=== PATIENT | female | born 1985 | race Caucasian/White ===

== ENCOUNTER → 2018-05-09 09:48 | Outpatient (CLI) | payer OTHER, SELFPAY ==
[2018-05-09 11:18] LABS: Anion Gap 7 (5-15); BUN 11 mg/dL (7-18); Calcium,Total 8.6 mg/dL (8.5-10.1); Chloride 106 mmol/L (98-107); Cholesterol 157 mg/dL (200); Creatinine, Serum 0.85 mg/dL (0.55-1.02); EST Glomerular Filtration Rate 81 mL/min (>60); Est Glom Filt Rate - Afr Amer 98 mL/min (>60); Glucose 78 mg/dL (74-106); High Density Lipoprotein 66 mg/dL; Sodium Level 142 mmol/L (136-145); Thyroid Stim Hormone (TSH) 1.41 uIU/mL (0.358-3.74); Triglycerides 34 mg/dL; Very Low Density Lipoprotein 7 mg/dL (5-40)
== END ==
PROVIDERS: Family Provider Family Medicine; PCP Family Medicine; Visit Provider Family Medicine
DX: Z00.00 Encounter for general adult medical examination without abnormal findings (principal)
CPT/HCPCS: 36415; 80048; 80061; 84443

== ENCOUNTER 2019-03-09 00:25 | Inpatient (IN) | payer OTHER, SELFPAY ==
[2019-03-09] MEDS: Lactated Ringers 1,000 ML 50 ML IV (00:50)
[2019-03-09 01:07] VITALS: BMI 27.8
[2019-03-09 01:13] LABS: Absolute Lymphocyte Count 1.95 X10^3/uL (0.83-4.51); Absolute Neutrophil Count 6.3 X10^3/uL (2.0-7.7); Basophil# 0.04 X10^3/uL; Basophil% 0.4 % (0-1); Eosinophil# 0.04 X10^3/uL; Eosinophils% 0.4 % (0-5); Hematocrit 39.3 % (37-47); Hemoglobin 13.8 g/dL (12.0-15.0); Lymphocyte # 1.95 X10^3/ul (4.0); Lymphocyte % 21.6 % (19-41); Mean Corp Hgb Conc 35.1 g/dL (32-36); Mean Corpuscular Hgb 30.9 pg (27.0-32.0); Mean Corpuscular Volume 88.1 fL (81-99); Monocyte# 0.59 X10^3/uL; Monocyte% 6.5 % (0-10); NRBC Flagged by Analyzer 0 % (0-5); Neutrophil # 6.34 X10^3/uL (2.7-7.7); Neutrophil % 70.4 % (47-70); Platelet Count 143 K/mm3 (150-450); RBC Distribution Width CV 13.5 % (11.6-14.6); RBC Distribution Width SD 43.4 fl (35.1-43.9); Red Blood Count 4.46 M/mm3 (4.2-5.4)
[2019-03-09] MEDS: Oxytocin 30 units/NS 500 ml 30 UNITS/500 ML IV.SOLN 334 UNITS IV (01:33)
--- NOTE | 2019-03-09 01:47 | HP.PCM_ITS ---
History Date of Admission: 03/09/19 Final GAURAV: 03/08/19 Final GAURAV Source: US <20 weeks Gestational age: 40 Weeks and 1 Days History of this : This is a 33 year-old, 2 para 1-0-0-1 at 40-1/7 weeks gestation with EDC of 03/08/2019 by last menstrual period confirmed by first trimester ultrasound presents complaining of spontaneous rupture membranes and contractions. She was found to be in spontaneous labor and was admitted. Her was complicated to date by advanced maternal age and history of anxiety. She has a history of one previous full-term spontaneous vaginal delivery without complication Allergies No Known Allergies Allergy (Verified 09/23/14 17:33) Home Medications: Home Medications Vits [Prenatabs FA ] 1 tablet PO DAILY 09/23/14 Smoking Status: Never smoker Alcohol: None History Past Pregnancies: Past Pregnancies Delivery Date Name GA/Weeks Outcome Route Weight Gender Labor Length Anesthesia Delivery Location Provider FOB Expected Delivery Method: Spontaneous Vaginal Review of Systems Constitutional: Denies: Anorexia, Chills, Fever Cardiovascular: Denies: Chest Pain Respiratory: Denies: Cough Skin: Denies: Rash Neurological: Denies: Change in Speech Hematologic/ Lymphatic: Denies: Hx of blood clot Physical Exam General: Alert, Cooperative, - - very uncomfortable w/ contractions Cardiovascular: Regular rate Lungs: Normal air movement Abdomen: Soft, Gravid, Appropriate for Gestational Age ENGINEERING GROUP LEADER: Normal external genitalia Estimated gestational size: Appropriate for gestational size Presentation: Cephalic Assessment/Plan This is a 33 year-old, high risk multigravida, he is maternal age with active labor G2, P1 at 40-1/7 weeks gestation. Estimated weight is less than 4500 g clinically and pelvis clinically adequate to expect vaginal delivery. Patient had precipitous labor and delivery did not have time for epidural when she arrived to the unit..
--- NOTE | 2019-03-09 01:53 | PCM.OPRPT ---
Vaginal Delivery Maternal Presentation: Active Labor Amniotic Membrane Rupture Type: Spontaneous at home Amniotic Fluid Description: Clear Final GAURAV: 03/08/19 Final GAURAV Source: US <20 weeks Gestational age: 40 Weeks and 1 Days Date of Procedure: 03/09/19 Pre-Operative Diagnosis: labor Post-Operative Diagnosis: same Surgery/ Procedure Performed: Spontaneous Vaginal Delivery Type of Anesthesia: Local with 1% lidocaine - 15 cc Description of Procedure: A vigorous male infant was delivered LUCINA over a second-degree perineal laceration. There was a loose nuchal cord and she delivered easily through it. The remainder the infant was delivered with maternal pushing and gentle traction only in less than 15 seconds. The Pitocin infusion was initiated for active management of the third stage. The cord was clamped and cut after 1 minute. The was attended to by the waiting nursing staff. The placenta was delivered spontaneously and intact. The cervix and vagina were intact. The second-degree perineal laceration was repaired with 3-0 Vicryl suture in a running standard fashion. Sponge and needle counts were correct. A vaginal sweep was completed by me. Presentation: LUCINA Placental Delivery Description: Spontaneous Placenta Disposition: [facility] Cord Vessel Description: 3 Vessels Nuchal Cord Compression: Without compression Cord Entanglement: Around neck x 1, loose Drain: - - none Estimated Blood Loss: 200 Infant A gender: Male (1 minute): 8 (5 minute): 9 Episiotomy Description: None Laceration: 2nd degree Medications given after delivery: IV Pitocin Complications: None
[2019-03-09] MEDS: Oxytocin 30 units/NS 500 ml 30 UNITS/500 ML IV.SOLN 167 UNITS IV (02:03)
[2019-03-09] MEDS: 0.9% Saline Lock 10 ML Syringe IV (03:08)
[2019-03-09 04:03] VITALS: BP 116/68; PULSE 75; RESP 18; TEMP 37
[2019-03-09 09:10] VITALS: BP 130/75; PULSE 69; RESP 18; TEMP 36.8
[2019-03-09 12:05] VITALS: BP 119/79; PULSE 76; RESP 16; TEMP 36.8
[2019-03-09 15:00] VITALS: BP 138/64; PULSE 81; RESP 20; TEMP 37.8
--- NOTE | 2019-03-09 15:12 | CASEMGMT ---
Social Work Referral Date: 03/09/19 Date of Assessment:03/09/19 Reason for Consult: Mother of baby (MOB) reporting to be undiagnosed with anxiety/OCD. Informant: Nursing, Chart Personal Status Mentation: MOB A&Ox3 Present during assessment: MOB and infant. Hx : 2 Hx Para: 1 Infant Gender: Male Name: Clementina Cadena (1min): 8 (5min): 9 Care: Adequate Alleged father: Corey Cadena Alleged father involved: Yes Length of Relationship with alleged father of baby: for 9 years Number of Children in the home: This will be second child for both MOB and FOB. This infant will be younger brother to Hayden Cadena. Hayden is 4 years old. 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 MOB plans to be on maternity leave until August 2019. Family Dynamics/Relationships: MOB reporting to feel safe at home and denies any history of abuse/neglect. Supports: MOB identifying FOB and family as supportive. Transportation: MOB denies any transportation issues. Substance Abuse Hx and Current Pattern of Use MOB denies any substance abuse current or history. Mental Health Hx and Current Status MOB reporting to believe that MOB has both anxiety and OCD. MOB stating that both are undiagnosed at this time. MOB stating to have spoken to PCP about both prior and to have started the process of getting set up with help but then deciding that MOB is doing well. MOB denies any history of suicidal thoughts/attempts. MOB denies any anti-anxiety medications. Items/Skills List for Infants Care Supplies: MOB reporting to have all needed supplies (crib, car seat, clothing etc.). Bonding With : MOB reporting to be bonding with and that was planned. Observed Maternal/Paternal Child interaction: Infant sleeping in bassinet during assessment. MOB did gaze at infant often during assessment. Emotional Assessment: MOB presenting with a pleasant affect during assessment. MOB responding appropriately to questions. Control: MOB stating to plan to use condoms, which is what we did in the past. Resources MOB denies any current community resources. MOB reporting no prior children services involvement. Intervention Social Work assessment. Resources on depression, safe sleeping, Help Me Grow, and [facility] resource list provided to MOB. Assessment Met with MOB and in room. MOB stating that OSMAN, other son, Hayden and family are getting lunch at [employer]. MOB resting in bed and open to this social welfare clerk meeting with MOB. MOB stating that main concern on returning to home with being sleep deprived. MOB stating that with first child, Hayden it was a long time until he slept through the night. MOB hoping that this will be able to be sleep trained sooner. MOB reporting positive support and that FOB will be able to be home with MOB until the beginning on the school year in mid-late Mar. MOB reporting to have support from family if MOB needs to take a nap. This social welfare clerk able to engage in a conversation about the importance of rest and maintaining own mental health in order to care for family an self with MOB. MOB open to discussion about mental health. MOB educated on depression signs and symptoms. MOB not interested in pursuing counseling services at this time. This social welfare clerk encouraging MOB to discuss anxiety/OCD concerns with MOB's PCP. MOB reporting to maybe bring up mental health with PCP. MOB stating to understand the importance of maintaining a healthy mental health status and to have family for support. MOB stating that family has always helped me work through things. MOB educated that counseling could also be an option for MOB to be able to work through things. MOB open to this social welfare clerk having a discussion about the benefits of counseling. MOB provided with counseling options if MOB would decided to pursue this option. Nursing staff updated on social work assessment. Plan: MOB and to discharge to home with OSMAN and Hayden. Jt MCCABE, KRIS
[2019-03-09 20:26] VITALS: BP 125/72; PULSE 86; RESP 16; TEMP 37.2; O2SAT 98
[2019-03-10 00:06] VITALS: BP 110/67; PULSE 67; RESP 16; TEMP 36.7; O2SAT 97
[2019-03-10 03:49] VITALS: BP 95/62; PULSE 62; RESP 16; TEMP 36.6
--- NOTE | 2019-03-10 06:32 | PCM.PN.OB ---
Subjective: Pain well controlled. Average lochia. Working on breast-feeding. - Physical Exam General: Alert, Cooperative, No apparent distress Vital Signs Temp Pulse Resp BP Pulse Ox 98 F 62 16 95/62 97 03/10/19 03:49 03/10/19 03:49 03/10/19 03:49 03/10/19 03:49 03/10/19 00:06 Oxygen Delivery Method Room Air Weight: 80.5 kg Body Mass Index (BMI) 27.8 Medical Necessity - Tobacco Use Smoking Status: Never smoker Assessment/Plan PPD#1 s/p doing well routine care infant and doing well
--- NOTE | 2019-03-10 06:39 | DCINST_ITS ---
Discharge Diet: No Restrictions Discharge Activity: Return to Normal Activity, May not drive while taking narcotic pain medications., May Shower May resume sexual activity in: 4-6 weeks Additional Activity Instructions:: Nothing in the vagina for 4-6 weeks. You may return to work/school in 6 weeks. Call your doctor if your incision/area has: Continuous Slow Oozing, Sudden Increased Bleeding, Increased Pain/ Swelling, Increased Redness, Foul Smelling Discharge Additional Instructions: If you experience any of the following, contact your healthcare provider. * Bleeding that soaks a pad every hour for 2 hours * Fever 100.4 or higher * Unrelieved incision or abdominal pain * Swelling, redness, discharge or bleeding from your incision or episiotomy site * Your incision begins to separate * Problems urinating (including inability to urinate or burning while urinating). * Visual changes * Severe headache * Flu-like symptoms * Pain or redness in one of both of your breasts * Pain, warmth, tenderness or swelling in your legs, especially the calf area * Frequent nausea and vomiting * Symptoms of depression or anxiety If you experience any of the following, call 911 or go to the nearest Emergency Room. * Chest pain * Problems breathing * Seizure activity * Partial or complete paralysis of a body part, slurred speech, weakness or drooping of the face, or a sudden inability to walk or hold your balance Allergies/Adverse Reactions: Allergies No Known Allergies Allergy (Verified 09/23/14 17:33) Medications to take at Discharge Vits [Prenatabs FA ] 1 tablet PO DAILY 09/23/14 Ibuprofen [Motrin] 600 mg PO Q6H PRN #60 tab 03/10/19 The following prescriptions were given: Ibuprofen [Motrin] 600 mg PO Q6H PRN #60 tab PRN Reason: Pain Transmission Status: Received by [facility] Please Follow Up With: Lety Coates MD - [phone] When: Call to make an appointment with your doctor in 1-2 and 6 weeks Primary Care Physician: Armani Heart MD [Primary Care Provider] - Test Results: Test results from this visit will be discussed in further detail at your follow- up appointment, if applicable.
--- NOTE | 2019-03-10 06:39 | PCM.DCVAG ---
Discharge Diet: No Restrictions Discharge Activity: Return to Normal Activity, May not drive while taking narcotic pain medications., May Shower May resume sexual activity in: 4-6 weeks Additional Activity Instructions:: Nothing in the vagina for 4-6 weeks. You may return to work/school in 6 weeks. Call your doctor if your incision/area has: Continuous Slow Oozing, Sudden Increased Bleeding, Increased Pain/ Swelling, Increased Redness, Foul Smelling Discharge Additional Instructions: If you experience any of the following, contact your healthcare provider. Bleeding that soaks a pad every hour for 2 hours Fever 100.4 or higher Unrelieved incision or abdominal pain Swelling, redness, discharge or bleeding from your incision or episiotomy site Your incision begins to separate Problems urinating (including inability to urinate or burning while urinating). Visual changes Severe headache Flu-like symptoms Pain or redness in one of both of your breasts Pain, warmth, tenderness or swelling in your legs, especially the calf area Frequent nausea and vomiting Symptoms of depression or anxiety If you experience any of the following, call 911 or go to the nearest Emergency Room. Chest pain Problems breathing Seizure activity Partial or complete paralysis of a body part, slurred speech, weakness or drooping of the face, or a sudden inability to walk or hold your balance Allergies/Adverse Reactions: Allergies No Known Allergies Allergy (Verified 09/23/14 17:33) Medications to take at Discharge Vits [Prenatabs FA ] 1 tablet PO DAILY 09/23/14 Ibuprofen [Motrin] 600 mg PO Q6H PRN #60 tab 03/10/19 The following prescriptions were given: Ibuprofen [Motrin] 600 mg PO Q6H PRN #60 tab PRN Reason: Pain Transmission Status: Received by [facility] Please Follow Up With: Lety Coates MD - [phone] When: Call to make an appointment with your doctor in 1-2 and 6 weeks Primary Care Physician: Armani Heart MD [Primary Care Provider] - Test Results: Test results from this visit will be discussed in further detail at your follow-up appointment, if applicable.
[2019-03-10 08:15] VITALS: BP 102/63; PULSE 71; RESP 16; TEMP 36.8
[2019-03-10] MEDS: Senna/Docusate Sodium 1 Tablet PO (13:55)
[2019-03-10 13:58] VITALS: BP 107/68; PULSE 85; RESP 16; TEMP 36.4
[2019-03-10 20:48] VITALS: BP 113/63; PULSE 80; RESP 18; TEMP 36.7
[2019-03-11 04:00] VITALS: BP 118/67; PULSE 86; RESP 16; TEMP 36.8
--- NOTE | 2019-03-11 07:15 | PCM.PN.OB ---
Subjective: Seen at bedside doing well. Breast-feeding well. good Pain control. Lochia mild. - Physical Exam General: Alert, Oriented x3 Abdomen: Soft, Non-Distended, - - fundus firm Extremities: No Calf Tenderness Vital Signs Temp Pulse Resp BP Pulse Ox 98.2 F 86 16 118/67 97 03/11/19 04:00 03/11/19 04:00 03/11/19 04:00 03/11/19 04:00 03/10/19 00:06 Oxygen Delivery Method Room Air Weight: 80.5 kg Body Mass Index (BMI) 27.8 Medical Necessity - Tobacco Use Smoking Status: Never smoker Assessment/Plan Pertinent day #2, doing well Routine care DC home
[2019-03-11 09:15] VITALS: BP 117/67; PULSE 75; RESP 16; TEMP 36.7
== END 2019-03-11 09:50 | disposition home or self-care (01) | DRG 807 ==
PROVIDERS: Admitting Provider Obstetrics & Gynecology; Family Provider Family Medicine; PCP Family Medicine; Visit Provider Obstetrics & Gynecology
DX: O62.3 Precipitate labor (principal); O69.81X0 Labor and delivery complicated by cord around neck, without compression, not applicable or unspecified; O70.1 Second degree perineal laceration during delivery; Z3A.40 40 weeks gestation of pregnancy; Z37.0 Single live birth
CPT/HCPCS: 59025; 59050; 85025; 86850; 86900; 99218; J7120; A4216; G0378

== ENCOUNTER → 2020-05-23 15:25 | Outpatient (CLI) | payer OTHER, SELFPAY ==
--- NOTE | 2020-05-23 15:34 | RAD_ITS ---
STUDY: X-RAY - SACRUM/COCCYX REASON FOR EXAM: Female, 34 years old. Fall x2 years ago, pain since then TECHNIQUE: 4 view(s) of the sacrum and coccyx were obtained. COMPARISON: None. FINDINGS: Normal bilateral sacroiliac joints. Normal visualized sacral ala and fused sacral bodies. Normal sacrococcygeal junction with a normal angulation. Normal coccygeal segments. The presacral soft tissue structures are unremarkable. RAD/Sacrum-Coccyx min 2 Views IMPRESSION: Normal x-rays of the sacrum and coccyx. Electronically Signed: Lexa Talley MD at 23:41 EDT , Service support ,
[2020-05-23 17:48] LABS: Absolute Lymphocyte Count 1.04 X10^3/uL (0.83-4.51); Absolute Neutrophil Count 3.7 X10^3/uL (2.0-7.7); Basophil# 0.02 X10^3/uL; Basophil% 0.4 % (0-1); Eosinophil# 0.06 X10^3/uL; Eosinophils% 1.2 % (0-5); Hematocrit 41.8 % (37-47); Hemoglobin 13.6 g/dL (12.0-15.0); Lymphocyte # 1.04 X10^3/ul (4.0); Lymphocyte % 20.1 % (19-41); Mean Corp Hgb Conc 32.5 g/dL (32-36); Mean Corpuscular Hgb 28.6 pg (27.0-32.0); Mean Corpuscular Volume 87.8 fL (81-99); Mean Platelet Vol. 12.7 fl (6.2-12.0); Monocyte# 0.38 X10^3/uL; Monocyte% 7.3 % (0-10); NRBC Flagged by Analyzer 0 % (0-5); Neutrophil # 3.67 X10^3/uL (2.7-7.7); Neutrophil % 70.8 % (47-70); Platelet Count 220 K/mm3 (150-450); RBC Distribution Width CV 12.9 % (11.6-14.6); RBC Distribution Width SD 41.8 fl (35.1-43.9); Red Blood Count 4.76 M/mm3 (4.2-5.4); White Blood Count 5.2 K/mm3 (4.4-11.0)
[2020-05-23 17:56] LABS: ALB/GLOB Ratio 1.1 RATIO (0.9-2.4); AST(SGOT) 12 U/L (15-37); Alanine Aminotransfer ALT/SGPT 16 U/L (13-56); Alkaline Phosphatase 72 U/L (45-117); Anion Gap 8 (5-15); BUN 13 mg/dL (7-18); BUN/Creat Ratio 17.3 RATIO (10-20); Calcium,Total 8.9 mg/dL (8.5-10.1); Chloride 106 mmol/L (98-107); Cholesterol 143 mg/dL (200); Creatinine, Serum 0.75 mg/dL (0.55-1.02); EST Glomerular Filtration Rate 92 mL/min (>60); Est Glom Filt Rate - Afr Amer 111 mL/min (>60); Globulin 3.5 g/dL (2.2-4.2); Glucose 72 mg/dL (74-106); High Density Lipoprotein 72 mg/dL; Potassium 3.7 mmol/L (3.5-5.1); Protein, Total 7.5 g/dL (6.4-8.2); Sodium Level 139 mmol/L (136-145); Triglycerides 42 mg/dL; Very Low Density Lipoprotein 8 mg/dL (5-40)
== END ==
PROVIDERS: PCP Family Medicine; Referring Provider Family Medicine; Visit Provider Family Medicine
DX: M53.3 Sacrococcygeal disorders, not elsewhere classified (principal); R10.9 Unspecified abdominal pain; Z13.220 Encounter for screening for lipoid disorders
CPT/HCPCS: 36415; 72220; 80053; 80061; 85025

== ENCOUNTER → 2021-01-18 15:46 | Outpatient (CLI) | payer OTHER, SELFPAY ==
[2021-01-18 18:20] LABS: Vitamin B12 533 pg/mL (211-911)
== END ==
PROVIDERS: PCP Family Medicine; Referring Provider Family Medicine; Visit Provider Family Medicine
DX: R20.2 Paresthesia of skin (principal)
CPT/HCPCS: 36415; 82607

== ENCOUNTER → 2021-02-01 09:35 | Outpatient (CLI) | payer OTHER, SELFPAY ==
--- NOTE | 2021-02-01 09:40 | US_ITS ---
STUDY: ABDOMINAL ULTRASOUND - RIGHT UPPER QUADRANT REASON FOR VISIT: Female, 35 years old right upper quadrant pain. TECHNIQUE: Ultrasound evaluation of the right upper quadrant was performed with real-time and static zarate-scale imaging. TECHNICAL QUALITY: Adequate. COMPARISON: None. FINDINGS: Liver: The liver measures 13.6 cm. There is normal echogenicity of the liver. The bile ducts are within normal limits. There is hepatic color flow. The direction of portal flow is hepatopetal. There is no demonstrated mass lesion. Gallbladder: Normal distended gallbladder. The gallbladder wall measures 1.6 mm. There is a negative sonographic Khan''s sign. There is no pericholecystic fluid. There are no gallstones. Common Bile Duct (C.B.D.): The common bile duct measures 1.9 mm. Pancreas: Normal size of the head, body and tail of the pancreas. There is normal echogenicity of the pancreas. There is no demonstrated pancreatic mass or cyst. Right Kidney: Normal size of the right kidney. The right kidney measures 11.3 cm x 6.1 cm x 3.0 cm. Normal renal cortex. The right cortex measures 1.0 cm. There is no demonstrated renal mass or cyst. There is no right hydronephrosis. US/Abdomen Limited IMPRESSION: Normal right upper quadrant ultrasound examination. Electronically Signed: Kenney Zimmer MD at 10:52 EDT , Service support ,
== END ==
PROVIDERS: PCP Family Medicine; Referring Provider Family Medicine; Visit Provider Family Medicine
DX: R10.11 Right upper quadrant pain (principal)
CPT/HCPCS: 76705

== ENCOUNTER → 2022-04-01 | Outpatient (CLI) | payer OTHER, SELFPAY ==
--- NOTE | 2022-04-01 09:00 | RAD_ITS ---
INDICATION: GERD EXAMINATION/TECHNIQUE: Esophagram and upper GI study with double contrast. Thick and thin oral contrast, and gas bubbles were administered orally via mouth to the patient. Total Fluoroscopic Time: 11 seconds AND number of Fluoroscopic Images: 14 COMPARISON: None. FINDINGS: Esophagram: No masses or strictures identified. Normal motility. Mucosal pattern is unremarkable. No reflux or hiatal hernia. Upper GI study: No masses or strictures identified. Normal motility. Unremarkable visualized small bowel. Mucosal pattern is unremarkable. RAD/Upper GI Dual Contrast IMPRESSION: Negative. Electronically Signed: Kaiser Newton, at 13:10 EDT ,
== END | disposition home or self-care (01) ==
PROVIDERS: PCP Family Medicine; Visit Provider Family Medicine
DX: K21.9 Gastro-esophageal reflux disease without esophagitis (principal); R20.8 Other disturbances of skin sensation
CPT/HCPCS: 74246

== ENCOUNTER → 2022-07-24 | Outpatient (CLI) | payer OTHER, SELFPAY ==
[2022-07-24 16:17] LABS: Absolute Lymphocyte Count 0.94 X10^3/uL (0.83-4.51); Absolute Neutrophil Count 3.8 X10^3/uL (2.0-7.7); Basophil# 0.02 X10^3/uL; Basophil% 0.4 % (0-1); Eosinophils% 1.9 % (0-5); Hematocrit 41.7 % (37-47); Hemoglobin 13.7 g/dL (12.0-15.0); Lymphocyte # 0.94 X10^3/ul (0.83-4.51); Lymphocyte % 17.9 % (19-41); Mean Corp Hgb Conc 32.9 g/dL (32-36); Mean Corpuscular Hgb 28.9 pg (27.0-32.0); Mean Platelet Vol. 12.4 fl (6.2-12.0); Monocyte# 0.38 X10^3/uL; Monocyte% 7.2 % (0-10); NRBC Flagged by Analyzer 0 % (0-5); Neutrophil % 72.2 % (47-70); Platelet Count 198 K/mm3 (150-450); RBC Distribution Width CV 13.2 % (11.6-14.6); RBC Distribution Width SD 42.3 fl (35.1-43.9); Red Blood Count 4.74 M/mm3 (4.2-5.4); White Blood Count 5.3 K/mm3 (4.4-11.0)
[2022-07-24 16:24] LABS: Erythrocyte Sedimentation Rate 11 mm/hr (0-30)
[2022-07-24 17:18] LABS: Vitamin B12 790 pg/mL (211-911)
[2022-07-24 17:53] LABS: ALB/GLOB Ratio 1.1 RATIO (0.9-2.4); AST(SGOT) 10 U/L (15-37); Alanine Aminotransfer ALT/SGPT 17 U/L (13-56); Albumin, Serum 3.8 g/dL (3.2-5.0); Alkaline Phosphatase 66 U/L (45-117); Anion Gap 7 (5-15); BUN 12 mg/dL (7-18); BUN/Creat Ratio 14.8 RATIO (10-20); CRP 3.52 mg/L (0.0-3.0); Calcium,Total 8.7 mg/dL (8.5-10.1); Chloride 106 mmol/L (98-107); Creatinine, Serum 0.81 mg/dL (0.55-1.02); EST Glomerular Filtration Rate 83 mL/min (>60); Est Glom Filt Rate - Afr Amer 101 mL/min (>60); Ferritin 22 ng/mL (8-252); Globulin 3.4 g/dL (2.2-4.2); Glucose 82 mg/dL (74-106); Iron 31 ug/dL (50-170); Iron Binding Capacity,Total 339 ug/dL (250-450); PERCENT IRON SATURATION 9.1 % (15.0-55.0); Potassium 3.5 mmol/L (3.5-5.1); Protein, Total 7.2 g/dL (6.4-8.2); Sodium Level 139 mmol/L (136-145); Thyroid Stim Hormone (TSH) 1.39 uIU/mL (0.358-3.74)
[2022-07-26 13:07] LABS: Anti-Centromere B Ab <0.2 AI (0.0-0.9); Anti-Chromatin <0.2 AI (0.0-0.9); Anti-Jo <0.2 AI (0.0-0.9); Anti-Scleroderma-70 AB <0.2 AI (0.0-0.9); RNP Ab <0.2 AI (0.0-0.9); SJOGREN'S Anti-SS-A test < 0.2 AI (0.0-0.9); SJOGREN'S Anti-SS-B test < 0.2 AI (0.0-0.9); Smith Ab <0.2 AI (0.0-0.9)
[2022-07-26 15:08] LABS: Cytoplasmic Ab (C-ANCA) <1:20 titer (Neg:<1:20)
[2022-07-26 16:38] LABS: Perinuclear Ab (P-ANCA) <1:20 titer (Neg:<1:20)
[2022-07-26 16:45] LABS: Anti-dsDNA Ab 1 IU/mL (0-9)
== END | disposition home or self-care (01) ==
LOC: LAB 15:07
PROVIDERS: PCP Family Medicine; Visit Provider Nurse Practitioner Adult Health
DX: K14.6 Glossodynia (principal); D50.9 Iron deficiency anemia, unspecified
CPT/HCPCS: 36415; 80053; 82607; 82728; 82746; 83540; 83550; 84443; 85025; 85652; 86140; 86225; 86235; 86256

== ENCOUNTER 2023-06-13 11:05 | Day surgery (SDC) | payer OTHER, SELFPAY ==
--- NOTE | 2023-05-28 16:04 | PCM.HP.BLA ---
History and Physical Date of Admission: 06/13/23 HPI: The patient is a 37 year old female presenting for pre-operative visit. She is scheduled for Hysteroscopy D&C and polyp resection, for endometrial polyp. Procedure discussed along with risks, benefits and complications. Other alternatives discussed for management. Consent form signed? No. ? ? PAST MEDICAL HISTORY PAST MEDICAL HISTORY Diagnosis Date ? acne ? ? ANALILIA (generalized anxiety disorder) 05/08/2021 ? GERD without esophagitis 05/08/2021 ? Iron deficiency 01/03/2022 ? Iron deficiency anemia 09/12/2022 ? Mastitis 10/26/2014 ? Obsessive-compulsive disorder 05/08/2021 ? Pilar cyst ? ? right side of head ? Sebaceous cyst 02/23/2022 ? Posterior neck and several on scalp. ? Well adult exam 06/12/2021 ? ? PAST SURGICAL HISTORY PAST SURGICAL HISTORY Procedure Laterality Date ? EGD ? 12/2020 ? PAST SURGICAL HISTORY OF ? ? ? WISDOM TEETH ? ? ? CURRENT MEDICATIONS Current Outpatient Medications Medication Sig Dispense Refill ? ferrous sulfate 325 mg (65 mg iron) tablet Take 1 tablet by mouth once daily. 90 tablet 1 ? No current facility-administered medications for this visit. ? ? ALLERGIES: Patient has no known allergies. ? PERSONAL HISTORY: SOCIAL HISTORY Social History ? Tobacco Use ? Smoking status: Never ? Smokeless tobacco: Never Vaping Use ? Vaping Use: Never used Substance Use Topics ? Alcohol use: No ? ? Comment: none ? Drug use: No ? FAMILY HISTORY: FAMILY HISTORY FAMILY HISTORY Problem Relation Age of Onset ? None Mother ? ? None Father ? ? No Known Problems Brother ? ? Breast Cancer Maternal Grandmother ? ? Diabetes Maternal Grandfather ? ? Heart Paternal Grandfather ? ? Breast Cancer Paternal Aunt ? ? None Sister ? ? other (anencephaly) Brother ? ? other (spina bifida) Other ? ? Allergies Son ? ? Eczema Son ? ? ? REVIEW OF SYMPTOMS: GENERAL: denies fevers or chills ENDOCRINOLOGY: has not been on steroids Cardiology : denies palpitations or chest pain Respiratory: denies SOB or cough Hematology: denies history of prolonged bleeding or easy bruising or VTE Allergy: Denies history of personal or family history of allergy to anesthesia ? PHYSICAL EXAMINATION: ? VITALS: Last menstrual period 05/02/2023. ? GENERAL: The patient is well nourished, well hydrated in no acute distress. , The patient is oriented to time, place, and person. Pelvic USv 05/20/23 DATE OF EXAM: May 10:36AM ? [facility] ? 1060 ?- ?US FEMALE PELVIS TRANSVAG ?/ PROCEDURE REASON: multiple diagnoses ?? ? * * * * Physician Interpretation * * * * ?EXAMINATION: ? TRANSVAGINAL AND LIMITED TRANSABDOMINAL FEMALE PELVIC ULTRASOUND CLINICAL HISTORY: ?Irregular bleeding TECHNIQUE: Sonography of the pelvis was performed by transvaginal and transabdominal (limited) techniques. ?Images were obtained and stored in a permanent archive. MQ: ?[id number] COMPARISON: None RESULT: LMP 05/02/2023 Uterus: -Size: 7.6 x 5.2 x 5.6 cm -Orientation: Retroverted -Endometrial echo complex: Evaluation of the endometrium was adequate. Echogenic solid focus within the endometrium of 1.3 x 0.6 x 1.3 cm. ? Blood flow within it. ?Likely a polyp. The endometrial echo complex measured 1.4 cm. -Cervix: Unremarkable. -Adenomyosis assessment: There are no sonographic findings of adenomyosis. -Fibroids: There are no fibroids. Right Ovary: 3.5 x 2.1 x 2.7 cm. Normal in appearance Left Ovary: 3.2 x 2.1 x 1.8 cm Normal appearance IMPRESSION: endometrial polyp ? PLAN: The risks/benefits/alternatives and personal involved for the planned hysteroscopy D&C with polyp resection were reviewed with the patient. Her questions were answered to her satisfaction and she desires to proceed. Consent was signed. I reviewed with her postop instructions and expectations. ? ? I have reviewed and updated past medical and surgical history, medications and allergies Assessment & Plan Assessment/Plan (1) Endometrial polyp:
--- NOTE | 2023-06-13 | EMB_PTH ---
PATIENT: MAUREEN DAVIS LOC: [facility] [place][id number] AGE/SX: 37/F ROOM: RE06/13/[address]: Dr. Lety Coates MD : [id number] BED: DIS: 06/13/2023 SPEC #: [id number] RECD: 06/13/23 14:09 STATUS: CHASIDY ROB #: [id number] YEYO: 06/13/23 00:[address]: Lety Coates DEPT: SURGICAL PATHOLOGY RECD BY: Keyur Quintanilla ENTERED: 06/13/23 14:09 SP TYPE: ENDOM BX/C MARY DR: Dr. Jorge Milligan MD Tissues: Endometrium, NOS Procedures: Surgery Specimen Level IV HEADER OPERATION: Hysteroscopy, D & C Symphion PRE-OP DIAGNOSIS: Endometrial polyp TISSUE SUBMITTED: Endometrial curettings and polyp MICROSCOPIC DIAGNOSIS Endometrial curettings and polyp: Secretory endometrium. SJ:mg 06/16/2023 MICROSCOPIC DESCRIPTION Slides are reviewed. GROSS DESCRIPTION Received in fixative is one container labeled with the patient's name and designated endometrial curettings and polyp. The specimen consists of multiple irregular fragments of pink soft tissue that in aggregate measure 5.0 x 3.0 x 0.2 cm. The entire specimen is submitted in two cassettes. / SJ:rg 06/13/2023 TC:4 CPT: 17575
[2023-06-13 11:34] LABS: Internal QC Validated? YES +Cl - CLEAR BKGD; Pregnancy, Urine Negative Negative
[2023-06-13 11:37] LABS: Hematocrit 41.2 % (37-47); Hemoglobin 13.4 g/dL (12.0-15.0); Mean Corp Hgb Conc 32.5 g/dL (32-36); Mean Corpuscular Hgb 28.8 pg (27.0-32.0); Mean Corpuscular Volume 88.4 fL (81-99); Mean Platelet Vol. 11.8 fl (6.2-12.0); Platelet Count 200 K/mm3 (150-450); RBC Distribution Width CV 13.5 % (11.6-14.6); RBC Distribution Width SD 43.2 fl (35.1-43.9); Red Blood Count 4.66 M/mm3 (4.2-5.4); White Blood Count 5.3 K/mm3 (4.4-11.0)
[2023-06-13 11:39] VITALS: BP 114/63; PULSE 73; RESP 18; TEMP 36.9; O2SAT 100; BMI 28.4
[2023-06-13] MEDS: Acetaminophen 500 MG Tablet 1000 MG PO (11:44)
[2023-06-13] MEDS: Lactated Ringers 1,000 ML 15 ML IV (11:44)
[2023-06-13] MEDS: Ketorolac 30 MG/ML Syringe IV (11:44)
[2023-06-13] MEDS: Lidocaine 1%/Epi 1:200 (30ml) 30 ML AMPUL (12:27)
--- NOTE | 2023-06-13 12:38 | PCM.DC ---
Discharge Instructions Diet Discharge Diet: No restrictions Activity May resume sexual activity in: 1 week Lifting Restrictions: none Dressing / Incision Call your doctor if your incision/area has: Sudden Increased Bleeding and Foul Smelling Discharge Call your doctor if you observe: Fever of 101 or Higher and Using more than 1 pad per hour (for 2 hrs in a row) Follow Up Care Please Follow Up With: Lety Coates MD When: As needed. We will call you with your pathology results next week. Call [phone] or send a [employer] message with nonurgent questions. Test Results: Test results from this visit will be discussed in further detail at your follow-up appointment, if applicable. Discharge Plan Admission Primary Reason for Your Visit: D&C Attending Provider: Lety Coates Primary Care Provider: Jorge Milligan Discharge Orders/Prescriptions Prescriptions: No Action ferrous sulfate 325 mg (65 mg iron) tablet 325 mg PO DAILY Referrals / Follow Up: Jorge Milligan MD [Primary Care Provider] - Disposition Disposition (needs filled in before D/C Order can be placed): Home, Self Care
--- NOTE | 2023-06-13 12:39 | OP.PCM_ITS ---
Problems Associated Problem List Diagnoses (1) Endometrial polyp: Report of Operation Date of Procedure: 06/13/23 Pre-Operative Diagnosis: Endometrial polyp Post-Operative Diagnosis: same Surgery/Procedure Performed:: Hysteroscopy D&C with polyp resection Surgeon: Lety Coates front end assistant: None Type of Anesthesia: MAC/Supplemental/Local Anesthesiologist: Eliane Becker Special Medications: none Specimen's removed: endometrial curettings and polyp Drains: none Estimated Blood Loss (mL): 10 Fluids Replaced: 600 Description of Procedure: The patient was taken to the OR where she was prepped and draped in dorsal lithotomy position. The weighted speculum was placed in the vagina and the anterior lip of the cervix was grasped with a single-tooth tenaculum. A parace rvical block was administered with 1% lidocaine with 1-100,000 epinephrine solution. The cervix was dilated serially with Hegar dilators. The Symphion hysteroscope was placed into the uterine cavity and the above findings were noted. Bilateral tubal ostia were identified. The hysteroscope was removed. The Symphion device was readied and inserted. A visual D&C was done of the endometrial cavity after the polyp from the posterior wall was removed in its entirety. The instruments were removed from the vagina. The specimen was handed off and sent to pathology. All sponge and needle counts were correct. Vaginal sweep was performed by me. The patient was awakened and taken to the recovery room in stable condition. Calculated hysteroscopic fluid deficit was 550 cc of normal saline Grafts/Implants Used: none Procedure Start Time: 12:42 Procedure Stop Time: 12:51 Complications none Admit VTE Documentation VTE Present on Admission: No VTE Mechan Device Pro[place]: [facility] [place] Prophylaxis ordered?: No Reason prophylaxis not ordered:: Procedure Not Indicated
[2023-06-13 12:59] VITALS: BP 106/83; BP 114/63; PULSE 83; RESP 18; TEMP 36.9; O2SAT 98
[2023-06-13 13:05] VITALS: BP 103/70; BP 114/63; PULSE 76; RESP 16; O2SAT 99
[2023-06-13 13:10] VITALS: BP 114/63; BP 117/71; PULSE 72; RESP 16; O2SAT 97
[2023-06-13 13:16] VITALS: BP 107/72; BP 114/63; PULSE 70; RESP 16; TEMP 36.6; O2SAT 97
[2023-06-13 13:40] VITALS: BP 114/63
== END 2023-06-13 13:46 | disposition home or self-care (01) ==
LOC: SDC 11:07 → AC 11:08
PROVIDERS: PCP Family Medicine; Referring Provider Obstetrics & Gynecology; Visit Provider Obstetrics & Gynecology
PROC: 0UB98ZZ Excision of Uterus, Via Natural or Artificial Opening Endoscopic (ICD-10-PCS; CPT 58558; principal; 2023-06-13 12:10)
DX: N84.0 Polyp of corpus uteri (principal); D50.9 Iron deficiency anemia, unspecified; K21.9 Gastro-esophageal reflux disease without esophagitis; Z79.899 Other long term (current) drug therapy
CPT/HCPCS: 58558; 00952; 81025; 85027; 88305; J7120; J2405

== ENCOUNTER → 2024-05-24 | Outpatient (CLI) | payer OTHER, SELFPAY ==
[2024-05-24 15:58] LABS: Absolute Lymphocyte Count 0.99 X10^3/uL (0.83-4.51); Absolute Neutrophil Count 5.6 X10^3/uL (2.0-7.7); Basophil# 0.03 X10^3/uL; Basophil% 0.4 % (0-1); Eosinophils% 1.4 % (0-5); Hematocrit 42.5 % (37-47); Hemoglobin 13.7 g/dL (12.0-15.0); Lymphocyte # 0.99 X10^3/ul (0.83-4.51); Lymphocyte % 13.8 % (19-41); Mean Corp Hgb Conc 32.2 g/dL (32-36); Mean Corpuscular Hgb 27.7 pg (27.0-32.0); Mean Corpuscular Volume 85.9 fL (81-99); Mean Platelet Vol. 12.5 fl (6.2-12.0); Monocyte# 0.49 X10^3/uL; Monocyte% 6.8 % (0-10); NRBC Flagged by Analyzer 0 % (0-5); Neutrophil # 5.55 X10^3/uL (2.7-7.7); Neutrophil % 77.3 % (47-70); Platelet Count 111 K/mm3 (150-450); RBC Distribution Width CV 13.6 % (11.6-14.6); RBC Distribution Width SD 42.2 fl (35.1-43.9); Red Blood Count 4.95 M/mm3 (4.2-5.4); White Blood Count 7.2 K/mm3 (4.4-11.0)
[2024-05-24 16:10] LABS: Erythrocyte Sedimentation Rate 8 mm/hr (0-30)
[2024-05-24 16:37] LABS: ALB/GLOB Ratio 1.1 RATIO (0.9-2.4); AST(SGOT) 13 U/L (15-37); Alanine Aminotransfer ALT/SGPT 13 U/L (13-56); Albumin, Serum 3.9 g/dL (3.2-5.0); Alkaline Phosphatase 77 U/L (45-117); Anion Gap 3 (5-15); BUN 10 mg/dL (7-18); BUN/Creat Ratio 12.1 RATIO (10-20); CRP 4.85 mg/L (0.0-3.0); Calcium,Total 9.4 mg/dL (8.5-10.1); Chloride 108 mmol/L (98-107); Creatinine, Serum 0.83 mg/dL (0.55-1.02); EST Glomerular Filtration Rate 81 mL/min (>60); Est Glom Filt Rate - Afr Amer 98 mL/min (>60); Globulin 3.7 g/dL (2.2-4.2); Glucose 94 mg/dL (74-106); Potassium 3.7 mmol/L (3.5-5.1); Protein, Total 7.6 g/dL (6.4-8.2); Sodium Level 139 mmol/L (136-145)
[2024-05-28 13:08] LABS: ACCA 30 units (0-90); ALCA 24 units (0-60); AMCA 168 units (0-100); Albumin 3.9 g/dL (2.9-4.4); Alpha-1-Globulins 0.2 g/dL (0.0-0.4); Alpha-2-Globulins 0.7 g/dL (0.4-1.0); Cytoplasmic Ab (C-ANCA) <1:20 titer (Neg:<1:20); Endomysial Antibody IgA Negative (Negative); Gamma Globulin 1.1 g/dL (0.4-1.8); Immunoglobulin A 203 mg/dL (87-352); Immunoglobulin E 51 IU/mL (6-495); Immunoglobulin G 1007 mg/dL (586-1602); Immunoglobulin M 230 mg/dL (26-217); PROEL- TOTAL PROTEIN 6.8 g/dL (6.0-8.5); Perinuclear Ab (P-ANCA) <1:20 titer (Neg:<1:20); gASCA 57 units (0-50); t-Transglutaminase IgA <2 U/mL (0-3)
[2024-05-29 01:08] LABS: Anti-Centromere B Ab <0.2 AI (0.0-0.9); Anti-Chromatin <0.2 AI (0.0-0.9); Anti-Jo <0.2 AI (0.0-0.9); Anti-Scleroderma-70 AB <0.2 AI (0.0-0.9); Anti-dsDNA Ab 1 IU/mL (0-9); Beef <0.10 kU/L (Class 0); Chocolate <0.10 kU/L (Class 0); Codfish <0.10 kU/L (Class 0); Corn <0.10 kU/L (Class 0); Egg, Whole <0.10 kU/L (Class 0); Milk (Cow) <0.10 kU/L (Class 0); Mussels <0.10 kU/L (Class 0); Peanut <0.10 kU/L (Class 0); Pork <0.10 kU/L (Class 0); RNP Ab <0.2 AI (0.0-0.9); SJOGREN'S Anti-SS-A test < 0.2 AI (0.0-0.9); SJOGREN'S Anti-SS-B test < 0.2 AI (0.0-0.9); Salmon <0.10 kU/L (Class 0); Shrimp <0.10 kU/L (Class 0); Smith Ab 0.2 AI (0.0-0.9); Soybean <0.10 kU/L (Class 0); Tuna <0.10 kU/L (Class 0); Wheat <0.10 kU/L (Class 0)
== END | disposition home or self-care (01) ==
LOC: LAB 14:52
PROVIDERS: PCP Family Medicine; Referring Provider Student in an Organized Health Care Education/Training Program; Visit Provider Student in an Organized Health Care Education/Training Program
DX: R19.4 Change in bowel habit (principal); Z83.79 Family history of other diseases of the digestive system
CPT/HCPCS: 36415; 80053; 82784; 82785; 83516; 84165; 85025; 85652; 86003; 86005; 86036; 86037; 86140; 86225; 86235; 86255; 86334; 86671

== ENCOUNTER → 2024-06-04 | Outpatient (CLI) | payer OTHER, SELFPAY ==
--- OUTSIDE RECORDS SUMMARY | 2024-06-04 10:32 | XMS RPT_ITS | CCD ---
Author Organization [facility] Care Team Providers Care Drop Board Worker Name Role Phone Jorge Perez MD Primary Care Provider JORGE PEREZ Primary Care Unavailable JORGE PEREZ Referring Unavailable JORGE PEREZ Primary Care Unavailable YARI ELKINS Attending Unavail able YARI ELKINS Referring Unavail able JORGE PEREZ Primary Care Unavailable JORGE PEREZ Attending Unavailable JORGE PEREZ Primary Care Unavailable JORGE PEREZ Primary Care Unavailable MARY HAIRSTON Attending Unavailable JORGE PEREZ Referring Unavailable ILA PEREZREY Sreedhar Primary Care Unavailable MARY HAIRSTON Referring Unavailable MARY HAIRSTON Referring Unavailable ANA, JORGE Sreedhar Primary Care Unavailable SUSANA BENÍTEZ Referring Unavailable ILA PEREZREY Sreedhar Primary Care Unavailable ILA PEREZREY A Primary Care Unavailable ANA, JORGE A Primary Care Unavailable JORGE PEREZ Referring Unavailable MARY HAIRSTON Referring Unavailable ANA, JORGE A Primary Care Unavailable ILA PEREZREY A Primary Care Unavailable MARY HAIRSTON Attending Unavailable ANA, JORGE A Primary Care Unavailable YARI ELKINS Referring Unavail able ILA PEREZREY A Primary Care Unavailable JORGE PEREZ Referring Unavailable SUSANA BENÍTEZ Attending Unavailable ILA PEREZREY A Primary Care Unavailable ILA PEREZREY A Primary Care Unavailable SUSANA BENÍTEZ Referring Unavailable Jorge Peerz MD Primary Care Provider Medications Current Medications Medication Drug Class(es) Dates Sig (Normalized) Sig (Original) amoxicillin 500 mg oral capsule (2 sources) Penicillin-class Antibacterial Start: 10-12-2023 End: 10-22-2023 take 1 capsule by mouth twice daily amoxicillin (AMOXIL) 500 mg capsule Take 1 capsule by mouth two times a day for 10 days. 20 capsule 0 10/12/2023 10/22/2023 Active Start: 04-12-2023 End: 04-22-2023 take 1 capsule by mouth twice daily amoxicillin (AMOXIL) 500 mg capsule Take 1 capsule by mouth twice daily for 10 days. 20 capsule 0 04/12/2023 04/22/2023 Active Comment on above: Take 1 capsule by mo ut twice daily for 10 days. Take 1 capsule by mo ut two times a day for 10 days. nystatin [id number] unt/ml oral suspension (2 sources) Polyene Antifungal Start: 12-28-2021 End: 01-11-2022 nystatin (MYCOSTATIN) 100,000 unit/mL suspension Take 5 mL by mouth four times daily for 14 days. 1tsp swish in mouth for several minutes, then swallow (or expectorate) 4 times daily until gone. 473 mL 0 12/28/2021 01/11/2022 Active Comment on above: Take 5 mL by mouth f our times daily for 14 days. 1tsp swish in mouth for several minutes, then swallow (or expectorate) 4 times daily until gone. Completed/Discontinued Medications Medication Drug Class(es) Dates Sig (Normalized) Sig (Original) DOCOSAHEXANOIC ACID (DHA ORAL) (4 sources) End: 02-25-2022 DOCOSAHEXANOIC ACID (DHA ORAL) Take by mouth. 0 02/25/2022 Discontinued (Course of therapy completed) DOCOSAHEXANOIC A BRANDON (DHA ORAL) Take by mouth. 0 Active Comment on above: Take by mouth. enteric contrast (will be provided with radiology test) (1 source) Start: 3 End: 3 enteric contrast (will be provided with radiology test) Indications: Periumbilical pain , Periumbilical abdominal pain , Prominent abdominal aortic pulse For CT ABD/PEL W IVCON Routine order Administer, As Directed One Time Only, via Oral, Rectal, both Oral and Rectal, Enteric Tube, Stoma or Indwelling Catheter, Enteric Contrast as designated per enteric contrast guidelines 1 Each 0 08/06/2023 08/07/2023 Comment on above: For CT ABD/PEL W IVC ON Routine order Administer, As Directed One Time Only, via Oral, Rectal, both Oral and Rectal, Enteric Tube, Stoma or Indwelling Catheter, Enteric Contrast as designated per enteric contrast guidelines famotidine 40 mg oral tablet (5 sources) Histamine-2 Receptor Antagonist Start: 1 End: 2 take 1 tablet by mouth once daily famotidine (PEPCID) 40 mg tablet Take 1 tablet by mouth once daily. 30 tablet 11 06/12/2021 02/26/2022 Discontinued (Clinical Decision) Comment on above: Take 1 tablet by new th once daily. ferrous sulfate 325 mg oral tablet (20 sources) Start: 2 End: 4 take 1 tablet by mouth once daily ferrous sulfate 325 mg (65 mg iron) tablet Take 1 tablet by mouth once daily. 90 tablet 1 08/06/2022 04/26/2024 Discontinued Start: 01-03-2022 End: 04-03-2022 take 1 tablet by mouth once daily at breakfast ferrous sulfate 325 mg (65 mg iron) tablet Take 1 tablet by mouth daily with breakfast. 90 tablet 0 01/03/2022 04/03/2022 Active Comment on above: Take 1 tablet by new th daily with breakfast. Take by mouth. Take 1 tablet by new th once daily. fluticasone propionate 0.05 mg/actuat metered dose nasal spray (14 sources) Corticosteroid Start: 2 End: 3 take 2 spray(s) by mouth twice daily fluticasone (FLONASE) 50 mcg/actuation nasal spray Use 2 Sprays in each nostril twice daily. Rinse mouth after use. 0 02/25/2022 09/12/2022 Discontinued Start: 02-23-2022 End: 02-25-2022 take 2 spray(s) by mouth once daily fluticasone (FLONASE) 50 mcg/actuation nasal spray Use 2 Sprays in each nostril once daily. Rinse mouth after use. 1 Each 1 02/23/2022 02/25/2022 Discontinued (Adjust Sig - Block E-Cancel) Comment on above: Use 2 Sprays in each nostril once daily. Rinse mouth after use. Use 2 Sprays in each nostril twice daily. Rinse mouth after use. iv contrast (will be provided with radiology test) (1 source) Start: 08-06-20 End: 08-07-20 iv contrast (will be provided with radiology test) Indications: Periumbilical pain , Periumbilical abdominal pain , Prominent abdominal aortic pulse CT ABD/PEL -Inject, intravenously, once for 1 dose.No IV access, insert saline lock prior to the beginning of sedation, infusion, injection of imaging exam. Discontinue saline lock post exam. If Pt. has a central line or IVAD, may access for administration according to line specific nursing protocol. Once exam is complete flush line and de-access according to line specific nursing protocol in the CT contrast administration guidelines link. 1 Each 0 08/06/2023 08/07/2023 Comment on above: CT ABD/PEL -Inject, intravenously, once for 1 dose.No IV access, insert saline lock prior to the beginning of sedation, infusion, injection of imaging exam. Discontinue saline lock post exam. If Pt. has a central line or IVAD, may access for administration according to line specific nursing protocol. Once exam is complete flush line and de-access according to line specific nursing protocol in the CT contrast administration guidelines link. omeprazole 40 mg delayed release oral capsule (20 sources) Proton Pump Inhibitor Start: 02-27-20 End: 05-27-20 take 1 capsule by mouth twice daily before mealtime omeprazole (PRILOSEC) 40 mg capsule Take 1 capsule by mouth twice daily. 1/2 hr before meal. 60 capsule 5 02/26/2022 05/27/2023 Discontinued Start: 06-12-2021 End: 02-26-2022 take 1 capsule by mouth once daily before breakfast omeprazole (PRILOSEC) 20 mg capsule Take 1 capsule by mouth daily before breakfast. 1/2 hr before meal. 30 capsule 11 06/12/2021 02/26/2022 Discontinued Comment on above: Take 1 capsule by mo uth daily before breakfast. 1/2 hr before meal. Take 1 capsule by mo uth twice daily. 1/2 hr before meal. Qezjkiwo-Ww-Fyo-Fe -FA ( VITAMIN) tab (4 sources) End: 02-25-2022 take 1 tablet by mouth once Kkmrxhll-Cc-Oiz-Fe-FA ( VITAMIN) tab Take 1 tablet by mouth. 0 02/25/2022 Discontinued (Discontinued by Patient) take 1 tablet by mouth once Pren atal Tffnuare-Fl-Avh-Fe-FA ( VITAMIN) tab Take 1 tablet by mouth. 0 Active Comment on above: Take 1 tablet by new th. Problems Active Problems Problem Classification Problem Date Documented Da te Episodic/Chronic Anxiety disorders (20 sources) Generalized anxiety disorder; Translations: [Generalized anxiety disorder] Onset: 1 05-08-2021 Chronic Coagulation and hemorrhagic disorders (2 sources) Thrombocytopenic disorder; Translations: [Thrombocytopenia, unspecified] Onset: 4 04-29-2024 Chronic Conditions associated with dizziness or vertigo (1 source) Postural dizziness; Translations: [Dizziness and giddiness] 05-31-2024 Episodic Diseases of mouth; excluding dental (1 source) Burning mouth syndrome ; Translations: [Glossodynia] Episodic Esophageal disorders (20 sources) Gastroesophageal reflux disease without esophagitis; Translations: [Gastro-esophageal reflux disease without esophagitis] Onset: 1 05-08-2021 Chronic Immunizations and screening for infectious disease (9 sources) Patient encounter status; Translations: [Encounter for screening for human papillomavirus (HPV)] Onset: Episodic Menstrual disorders (2 sources) Irregular periods; Translations: [Irregular menstruation, unspecified] 05-13-2023 Chronic Nonmalignant breast conditions (3 sources) Discharge from the breast; Translations: [Nipple discharge] Onset: 4 04-23-2024 Episodic Other circulatory disease (1 source) Aortic pulsation in abdomen; Translations: [Other specified symptoms and signs involving the circulatory and respiratory systems] 08-06-2023 Episodic Other female genital disorders (2 sources) Polyp of corpus uteri; Translations: [Polyp of corpus uteri] 05-27-2023 Episodic Other gastrointestinal disorders (1 source) Abdominal bloating; Translations: [Abdominal distension (gaseous)] Episodic Other gastrointestinal disorders (2 sources) Abdominal pulsatile mass; Translations: [Intra-abdominal and pelvic swelling, mass and lump, unspecified site] Episodic Other gastrointestinal disorders (1 source) Altered bowel function; Translations: [Change in bowel habit] 04-26-2024 Episodic Other lower respiratory disease (1 source) Dyspnea on exertion; Translations: [Other forms of dyspnea] 05-31-2024 Episodic Other nutritional; endocrine; and metabolic disorders (1 source) Unintentional weight gain; Translations: [Abnormal weight gain] 05-13-2023 Episodic Other screening for suspected conditions (not mental disorders or infectious disease) (5 sources) Cancer cervix screening status; Translations: [Encounter for screening for malignant neoplasm of cervix] Onset: Episodic Otitis media and related conditions (1 source) Dysfunction of left eustachian tube; Translations: [Other specified disorders of Eustachian tube, left ear] Episodic Residual codes; unclassified (1 source) FH: Crohn's disease; Translations: [Family history of other diseases of the digestive system] 04-26-2024 Episodic Spondylosis; intervertebral disc disorders; other back problems (3 sources) Pain in the coccyx; Translations: [Sacrococcygeal disorders, not elsewhere classified] Episodic Past or Other Problems Problem Classification Problem Date Documented Da te Episodic/Chronic Abdominal pain (6 sources) Right lower quadrant pain; Translations: [Right lower quadrant pain] Onset: 08-27-2023 05-13-2023 Episodic Deficiency and other anemia (20 sources) Iron deficiency anemia; Translations: [Iron deficiency anemia, unspecified] Onset: 09-12-2022 Episodic Deficiency and other anemia (1 source) Iron deficiency anemia, unspecified; Translations: [Iron deficiency anemia, unspecified iron deficiency anemia type] Onset: 09-12-2022 Episodic Other circulatory disease (1 source) Other specified symptoms and signs involving the circulatory and respiratory systems; Translations: [Prominent abdominal aortic pulse] Onset: 08-27-2023 Episodic Other complications of ; puerperium affecting management of mother (11 sources) heart echogenicity on obstetric ultrasound scan; Translations: [Echogenic focus of heart, , affecting care of mother, antepartum] Onset: 05-20-2014 Resolved: 10-26-2014 08-13-2021 Episodic Other complications of (11 sources) Multigravida of advanced maternal age; Translations: [Supervision of elderly multigravida, unspecified trimester] Onset: 07-06-2018 Resolved: 04-21-2019 04-21-2019 Episodic Other gastrointestinal disorders (20 sources) Amount of mucus in stool abnormal; Translations: [Other fecal abnormalities] Onset: 02-23-2022 Episodic Other nervous system disorders (12 sources) Sore mouth; Translations: [Other disturbances of skin sensation] Onset: 02-23-2022 Episodic Other nervous system disorders (20 sources) Other disturbances of skin sensation; Translations: [Other and unspecified diseases of the oral soft tissues] Onset: 02-23-2022 02-23-2022 Episodic Other and delivery including normal (11 sources) Normal in primigravida; Translations: [Encounter for supervision of normal first , unspecified trimester] Onset: 07-05-2014 Resolved: 10-26-2014 10-26-2014 Episodic Other skin disorders (20 sources) Sebaceous cyst of skin; Translations: [Sebaceous cyst] Onset: 02-23-2022 Episodic Other upper respiratory infections (20 sources) Nasal discharge; Translations: [Postnasal drip] Onset: 02-23-2022 Episodic Residual codes; unclassified (11 sources) Family history of neurological disorder; Translations: [Family history of other congenital malformations, deformations and chromosomal abnormalities] Onset: 02-01-2014 Resolved: 10-26-2014 07-06-2018 Episodic Residual codes; unclassified (11 sources) Family history of diabetes mellitus; Translations: [Family history of diabetes mellitus] Onset: 07-27-2018 Resolved: 04-21-2019 04-21-2019 Episodic Residual codes; unclassified (11 sources) History of gestational hypertension; Translations: [Personal history of other complications of , childbirth and the puerperium] Onset: 07-27-2018 Resolved: 04-21-2019 04-21-2019 Episodic Screening and history of mental health and substance abuse codes (11 sources) H/O: anxiety state; Translations: [Personal history of other mental and behavioral disorders] Onset: 07-06-2018 Resolved: 04-21-2019 04-21-2019 Episodic Results Test Name Value Interpretation Reference Range Facility [facility] 05-31-2024 CNOV Office Visit (FAMPWS ) TAMMI,NOHELIA M ([id number]) 1985 F Date Time Provider Department 05/31/24 11:40 AM MARY HAIRSTON During your visit today, we recorded the following information about you: Temperature Pulse Respiration Blood pressure 97.8 degrees 85/minute 16/minute 100/70 Weight Last Period 85.7 kg 05/25/24 Mary Hairston PA-C 05/31/2024 12:38 PM Signed Chief Complaint Patient presents with: Recheck: Vertigo symptoms HPI Nohelia Cadena is a 38 year old female who presents here today for vertigo. Patient reports infrequent episodes of episodes of lightheadedness. Reports lightheadedness with sitting to standing position. Not all the time. Patient states her mom has similar spells. Reports that this may have been going on for years but never sustained or consistent enough to give specific time frames. Paternal grandfather had heart surgery in his 40s. But not sure what. Has shortness of breath at times with exercise but also feels like she has decreased conditioning. No chest pain. No palpitations. Does have episodes of spasms of pain that comes and goes within seconds. Past medical history, appointments, medications, allergies reviewed. Previous Medical History PAST MEDICAL HISTORY Diagnosis Date acne ANALILIA (generalized anxiety disorder) 05/08/2021 GERD without esophagitis 05/08/2021 Iron deficiency 01/03/2022 Iron deficiency anemia 09/12/2022 Mastitis 10/26/2014 Obsessive-compulsive disorder 05/08/2021 Pilar cyst right side of head Sebaceous cyst 02/23/2022 Posterior neck and several on scalp. Well adult exam 06/12/2021 Previous Surgical History PAST SURGICAL HISTORY Procedure Laterality Date EGD 12/2020 HYSTEROSCOPY BX ENDOMETRIUMAND/POLYPC W/WO DANDC 06/13/2023 hysteroscopy DANDC w/ polyp resection PAST SURGICAL HISTORY OF WISDOM TEETH Family History FAMILY HISTORY Problem Relation Age of Onset None Mother None Father None Sister No Known Problems Brother other (anencephaly) Brother Breast Cancer Maternal Grandmother Diabetes Maternal Grandfather Heart Paternal Grandfather Allergies Son Eczema Son Crohn's Disease Son Breast Cancer Paternal Aunt other (spina bifida) Other Patient Allergies ALLERGIES No Known Allergies Current Medications No current outpatient medications on file prior to visit. No current facility-administered medications on file prior to visit. Social History Social History Tobacco Use Smoking status: Never Smokeless tobacco: Never Vaping Use Vaping status: Never Used Substance Use Topics Alcohol use: No Comment: none Drug use: No Review of Symptoms REVIEW OF SYSTEMS See hpi EXAM: BP 100/70 (BP Site: Left Arm, BP Position: Sitting, BP Cuff Size: Large Adult) Pulse 85 Temp 36.6 ?C (97.8 ?F) Resp 16 Wt 85.7 kg (189 lb) LMP 05/25/2024 (Exact Date) SpO2 99% BMI 29.60 kg/m? General Appearance: Well appearing, alert, in no acute distress, well-hydrated, well nourished.. Neck: Supple, no adenopathy; thyroid symmetric, normal size, no bruits. Lungs: Lungs clear to auscultation. No wheezing, rhonchi, rales.. Heart: RRR without murmur, gallop, or rubs. No ectopy. Health Maintenance List Depression Screening Never done Influenza Vaccine(1) due on 04/18/2024 Mammogram Screening due on 05/20/2025 Cervical Cancer Screening due on 07/30/2027 DTaP,Tdap,Td Vaccine(9 - Td or Tdap) due on 01/25/2029 Hepatitis C Screening Completed HIV Screening Completed Covid-19 Vaccine Completed HPV Vaccine Aged Out Data reviewed Latest Ref Rng 04/28/2024 04/29/2024 WBC 3.70 - 11.00 k/uL 4.91 5.77 RBC 3.90 - 5.20 m/uL 4.94 5.03 Hemoglobin 11.5 - 15.5 g/dL 13.7 13.9 Hematocrit 36.0 - 46.0 % 42.5 42.4 MCV 80.0 - 100.0 fL 86.0 84.3 MCH 26.0 - 34.0 pg 27.7 27.6 MCHC 30.5 - 36.0 g/dL 32.2 32.8 RDW-CV 11.5 - 15.0 % 13.5 13.5 Platelet Count 150 - 400 k/uL 46 (L) 213 MPV 9.0 - 12.7 fL 12.6 11.2 Neut% % 63.0 64.0 Abs Neut (ANC) 1.45 - 7.50 k/uL 3.09 3.69 Lymph% % 24.4 23.7 Abs Lymph 1.00 - 4.00 k/uL 1.20 1.37 Eagle% % 9.0 8.5 Abs Eagle <0.87 k/uL 0.44 0.49 Eosin% % 2.6 3.1 Abs Eosin <0.46 k/uL 0.13 0.18 Baso% % 0.8 0.5 Abs Baso <0.11 k/uL 0.04 0.03 Immature Gran % % 0.2 0.2 IMMATURE GRANS (ABS) <0.10 k/uL <0.03 <0.03 NRBC /100 WBC 0.0 0.0 Absolute nRBC <0.01 k/uL <0.01 <0.01 DTYPE Auto Auto Glucose 74 - 99 mg/dL 90 BUN 7 - 21 mg/dL 11 Creatinine 0.58 - 0.96 mg/dL 0.82 Sodium 136 - 144 mmol/L 140 Potassium 3.7 - 5.1 mmol/L 4.1 Chloride 98 - 107 mmol/L 105 CO2 22 - 30 mmol/L 25 Anion Gap 8 - 15 mmol/L 10 Calcium 8.5 - 10.2 mg/dL 9.1 eGFR >=60 mL/min/1.73m? 93 Total Cholesterol, Nonfasting <200 mg/dL 152 Triglycerides, Nonfasting <150 mg/dL 56 HDL Cholesterol, Nonfasting >39 mg/dL 46 LDL Cholesterol, Nonfasting <100 mg/dL 95 (more content not included)... Normal [facility] CNOVon 05-28-2024 CNOV Office Visit (PEDSWS ) NOHELIA CADENA ([id number]) 1985 F Date Time Provider Department 05/28/24 3:00 PM NURSE ARUN MICHAELS PEDSWS During your visit today, we recorded the following information about you: Allergies As of Date: 05/28/2024 (No Known Allergies) Date Reviewed: 04/26/2024 Reviewed by: Tomer Hernandez LPN - Fully Assessed Reason for Visit: Imm/Inj [58] Visit Diagnosis:Encounter for immunization [Z23] Order(s):Talk Local COVID-19 VACCINE AGE 12+ YR (COMIRNATY) [[id number]] Order #: [id number] Problem List As Of Date 05/28/2024 Noted Resolved Family history of open neural tube defect [Z82.*02/01/2014 10/26/2014 Echogenic focus of heart, , affecting care*05/20/2014 10/26/2014 Supervision of normal first [Z34.00] 07/05/2014 10/26/2014 Antepartum multigravida of advanced maternal ag*07/06/2018 04/21/2019 History of anxiety [Z86.59] 07/06/2018 04/21/2019 Family history of diabetes mellitus [Z83.3] 07/27/2018 04/21/2019 History of gestational hypertension [Z87.59] 07/27/2018 04/21/2019 GERD without esophagitis [K21.9] 05/08/2021 ANALILIA (generalized anxiety disorder) [F41.1] 05/08/2021 Obsessive-compulsive disorder [F42.9] 05/08/2021 Well adult exam [Z00.00] 06/12/2021 Burning sensation of mouth [R20.8] 02/23/2022 Sebaceous cyst [L72.3] 02/23/2022 Increased mucus in stool [R19.5] 02/23/2022 Post-nasal drainage [R09.82] 02/23/2022 Iron deficiency anemia [D50.9] 09/12/2022 Encounter Status:Closed by KEHINDE TELLEZ on 05/28/24 Normal [facility] DBT Breast - bilateral diagn ostic for implanton 05-20-2024 IMPRESSION: Finding 1: There is no mammographic or sonographic correlate for the non-bloody nipple discharge. Clinical follow-up is recommended for patient's green nipple discharge bilaterally. Finding 2: Cluster of cysts in the right breast is benign. No mammographic evidence of malignancy. There is no imaging correlate to the area of clinical concern. Clinical follow-up is recommended. Return to screening mammogram in 1 year is recommended. BI-RADS Category 2: Benign RISK: Based on the Tyrer-Cuzick (TC) risk assessment model, this patient has a 22.6% lifetime risk of developing breast cancer, meaning they are at high risk for developing breast cancer. However, this is only an estimate based on available history provided on the patient's questionnaire. Because patients with a lifetime risk of 20% or greater may benefit from additional supplemental screening, we encourage a full breast clinical evaluation and comprehensive breast cancer risk assessment to guide further decision making. For more information regarding the management of high-risk patients, the following is a link to the [facility] care path [email or web address] [email or web address]. Additionally, a referral to the [facility] is also appropriate. Interpreting Radiologist: Ramila Trivedi M.D. Learning Support Services Director: KISHORE Transcribe Date/Time: May 20 2024 9:51A Dictated by: RAMILA TRIVEDI MD This examination was interpreted and the report reviewed and electronically signed by: RAMILA TRIVEDI MD on May 20 2024 11:18AM [facility] DIVISION OF RADIOLOGY * * *Final Report* * * DATE OF EXAM: May 20 2024 10:18AM [facility] 0627 - ALEK ELGIN MCKEON / PROCEDURE REASON: Discharge from breast * * * * Physician Interpretation * * * * RESULT: [facility] [address] [place] [address] HISTORY: Patient is 38 years old and is seen for diagnostic evaluation of non-bloody discharge in both breasts. Patient states she had one episode of spontaneous bilateral green nipple discharge. The second episode was provoked. No bloody or serous nipple discharge. The patient has no personal history of cancer. COMPARISON STUDIES: The present examination has been compared to prior imaging studies dated 07/10/2021 (mammogram) and 08/13/2023 (mammogram). MAMMOGRAM TECHNIQUE: The study was acquired using full field digital technology and interpreted from soft copy. Digital Breast Tomosynthesis (DBT) images were obtained and used to assist in the interpretation of this examination. Computer-aided detection was utilized by the radiologist in the interpretation of this examination. MAMMOGRAM FINDINGS: The breasts are heterogeneously dense, which may obscure small masses. Finding 1: There is no mammographic abnormality in the region of the non-bloody nipple discharge in both breasts. Finding 2: There is a low density, oval mass with circumscribed margins in the anterior depth upper outer quadrant of the right breast. ULTRASOUND TECHNIQUE: Targeted ultrasound of the indicated area was performed. Avina scale images were saved. ULTRASOUND FINDINGS: Finding 1: There is no sonographic correlate in the area of the non-bloody nipple discharge in both breasts. Targeted ultrasound was performed of the subareolar region of both breasts. There is no focal or suspicious sonographic finding. Finding 2: Ultrasound demonstrates an oval cluster of cysts with circumscribed margins measuring 1 centimeter in the right breast at 11 o'clock located 5 cm from the nipple. Internal echotexture is Anechoic with internal septations. There is posterior acoustic enhancement. Color flow imaging demonstrates vascularity is not present. DIVISION OF RADIOLOGY Provider, [facility] - 05/20/2024 * * *Final Report* * * DATE OF EXAM: May 20 2024 10:18AM [facility] 0627 - ALEK ELGIN MCKEON / PROCEDURE REASON: Discharge from breast * * * * Physician Interpretation * * * * RESULT: [facility] [id number] [place] [id number] HISTORY: Patient is 38 years old and is seen for diagnostic evaluation of non-bloody discharge in both breasts. Patient states she had one episode of spontaneous bilateral green nipple discharge. The second episode was provoked. No bloody or serous nipple discharge. The patient has no personal history of cancer. COMPARISON STUDIES: The present examination has been compared to prior imaging studies dated 07/10/2021 (mammogram) and 08/13/2023 (mammogram). MAMMOGRAM TECHNIQUE: The study was acquired using full field digital technology and interpreted from soft copy. Digital Breast Tomosynthesis (DBT) images were obtained and used to assist in the interpretation of this examination. Computer-aided detection was utilized by the radiologist in the interpretation of this examination. MAMMOGRAM FINDINGS: The breasts are heterogeneously dense, which may obscure small masses. Finding 1: There is no mammographic abnormality in the region of the non-bloody nipple discharge in both breasts. Finding 2: There is a low density, oval mass with circumscribed margins in the anterior depth upper outer quadrant of the right breast. ULTRASOUND TECHNIQUE: Targeted ultrasound of the indicated area was performed. Avina scale images were saved. ULTRASOUND FINDINGS: Finding 1: There is no sonographic correlate in the area of the non-bloody nipple discharge in both breasts. Targeted ultrasound was performed of the subareolar region of both breasts. There is no focal or suspicious sonographic finding. Finding 2: Ultrasound demonstrates an oval cluster of cysts with circumscribed margins measuring 1 centimeter in the right breast at 11 o'clock located 5 cm from the nipple. Internal echotexture is Anechoic with internal septations. There is posterior acoustic enhancement. Color flow imaging demonstrates vascularity is not present. IMPRESSION IMPRESSION: Finding 1: There is no mammographic or sonographic correlate for the non-bloody nipple discharge. Clinical follow-up is recommended for patient's green nipple discharge bilaterally. Finding 2: Cluster of cysts in the right breast is benign. No mammographic evidence of malignancy. There is no imaging correlate to the area of clinical concern. Clinical follow-up is recommended. Return to screening mammogram in 1 year is recommended. BI-RADS Category 2: Benign RISK: Based on the Tyrer-Cuzick (TC) risk assessment model, this patient has a 22.6% lifetime risk of developing breast cancer, meaning they are at high risk for developing breast cancer. However, this is only an estimate based on available history provided on the patient's questionnaire. Because patients with a lifetime risk of 20% or greater may benefit from additional supplemental screening, we encourage a full breast clinical evaluation and comprehensive breast cancer risk assessment to guide further decision making. For more information regarding the management of high-risk patients, the following is a link to the [facility] care path [email or web address]. Additionally, a referral to the [facility] is also appropriate. Interpreting Radiologist: Ramila Trivedi M.D. Learning Support Services Director: KISHORE Transcribe Date/Time: May 20 2024 9:51A Dictated by: RAMILA TRIVEDI MD This examination was interpreted and the report reviewed and electronically signed by: RAMILA TRIVEDI MD on May 20 2024 11:18AM EST [facility] ALEK Guzman [address] ALE[address] LINDA * * *Final Report* * * DATE OF EXAM: May 20 2024 10:18AM SSW 0627 - ALEK HENDRICKS LINDA / PROCEDURE REASON: Discharge from breast * * * * Physician Interpretation * * * * RESULT: [facility] [id number] [address] [id number] HISTORY: Patient is 38 years old and is seen for diagnostic evaluation of non-bloody discharge in both breasts. Patient states she had one episode of spontaneous bilateral green nipple discharge. The second episode was provoked. No bloody or serous nipple discharge. The patient has no personal history of cancer. COMPARISON STUDIES: The present examination has been compared to prior imaging studies dated 07/10/2021 (mammogram) and 08/13/2023 (mammogram). MAMMOGRAM TECHNIQUE: The study was acquired using full field digital technology and interpreted from soft copy. Digital Breast Tomosynthesis (DBT) images were obtained and used to assist in the interpretation of this examination. Computer-aided detection was utilized by the radiologist in the interpretation of this examination. MAMMOGRAM FINDINGS: The breasts are heterogeneously dense, which may obscure small masses. Finding 1: There is no mammographic abnormality in the region of the non-bloody nipple discharge in both breasts. Finding 2: There is a low density, oval mass with circumscribed margins in the anterior depth upper outer quadrant of the right breast. ULTRASOUND TECHNIQUE: Targeted ultrasound of the indicated area was performed. Avina scale images were saved. ULTRASOUND FINDINGS: Finding 1: There is no sonographic correlate in the area of the non-bloody nipple discharge in both breasts. Targeted ultrasound was performed of the subareolar region of both breasts. There is no focal or suspicious sonographic finding. Finding 2: Ultrasound demonstrates an oval cluster of cysts with circumscribed margins measuring 1 centimeter in the right breast at 11 o'clock located 5 cm from the nipple. Internal echotexture is Anechoic with internal septations. There is posterior acoustic enhancement. Color flow imaging demonstrates vascularity is not present. IMPRESSION: Finding 1: There is no mammographic or sonographic correlate for the non-bloody nipple discharge. Clinical follow-up is recommended for patient's green nipple discharge bilaterally. Finding 2: Cluster of cysts in the right breast is benign. No mammographic evidence of malignancy. There is no imaging correlate to the area of clinical concern. Clinical follow-up is recommended. Return to screening mammogram in 1 year is recommended. BI-RADS Category 2: Benign RISK: Based on the Tyrer-Cuzick (TC) risk assessment model, this patient has a 22.6% lifetime risk of developing breast cancer, meaning they are at high risk for developing breast cancer. However, this is only an estimate based on available history provided on the patient's questionnaire. Because patients with a lifetime risk of 20% or greater may benefit from additional supplemental screening, we encourage a full breast clinical evaluation and comprehensive breast cancer risk assessment to guide further decision making. For more information regarding the management of high-risk patients, the following is a link to the [facility] care path [email or web address]. Additionally, a referral to the [facility] is also appropriate. Interpreting Radiologist: Ramila Trivedi M.D. Learning Support Services Director: KISHORE Transcrimary beth Date/Time: May 20 2024 9:51A Dictated by: RAMILA TRIVEDI MD This examination was interpreted and the report reviewed and electronically signed by: RAMILA TRIVEDI MD on May 20 2024 11:18AM EST [id number] [facility] US BREAST LTD LTon 05-20 [facility] US BREAST LTD LT * * *Final Report* * * DATE OF EXAM: May 20 2024 10:47AM W 0593 - [facility] US BREAST LTD LT / PROCEDURE REASON: Discharge from breast * * * * Physician Interpretation * * * * RESULT: [facility] [address] [id number] HISTORY: Patient is 38 years old and is seen for diagnostic evaluation of non-bloody discharge in both breasts. Patient states she had one episode of spontaneous bilateral green nipple discharge. The second episode was provoked. No bloody or serous nipple discharge. The patient has no personal history of cancer. COMPARISON STUDIES: The present examination has been compared to prior imaging studies dated 07/10/2021 (mammogram) and 08/13/2023 (mammogram). MAMMOGRAM TECHNIQUE: The study was acquired using full field digital technology and interpreted from soft copy. Digital Breast Tomosynthesis (DBT) images were obtained and used to assist in the interpretation of this examination. Computer-aided detection was utilized by the radiologist in the interpretation of this examination. MAMMOGRAM FINDINGS: The breasts are heterogeneously dense, which may obscure small masses. Finding 1: There is no mammographic abnormality in the region of the non-bloody nipple discharge in both breasts. Finding 2: There is a low density, oval mass with circumscribed margins in the anterior depth upper outer quadrant of the right breast. ULTRASOUND TECHNIQUE: Targeted ultrasound of the indicated area was performed. Avina scale images were saved. ULTRASOUND FINDINGS: Finding 1: There is no sonographic correlate in the area of the non-bloody nipple discharge in both breasts. Targeted ultrasound was performed of the subareolar region of both breasts. There is no focal or suspicious sonographic finding. Finding 2: Ultrasound demonstrates an oval cluster of cysts with circumscribed margins measuring 1 centimeter in the right breast at 11 o'clock located 5 cm from the nipple. Internal echotexture is Anechoic with internal septations. There is posterior acoustic enhancement. Color flow imaging demonstrates vascularity is not present. IMPRESSION: Finding 1: There is no mammographic or sonographic correlate for the non-bloody nipple discharge. Clinical follow-up is recommended for patient's green nipple discharge bilaterally. Finding 2: Cluster of cysts in the right breast is benign. No mammographic evidence of malignancy. There is no imaging correlate to the area of clinical concern. Clinical follow-up is recommended. Return to screening mammogram in 1 year is recommended. BI-RADS Category 2: Benign RISK: Based on the Tyrer-Cuzick (TC) risk assessment model, this patient has a 22.6% lifetime risk of developing breast cancer, meaning they are at high risk for developing breast cancer. However, this is only an estimate based on available history provided on the patient's questionnaire. Because patients with a lifetime risk of 20% or greater may benefit from additional supplemental screening, we encourage a full breast clinical evaluation and comprehensive breast cancer risk assessment to guide further decision making. For more information regarding the management of high-risk patients, the following is a link to the [facility] care path [email or web address] [email or web address]/documents/?[email or web address]. Additionally, a referral to the [facility] is also appropriate. Interpreting Radiologist: Ramila Trivedi M.D. Learning Support Services Director: KISHORE Transcribe Date/Time: May 20 2024 10:37A Dictated by: RAMILA TRIVEDI MD This examination was interpreted and the report reviewed and electronically signed by: RAMILA TRIVEDI MD on May 20 2024 11:18AM EST [id number] [facility] US BREAST LTD RTon 05-20 [facility] US BREAST LTD RT * * *Final Report* * * DATE OF EXAM: May 20 2024 10:49AM SSW 0594 - [facility] US BREAST LTD RT / PROCEDURE REASON: Discharge from breast * * * * Physician Interpretation * * * * RESULT: [place] [address] HISTORY: Patient is 38 years old and is seen for diagnostic evaluation of non-bloody discharge in both breasts. Patient states she had one episode of spontaneous bilateral green nipple discharge. The second episode was provoked. No bloody or serous nipple discharge. The patient has no personal history of cancer. COMPARISON STUDIES: The present examination has been compared to prior imaging studies dated 07/10/2021 (mammogram) and 08/13/2023 (mammogram). MAMMOGRAM TECHNIQUE: The study was acquired using full field digital technology and interpreted from soft copy. Digital Breast Tomosynthesis (DBT) images were obtained and used to assist in the interpretation of this examination. Computer-aided detection was utilized by the radiologist in the interpretation of this examination. MAMMOGRAM FINDINGS: The breasts are heterogeneously dense, which may obscure small masses. Finding 1: There is no mammographic abnormality in the region of the non-bloody nipple discharge in both breasts. Finding 2: There is a low density, oval mass with circumscribed margins in the anterior depth upper outer quadrant of the right breast. ULTRASOUND TECHNIQUE: Targeted ultrasound of the indicated area was performed. Avina scale images were saved. ULTRASOUND FINDINGS: Finding 1: There is no sonographic correlate in the area of the non-bloody nipple discharge in both breasts. Targeted ultrasound was performed of the subareolar region of both breasts. There is no focal or suspicious sonographic finding. Finding 2: Ultrasound demonstrates an oval cluster of cysts with circumscribed margins measuring 1 centimeter in the right breast at 11 o'clock located 5 cm from the nipple. Internal echotexture is Anechoic with internal septations. There is posterior acoustic enhancement. Color flow imaging demonstrates vascularity is not present. IMPRESSION: Finding 1: There is no mammographic or sonographic correlate for the non-bloody nipple discharge. Clinical follow-up is recommended for patient's green nipple discharge bilaterally. Finding 2: Cluster of cysts in the right breast is benign. No mammographic evidence of malignancy. There is no imaging correlate to the area of clinical concern. Clinical follow-up is recommended. Return to screening mammogram in 1 year is recommended. BI-RADS Category 2: Benign RISK: Based on the Tyrer-Cuzick (TC) risk assessment model, this patient has a 22.6% lifetime risk of developing breast cancer, meaning they are at high risk for developing breast cancer. However, this is only an estimate based on available history provided on the patient's questionnaire. Because patients with a lifetime risk of 20% or greater may benefit from additional supplemental screening, we encourage a full breast clinical evaluation and comprehensive breast cancer risk assessment to guide further decision making. For more information regarding the management of high-risk patients, the following is a link to the [facility] care path [email or web address]. Additionally, a referral to the [facility] is also appropriate. Interpreting Radiologist: Ramila Trivedi M.D. Learning Support Services Director: KISHORE Transcribe Date/Time: May 20 2024 10:49A Dictated by: RAMILA TRIVEDI MD This examination was interpreted and the report reviewed and electronically signed by: RAMILA TRIVEDI MD on May 20 2024 11:18AM EST [id number] Normal [facility] No Panel InformationOrdered By: [facility] Provider on 05-20-2024 [facility] No Panel Informationon 05-20 Radiology Study observation (narrative) [facility] US Breast - left limitedon 1 IMPRESSION: Finding 1: There is no mammographic or sonographic correlate for the non-bloody nipple discharge. Clinical follow-up is recommended for patient's green nipple discharge bilaterally. Finding 2: Cluster of cysts in the right breast is benign. No mammographic evidence of malignancy. There is no imaging correlate to the area of clinical concern. Clinical follow-up is recommended. Return to screening mammogram in 1 year is recommended. BI-RADS Category 2: Benign RISK: Based on the Tyrer-Cuzick (TC) risk assessment model, this patient has a 22.6% lifetime risk of developing breast cancer, meaning they are at high risk for developing breast cancer. However, this is only an estimate based on available history provided on the patient's questionnaire. Because patients with a lifetime risk of 20% or greater may benefit from additional supplemental screening, we encourage a full breast clinical evaluation and comprehensive breast cancer risk assessment to guide further decision making. For more information regarding the management of high-risk patients, the following is a link to the [facility] care path [email or web address]. Additionally, a referral to the [facility] is also appropriate. Interpreting Radiologist: Ramila Trivedi M.D. Learning Support Services Director: KISHORE Transcribe Date/Time: May 20 2024 10:37A Dictated by: RAMILA TRIVEDI MD This examination was interpreted and the report reviewed and electronically signed by: RAMILA TRIVEDI MD on May 20 2024 11:18AM EST DIVISION OF RADIOLOGY * * *Final Report* * * DATE OF EXAM: May 20 2024 10:47AM [facility] 0593 - ALEK US BREAST LTD LT / PROCEDURE REASON: Discharge from breast * * * * Physician Interpretation * * * * RESULT: [facility] [address] [place] [address] HISTORY: Patient is 38 years old and is seen for diagnostic evaluation of non-bloody discharge in both breasts. Patient states she had one episode of spontaneous bilateral green nipple discharge. The second episode was provoked. No bloody or serous nipple discharge. The patient has no personal history of cancer. COMPARISON STUDIES: The present examination has been compared to prior imaging studies dated 07/10/2021 (mammogram) and 08/13/2023 (mammogram). MAMMOGRAM TECHNIQUE: The study was acquired using full field digital technology and interpreted from soft copy. Digital Breast Tomosynthesis (DBT) images were obtained and used to assist in the interpretation of this examination. Computer-aided detection was utilized by the radiologist in the interpretation of this examination. MAMMOGRAM FINDINGS: The breasts are heterogeneously dense, which may obscure small masses. Finding 1: There is no mammographic abnormality in the region of the non-bloody nipple discharge in both breasts. Finding 2: There is a low density, oval mass with circumscribed margins in the anterior depth upper outer quadrant of the right breast. ULTRASOUND TECHNIQUE: Targeted ultrasound of the indicated area was performed. Avina scale images were saved. ULTRASOUND FINDINGS: Finding 1: There is no sonographic correlate in the area of the non-bloody nipple discharge in both breasts. Targeted ultrasound was performed of the subareolar region of both breasts. There is no focal or suspicious sonographic finding. Finding 2: Ultrasound demonstrates an oval cluster of cysts with circumscribed margins measuring 1 centimeter in the right breast at 11 o'clock located 5 cm from the nipple. Internal echotexture is Anechoic with internal septations. There is posterior acoustic enhancement. Color flow imaging demonstrates vascularity is not present. DIVISION OF RADIOLOGY Provider, [facility] - 05/20/2024 * * *Final Report* * * DATE OF EXAM: May 20 2024 10:47AM SSW 0593 - ALEK BREAST LTD LT / PROCEDURE REASON: Discharge from breast * * * * Physician Interpretation * * * * RESULT: [facility] [address] [place] [address] HISTORY: Patient is 38 years old and is seen for diagnostic evaluation of non-bloody discharge in both breasts. Patient states she had one episode of spontaneous bilateral green nipple discharge. The second episode was provoked. No bloody or serous nipple discharge. The patient has no personal history of cancer. COMPARISON STUDIES: The present examination has been compared to prior imaging studies dated 07/10/2021 (mammogram) and 08/13/2023 (mammogram). MAMMOGRAM TECHNIQUE: The study was acquired using full field digital technology and interpreted from soft copy. Digital Breast Tomosynthesis (DBT) images were obtained and used to assist in the interpretation of this examination. Computer-aided detection was utilized by the radiologist in the interpretation of this examination. MAMMOGRAM FINDINGS: The breasts are heterogeneously dense, which may obscure small masses. Finding 1: There is no mammographic abnormality in the region of the non-bloody nipple discharge in both breasts. Finding 2: There is a low density, oval mass with circumscribed margins in the anterior depth upper outer quadrant of the right breast. ULTRASOUND TECHNIQUE: Targeted ultrasound of the indicated area was performed. Avina scale images were saved. ULTRASOUND FINDINGS: Finding 1: There is no sonographic correlate in the area of the non-bloody nipple discharge in both breasts. Targeted ultrasound was performed of the subareolar region of both breasts. There is no focal or suspicious sonographic finding. Finding 2: Ultrasound demonstrates an oval cluster of cysts with circumscribed margins measuring 1 centimeter in the right breast at 11 o'clock located 5 cm from the nipple. Internal echotexture is Anechoic with internal septations. There is posterior acoustic enhancement. Color flow imaging demonstrates vascularity is not present. IMPRESSION IMPRESSION: Finding 1: There is no mammographic or sonographic correlate for the non-bloody nipple discharge. Clinical follow-up is recommended for patient's green nipple discharge bilaterally. Finding 2: Cluster of cysts in the right breast is benign. No mammographic evidence of malignancy. There is no imaging correlate to the area of clinical concern. Clinical follow-up is recommended. Return to screening mammogram in 1 year is recommended. BI-RADS Category 2: Benign RISK: Based on the Tyrer-Cuzick (TC) risk assessment model, this patient has a 22.6% lifetime risk of developing breast cancer, meaning they are at high risk for developing breast cancer. However, this is only an estimate based on available history provided on the patient's questionnaire. Because patients with a lifetime risk of 20% or greater may benefit from additional supplemental screening, we encourage a full breast clinical evaluation and comprehensive breast cancer risk assessment to guide further decision making. For more information regarding the management of high-risk patients, the following is a link to the [facility] care path [email or web address]. Additionally, a referral to the [facility] is also appropriate. Interpreting Radiologist: Ramila Trivedi M.D. Learning Support Services Director: KISHORE Transcribe Date/Time: May 20 2024 10:37A Dictated by: RAMILA TRIVEDI MD This examination was interpreted and the report reviewed and electronically signed by: RAMILA TRIVEDI MD on May 20 2024 11:18AM EST [facility] US Breast - right limitedon 05-20-2024 IMPRESSION: Finding 1: There is no mammographic or sonographic correlate for the non-bloody nipple discharge. Clinical follow-up is recommended for patient's green nipple discharge bilaterally. Finding 2: Cluster of cysts in the right breast is benign. No mammographic evidence of malignancy. There is no imaging correlate to the area of clinical concern. Clinical follow-up is recommended. Return to screening mammogram in 1 year is recommended. BI-RADS Category 2: Benign RISK: Based on the Tyrer-Cuzick (TC) risk assessment model, this patient has a 22.6% lifetime risk of developing breast cancer, meaning they are at high risk for developing breast cancer. However, this is only an estimate based on available history provided on the patient's questionnaire. Because patients with a lifetime risk of 20% or greater may benefit from additional supplemental screening, we encourage a full breast clinical evaluation and comprehensive breast cancer risk assessment to guide further decision making. For more information regarding the management of high-risk patients, the following is a link to the [facility] care path [email or web address]. Additionally, a referral to the [facility] [facility] is also appropriate. Interpreting Radiologist: Ramila Trivedi M.D. Learning Support Services Director: KISHORE Transcribe Date/Time: May 20 2024 10:49A Dictated by: RAMILA TRIVEDI MD This examination was interpreted and the report reviewed and electronically signed by: RAMILA TRIVEDI MD on May 20 2024 11:18AM [facility] DIVISION OF RADIOLOGY * * *Final Report* * * DATE OF EXAM: May 20 2024 10:49AM W 0594 - ALEK US BREAST LTD RT / PROCEDURE REASON: Discharge from breast * * * * Physician Interpretation * * * * RESULT: [facility] [id number] [id number] HISTORY: Patient is 38 years old and is seen for diagnostic evaluation of non-bloody discharge in both breasts. Patient states she had one episode of spontaneous bilateral green nipple discharge. The second episode was provoked. No bloody or serous nipple discharge. The patient has no personal history of cancer. COMPARISON STUDIES: The present examination has been compared to prior imaging studies dated 07/10/2021 (mammogram) and 08/13/2023 (mammogram). MAMMOGRAM TECHNIQUE: The study was acquired using full field digital technology and interpreted from soft copy. Digital Breast Tomosynthesis (DBT) images were obtained and used to assist in the interpretation of this examination. Computer-aided detection was utilized by the radiologist in the interpretation of this examination. MAMMOGRAM FINDINGS: The breasts are heterogeneously dense, which may obscure small masses. Finding 1: There is no mammographic abnormality in the region of the non-bloody nipple discharge in both breasts. Finding 2: There is a low density, oval mass with circumscribed margins in the anterior depth upper outer quadrant of the right breast. ULTRASOUND TECHNIQUE: Targeted ultrasound of the indicated area was performed. Avina scale images were saved. ULTRASOUND FINDINGS: Finding 1: There is no sonographic correlate in the area of the non-bloody nipple discharge in both breasts. Targeted ultrasound was performed of the subareolar region of both breasts. There is no focal or suspicious sonographic finding. Finding 2: Ultrasound demonstrates an oval cluster of cysts with circumscribed margins measuring 1 centimeter in the right breast at 11 o'clock located 5 cm from the nipple. Internal echotexture is Anechoic with internal septations. There is posterior acoustic enhancement. Color flow imaging demonstrates vascularity is not present. DIVISION OF RADIOLOGY Provider, [facility] Ion gomez [place] - 05/20/2024 * * *Final Report* * * DATE OF EXAM: May 20 2024 10:49AM SSW 0594 - ALEK US BREAST LTD RT / PROCEDURE REASON: Discharge from breast * * * * Physician Interpretation * * * * RESULT: [facility] [address] [id number] HISTORY: Patient is 38 years old and is seen for diagnostic evaluation of non-bloody discharge in both breasts. Patient states she had one episode of spontaneous bilateral green nipple discharge. The second episode was provoked. No bloody or serous nipple discharge. The patient has no personal history of cancer. COMPARISON STUDIES: The present examination has been compared to prior imaging studies dated 07/10/2021 (mammogram) and 08/13/2023 (mammogram). MAMMOGRAM TECHNIQUE: The study was acquired using full field digital technology and interpreted from soft copy. Digital Breast Tomosynthesis (DBT) images were obtained and used to assist in the interpretation of this examination. Computer-aided detection was utilized by the radiologist in the interpretation of this examination. MAMMOGRAM FINDINGS: The breasts are heterogeneously dense, which may obscure small masses. Finding 1: There is no mammographic abnormality in the region of the non-bloody nipple discharge in both breasts. Finding 2: There is a low density, oval mass with circumscribed margins in the anterior depth upper outer quadrant of the right breast. ULTRASOUND TECHNIQUE: Targeted ultrasound of the indicated area was performed. Avina scale images were saved. ULTRASOUND FINDINGS: Finding 1: There is no sonographic correlate in the area of the non-bloody nipple discharge in both breasts. Targeted ultrasound was performed of the subareolar region of both breasts. There is no focal or suspicious sonographic finding. Finding 2: Ultrasound demonstrates an oval cluster of cysts with circumscribed margins measuring 1 centimeter in the right breast at 11 o'clock located 5 cm from the nipple. Internal echotexture is Anechoic with internal septations. There is posterior acoustic enhancement. Color flow imaging demonstrates vascularity is not present. IMPRESSION IMPRESSION: Finding 1: There is no mammographic or sonographic correlate for the non-bloody nipple discharge. Clinical follow-up is recommended for patient's green nipple discharge bilaterally. Finding 2: Cluster of cysts in the right breast is benign. No mammographic evidence of malignancy. There is no imaging correlate to the area of clinical concern. Clinical follow-up is recommended. Return to screening mammogram in 1 year is recommended. BI-RADS Category 2: Benign RISK: Based on the Tyrer-Cuzick (TC) risk assessment model, this patient has a 22.6% lifetime risk of developing breast cancer, meaning they are at high risk for developing breast cancer. However, this is only an estimate based on available history provided on the patient's questionnaire. Because patients with a lifetime risk of 20% or greater may benefit from additional supplemental screening, we encourage a full breast clinical evaluation and comprehensive breast cancer risk assessment to guide further decision making. For more information regarding the management of high-risk patients, the following is a link to the [facility] care path [email or web address]. Additionally, a referral to the [facility] is also appropriate. Interpreting Radiologist: Ramila Trivedi M.D. Learning Support Services Director: KISHORE Transcribe Date/Time: May 20 2024 10:49A Dictated by: RAMILA TRIVEDI MD This examination was interpreted and the report reviewed and electronically signed by: RAMILA TRIVEDI MD on May 20 2024 11:18AM EST [facility] CBC W Auto Differential pane l (Bld)on 04-29-2024 Basophils (Bld) [#/Vol] 0.03 10*3/uL [facility] Basophils/100 WBC (Bld) 0.5 % [facility] Differential cell count method Nom (Bld) Auto [facility] Eosinophils (Bld) [#/Vol] 0.18 10*3/uL [facility] Eosinophils/100 WBC (Bld) 3.1 % [facility] Erythrocyte distribution width (RBC) [Ratio] 13.5 % 11.5 - 15.0 % [facility] Hematocrit (Bld) [Volume fraction] 42.4 % 36.0 - 46.0 % [facility] Hemoglobin (Bld) [Mass/Vol] 13.9 g/dL 11.5 - 15.5 g/dL [facility] Immature granulocytes (Bld) [#/Vol] [facility] Immature granulocytes/100 WBC (Bld) 0.2 % [facility] Lymphocytes (Bld) [#/Vol] 1.37 10*3/uL [facility] Lymphocytes/100 WBC (Bld) 23.7 % [facility] MCH (RBC) [Entitic mass] 27.6 pg 26.0 - 34.0 pg [facility] MCHC (RBC) [Mass/Vol] 32.8 g/dL 30.5 - 36.0 g/dL [facility] MCV (RBC) [Entitic vol] 84.3 fL 80.0 - 100.0 fL [facility] Monocytes (Bld) [#/Vol] 0.49 10*3/uL [facility] Monocytes/100 WBC (Bld) 8.5 % [facility] Neutrophils (Bld) [#/Vol] 3.69 10*3/uL [facility] Neutrophils/100 WBC (Bld) 64.0 % [facility] Nucleated RBC (Bld) [#/Vol] [facility] Nucleated RBC/100 WBC (Bld) [Ratio] 0.0 % /100 WBC [facility] Platelet mean volume (Bld) [Entitic vol] 11.2 fL 9.0 - 12.7 fL [facility] Platelets (Bld) [#/Vol] 213 10*3/uL [facility] RBC (Bld) [#/Vol] 5.03 10*6/uL 3.90 - 5.2 0 m/uL [facility] WBC (Bld) [#/Vol] 5.77 10*3/uL [facility] Basophils (Bld) [#/Vol] 0.03 10*3/uL Normal <0.11 [facility] Comment on above: Order Comment: Speci men Type: BLOOD SPECIMEN Ordering Facility: [facility] Address: [address] [place] [address] Performed By: #### 5 5454-3 #### [facility] CLIA [id number] [address] [place], [place] [address] [place] [address] [place] Basophils/100 WBC (Bld) 0.5 % Normal [facility] Comment on above: Order Comment: Speci men Type: BLOOD SPECIMEN Ordering Facility: [facility] Address: [address] [place] [address] Performed By: #### 5 5454-3 #### [facility] CLIA [id number] [address] [place] [address] [place] Differential cell count method Nom (Bld) Auto Normal [facility] Comment on above: Order Comment: Speci men Type: BLOOD SPECIMEN Ordering Facility: [facility] Address: [address] [place] [address] Performed By: #### 5 5454-3 #### [facility] CLIA [id number] [address] [place] [address] [place] Eosinophils (Bld) [#/Vol] 0.18 10*3/uL Normal <0.46 [facility] Comment on above: Order Comment: Speci men Type: BLOOD SPECIMEN Ordering Facility: [facility] Address: [address] [place] [address] Performed By: #### 5 5454-3 #### [facility] CLIA [id number] [address] [place] [address] [place] Eosinophils/100 WBC (Bld) 3.1 % Normal [facility] Comment on above: Order Comment: Speci men Type: BLOOD SPECIMEN Ordering Facility: [facility] Address: [address] [place] [address] Performed By: #### 5 5454-3 #### [facility] CLIA [id number] [address] [place] [address] [place] Erythrocyte distribution width (RBC) [Ratio] 13.5 % Normal 11.5-15.0 [facility] Comment on above: Order Comment: Speci men Type: BLOOD SPECIMEN Ordering Facility: [facility] Address: [address] [place] [address] Performed By: #### 5 5454-3 #### [facility] CLIA [id number] [address] [place] [address] [place] Hematocrit (Bld) [Volume fraction] 42.4 % Normal 36.0-46.0 [facility] Comment on above: Order Comment: Speci men Type: BLOOD SPECIMEN Ordering Facility: [facility] Address: [address] [place] [address] Performed By: #### 5 5454-3 #### [facility] CLIA [id number] [address] [place] [address] [place] Hemoglobin (Bld) [Mass/Vol] 13.9 g/dL Normal 11.5-15.5 [facility] Comment on above: Order Comment: Speci men Type: BLOOD SPECIMEN Ordering Facility: [facility] Address: [address] [place] [address] Performed By: #### 5 5454-3 #### [facility] CLIA [id number] [address] [place] [address] [place] Immature granulocytes (Bld) [#/Vol] 10*3/uL Normal <0.10 [facility] Comment on above: Order Comment: Speci men Type: BLOOD SPECIMEN Ordering Facility: [facility] Address: [address] [place] [address] Performed By: #### 5 5454-3 #### [facility] CLIA [id number] [address] [place] [address] [place] Immature granulocytes/100 WBC (Bld) 0.2 % Normal [facility] Comment on above: Order Comment: Speci men Type: BLOOD SPECIMEN Ordering Facility: [facility] Address: [address] [place] [address] Performed By: #### 5 5454-3 #### [facility] CLIA [id number] [address] [place] [address] [place] Lymphocytes (Bld) [#/Vol] 1.37 10*3/uL Normal 1.00-4.00 [facility] Comment on above: Order Comment: Speci men Type: BLOOD SPECIMEN Ordering Facility: [facility] Address: [address] [place] [address] Performed By: #### 5 5454-3 #### [facility] CLIA [id number] [address] [place] [address] [place] Lymphocytes/100 WBC (Bld) 23.7 % Normal [facility] Comment on above: Order Comment: Speci men Type: BLOOD SPECIMEN Ordering Facility: [facility] Address: [address] [place] [address] Performed By: #### 5 5454-3 #### [facility] CLIA [id number] [address] [place] [address] [place] MCH (RBC) [Entitic mass] 27.6 pg Normal 26.0-34.0 [facility] Comment on above: Order Comment: Speci men Type: BLOOD SPECIMEN Ordering Facility: [facility] Address: [address] [place] [address] Performed By: #### 5 5454-3 #### [facility] CLIA [id number] [address] [place] [address] [place] MCHC (RBC) [Mass/Vol] 32.8 g/dL Normal 30.5-36.0 [facility] Comment on above: Order Comment: Speci men Type: BLOOD SPECIMEN Ordering Facility: [facility] Address: [address] [place] [address] Performed By: #### 5 5454-3 #### [facility] CLIA [id number] [address] [place] [address] [place] MCV (RBC) [Entitic vol] 84.3 fL Normal 80.0-100.0 [facility] Comment on above: Order Comment: Speci men Type: BLOOD SPECIMEN Ordering Facility: [facility] Address: [address] [place] [address] Performed By: #### 5 5454-3 #### [facility] CLIA [id number] [address] [place] [address] [place] Monocytes (Bld) [#/Vol] 0.49 10*3/uL Normal <0.87 [facility] Comment on above: Order Comment: Speci men Type: BLOOD SPECIMEN Ordering Facility: [facility] Address: [address] [place] [address] Performed By: #### 5 5454-3 #### [facility] CLIA [id number] [address] [place] [address] [place] Monocytes/100 WBC (Bld) 8.5 % Normal [facility] Comment on above: Order Comment: Speci men Type: BLOOD SPECIMEN Ordering Facility: [facility] Address: [address] [place] [address] Performed By: #### 5 5454-3 #### [facility] CLIA [id number] [address] [place] [address] [place] Neutrophils (Bld) [#/Vol] 3.69 10*3/uL Normal 1.45-7.50 [facility] Comment on above: Order Comment: Speci men Type: BLOOD SPECIMEN Ordering Facility: [facility] Address: [address] [place] [address] Performed By: #### 5 5454-3 #### [facility] CLIA [id number] [address] [place] [address] [place] Neutrophils/100 WBC (Bld) 64.0 % Normal [facility] Comment on above: Order Comment: Speci men Type: BLOOD SPECIMEN Ordering Facility: [facility] Address: [address] [place] [address] Performed By: #### 5 5454-3 #### [facility] CLIA [id number] [address] [place] [address] [place] Nucleated RBC (Bld) [#/Vol] 10*3/uL Normal <0.01 [facility] Comment on above: Order Comment: Speci men Type: BLOOD SPECIMEN Ordering Facility: [facility] Address: [address] [place] [address] Performed By: #### 5 5454-3 #### [facility] CLIA [id number] [address] [place] [address] [place] Nucleated RBC/100 WBC (Bld) [Ratio] 0.0 /100 WBC Normal [facility] Comment on above: Order Comment: Speci men Type: BLOOD SPECIMEN Ordering Facility: [facility] Address: [address] [place] [address] Performed By: #### 5 5454-3 #### [facility] CLIA [id number] [address] [place] [address] [place] Platelet mean volume (Bld) [Entitic vol] 11.2 fL Normal 9.0-12.7 [facility] Comment on above: Order Comment: Speci men Type: BLOOD SPECIMEN Ordering Facility: [facility] Address: [address] [place] [address] Performed By: #### 5 5454-3 #### [facility] CLIA [id number] [address] [place] [address] [place] Platelets (Bld) [#/Vol] 213 10*3/uL Normal 150-400 [facility] Comment on above: Order Comment: Speci men Type: BLOOD SPECIMEN Ordering Facility: [facility] Address: [address] [place] [address] Performed By: #### 5 5454-3 #### [facility] CLIA [id number] [address] [place] [address] [place] RBC (Bld) [#/Vol] 5.03 10*6/uL Normal 3.90-5.20 [facility] Comment on above: Order Comment: Speci men Type: BLOOD SPECIMEN Ordering Facility: [facility] Address: [address] [place] [address] Performed By: #### 5 5454-3 #### [facility] CLIA [id number] [address] [place] [address] [place] WBC (Bld) [#/Vol] 5.77 10*3/uL Normal 3.70-11.00 [facility] Comment on above: Order Comment: Speci men Type: BLOOD SPECIMEN Ordering Facility: [facility] Address: [address] [place] [address] Performed By: #### 5 5454-3 #### [facility] CLIA [id number] [address] [place] [address] OF [place]RISTEN CNPNon 04-29-2024 CNPN Telephone (FAMWS) NOHELIA CADENA ([id number]) 1985 F Date Time Provider Department 04/29/24 [facility] During your visit today, we recorded the following information about you: Mary Hairston PA-C 04/29/2024 9:31 AM Signed Repeat platelet count is normal. This is very reassuring. Yesterday lab was likely a result from the collection process causing a pseudo low platelet count. Thanks. ALEXY Tidwell Rilee, MA 04/29/2024 9:50 AM Signed Call to pt and notified her of results below from Provider. Verbalized understanding. Deandra Antony MA Allergies As of Date: 04/29/2024 (No Known Allergies) Date Reviewed: 04/26/2024 Reviewed by: Tomer Hernandez LPN - Fully Assessed Reason for Visit: Results [95] Problem List As Of Date 04/29/2024 Noted Resolved Family history of open neural tube defect [Z82.*02/01/2014 10/26/2014 Echogenic focus of heart, , affecting care*05/20/2014 10/26/2014 Supervision of normal first [Z34.00] 07/05/2014 10/26/2014 Antepartum multigravida of advanced maternal ag*07/06/2018 04/21/2019 History of anxiety [Z86.59] 07/06/2018 04/21/2019 Family history of diabetes mellitus [Z83.3] 07/27/2018 04/21/2019 History of gestational hypertension [Z87.59] 07/27/2018 04/21/2019 GERD without esophagitis [K21.9] 05/08/2021 ANALILIA (generalized anxiety disorder) [F41.1] 05/08/2021 Obsessive-compulsive disorder [F42.9] 05/08/2021 Well adult exam [Z00.00] 06/12/2021 Burning sensation of mouth [R20.8] 02/23/2022 Sebaceous cyst [L72.3] 02/23/2022 Increased mucus in stool [R19.5] 02/23/2022 Post-nasal drainage [R09.82] 02/23/2022 Iron deficiency anemia [D50.9] 09/12/2022 Encounter Status:Closed by DEANDRA ANTONY on 04/29/24 [facility] NOHELIA CADENA ([id number]) 1985 F Date Time Provider Department 04/29/24 [facility] During your visit today, we recorded the following information about you: Mary Hairston PA-C 04/29/2024 8:25 AM Signed Let patient know her Platelet count is very low. I need a repeat blood count today for a stat read. Go to [place] [facility]. If it is lower, I will have to send her to hospital for workup. If it is better, then we will reach out to hematology for further evaluation. Has she noted any abnormal bruising or bleeding? I know during our visit she did not have that concern. Otherwise her labs were all normal. ALEXY Tidwell Sherill A, LPN 04/29/2024 8:37 AM Signed Spoke with pt and reviewed Mary's message and instructions. Pt verbalizes understanding. Pt will come to [facility] lab. Pt denies any abnormal brusing or bleeding. States she does have a good bruise from lab draw. EBNITO Alvarenga Rayanne, PA-C 04/29/2024 8:39 AM Signed Noted. Allergies As of Date: 04/29/2024 (No Known Allergies) Date Reviewed: 04/26/2024 Reviewed by: Tomer Hernandez LPN - Fully Assessed Reason for Visit: Results [95] Primary Visit Diagnosis:Thrombocytopenia (HCC) [D69.6] Order(s):COMPLETE BLOOD COUNT AND DIFFERENTIAL [SQCBCDIF] Order #: [id number] FUTURE Problem List As Of Date 04/29/2024 Noted Resolved Family history of open neural tube defect [Z82.*02/01/2014 10/26/2014 Echogenic focus of heart, , affecting care*05/20/2014 10/26/2014 Supervision of normal first [Z34.00] 07/05/2014 10/26/2014 Antepartum multigravida of advanced maternal ag*07/06/2018 04/21/2019 History of anxiety [Z86.59] 07/06/2018 04/21/2019 Family history of diabetes mellitus [Z83.3] 07/27/2018 04/21/2019 History of gestational hypertension [Z87.59] 07/27/2018 04/21/2019 GERD without esophagitis [K21.9] 05/08/2021 ANALILIA (generalized anxiety disorder) [F41.1] 05/08/2021 Obsessive-compulsive disorder [F42.9] 05/08/2021 Well adult exam [Z00.00] 06/12/2021 Burning sensation of mouth [R20.8] 02/23/2022 Sebaceous cyst [L72.3] 02/23/2022 Increased mucus in stool [R19.5] 02/23/2022 Post-nasal drainage [R09.82] 02/23/2022 Iron deficiency anemia [D50.9] 09/12/2022 Encounter Status:Closed by MARY MELGAR on 04/29/24 Normal [facility] Basic metabolic 2000 panelon 04-28-2024 Anion gap [Moles/Vol] 10 mmol/L Normal 8-15 [facility] Comment on above: Order Comment: Speci men Type: BLOOD SPECIMEN Ordering Facility: [facility] Address: [address] [place] [address] Performed By: #### 5 5454-3 #### [facility] CLIA [id number] [address] [place] [address] [place] Calcium [Mass/Vol] 9.1 mg/dL Normal 8.5-10.2 [facility] Comment on above: Order Comment: Speci men Type: BLOOD SPECIMEN Ordering Facility: [facility] Address: [address] [place] [address] Performed By: #### 5 5454-3 #### [facility] CLIA [id number] [address] [place] [address] [place] Chloride [Moles/Vol] 105 mmol/L Normal 98-107 [facility] Comment on above: Order Comment: Speci men Type: BLOOD SPECIMEN Ordering Facility: [facility] Address: [address] [place] [address] Performed By: #### 5 5454-3 #### [facility] CLIA [id number] [address] [place] [address] [place] CO2 [Moles/Vol] 25 mmol/L Normal 22-30 [facility] Comment on above: Order Comment: Speci men Type: BLOOD SPECIMEN Ordering Facility: [facility] Address: [address] [place] [address] Performed By: #### 5 5454-3 #### [facility] CLIA [id number] [address] [place] [address] [place] Creatinine [Mass/Vol] 0.82 mg/dL Normal 0.58-0.96 [facility] Comment on above: Order Comment: Berta hodges Type: BLOOD SPECIMEN Ordering Facility: [facility] Address: [address] [place] [address] Performed By: #### 5 5454-3 #### [facility] CLIA [id number] [address] [place] [address] [place] Creatinine and Glomerular filtration rate.predicted panel (S/P/Bld) 93 mL/min/1.73m??? Normal >=60 [facility] Comment on above: Order Comment: Berta hodges Type: BLOOD SPECIMEN Ordering Facility: [facility] Address: [address] [place] [address] Result Comment: Theerse mated Glomerular Filtration Rate (eGFR) is calculated using the 2020 CKD-EPI creatinine equation. This equation utilizes serum creatinine, sex, and age as parameters. The creatinine assay has traceable calibration to isotope dilution-mass spectrometry. Refer to KDIGO guidelines for clinical interpretation. In patients with unstable renal function, e.g. those with acute kidney injury, the eGFR may not accurately reflect actual GFR. Performed By: #### 5 5454-3 #### [facility] CLIA [id number] [address] [place] [address] [place] Glucose [Mass/Vol] 90 mg/dL Normal 74-99 [facility] Comment on above: Order Comment: Berta hodges Type: BLOOD SPECIMEN Ordering Facility: [facility] Address: [address] [place] [address] Result Comment: The [place] Diabetes Association (ADA) provides guidance for cutoff values for fasting glucose and random glucose. The ADA defines fasting as no caloric intake for at least 8 hours. Fasting plasma glucose results between 100 to 125 mg/dL indicate increased risk for diabetes (prediabetes). Fasting plasma glucose results greater than or equal to 126 mg/dL meet the criteria for diagnosis of diabetes. In the absence of unequivocal hyperglycemia, results should be confirmed by repeat testing. In a patient with classic symptoms of hyperglycemia or hyperglycemic crisis, random plasma glucose results greater than or equal to 200 mg/dL meet the criteria for diagnosis of diabetes. Reference: Standards of Medical Care in Diabetes 2016, [place] Diabetes Association. Diabetes Care. 2016.39(Suppl 1). Performed By: #### 5 5454-3 #### [facility] CLIA [id number] [address] [place] [address] [place] Potassium [Moles/Vol] 4.1 mmol/L Normal 3.7-5.1 [facility] Comment on above: Order Comment: Speci men Type: BLOOD SPECIMEN Ordering Facility: [facility] Address: [address] [place] [address] Performed By: #### 5 5454-3 #### [facility] CLIA [id number] [address] [place] [address] [place] Sodium [Moles/Vol] 140 mmol/L Normal 136-144 [facility] Comment on above: Order Comment: Speci men Type: BLOOD SPECIMEN Ordering Facility: [facility] Address: [address] [place] [address] Performed By: #### 5 5454-3 #### [facility] CLIA [id number] [address] [place] [address] [place] Urea nitrogen [Mass/Vol] 11 mg/dL Normal 7-21 [facility] Comment on above: Order Comment: Speci men Type: BLOOD SPECIMEN Ordering Facility: [facility] Address: [address] [place] [address] Performed By: #### 5 5454-3 #### [facility] CLIA [id number] [address] [place] [address] [place] CBC W Auto Differential pane l (Bld)on 04-28-2024 Basophils (Bld) [#/Vol] 0.04 10*3/uL Normal <0.11 [facility] Comment on above: Order Comment: Speci men Type: BLOOD SPECIMEN Ordering Facility: [facility] Address: [address] [place] [address] Performed By: #### 5 5454-3 #### [facility] CLIA [id number] [address] [place] [address] [place] Basophils/100 WBC (Bld) 0.8 % Normal [facility] Comment on above: Order Comment: Speci men Type: BLOOD SPECIMEN Ordering Facility: [facility] Address: [address] [place] [address] Performed By: #### 5 5454-3 #### [facility] CLIA [id number] [address] [place] [address] [place] Differential cell count method Nom (Bld) Auto Normal [facility] Comment on above: Order Comment: Speci men Type: BLOOD SPECIMEN Ordering Facility: [facility] Address: [address] [place] [address] Performed By: #### 5 5454-3 #### [facility] CLIA [id number] [address] [place] [address] [place] Eosinophils (Bld) [#/Vol] 0.13 10*3/uL Normal <0.46 [facility] Comment on above: Order Comment: Speci men Type: BLOOD SPECIMEN Ordering Facility: [facility] Address: [address] [place] [address] Performed By: #### 5 5454-3 #### [facility] CLIA [id number] [address] [place] [address] [place] Eosinophils/100 WBC (Bld) 2.6 % Normal [facility] Comment on above: Order Comment: Speci men Type: BLOOD SPECIMEN Ordering Facility: [facility] Address: [address] [place] [address] Performed By: #### 5 5454-3 #### [facility] CLIA [id number] [address] [place] [address] [place] Erythrocyte distribution width (RBC) [Ratio] 13.5 % Normal 11.5-15.0 [facility] Comment on above: Order Comment: Speci men Type: BLOOD SPECIMEN Ordering Facility: [facility] Address: [address] [place] [address] Performed By: #### 5 5454-3 #### [facility] CLIA [id number] [address] [place] [address] [place] Hematocrit (Bld) [Volume fraction] 42.5 % Normal 36.0-46.0 [facility] Comment on above: Order Comment: Speci men Type: BLOOD SPECIMEN Ordering Facility: [facility] Address: [address] [place] [address] Performed By: #### 5 5454-3 #### [facility] CLIA [id number] [address] [place] [address] [place] Hemoglobin (Bld) [Mass/Vol] 13.7 g/dL Normal 11.5-15.5 [facility] Comment on above: Order Comment: Speci men Type: BLOOD SPECIMEN Ordering Facility: [facility] Address: [address] [place] [address] Performed By: #### 5 5454-3 #### [facility] CLIA [id number] [address] [place] [address] [place] Immature granulocytes (Bld) [#/Vol] 10*3/uL Normal <0.10 [facility] Comment on above: Order Comment: Speci men Type: BLOOD SPECIMEN Ordering Facility: [facility] Address: [address] [place] [address] Performed By: #### 5 5454-3 #### [facility] CLIA [id number] [address] [place] [address] [place] Immature granulocytes/100 WBC (Bld) 0.2 % Normal [facility] Comment on above: Order Comment: Speci men Type: BLOOD SPECIMEN Ordering Facility: [facility] Address: [address] [place] [address] Performed By: #### 5 5454-3 #### [facility] CLIA [id number] [address] [place] [address] [place] Lymphocytes (Bld) [#/Vol] 1.20 10*3/uL Normal 1.00-4.00 [facility] Comment on above: Order Comment: Speci men Type: BLOOD SPECIMEN Ordering Facility: [facility] Address: [address] [place] [address] Performed By: #### 5 5454-3 #### [facility] CLIA [id number] [address] [place] [address] [place] Lymphocytes/100 WBC (Bld) 24.4 % Normal [facility] Comment on above: Order Comment: Speci men Type: BLOOD SPECIMEN Ordering Facility: [facility] Address: [address] [place] [address] Performed By: #### 5 5454-3 #### [facility] CLIA [id number] [address] [place] [address] [place] MCH (RBC) [Entitic mass] 27.7 pg Normal 26.0-34.0 [facility] Comment on above: Order Comment: Speci men Type: BLOOD SPECIMEN Ordering Facility: [facility] Address: [address] [place] [address] Performed By: #### 5 5454-3 #### [facility] CLIA [id number] [address] [place] [address] [place] MCHC (RBC) [Mass/Vol] 32.2 g/dL Normal 30.5-36.0 [facility] Comment on above: Order Comment: Speci men Type: BLOOD SPECIMEN Ordering Facility: [facility] Address: [address] [place] [address] Performed By: #### 5 5454-3 #### [facility] CLIA [id number] [address] [id number] [address] [place] MCV (RBC) [Entitic vol] 86.0 fL Normal 80.0-100.0 [facility] Comment on above: Order Comment: Speci men Type: BLOOD SPECIMEN Ordering Facility: [facility] Address: [address] [place] [address] Performed By: #### 5 5454-3 #### [facility] CLIA [id number] [address] [place] [address] [place] Monocytes (Bld) [#/Vol] 0.44 10*3/uL Normal <0.87 [facility] Comment on above: Order Comment: Speci men Type: BLOOD SPECIMEN Ordering Facility: [facility] Address: [address] [place] [address] Performed By: #### 5 5454-3 #### [facility] CLIA [id number] [address] [place] [address] [place] Monocytes/100 WBC (Bld) 9.0 % Normal [facility] Comment on above: Order Comment: Speci men Type: BLOOD SPECIMEN Ordering Facility: [facility] Address: [address] [place] [address] Performed By: #### 5 5454-3 #### [facility] CLIA [id number] [address] [place] [address] [place] Neutrophils (Bld) [#/Vol] 3.09 10*3/uL Normal 1.45-7.50 [facility] Comment on above: Order Comment: Speci men Type: BLOOD SPECIMEN Ordering Facility: [facility] Address: [address] [place] [address] Performed By: #### 5 5454-3 #### [facility] CLIA [id number] [address] [place] [address] [place] Neutrophils/100 WBC (Bld) 63.0 % Normal [facility] Comment on above: Order Comment: Speci men Type: BLOOD SPECIMEN Ordering Facility: [facility] Address: [address] [place] [address] Performed By: #### 5 5454-3 #### [facility] CLIA [id number] [address] [place] [address] [place] Nucleated RBC (Bld) [#/Vol] 10*3/uL Normal <0.01 [facility] Comment on above: Order Comment: Speci men Type: BLOOD SPECIMEN Ordering Facility: [facility] Address: [address] [place] [address] Performed By: #### 5 5454-3 #### [facility] CLIA [id number] [address] [place] [address] [place] Nucleated RBC/100 WBC (Bld) [Ratio] 0.0 /100 WBC Normal [facility] Comment on above: Order Comment: Speci men Type: BLOOD SPECIMEN Ordering Facility: [facility] Address: [address] [place] [address] Performed By: #### 5 5454-3 #### [facility] CLIA [id number] [address] [place] [address] [place] Platelet mean volume (Bld) [Entitic vol] 12.6 fL Normal 9.0-12.7 [facility] Comment on above: Order Comment: Speci men Type: BLOOD SPECIMEN Ordering Facility: [facility] Address: [address] [place] [address] Performed By: #### 5 5454-3 #### [facility] CLIA [id number] [address] [place] [address] [place] Platelets (Bld) [#/Vol] 46 10*3/uL Low 150-400 [facility] Comment on above: Order Comment: Speci men Type: BLOOD SPECIMEN Ordering Facility: [facility] Address: [address] [place] [address] Result Comment: No c lot detected. Performed By: #### 5 5454-3 #### [facility] CLIA [id number] [address] [place] [address] [place] RBC (Bld) [#/Vol] 4.94 10*6/uL Normal 3.90-5.20 [facility] Comment on above: Order Comment: Speci men Type: BLOOD SPECIMEN Ordering Facility: [facility] Address: [address] [place] [address] Performed By: #### 5 5454-3 #### [facility] CLIA [id number] [address] [place] [address] [place] WBC (Bld) [#/Vol] 4.91 10*3/uL Normal 3.70-11.00 [facility] Comment on above: Order Comment: Speci men Type: BLOOD SPECIMEN Ordering Facility: [facility] Address: [address] [place] [address] Performed By: #### 5 5454-3 #### [facility] CLIA [id number] [address] [place] [address] [place] HBV surface Ab Ql (S)on 04-18 HBV surface Ab Qn (S) 62.00 mIU/mL Normal [facility] Comment on above: Order Comment: Speci men Type: BLOOD SPECIMENOrdering Facility: [facility] Address: [address] [place] [address] Result Comment: <8 m IU/mL: No serological evidence of immunity to Hepatitis B Virus. >/= 8 to <12 mIU/mL: No serological evidence of immunity to Hepatitis B Virus. >/= 12 mIU/mL: Consistent with serological evidence of immunity to Hepatitis B Virus. Performed By: #### 2 2322-2 ####[facility] [id number] [place] [address] [place] HBV surface Ab Ser Qlon 04-18 HBV surface Ab Ql (S) Positive Normal [facility] Comment on above: Order Comment: Speci men Type: BLOOD SPECIMENOrdering Facility: [facility] Address: [address] [place] [address] Result Comment: Cons istent with serological evidence of immunity to Hepatitis B Virus. Performed By: #### 2 2322-2 ####[facility] [id number] [place] [address] [place] HbA1c (Bld)on 04-28-2024 Average glucose Estimated from glycated hemoglobin (Bld) [Mass/Vol] 103 mg/dL Normal [facility] Comment on above: Order Comment: Speci men Type: BLOOD SPECIMEN Ordering Facility: [facility] Address: [address] [place] [address] Result Comment: eAG: (Estimated average glucose) is a calculated value from HgbA1c and is field support representative of the average blood glucose level in the last 2-3 month period. Performed By: #### 5 5454-3 #### [facility] CLIA [id number] [address] [place] [address] [place] HbA1c (Bld) [Mass fraction] 5.2 % Normal 4.3-5.6 [facility] Comment on above: Order Comment: Ectori men Type: BLOOD SPECIMEN Ordering Facility: [facility] Address: [address] [place] [address] Result Comment: [place] Diabetes Association guidelines indicate that patients with HgbA1c in the range 5.7-6.4% are at increased risk for development of diabetes, and intervention by lifestyle modification may be beneficial. HgbA1c greater or equal to 6.5% is considered diagnostic of diabetes. Performed By: #### 5 5454-3 #### [facility] CLIA [id number] [address] [place] [address] [place] Iron and Iron binding capaci ty panelon 04-28-2024 Iron [Mass/Vol] 73 ug/dL Normal 41-186 [facility] Comment on above: Order Comment: Ectori men Type: BLOOD SPECIMEN Ordering Facility: [facility] Address: [address] [place] [address] Performed By: #### 5 5454-3 #### [facility] CLIA [id number] [address] [place] [address] [place] Iron binding capacity [Mass/Vol] 280 ug/dL Normal 232-386 [facility] Comment on above: Order Comment: Speci men Type: BLOOD SPECIMEN Ordering Facility: [facility] Address: [address] [place] [address] Performed By: #### 5 5454-3 #### [facility] CLIA [id number] [address] [place] [address] [place] Iron/TIBC [Molar ratio] 26.1 % Normal 15.0-57.0 [facility] Comment on above: Order Comment: Speci men Type: BLOOD SPECIMEN Ordering Facility: [facility] Address: [address] [place] [address] Performed By: #### 5 5454-3 #### [facility] CLIA [id number] [address] [place] [address] [place] LIPID PANEL, NONFASTINGon Cholesterol [Mass/Vol] 152 mg/dL Normal <200 [facility] Comment on above: Order Comment: Speci men Type: BLOOD SPECIMEN Ordering Facility: [facility] Address: [address] [place] [address] Result Comment: <200 mg/dL, Desirable 200-239 mg/dL, Borderline high >239 mg/dL, High Performed By: #### 5 5454-3 #### [facility] CLIA [id number] [address] [place] [address] [place] HDL CHOLESTEROL, NF 46 mg/dL Normal >39 [facility] Comment on above: Order Comment: Speci men Type: BLOOD SPECIMEN Ordering Facility: [facility] Address: [address] [place] [address] Result Comment: 40-5 9 mg/dL, Acceptable >59 mg/dL, High: Negative risk factor for coronary heart disease <40 mg/dL, Low: Positive risk factor for coronary heart disease Performed By: #### 5 5454-3 #### [facility] CLIA [id number] [address] STATES OF [facility] LDL CHOLESTEROL, NF 95 mg/dL Normal <100 [facility] Comment on above: Order Comment: Berta hodges Type: BLOOD SPECIMEN Ordering Facility: [facility] Address: [address] [place] [address] Result Comment: <100 mg/dL, Optimal 100-129 mg/dL, Near optimal/above optimal 130-159 mg/dL, Borderline high 160-189 mg/dL, High >189 mg/dL, Very high Secondary prevention optimal LDL Cholesterol levels are recommended to be < 70 mg/dL Performed By: #### 5 5454-3 #### [facility] CLIA [id number] [address] [place] [address] [place] LDL/HDL RATIO, NF 2.07 mg/dL Normal <2.54 [facility] Comment on above: Order Comment: Berta hodges Type: BLOOD SPECIMEN Ordering Facility: [facility] Address: [address] [place] [address] Result Comment: Hima sosa: 1. National Cholesterol Education Program ATP III Guideline At-A-Glance Quick Desk Reference: National Heart, Lung, and Blood [place]. National Institutes of Health. 2001: NIH Publication No. 01-3305. 2. An International Atherosclerosis Society position paper: global recommendations for the management of dyslipidemia: executive summary, Atherosclerosis. 2014: 232(2):410-413. Performed By: #### 5 5454-3 #### [facility] CLIA [id number] [address] [place] [address] [place] NON HDL CHOL, NF 106 mg/dL Normal <130 [facility] Comment on above: Order Comment: Berta hodges Type: BLOOD SPECIMEN Ordering Facility: [facility] Address: [address] [place] [address] Result Comment: <130 mg/dL, Optimal 130-159 mg/dL, Near optimal/above optimal 160-189 mg/dL, Borderline high 190-219 mg/dL, High >219 mg/dL, Very high Secondary prevention optimal non HDL Cholesterol levels are recommended to be <100 mg/dL Performed By: #### 5 5454-3 #### [facility] CLIA [id number] [address] [place] [address] [place] T CHOL/HDL RATIO NF 3.30 mg/dL Normal <5.10 [facility] Comment on above: Order Comment: Ectori men Type: BLOOD SPECIMEN Ordering Facility: [facility] Address: [address] [place] [address] Performed By: #### 5 5454-3 #### [facility] CLIA [id number] [address] [place] [address] [place] TRIGLYCERIDES, NF 56 mg/dL Normal <150 [facility] Comment on above: Order Comment: Berta hodges Type: BLOOD SPECIMEN Ordering Facility: [facility] Address: [address] [place] [address] Result Comment: <150 mg/dL, Normal 150-199 mg/dL, Borderline high 200-499 mg/dL, High >499 mg/dL, Very high Performed By: #### 5 5454-3 #### [facility] CLIA [id number] [address] [place] [address] [place] VLDL CHOLESTEROL, NF 11 mg/dL Normal <30 [facility] Comment on above: Order Comment: Berta men Type: BLOOD SPECIMEN Ordering Facility: [facility] Address: [address] [place] [address] Performed By: #### 5 5454-3 #### [facility] CLIA [id number] [address] [place] [address] [place] CNOVon 04-26-2024 CNOV Office Visit (FAMPWS ) NOHELIA CADENA ([id number]) 1985 F Date Time Provider Department 04/26/24 12:40 PM MARY HAIRSTON During your visit today, we recorded the following information about you: Temperature Pulse Respiration Blood pressure 98.6 degrees 82/minute 18/minute 102/70 Weight 85.3 kg Mary Hairston PA-C 04/26/2024 1:15 PM Signed Chief Complaint Patient presents with: Physical HPI Nohelia Cadena is a 38 year old female who presents here today for physical. Patient with hx of GERD, anemia, OCD, anxiety, and those as below. Patient has had some nipple discharge recently. 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 Has also had some episodes of vertigo/lightheadedness at times. Not consistent. Past medical history, appointments, medications, allergies reviewed. Previous Medical History PAST MEDICAL HISTORY No date: acne 05/08/2021: ANALILIA (generalized anxiety disorder) 05/08/2021: GERD without esophagitis 01/03/2022: Iron deficiency 09/12/2022: Iron deficiency anemia 10/26/2014: Mastitis 05/08/2021: Obsessive-compulsive disorder No date: Pilar cyst Comment: right side of head 02/23/2022: Sebaceous cyst Comment: Posterior neck and several on scalp. 06/12/2021: Well adult exam Previous Surgical History PAST SURGICAL HISTORY 12/2020: EGD 06/13/2023: HYSTEROSCOPY BX ENDOMETRIUMAND/POLYPC W/WO DANDC Comment: hysteroscopy DANDC w/ polyp resection No date: PAST SURGICAL HISTORY OF Comment: WISDOM TEETH Family History FAMILY HISTORY Problem Relation Age of Onset None Mother None Father No Known Problems Brother Breast Cancer Maternal Grandmother Diabetes Maternal Grandfather Heart Paternal Grandfather Breast Cancer Paternal Aunt None Sister other (anencephaly) Brother other (spina bifida) Other Allergies Son Eczema Son Patient Allergies ALLERGIES No Known Allergies Current Medications Current Outpatient Medications on File Prior to Visit Medication Sig ferrous sulfate 325 mg (65 mg iron) tablet Take 1 tablet by mouth once daily. (Patient not taking: Reported on 04/26/2024) No current facility-administered medications on file prior to visit. Social History Social History Tobacco Use Smoking status: Never Smokeless tobacco: Never Vaping Use Vaping status: Never Used Substance Use Topics Alcohol use: No Comment: none Drug use: No Review of Symptoms REVIEW OF SYSTEMS GENERAL: No weight loss, malaise or fevers HEENT: No changes in hearing or vision, no nose bleeds or other nasal problems NECK: Negative for lumps, goiter, pain and significant neck swelling RESPIRATORY: Negative for cough, hemoptysis, wheezing, COPD, dyspnea or shortness of breath CARDIOVASCULAR: Negative for chest pain, leg swelling, hypertension, CHF or palpitations GI: recurring GERD at times. Has had frequent BM which has changed over the past year. : No history of dysuria, frequency or incontinence MUSCULOSKELETAL: Negative for joint pain or swelling, back pain or muscle pain SKIN: Negative for lesions, rash, and itching PSYCH: Negative for sleep disturbance, mood disorder and recent psychosocial stressors HEMATOLOGY/LYMPHOLOGY: Negative for prolonged bleeding, bruising easily or swollen nodes ENDOCRINE: Negative for cold or heat intolerance, polyuria, polydipsia and goiter NEURO: No history of headaches, syncope, paralysis, seizures or tremors EXAM: BP 102/70 (BP Site: Left Arm, BP Position: Sitting, BP Cuff Size: Large Adult) Pulse 82 Temp 37 ?C (98.6 ?F) Resp 18 Wt 85.3 kg (188 lb) LMP 04/02/2024 (Exact Date) SpO2 98% BMI 29.44 kg/m? General Appearance: Well appearing, alert, in no acute distress, well-hydrated, well nourished. Skin: Skin color, texture, turgor normal, no suspicious rashes or lesions. Head: Normocephalic, no masses, lesions, tenderness or abnormalities. Eyes: Anicteric sclera. Pupils are equally round and reactive to light. Extraocular movements are intact. . Ears: External ears normal, canals clear, TMs pearly lopez . Nose/Sinuses: Nares normal, septum midline, mucosa normal, no drainage or sinus tenderness. Oropharynx: Lips, mucosa, and tongue normal, teeth and gums normal, oropharynx normal. Neck: Supple, no adenopathy; thyroid symmetric, normal size, no bruits. Lungs: Lungs clear to auscultation. No wheezing, rhonchi, rales.. Heart: RRR without murmur, gallop, or rubs. No ectopy. Abdomen: normal BS. Mild tenderness to palp Extremities: No deformities, edema, skin discoloration, clubbing or cyanosis. Good capillary refill. . Peripheral Pulses: Normal. Neurologic: Gait normal. Reflexes normal and symmetric. Sensation grossly intact.. Health Maintenance List Depression Screening Never done Hepatitis B Vaccine(2 of 3 - 19+ 3-dose series) due on 03/23/2003 Covid-19 Vaccine( season) due on (more content not included)... Normal [facility] Prolactin SerPl-mCncon 04-26 Prolactin [Mass/Vol] 8.2 ng/mL Normal 4.5-26.8 [facility] Comment on above: Order Comment: Berta hodges Type: BLOOD SPECIMEN Ordering Facility: [facility] Address: [address] [place] [address] Result Comment: Prol actin test is performed using the [employer] Electrochemiluminescence Immunoassay method. Results obtained with different methods or kits cannot be used interchangeably. Performed By: #### 5 5454-3 #### [facility] CLIA [id number] [address] [place], [place] [address] [place] [address] [place] TSH SerPl-aCncon 04-26-2024 TSH Qn 1.650 m[IU]/L Normal 0.270-4.200 [facility] Comment on above: Order Comment: Berta hodges Type: BLOOD SPECIMEN Ordering Facility: [facility] Address: [address] [place] [address] Result Comment: If t he patient is , TSH reference range varies by gestational period: First Trimester (weeks 9-12): 0.180-2.990 mIU/L Second Trimester: 0.110-3.980 mIU/L Third Trimester: 0.480-4.710 mIU/L Waylon Bill et al. A Practical Approach for the Verifications and Determination of Site- and Trimester-Specific Reference Intervals for Thyroid Function tests in . Thyroid, 2019:29:3:412-420. Romel Garrett, et al. 2017 Guidelines of the [place] [employer] for the Diagnosis and Management of Thyroid Disease during and the . Thyroid, 2017:27:3:315-389. Performed By: #### 5 5454-3 #### [facility] CLIA [id number] [address] [place] [address] [place] CNOVon 04-23-2024 CNOV Office Visit (OBGYWM ) TAMMIJEREMIAS THOMASGISELA Larsen ([id number]) 1985 F Date Time Provider Department 04/23/24 3:20 PM SUSANA BENÍTEZ OBGYWM During your visit today, we recorded the following information about you: Blood pressure Weight Last Period 120/72 85.7 kg 04/02/24 Susana Benítez MD 04/23/2024 4:56 PM Signed [employer] Lead Man offered: Patient declines. Nohelia Cadena is a 38 year old female who presents for problem visit breast discharge for 1 day. HPI: Noticed dark nipple discharge from both breasts. Maybe dark green but not really blood colored. No pain. Was able squeeze more out. Mammogram last year was normal. Breast fed up to 4 years ago. Did have mastitis but doesn't remember what breast. Has also had random head pressure and low grade fevers for days at a time. Had at least one episode of vision disturbances. OB History T2 L2 SAB0 IAB0 Ectopic0 Multiple0 Live Births2 Low Pressure Firer History LMP: 04/02/2024 (Exact Date), Having periods Age at Menarche: Age at First : Age at Menopause: Low Pressure Firer History Comments: Sexual Activity: Yes; Male Contraception: Condom PAST MEDICAL HISTORY No date: acne 05/08/2021: ANALILIA (generalized anxiety disorder) 05/08/2021: GERD without esophagitis 01/03/2022: Iron deficiency 09/12/2022: Iron deficiency anemia 10/26/2014: Mastitis 05/08/2021: Obsessive-compulsive disorder No date: Pilar cyst Comment: right side of head 02/23/2022: Sebaceous cyst Comment: Posterior neck and several on scalp. 06/12/2021: Well adult exam PAST SURGICAL HISTORY 12/2020: EGD 06/13/2023: HYSTEROSCOPY BX ENDOMETRIUMAND/POLYPC W/WO DANDC Comment: hysteroscopy DANDC w/ polyp resection No date: PAST SURGICAL HISTORY OF Comment: WISDOM TEETH FAMILY HISTORY Problem Relation Age of Onset None Mother None Father No Known Problems Brother Breast Cancer Maternal Grandmother Diabetes Maternal Grandfather Heart Paternal Grandfather Breast Cancer Paternal Aunt None Sister other (anencephaly) Brother other (spina bifida) Other Allergies Son Eczema Son Social History Tobacco Use Smoking status: Never Smokeless tobacco: Never Vaping Use Vaping status: Never Used Substance Use Topics Alcohol use: No Comment: none Drug use: No Current Outpatient Medications Medication Sig ferrous sulfate 325 mg (65 mg iron) tablet Take 1 tablet by mouth once daily. (Patient not taking: Reported on 08/06/2023) No current facility-administered medications for this visit. Allergies As of Date: 04/23/2024 (No Known Allergies) Fully Assessed 04/23/2024 REVIEW OF SYSTEMS Abdomen: No bloating, early satiety, indigestion, or increased flatulence. No abdominal pain, nausea, vomiting, diarrhea, or constipation. Bladder: No dysuria, gross hematuria, urinary frequency, urinary urgency, or incontinence. Breast: Nipple discharge. Expanded ROS: N/A Allergies and current medication updated:Yes EXAM: BP 120/72 Wt 189 lb (85.7kg) LMP 04/02/2024 GENERAL: pleasant, female in no apparent distress HEENT: Normocephalic, atraumatic, mucus membranes moist, and no lesions NECK: Supple, full range of motion, and thyroid normal DERMATOLOGY: Normal, without lesions, non-icteric, and non-hirsute BREAST: soft, non-tender, symmetric, no dominant mass, normal nipple-areolar complex, no lymphadenopathy, and I could not express any discharge CHEST: Normal inspiratory effort ABDOMEN: Deferred PELVIC: deferred BIMANUAL: deferred NEURO: alert and oriented x3,exam grossly non-focal EXTREMITIES: normal ASSESSMENT AND PLAN: Encounter Diagnosis ICD-10-CM 1. Discharge from breast N64.52 THYROID STIMULATING HORMONE PROLACTIN ALEK DIAGNOSTIC BILATERAL US BREAST LTD RIGHT US BREAST LTD LEFT Susana Benítez MD Allergies As of Date: 04/23/2024 (No Known Allergies) Date Reviewed: 04/23/2024 Reviewed by: Susana Benítez MD - Fully Assessed Reason for Visit: Breast Problem [16] Primary Visit Diagnosis:Discharge from breast [N64.52] Order(s):THYROID STIMULATING HORMONE [SQTSH] Order #: [id number] FUTURE PROLACTIN [SQPROL] Order #: [id number] FUTURE ALEK DIAGNOSTIC BILATERAL [[id number]] Order #: [id number] FUTURE US BREAST LTD RIGHT [[id number]] Order #: [id number] FUTURE US BREAST LTD LEFT [[id number]] Order #: [id number] FUTURE Prescriptions as of 04/23/2024 - ferrous sulfate 325 mg (65 mg iron) tablet Take 1 tablet by mouth once daily. Problem List As Of Date 04/23/2024 Noted Resolved Family history of open neural tube defect [Z82.*02/01/2014 10/26/2014 Echogenic focus of heart, , affecting care*05/20/2014 10/26/2014 Supervision of normal first [Z34.00] 07/05/2014 10/26/2014 Antepartum multigravida of advanced maternal ag*07/06/2018 04/21/2019 History of anxiety [Z86.59] 07/06/2018 04/21/2019 Family history of diabetes melli (more content not included)... Normal [facility] CNOVon 10-12-2023 CNOV Office Visit (UCWSTR ) NOHELIA CADENA ([id number]) 1985 F Date Time Provider Department 10/12/23 9:30 AM MELIDA MATIHS UCWSTR During your visit today, we recorded the following information about you: Temperature Pulse Respiration Blood pressure 98.2 degrees 75/minute 18/minute 118/78 Weight 83.3 kg Melida Mathis APRN.CNP 10/12/2023 9:42 AM Signed Make sure to finish all of the antibiotic as prescribed. Do not stop early even if you are feeling better as the infection may not fully resolve and bacteria may start to grow again. Rest as much as possible, eat nutritiously and drink plenty of non caffeinated fluids. Change your toothbrush in 3 days after beginning the antibiotic. Tylenol or Motrin as needed for pain. Salt water gargles, Cepacol lozenges or Chloraseptic spray may also be helpful for pain. * Seek medical care immediately, call 911, go to ER if you have chest pain, difficulty breathing, shortness of breath, inability to swallow. Melida Mathis APRN.CNP 10/12/2023 9:45 AM Signed Subjective The history is provided by the patient. No senior architect was used. Sore Throat Associated symptoms include headaches. Pertinent negatives include no abdominal pain, congestion, coughing, diarrhea, ear pain, shortness of breath or vomiting. HPI Nohelia Cadena is a 38 year old female who presents today for CC of sore throat for 2 days and worsening. She is also having a headache. She denies any cough congestion or runny nose. No vomiting, nausea, or diarrhea. She has used tylenol, with short term relief. BP 118/78 Pulse 75 Temp 36.8 ?C (98.2 ?F) (Tympanic) Resp 18 Wt 83.3 kg (183 lb 9.6 oz) LMP 07/17/2023 (Exact Date) SpO2 100% BMI 28.76 kg/m? Social History Tobacco Use Smoking status: Never Smokeless tobacco: Never Vaping Use Vaping Use: Never used Substance Use Topics Alcohol use: No Comment: none Drug use: No PAST MEDICAL HISTORY Diagnosis Date acne ANALILIA (generalized anxiety disorder) 05/08/2021 GERD without esophagitis 05/08/2021 Iron deficiency 01/03/2022 Iron deficiency anemia 09/12/2022 Mastitis 10/26/2014 Obsessive-compulsive disorder 05/08/2021 Pilar cyst right side of head Sebaceous cyst 02/23/2022 Posterior neck and several on scalp. Well adult exam 06/12/2021 I have confirmed and edited as necessary, the [facility] Review of Systems Constitutional: Negative for chills, fever and malaise/fatigue. HENT: Positive for sore throat. Negative for congestion, ear pain and sinus pain. Respiratory: Negative for cough, sputum production, shortness of breath and wheezing. Cardiovascular: Negative for chest pain. Gastrointestinal: Negative for abdominal pain, diarrhea, nausea and vomiting. Musculoskeletal: Negative for myalgias. Neurological: Positive for headaches. Objective Physical Exam Vitals and nursing note reviewed. HENT: Head: Normocephalic and atraumatic. Right Ear: Tympanic membrane, ear canal and external ear normal. Left Ear: Tympanic membrane, ear canal and external ear normal. Nose: No mucosal edema, congestion or rhinorrhea. Right Sinus: No maxillary sinus tenderness or frontal sinus tenderness. Left Sinus: No maxillary sinus tenderness or frontal sinus tenderness. Mouth/Throat: Pharynx: Uvula midline. Posterior oropharyngeal erythema present. No oropharyngeal exudate. Cardiovascular: Rate and Rhythm: Normal rate and regular rhythm. Heart sounds: Normal heart sounds. Pulmonary: Effort: Pulmonary effort is normal. Breath sounds: Normal breath sounds. Lymphadenopathy: Head: Right side of head: No submental, submandibular or tonsillar adenopathy. Left side of head: No submental, submandibular or tonsillar adenopathy. Cervical: No cervical adenopathy. Skin: General: Skin is warm and dry. Neurological: Mental Status: She is alert. Psychiatric: Mood and Affect: Affect normal. ASSESSMENT/PLAN: 1. Strep throat - ICD9: 034.0, ICD10: J02.0 (primary diagnosis) - suspect strep - Ppsitive PCR - Amoxicillin for 10 days. - Discussed supportive care treatment with fluids, rest and analgesia. - The patient may also use warm salt water gargles, throat lozenges and/or OTC throat spray as needed. - Contagious dz precautions discussed- including considered contagious until on antibiotics for 24 hours - The patient should follow up in one week if symptoms persist or worsen - Call back if drooling, increased temperature, symptoms of dehydration and/or still sick in one week 2. Sore throat - ICD9: 462, ICD10: J02.9 - Group A strep molecular testing positive Diagnosis and treatment plan were discussed and questions were answered to the patient's satisfaction. Pt acknowledged understanding of concepts and follow up plan. Specific signs and symptoms that would indicate the need for higher level of (more content not included)... Normal [facility] STREP A MOLECULAR (POC)on Procedural Control Valid [facility] Strep A (POCT) Positive Abnormal Negative [facility] CNPNon 08-28-2023 CNPN Telephone (FAMPWS) NOHELIA CADENA ([id number]) 1985 F Date Time Provider Department 08/28/23 [facility] During your visit today, we recorded the following information about you: Jorge Perez MD 08/28/2023 10:13 PM Signed Let patient know the CT of her abdomen was normal. Monica Higgins RN 08/29/2023 8:58 AM Signed Pt called and is notified of providers results. Pt voices understanding. Monica Higgins RN Allergies As of Date: 08/28/2023 (No Known Allergies) Date Reviewed: 08/25/2023 Reviewed by: Madelin Pulliam, RT(R) - Fully Assessed Reason for Visit: Results [95] Prescriptions as of 08/29/2023 - ferrous sulfate 325 mg (65 mg iron) tablet Take 1 tablet by mouth once daily. Problem List As Of Date 08/28/2023 Noted Resolved Family history of open neural tube defect [Z82.*02/01/2014 10/26/2014 Echogenic focus of heart, , affecting care*05/20/2014 10/26/2014 Supervision of normal first [Z34.00] 07/05/2014 10/26/2014 Antepartum multigravida of advanced maternal ag*07/06/2018 04/21/2019 History of anxiety [Z86.59] 07/06/2018 04/21/2019 Family history of diabetes mellitus [Z83.3] 07/27/2018 04/21/2019 History of gestational hypertension [Z87.59] 07/27/2018 04/21/2019 GERD without esophagitis [K21.9] 05/08/2021 ANALILIA (generalized anxiety disorder) [F41.1] 05/08/2021 Obsessive-compulsive disorder [F42.9] 05/08/2021 Well adult exam [Z00.00] 06/12/2021 Burning sensation of mouth [R20.8] 02/23/2022 Sebaceous cyst [L72.3] 02/23/2022 Increased mucus in stool [R19.5] 02/23/2022 Post-nasal drainage [R09.82] 02/23/2022 Iron deficiency anemia [D50.9] 09/12/2022 Encounter Status:Closed by MONICA HIGGINS on 08/29/23 Normal [facility] CT ABD/PEL W IVCONon 024 CT ABD/PEL W IVCON * * *Final Report* * * DATE OF EXAM: Aug 27 2023 11:15AM [facility] 0530 - CT ABD/PEL W IVCON / PROCEDURE REASON: multiple diagnoses * * * * Physician Interpretation * * * * EXAMINATION: CT ABD/PEL W IVCON Exam Date/Time: 08/27/2023 11:15 AM CLINICAL HISTORY: Periumbilical pain Periumbilical abdominal pain Prominent abdominal aortic pulse Had US done 05/2023 that was none diagnostic fore her pain. Also has a pulsatil e Abdominal Aorta and US 04/2022 was read as normal. TECHNIQUE: CT of the abdomen and pelvis was performed using standard technique, scanning from just above the dome of the diaphragm to the symphysis pubis. Contrast: IV: 100 ml of Omnipaque 300 Oral: 12 ml of Omni 240 10-25ml diluted with water Dose-Length Product (DLP): 492 mGy*cm CT Dose Reduction Employed: Automated exposure control(AEC) and iterative recon COMPARISON: No available prior. RESULT: Lower thorax: Unremarkable. Liver: Unremarkable and without evidence for focal mass. Biliary: Gallbladder is nondistended. No biliary duct dilatation. Spleen: Unremarkable. Pancreas: Unremarkable. Adrenal glands: Unremarkable. Kidneys: No solid, enhancing mass or hydronephrosis in either kidney. Vascular: Normal caliber abdominal aorta . GI tract: No dilation or wall thickening. Normal appendix. No pericolonic inflammatory changes. Pelvis: Trace free fluid, likely physiologic. No collection or mass. Unremarkable urinary bladder and retroflexed uterus. Lymph nodes: No abdominal or pelvic lymphadenopathy, by size criteria. Mesentery/Peritoneum/Retrop eritoneum: No ascites, pneumoperitoneum or suspicious mass. Soft Tissues/Bones: No destructive osseous lesion. No suspicious body wall findings.. IMPRESSION: No acute findings or significant pathology. No aortic aneurysm. Learning Support Services Director: LAURA Transcribe Date/Time: Aug 27 2023 2:05P Dictated by : HILLARY GUZMAN MD This examination was interpreted and the report reviewed and electronically signed by: HILLARY GUZMAN MD on Aug 27 2023 2:08PM EST [id number] Normal [facility] CNCOon 08-14-2023 CNCO HNO ID: [id number] Author: Coordinator, Mammography Service: ? Author Type: Physician Type: Letter Filed: 08/18/2023 11:32 PM Note Text: August 14, 2023 PID: [id number] Nohelia Cadena [address] [facility] [address] [place] [address] Dear Ms. Cadena, We are pleased to inform you that the results of your recent breast imaging exam on 08/13/2023 are normal. Your mammogram demonstrates that you have dense breast tissue, which could hide abnormalities. Dense breast tissue, in and of itself, is a relatively common condition. Therefore, this information is not provided to cause undue concern; rather, it is to raise your awareness and promote discussion with your health care provider regarding the presence of dense breast tissue in addition to other risk factors. Early detection of cancer is very important. We also understand recommendations regarding breast cancer screening are controversial. Please discuss with your primary care provider which strategy is best for you and whether a mammogram is right for you. Your imaging studies and report will be kept on file at [facility] as part of your permanent medical record and are available for your continuing care. Thank you for allowing us to help in meeting your health care needs. Sincerely, Dr. Castaneda Interpreting Radiologist [facility] (Normal over 40) Normal [facility] ALEK SCREENING W TOMOon 08-13 ALEK SCREENING W RUTHIE * * *Final Report* * * DATE OF EXAM: Aug 13 2023 1:12PM [facility] [id number] - [facility] SCREENING W RUTHIE / PROCEDURE REASON: Encounter for screening mammogram for breast cancer * * * * Physician Interpretation * * * * RESULT: #[id number] - ALEK SCREENING W RUTHIE BILATERAL DIGITAL SCREENING MAMMOGRAM TOMOSYNTHESIS WITH CAD: 08/13/2023 HISTORY: /Screening Mammogram with RUTHIE - patient reports NO breast symptoms /priors available for comparison Encounter For Screening Mammogram For Breast Cancer. RESULT: TECHNIQUE: The study was acquired using full field digital technology and interpreted from soft copy. Digital Breast Tomosynthesis (DBT) images were obtained and used to assist in the interpretation of this examination. Current study was also evaluated with a Computer Aided Detection (CAD). Comparison is made to exam dated: 07/10/2021 mammogram - [facility]. The breasts are heterogeneously dense, which may obscure small masses. No significant masses, calcifications, or other findings are seen in either breast. There has been no significant interval change. IMPRESSION: NEGATIVE There is no mammographic evidence of malignancy. A 1 year screening mammogram is recommended. Katerina horn/crystal:08/14/2023 08:46:29 Diesel Inspector(s): RT Jolly(Coretta)(M), [facility] letter sent: Normal over 40 Mammogram BI-RADS: 1 Negative Multiple national specialty organizations have released breast cancer screening guidelines for women at average risk for developing breast cancer - guidelines that are based on both evidence and opinion, yet differ on when to start and how often to screen for breast cancer. With representation from Breast Imaging, Internal Medicine, Women's Health, Family Medicine, and Medical/Surgical Oncology, the [facility] has carefully reviewed the data and reached the following consensus: 1) All women should engage in shared decision-making with their providers to decide when to start and how often to screen; 2) All women should have the opportunity to start screening mammography at age 40; 3) For women ages 45-55, we recommend annual screening mammograms; 4) For women ages 55 and over, we support both the transition from an annual to a biennial interval if this aligns more with patient's values and preferences, or continuation with annual screening; 5) All women should discuss with their providers when to stop screening mammograms. Learning Support Services Director: Crystal Transcribe Date/Time: Aug 13 2023 12:55P Dictated by: KATERINA CASTANEDA MD This examination was interpreted and the report reviewed and electronically signed by: KATERINA CASTANEDA MD on Aug 14 2023 8:46AM EST [id number] Normal [facility] CNOVon 08-06-2023 CNOV Office Visit (FAMPWS ) NOHELIA CADENA ([id number]) 1985 F Date Time Provider Department 08/06/23 6:40 PM [facility] During your visit today, we recorded the following information about you: Pulse Respiration Blood pressure Weight 76/minute 16/minute 118/86 82.6 kg Jorge Perez MD 08/07/2023 8:57 AM Signed Chief Complaint Patient presents with: Pain HPI Nohelia Cadena is a 37 year old female who presents here today for intermittent stomach pain. Patient indicated that she saw OB last week and during the exam when they pushed on her belly above navel she experienced pain/tenderness. She was told to follow up with her PCP. No N/V. Some issues with constipation. Rarely hurts unless pushed on. Sometimes if constipated may have a mild discomfort in this area. Usually has a BM daily and typically soft and easy to pass. No hematochezia, melena or mucus in her stools. Feels bloated at times with recent weight gain. Past medical history, appointments, medications, allergies reviewed. Previous Medical History PAST MEDICAL HISTORY Diagnosis Date acne ANALILIA (generalized anxiety disorder) 05/08/2021 GERD without esophagitis 05/08/2021 Iron deficiency 01/03/2022 Iron deficiency anemia 09/12/2022 Mastitis 10/26/2014 Obsessive-compulsive disorder 05/08/2021 Pilar cyst right side of head Sebaceous cyst 02/23/2022 Posterior neck and several on scalp. Well adult exam 06/12/2021 Previous Surgical History PAST SURGICAL HISTORY Procedure Laterality Date EGD 12/2020 HYSTEROSCOPY BX ENDOMETRIUMAND/POLYPC W/WO DANDC 06/13/2023 hysteroscopy DANDC w/ polyp resection PAST SURGICAL HISTORY OF WISDOM TEETH Family History FAMILY HISTORY Problem Relation Age of Onset None Mother None Father No Known Problems Brother Breast Cancer Maternal Grandmother Diabetes Maternal Grandfather Heart Paternal Grandfather Breast Cancer Paternal Aunt None Sister other (anencephaly) Brother other (spina bifida) Other Allergies Son Eczema Son Patient Allergies ALLERGIES No Known Allergies Current Medications Current Outpatient Medications on File Prior to Visit Medication Sig ferrous sulfate 325 mg (65 mg iron) tablet Take 1 tablet by mouth once daily. (Patient not taking: Reported on 08/06/2023) No current facility-administered medications on file prior to visit. Social History Social History Tobacco Use Smoking status: Never Smokeless tobacco: Never Vaping Use Vaping Use: Never used Substance Use Topics Alcohol use: No Comment: none Drug use: No Review of Symptoms REVIEW OF SYSTEMS Se HPI EXAM: BP 118/86 (BP Site: Left Arm, BP Position: Sitting, BP Cuff Size: Regular Adult) Pulse 76 Resp 16 Wt 82.6 kg (182 lb) LMP 07/17/2023 (Exact Date) BMI 28.51 kg/m? General Appearance: Well appearing, alert, in no acute distress, well-hydrated, well nourished.. Abdomen: Abdomen soft, non-distended. Bowel sounds normal. No masses, organomegaly. There is mild per-umbilical tenderness. Aortic pulse is palpable. Health Maintenance List Hepatitis B Vaccine(2 of 3 - 19+ 3-dose series) due on 03/23/2003 Covid-19 Vaccine(2022- season) due on 04/18/2023 Pap Testing due on 07/30/2027 HPV Testing due on 07/30/2027 DTaP,Tdap,Td Vaccine(9 - Td or Tdap) due on 01/25/2029 Influenza Vaccine Completed Depression Assessment Completed Hepatitis C Screening Completed HIV Screening Completed HPV Vaccine Aged Out Data reviewed Component Results Component Performing Lab Radiology Result (Actionable) (Final) [facility] ACTIONABLE Comment: This report contains an incidental or actionable finding. This finding may be a new finding separate from the reason your provider ordered the imaging test or it may be an already known finding that needs additional or continued follow-up. Because of this incidental or actionable finding, you may need another test (imaging or a different type of test). Please contact your provider for the next steps. Impression IMPRESSION: Echogenic solid vascular focus within the endometrium is likely a polyp. Further evaluation recommended. Small amount of free pelvic fluid. Otherwise normal pelvic ultrasound ACTIONABLE RESULT: FOLLOW-UP Acuity: Actionable Findings: Female reproductive tract (pelvis, adnexa) Routing code: [email or web address] Recommendation: Unlisted Recommendation (see report) Time Frame: At the discretion of the clinical team. COMMUNICATION: Results will be communicated with the ordering provider via [facility] staff message or phone message by [facility] within 2 business days of report finalization. --END OF FINDING-- ========= Algorithms for management of incidental imaging findings can be found on the [facility] Intranet Sharepoint site at: http (more content not included)... Normal [facility] CNOVon 07-31-2023 CNOV Office Visit (OBGYWM ) NOHELIA CADENA ([id number]) 1985 F Date Time Provider Department 07/31/23 1:40 PM YARI ELKINS OBGYWM During your visit today, we recorded the following information about you: Blood pressure Weight Height Last Period 118/70 82.1 kg 1.702 m 07/17/23 Yari Elkins MD 07/31/2023 2:05 PM Signed [employer] Lead Man offered: Patient declines. Nohelia is a 37 year old who presents for an annual gynecologic exam with complaints, right breast pain for a few months . Menses: cycles every 25 days and 4-5 days of flow. Contraception: condoms HPV vaccine: No Last Pap: 08/02/2022 normal HPV: 08/01/2022 negative History of abnormal pap: No Last mammogram: never Sexually active: Yes Pain with intercourse: No Postcoital bleeding: No Hot flashes: Yes Night sweats: No Exercise: active Diet: balanced OB History T2 L2 SAB0 IAB0 Ectopic0 Multiple0 Live Births2 Low Pressure Firer History LMP: 07/17/2023 (Exact Date), Having periods Age at Menarche: Age at First : Age at Menopause: Low Pressure Firer History Comments: Sexual Activity: Yes; Male Contraception: Condom PAST MEDICAL HISTORY Diagnosis Date acne ANALILIA (generalized anxiety disorder) 05/08/2021 GERD without esophagitis 05/08/2021 Iron deficiency 01/03/2022 Iron deficiency anemia 09/12/2022 Mastitis 10/26/2014 Obsessive-compulsive disorder 05/08/2021 Pilar cyst right side of head Sebaceous cyst 02/23/2022 Posterior neck and several on scalp. Well adult exam 06/12/2021 PAST SURGICAL HISTORY Procedure Laterality Date EGD 12/2020 HYSTEROSCOPY BX ENDOMETRIUMAND/POLYPC W/WO DANDC 06/13/2023 hysteroscopy DANDC w/ polyp resection PAST SURGICAL HISTORY OF WISDOM TEETH FAMILY HISTORY Problem Relation Age of Onset None Mother None Father No Known Problems Brother Breast Cancer Maternal Grandmother Diabetes Maternal Grandfather Heart Paternal Grandfather Breast Cancer Paternal Aunt None Sister other (anencephaly) Brother other (spina bifida) Other Allergies Son Eczema Son SOCIAL HISTORY Social History Tobacco Use Smoking status: Never Smokeless tobacco: Never Vaping Use Vaping Use: Never used Substance Use Topics Alcohol use: No Comment: none Drug use: No REVIEW OF SYSTEMS Abdomen: No abdominal pain, nausea, vomiting, diarrhea, or constipation. No bloating, early satiety, indigestion, or increased flatulence. Bladder: No dysuria, gross hematuria, urinary frequency, urinary urgency, or incontinence. Breast: No breast lumps, nipple d/c, overlying skin changes, redness or skin retraction. Breast pain on right. Allergies and current medication updated:Yes EXAM: BP 118/70 Ht 5' 7 (1.70m) Wt 181 lb (82.1kg) LMP 07/17/2023 BMI 28.34 kg/(m2). GENERAL: pleasant, female in no apparent distress HEENT: Normocephalic, atraumatic, mucus membranes moist, and no lesions NECK: Supple, full range of motion, no adenopathy, and thyroid normal DERMATOLOGY: Normal, without lesions, non-icteric, and non-hirsute BREAST: soft, non-tender, symmetric, no dominant mass, normal nipple-areolar complex, no lymphadenopathy, and no nipple discharge ABDOMEN: soft, and no masses- mild tender PELVIC: external genitalia normal, normal Bartholin's glands, urethra, Vieques's glands, no vulvar lesions, no cervical lesions, good vaginal support, physiologic discharge present, normal appearing perineal body and perianal region BIMANUAL: uterus normal size, shape and consistency, no adnexal masses, and non-tender RECTOVAGINAL: deferred. NEURO: alert and oriented x3,exam grossly non-focal EXTREMITIES: normal ASSESSMENT/PLAN: 1) Health maintenance: Pap/HPV up to date. Mammogram ordered. Nutrition, exercise and routine health maintenance exams reviewed. 2) Contraception: condoms. Contraceptive options reviewed and information provided. 3) STD screening: Declined STD check. 4) Follow up one year or sooner as needed Yari Lundy MD Referring Provider: YARI ELKINS [[id number]] Allergies As of Date: 07/31/2023 (No Known Allergies) Date Reviewed: 07/31/2023 Reviewed by: Piper Patel Ma - Fully Assessed Reason for Visit: Yearly Exam [187] Primary Visit Diagnosis:Encounter for gynecological examination (general) (routine) without abnormal findings [Z01.419] Other Visit Diagnosis:Encounter for screening mammogram for breast cancer [Z12.31] Order(s):ALEK SCREENING W RUTHIE [[id number]] Order #: [id number] FUTURE Prescriptions as of 07/31/2023 - ferrous sulfate 325 mg (65 mg iron) tablet Take 1 tablet by mouth once daily. Problem List As Of Date 07/31/2023 Noted Resolved Family history of open neural tube defect [Z82.*02/01/2014 10/26/2014 Echogenic focus of heart, , affecting care*05/20/2014 10/26/2014 Del Angel (more content not included)... Normal [facility] CNOVon 07-21-2023 CNOV Office Visit (PEDSWS ) NOHELIA CADENA ([id number]) 1985 F Date Time Provider Department 07/21/23 4:15 PM NURSE ARUN MICHAELS PEDSWS During your visit today, we recorded the following information about you: Referring Provider: MARY HAIRSTON [[id number]] Allergies As of Date: 07/21/2023 (No Known Allergies) Date Reviewed: 05/13/2023 Reviewed by: Pedro Luis Donato MD - Fully Assessed Primary Visit Diagnosis:Encounter for immunization [Z23] Order(s):INFLUENZA VACCINE, AGE 6 MO - 64 YR, QUADRIVALENT (AFLURIA, FLULAVAL, FLUZONE) [[id number]] Order #: [id number] Prescriptions as of 07/21/2023 - ferrous sulfate 325 mg (65 mg iron) tablet Take 1 tablet by mouth once daily. Problem List As Of Date 07/21/2023 Noted Resolved Family history of open neural tube defect [Z82.*02/01/2014 10/26/2014 Echogenic focus of heart, , affecting care*05/20/2014 10/26/2014 Supervision of normal first [Z34.00] 07/05/2014 10/26/2014 Antepartum multigravida of advanced maternal ag*07/06/2018 04/21/2019 History of anxiety [Z86.59] 07/06/2018 04/21/2019 Family history of diabetes mellitus [Z83.3] 07/27/2018 04/21/2019 History of gestational hypertension [Z87.59] 07/27/2018 04/21/2019 GERD without esophagitis [K21.9] 05/08/2021 ANALILIA (generalized anxiety disorder) [F41.1] 05/08/2021 Obsessive-compulsive disorder [F42.9] 05/08/2021 Well adult exam [Z00.00] 06/12/2021 Burning sensation of mouth [R20.8] 02/23/2022 Sebaceous cyst [L72.3] 02/23/2022 Increased mucus in stool [R19.5] 02/23/2022 Post-nasal drainage [R09.82] 02/23/2022 Iron deficiency anemia [D50.9] 09/12/2022 Encounter Status:Closed by MONICA WANG on 07/21/23 Normal [facility] CNPNon 06-16-2023 CNPN Telephone (OBGYWM) NOHELIA CADENA ([id number]) 1985 F Date Time Provider Department 06/16/23 PEDRO LUIS DONATO OBGYWM During your visit today, we recorded the following information about you: Pedro Luis Donato MD 06/16/2023 2:34 PM Signed Please let her know that her pathology is benign. I hope she is doing well postop and let us know if she has any other problems. MD Kofi Mann Trisha RN 06/16/2023 3:11 PM Signed Patient notified. Doing well with no concerns. Chiquita Hinson RN Allergies As of Date: 06/16/2023 (No Known Allergies) Date Reviewed: 05/13/2023 Reviewed by: Pedro Luis Dnoato MD - Fully Assessed Reason for Visit: Results [95] Prescriptions as of 06/16/2023 - ferrous sulfate 325 mg (65 mg iron) tablet Take 1 tablet by mouth once daily. Problem List As Of Date 06/16/2023 Noted Resolved Family history of open neural tube defect [Z82.*02/01/2014 10/26/2014 Echogenic focus of heart, , affecting care*05/20/2014 10/26/2014 Supervision of normal first [Z34.00] 07/05/2014 10/26/2014 Antepartum multigravida of advanced maternal ag*07/06/2018 04/21/2019 History of anxiety [Z86.59] 07/06/2018 04/21/2019 Family history of diabetes mellitus [Z83.3] 07/27/2018 04/21/2019 History of gestational hypertension [Z87.59] 07/27/2018 04/21/2019 GERD without esophagitis [K21.9] 05/08/2021 ANALILIA (generalized anxiety disorder) [F41.1] 05/08/2021 Obsessive-compulsive disorder [F42.9] 05/08/2021 Well adult exam [Z00.00] 06/12/2021 Burning sensation of mouth [R20.8] 02/23/2022 Sebaceous cyst [L72.3] 02/23/2022 Increased mucus in stool [R19.5] 02/23/2022 Post-nasal drainage [R09.82] 02/23/2022 Iron deficiency anemia [D50.9] 09/12/2022 Encounter Status:Closed by CHIQUITA HINSON RN on 06/16/23 Normal [facility] CNOPon 06-13-2023 CNOP Operative Note (Enc) (OBGYWM) Encounter Status:Closed by PEDRO LUIS DONATO on 06/16/23 Normal [facility] CBC W Auto Differential pane l (Bld)on 06-03-2023 Basophils (Bld) [#/Vol] 0.03 10*3/uL Normal <0.11 [facility] Comment on above: Order Comment: Speci men Type: BLOOD SPECIMEN Ordering Facility: [facility] Address: [address] [place] [address] Performed By: #### 5 7021-8 #### [facility] CLIA [id number] [address] [place] [address] [place] Basophils/100 WBC (Bld) 0.5 % Normal [facility] Comment on above: Order Comment: Speci men Type: BLOOD SPECIMEN Ordering Facility: [facility] Address: [address] [place] [address] Performed By: #### 5 7021-8 #### [facility] CLIA [id number] [address] [place] [address] [place] Differential cell count method Nom (Bld) Auto Normal [facility] Comment on above: Order Comment: Speci men Type: BLOOD SPECIMEN Ordering Facility: [facility] Address: [address] [place] [address] Performed By: #### 5 7021-8 #### [facility] CLIA [id number] [address] [place] [address] [place] Eosinophils (Bld) [#/Vol] 0.12 10*3/uL Normal <0.46 [facility] Comment on above: Order Comment: Speci men Type: BLOOD SPECIMEN Ordering Facility: [facility] Address: [address] [place] [address] Performed By: #### 5 7021-8 #### [facility] CLIA [id number] [address] [place] [address] [place] Eosinophils/100 WBC (Bld) 2.0 % Normal [facility] Comment on above: Order Comment: Speci men Type: BLOOD SPECIMEN Ordering Facility: [facility] Address: [address] [place] [address] Performed By: #### 5 7021-8 #### [facility] CLIA [id number] [address] [place] [address] [place] Erythrocyte distribution width (RBC) [Ratio] 13.2 % Normal 11.5-15.0 [facility] Comment on above: Order Comment: Speci men Type: BLOOD SPECIMEN Ordering Facility: [facility] Address: [address] [place] [address] Performed By: #### 5 7021-8 #### [facility] CLIA [id number] [address] [place] [address] [place] Hematocrit (Bld) [Volume fraction] 42.2 % Normal 36.0-46.0 [facility] Comment on above: Order Comment: Speci men Type: BLOOD SPECIMEN Ordering Facility: [facility] Address: [address] [place] [address] Performed By: #### 5 7021-8 #### [facility] CLIA [id number] [address] [place] [address] [place] Hemoglobin (Bld) [Mass/Vol] 13.7 g/dL Normal 11.5-15.5 [facility] Comment on above: Order Comment: Speci men Type: BLOOD SPECIMEN Ordering Facility: [facility] Address: [address] [place] [address] Performed By: #### 5 7021-8 #### [facility] CLIA [id number] [address] [place] [address] [place] Immature granulocytes (Bld) [#/Vol] 10*3/uL Normal <0.10 [facility] Comment on above: Order Comment: Speci men Type: BLOOD SPECIMEN Ordering Facility: [facility] Address: [address] [place] [address] Performed By: #### 5 7021-8 #### [facility] CLIA [id number] [address] [place] [address] [place] Immature granulocytes/100 WBC (Bld) 0.3 % Normal [facility] Comment on above: Order Comment: Speci men Type: BLOOD SPECIMEN Ordering Facility: [facility] Address: [address] [place] [address] Performed By: #### 5 7021-8 #### [facility] CLIA [id number] [address] [place] [address] [place] Lymphocytes (Bld) [#/Vol] 1.08 10*3/uL Normal 1.00-4.00 [facility] Comment on above: Order Comment: Speci men Type: BLOOD SPECIMEN Ordering Facility: [facility] Address: [address] [place] [address] Performed By: #### 5 7021-8 #### [facility] CLIA [id number] [address] [place] [address] [place] Lymphocytes/100 WBC (Bld) 18.1 % Normal [facility] Comment on above: Order Comment: Speci men Type: BLOOD SPECIMEN Ordering Facility: [facility] Address: [address] [place] [address] Performed By: #### 5 7021-8 #### [facility] CLIA [id number] [address] [place] [address] [place] MCH (RBC) [Entitic mass] 28.8 pg Normal 26.0-34.0 [facility] Comment on above: Order Comment: Speci men Type: BLOOD SPECIMEN Ordering Facility: [facility] Address: [address] [place] [address] Performed By: #### 5 7021-8 #### [facility] CLIA [id number] [address] [place] [address] [place] MCHC (RBC) [Mass/Vol] 32.5 g/dL Normal 30.5-36.0 [facility] Comment on above: Order Comment: Speci men Type: BLOOD SPECIMEN Ordering Facility: [facility] Address: [address] [place] [address] Performed By: #### 5 7021-8 #### [facility] CLIA [id number] [address] [place] [address] [place] MCV (RBC) [Entitic vol] 88.8 fL Normal 80.0-100.0 [facility] Comment on above: Order Comment: Speci men Type: BLOOD SPECIMEN Ordering Facility: [facility] Address: [address] [place] [address] Performed By: #### 5 7021-8 #### [facility] CLIA [id number] [address] [place] [address] [place] Monocytes (Bld) [#/Vol] 0.38 10*3/uL Normal <0.87 [facility] Comment on above: Order Comment: Speci men Type: BLOOD SPECIMEN Ordering Facility: [facility] Address: [address] [place] [address] Performed By: #### 5 7021-8 #### [facility] CLIA [id number] [address] [place] [address] [place] Monocytes/100 WBC (Bld) 6.4 % Normal [facility] Comment on above: Order Comment: Speci men Type: BLOOD SPECIMEN Ordering Facility: [facility] Address: [address] [place] [address] Performed By: #### 5 7021-8 #### [facility] CLIA [id number] [address] [place] [address] [place] Neutrophils (Bld) [#/Vol] 4.35 10*3/uL Normal 1.45-7.50 [facility] Comment on above: Order Comment: Speci men Type: BLOOD SPECIMEN Ordering Facility: [facility] Address: [address] [place] [address] Performed By: #### 5 7021-8 #### [facility] CLIA [id number] [address] [place] [address] [place] Neutrophils/100 WBC (Bld) 72.7 % Normal [facility] Comment on above: Order Comment: Speci men Type: BLOOD SPECIMEN Ordering Facility: [facility] Address: [address] [place] [address] Performed By: #### 5 7021-8 #### [facility] CLIA [id number] [address] [place] [address] [place] Nucleated RBC (Bld) [#/Vol] 10*3/uL Normal <0.01 [facility] Comment on above: Order Comment: Speci men Type: BLOOD SPECIMEN Ordering Facility: [facility] Address: [address] [place] [address] Performed By: #### 5 7021-8 #### [facility] CLIA [id number] [address] [place] [address] [place] Nucleated RBC/100 WBC (Bld) [Ratio] 0.0 /100 WBC Normal [facility] Comment on above: Order Comment: Speci men Type: BLOOD SPECIMEN Ordering Facility: [facility] Address: [address] [place] [address] Performed By: #### 5 7021-8 #### [facility] CLIA [id number] [address] [place] [address] [place] Platelet mean volume (Bld) [Entitic vol] 12.9 fL High 9.0-12.7 [facility] Comment on above: Order Comment: Speci men Type: BLOOD SPECIMEN Ordering Facility: [facility] Address: [address] [place] [address] Performed By: #### 5 7021-8 #### [facility] CLIA [id number] [address] [place] [address] [place] Platelets (Bld) [#/Vol] 222 10*3/uL Normal 150-400 [facility] Comment on above: Order Comment: Speci men Type: BLOOD SPECIMEN Ordering Facility: [facility] Address: [address] [place] [address] Performed By: #### 5 7021-8 #### [facility] CLIA [id number] [address] [place] [address] [place] RBC (Bld) [#/Vol] 4.75 10*6/uL Normal 3.90-5.20 [facility] Comment on above: Order Comment: Speci men Type: BLOOD SPECIMEN Ordering Facility: [facility] Address: [address] [place] [address] Performed By: #### 5 7021-8 #### [facility] CLIA [id number] [address] [place] [id number] [place] WBC (Bld) [#/Vol] 5.98 10*3/uL Normal 3.70-11.00 [facility] Comment on above: Order Comment: Speci men Type: BLOOD SPECIMEN Ordering Facility: [facility] Address: [address] [place] [id number] Performed By: #### 5 7021-8 #### [facility] CLIA [id number] [address] [place] [id number] [facility] NOHEL[facility] CADENA ([id number]) 1985 F Date Time Provider Department 06/03/23 [facility] During your visit today, we recorded the following information about you: Jorge Perez MD 06/03/2023 10:40 PM Signed Let patient know her CBC is ok and though her iron is normal it is at the lower end of normal. It may not be a bad idea to get back on the iron once a day and continue it for about a month after your procedure. Monica Higgins RN 06/04/2023 10:38 AM Signed Pt called and is notified of providers results and instructions. Pt voices understanding. Monica Higgins RN Allergies As of Date: 06/03/2023 (No Known Allergies) Date Reviewed: 05/13/2023 Reviewed by: Pedro Luis Donato MD - Fully Assessed Reason for Visit: Results [95] Prescriptions as of 06/04/2023 - ferrous sulfate 325 mg (65 mg iron) tablet Take 1 tablet by mouth once daily. Problem List As Of Date 06/03/2023 Noted Resolved Family history of open neural tube defect [Z82.*02/01/2014 10/26/2014 Echogenic focus of heart, , affecting care*05/20/2014 10/26/2014 Supervision of normal first [Z34.00] 07/05/2014 10/26/2014 Antepartum multigravida of advanced maternal ag*07/06/2018 04/21/2019 History of anxiety [Z86.59] 07/06/2018 04/21/2019 Family history of diabetes mellitus [Z83.3] 07/27/2018 04/21/2019 History of gestational hypertension [Z87.59] 07/27/2018 04/21/2019 GERD without esophagitis [K21.9] 05/08/2021 ANALILIA (generalized anxiety disorder) [F41.1] 05/08/2021 Obsessive-compulsive disorder [F42.9] 05/08/2021 Well adult exam [Z00.00] 06/12/2021 Burning sensation of mouth [R20.8] 02/23/2022 Sebaceous cyst [L72.3] 02/23/2022 Increased mucus in stool [R19.5] 02/23/2022 Post-nasal drainage [R09.82] 02/23/2022 Iron deficiency anemia [D50.9] 09/12/2022 Encounter Status:Closed by MONICA HIGGINS on 06/04/23 Normal [facility] Iron and Iron binding capaci ty panelon 06-03-2023 Iron [Mass/Vol] 57 ug/dL Normal 41-186 [facility] Comment on above: Order Comment: Speci tracie Type: BLOOD SPECIMEN Ordering Facility: [facility] Address: [address] [place] [address] Performed By: #### 5 5454-3 #### [facility] CLIA [id number] [address] [place] [address] [place] Iron binding capacity [Mass/Vol] 298 ug/dL Normal 232-386 [facility] Comment on above: Order Comment: Berta hodges Type: BLOOD SPECIMEN Ordering Facility: [facility] Address: [address] [place], [place] [id number] Performed By: #### 5 5454-3 #### [facility] CLIA [id number] [address] [place] [address] [place] Iron/TIBC [Molar ratio] 19.1 % Normal 15.0-57.0 [facility] Comment on above: Order Comment: Speci men Type: BLOOD SPECIMEN Ordering Facility: [facility] Address: [address] [place] [address] Performed By: #### 5 5454-3 #### [facility] CLIA [id number] [address] [place] [address] [place] COVID NAAT, ROUTINEon 2022 SARS-CoV-2 (COVID-19) RNA SILVERIO+probe Ql (Resp) Not detected See comment [facility] ROUTINE FLU A/B + RSVon 03-19 FLUAV RNA SILVERIO+probe Ql (Unsp spec) Not detected Not Detected [facility] FLUBV RNA SILVERIO+probe Ql (Unsp spec) Not detected Not Detected [facility] RSV A RNA SILVERIO+probe Ql (Unsp spec) Not detected Not Detected [facility] STREP A MOLECULAR (POC)on Procedural Control Valid [facility] Strep A (POCT) Positive Abnormal Negative [facility] XR Sacrum and Coccyx 3 Views on 09-17-2022 IMPRESSION: Question able subluxation of the coccyx. Please correlate with digital rectal exam. Learning Support Services Director: [facility] Transcribe Date/Time: Sep 17 2022 1:42P Dictated by : LAWRENCE JESUS MD This examination was interpreted and the report reviewed and electronically signed by: LAWRENCE JESUS MD on Sep 17 2022 1:44PM [facility] DIVISION OF RADIOLOGY * * *Final Report* * * DATE OF EXAM: Sep 16 2022 1:21PM WOX [id number] - XR SACRUM/COCCYX 3V AP/LAT / PROCEDURE REASON: Coccydynia * * * * Physician Interpretation * * * * EXAM TITLE: XR SACRUM/COCCYX 3V AP/LAT EXAM DATE/TIME: 09/16/2022 1:21 PM COMPARISON: None. CLINICAL INDICATION/HISTORY: Coccydynia. TECHNIQUE: AP and lateral views of the sacrum/coccyx are presented. FINDINGS: No acute fractures demonstrated in the sacrum. Questionable posterior subluxation of the coccyx, seen on lateral view. The visualized other pelvic bones are intact. There is no significant soft tissue swelling. DIVISION OF RADIOLOGY Provider, [facility] - 09/17/2022 * * *Final Report* * * DATE OF EXAM: Sep 16 2022 1:21PM WOX [id number] - XR SACRUM/COCCYX 3V AP/LAT / PROCEDURE REASON: Coccydynia * * * * Physician Interpretation * * * * EXAM TITLE: XR SACRUM/COCCYX 3V AP/LAT EXAM DATE/TIME: 09/16/2022 1:21 PM COMPARISON: None. CLINICAL INDICATION/HISTORY: Coccydynia. TECHNIQUE: AP and lateral views of the sacrum/coccyx are presented. FINDINGS: No acute fractures demonstrated in the sacrum. Questionable posterior subluxation of the coccyx, seen on lateral view. The visualized other pelvic bones are intact. There is no significant soft tissue swelling. IMPRESSION IMPRESSION: Questionable subluxation of the coccyx. Please correlate with digital rectal exam. Learning Support Services Director: [facility] Transcribe Date/Time: Sep 17 2022 1:42P Dictated by : LAWRENCE JESUS MD This examination was interpreted and the report reviewed and electronically signed by: LAWRENCE JESUS MD on Sep 17 2022 1:44PM [facility] XR Sacrum and Coccyx 3 Views Ordered By: [facility] Provider on 09-17-2022 [facility] XR Sacrum and Coccyx 3 Views on 09-16-2022 Radiology Study observation (narrative) [facility] No Panel Informationon 05-17 [facility] DIAG W RUTHIE BILon 2020 [facility] DIAG W RUTHIE LINDA * * *Final Report* * * DATE OF EXAM: Jul 10 2021 11:09AM ALINA [id number] - [facility] DIAG W RUTHIE LINDA / PROCEDURE REASON: multiple diagnoses * * * * Physician Interpretation * * * * #[id number] - [facility] DIAG W RUTHIE LINDA BILATERAL DIGITAL DIAGNOSTIC MAMMOGRAM TOMOSYNTHESIS WITH CAD: 07/10/2021 HISTORY: Multiple Diagnoses / episodic right breast pain; no symptoms today. RESULT: TECHNIQUE: The study was acquired using full field digital technology and interpreted from soft copy. Digital Breast Tomosynthesis (DBT) images were obtained and used to assist in the interpretation of this examination. Current study was also evaluated with a Computer Aided Detection (CAD). No prior exams were available for comparison. The tissue of both breasts is heterogeneously dense. This may lower the sensitivity of mammography. No significant masses, calcifications, or other findings are seen in either breast. IMPRESSION: NEGATIVE There is no mammographic evidence of malignancy. A 3 year screening mammogram is recommended. Gem diamond/crystal:07/10/2021 11:23:18 Diesel Inspector(s): RT Lux(Coretta)(M), [facility] letter sent: Normal over 40 Mammogram BI-RADS: 1 Negative Multiple national specialty organizations have released breast cancer screening guidelines for women at average risk for developing breast cancer - guidelines that are based on both evidence and opinion, yet differ on when to start and how often to screen for breast cancer. With representation from Breast Imaging, Internal Medicine, Women's Health, Family Medicine, and Medical/Surgical Oncology, the [facility] has carefully reviewed the data and reached the following consensus: 1) All women should engage in shared decision-making with their providers to decide when to start and how often to screen; 2) All women should have the opportunity to start screening mammography at age 40; 3) For women ages 45-55, we recommend annual screening mammograms; 4) For women ages 55 and over, we support both the transition from an annual to a biennial interval if this aligns more with patient's values and preferences, or continuation with annual screening; 5) All women should discuss with their providers when to stop screening mammograms. Learning Support Services Director: Crystal Transcribe Date/Time: Jul 10 2021 10:53A Dictated by : GEM VAZQUEZ MD This examination was interpreted and the report reviewed and electronically signed by: GEM VAZQUEZ MD on Jul 10 2021 11:23AM EST [id number] Normal [facility] Vital Signs Date Time Vital Sign Value Performing Clinician Faci lity 05-31-2024 11:42-0400 Body mass index (BMI) [Ratio] 29.6 kg/m2 Mary Hairston PA-C Work Phone: [facility] 05-31-2024 11:42-0400 Body temperature 97.81 [degF] Mary Hairston PA-C Work Phone: [facility] 05-31-2024 11:42-0400 Body weight 85.73 kg Mary Hairston PA-C Work Phone: [facility] 05-31-2024 11:42-0400 Diastolic blood pressure 70 mm[Hg] Mary Hairston PA-C Work Phone: [facility] 05-31-2024 11:42-0400 Heart rate 85 /min Mary Hairston PA-C Work Phone: [facility] 05-31-2024 11:42-0400 Respiratory rate 16 /min Mary Hairston PA-C Work Phone: [facility] 05-31-2024 11:42-0400 SaO2% (BldA) [Mass fraction] 99 % Mary Hairston PA-C Work Phone: [facility] 05-31-2024 11:42-0400 Systolic blood pressure 100 mm[Hg] Mary Hairston PA-C Work Phone: [facility] 04-26-2024 12:19-0400 Body mass index (BMI) [Ratio] 29.44 kg/m2 Mary Hairston PA-C Work Phone: [facility] 04-26-2024 12:19-0400 Body temperature 98.6 [degF] Mary Hairston PA-C Work Phone: [facility] 04-26-2024 12:19-0400 Body weight 85.28 kg Mary Hairston PA-C Work Phone: [facility] 04-26-2024 12:19-0400 Diastolic blood pressure 70 mm[Hg] Mary Hairston PA-C Work Phone: [facility] 04-26-2024 12:19-0400 Heart rate 82 /min Mary Hairston PA-C Work Phone: [facility] 04-26-2024 12:19-0400 Respiratory rate 18 /min Mary Hairston PA-C Work Phone: [facility] 04-26-2024 12:19-0400 SaO2% (BldA) [Mass fraction] 98 % Mary Hairston PA-C Work Phone: [facility] 04-26-2024 12:19-0400 Systolic blood pressure 102 mm[Hg] Mary Hairston PA-C Work Phone: [facility] 04-23-2024 15:24-0400 Body mass index (BMI) [Ratio] 29.6 kg/m2 Susana Benítez MD Work Phone: [facility] 04-23-2024 15:24-0400 Body weight 85.73 kg Susana Benítez MD Work Phone: [facility] 04-23-2024 15:24-0400 Diastolic blood pressure 72 mm[Hg] Susana Benítez MD Work Phone: [facility] 04-23-2024 15:24-0400 Systolic blood pressure 120 mm[Hg] Susana Benítez MD Work Phone: [facility] 10-12-2023 09:27-0500 Body temperature 98.2 [degF] Melida Del HIDE SPREADER.DRIVER MATERIAL HANDLER Work Phone: [facility] 10-12-2023 09:27-0500 Body weight 83.28 kg Melida Del HIDE SPREADER.DRIVER MATERIAL HANDLER Work Phone: [facility] 10-12-2023 09:27-0500 Diastolic blood pressure 78 mm[Hg] Melida Del HIDE SPREADER.DRIVER MATERIAL HANDLER Work Phone: [facility] 10-12-2023 09:27-0500 Heart rate 75 /min Melida Del HIDE SPREADER.DRIVER MATERIAL HANDLER Work Phone: [facility] 10-12-2023 09:27-0500 Respiratory rate 18 /min Melida Carbajalk HIDE SPREADER.DRIVER MATERIAL HANDLER Work Phone: [facility] 10-12-2023 09:27-0500 SaO2% (BldA) [Mass fraction] 100 % Melida Carbajalk HIDE SPREADER.DRIVER MATERIAL HANDLER Work Phone: [facility] 10-12-2023 09:27-0500 Systolic blood pressure 118 mm[Hg] Melida Mathis HIDE SPREADER.DRIVER MATERIAL HANDLER Work Phone: [facility] 08-06-2023 19:00-0500 Body weight 82.56 kg Jorge Perez MD Work Phone: [facility] 08-06-2023 19:00-0500 Diastolic blood pressure 86 mm[Hg] Jorge Perez MD Work Phone: [facility] 08-06-2023 19:00-0500 Heart rate 76 /min Jorge Perez MD Work Phone: [facility] 08-06-2023 19:00-0500 Respiratory rate 16 /min Jorge Perez MD Work Phone: [facility] 08-06-2023 19:00-0500 Systolic blood pressure 118 mm[Hg] Jorge Perez MD Work Phone: [facility] 05-13-2023 09:03-0400 Body weight 82.1 kg Pedro Luis Donato MD Work Phone: [facility] 05-13-2023 09:03-0400 Diastolic blood pressure 70 mm[Hg] Pedro Luis Donato MD Work Phone: [facility] 05-13-2023 09:03-0400 Systolic blood pressure 118 mm[Hg] Pedro Luis Donato MD Work Phone: [facility] 04-12-2023 11:28-0400 Body temperature 98.8 [degF] Brennen Griffin MD Work Phone: [facility] 04-12-2023 11:28-0400 Body weight 83.1 kg Brennen Griffin MD Work Phone: [facility] 04-12-2023 11:28-0400 Diastolic blood pressure 76 mm[Hg] Brennen Griffin MD Work Phone: [facility] 04-12-2023 11:28-0400 Heart rate 90 /min Brennen Griffin MD Work Phone: [facility] 04-12-2023 11:28-0400 Respiratory rate 18 /min Brennen Griffin MD Work Phone: [facility] 04-12-2023 11:28-0400 SaO2% (BldA) [Mass fraction] 98 % Brennen Griffin MD Work Phone: [facility] 04-12-2023 11:28-0400 Systolic blood pressure 102 mm[Hg] Brennen Griffin MD Work Phone: [facility] 09-12-2022 11:38-0500 Body height 173 cm Mary Hairston PA-C Work Phone: [facility] 09-12-2022 11:38-0500 Body weight 77.75 kg Mary Hairston PA-C Work Phone: [facility] 09-12-2022 11:38-0500 Diastolic blood pressure 82 mm[Hg] Mary Hairston PA-C Work Phone: [facility] 09-12-2022 11:38-0500 Heart rate 86 /min Mary Hairston PA-C Work Phone: [facility] 09-12-2022 11:38-0500 Respiratory rate 18 /min Mary Hairston PA-C Work Phone: [facility] 09-12-2022 11:38-0500 SaO2% (BldA) [Mass fraction] 99 % Mary Hairston PA-C Work Phone: [facility] 09-12-2022 11:38-0500 Systolic blood pressure 108 mm[Hg] Mary Hairston PA-C Work Phone: [facility] 07-30-2022 11:11-0500 Body height 170.2 cm Yari Magdaleno MD Work Phone: [facility] 07-30-2022 11:11-0500 Body weight 76.2 kg Yari Magdaleno MD Work Phone: [facility] 07-30-2022 11:11-0500 Diastolic blood pressure 64 mm[Hg] Yari Magdaleno MD Work Phone: [facility] 07-30-2022 11:11-0500 Systolic blood pressure 106 mm[Hg] Yari Magdaleno MD Work Phone: [facility] 05-13-2022 13:23-0400 Body weight 72.58 kg Jorge Perez MD Work Phone: [facility] 05-13-2022 13:23-0400 Diastolic blood pressure 74 mm[Hg] Jorge Perez MD Work Phone: [facility] 05-13-2022 13:23-0400 Heart rate 76 /min Jorge Perez MD Work Phone: [facility] 05-13-2022 13:23-0400 Respiratory rate 16 /min Jorge Perez MD Work Phone: [facility] 05-13-2022 13:23-0400 Systolic blood pressure 120 mm[Hg] Jorge Perez MD Work Phone: [facility] 02-23-2022 10:58-0400 Body weight 67.13 kg Jorge Perez MD Work Phone: [facility] 02-23-2022 10:58-0400 Diastolic blood pressure 74 mm[Hg] Jorge Perez MD Work Phone: [facility] 02-23-2022 10:58-0400 Heart rate 76 /min Jorge Perez MD Work Phone: [facility] 02-23-2022 10:58-0400 Respiratory rate 14 /min Jorge Perez MD Work Phone: [facility] 02-23-2022 10:58-0400 Systolic blood pressure 118 mm[Hg] Jorge Perez MD Work Phone: [facility] 01-04-2022 10:45-0400 Body weight 68.77 kg Brennen Griffin MD Work Phone: [facility] 01-04-2022 10:45-0400 Diastolic blood pressure 64 mm[Hg] Brennen Griffin MD Work Phone: [facility] 01-04-2022 10:45-0400 Heart rate 86 /min Brennen Griffin MD Work Phone: [facility] 01-04-2022 10:45-0400 Respiratory rate 16 /min Brennen Griffin MD Work Phone: [facility] 01-04-2022 10:45-0400 SaO2% (BldA) [Mass fraction] 99 % Brennen Griffin MD Work Phone: [facility] 01-04-2022 10:45-0400 Systolic blood pressure 104 mm[Hg] Brennen Griffin MD Work Phone: [facility] 12-28-2021 14:31-0400 Body weight 70.85 kg Brennen Griffin MD Work Phone: [facility] 12-28-2021 14:31-0400 Diastolic blood pressure 60 mm[Hg] Brennen Griffin MD Work Phone: [facility] 12-28-2021 14:31-0400 Heart rate 85 /min Brennen Griffin MD Work Phone: [facility] 12-28-2021 14:31-0400 Respiratory rate 16 /min Brennen Griffin MD Work Phone: [facility] 12-28-2021 14:31-0400 SaO2% (BldA) [Mass fraction] 97 % Brennen Griffin MD Work Phone: [facility] 12-28-2021 14:31-0400 Systolic blood pressure 104 mm[Hg] Brennen Griffin MD Work Phone: [facility] Encounters Encounter Date Encounter Type Care Provider Facility Start: 06-02-2024 End: 06-02-2024 ambulatory Immunization [facility] Nurse [place] Work Phone: [facility] [place] Start: 06-02-2024 End: 06-02-2024 Patient encounter procedure Immunization Clinic Nurse [place] Work Phone: [facility] [place] Start: 05-31-2024 End: 05-31-2024 ambulatory JORGE PEREZ Facility:[facility] Start: 05-31-2024 End: 05-31-2024 Office outpatient visit 25 minutes Mary Hairston PA-C Work Phone: [facility] [place] Comment on above: Orthostatic dizzines s (Primary Dx); HERNANDEZ (dyspnea on exertion) Start: 05-28-2024 End: 05-28-2024 ambulatory JORGE PEREZ Facility:[facility] Start: 05-28-2024 End: 05-28-2024 Patient encounter procedure [facility] [place] Comment on above: Encounter for immuni zation Start: 05-28-2024 End: 05-28-2024 Chart abstracting Jorge Perez MD Work Phone: [facility] [place] Comment on above: Outside Mdlx-Ern-HVI Ordered Start: 05-26-2024 End: 05-26-2024 Chart abstracting Evie Taylor MA [facility] [place] Comment on above: Results (Outside lab s /) Start: 05-20-2024 End: 05-20-2024 ambulatory SUSANA BENÍTEZ Facility:[facility] Start: 05-20-2024 End: 05-20-2024 Subsequent hospital visit by physician Diagnostic Mammo [facility] Comment on above: Discharge from clare t [N64.52] Start: 04-29-2024 End: 04-29-2024 Telephone encounter Mary Hairston PA-C Work Phone: [facility] [place] Comment on above: Results Start: 04-29-2024 End: 04-29-2024 ambulatory MARY HAIRSTON Facility:[facility] Start: 04-28-2024 End: 04-28-2024 ambulatory JORGE PEREZ Facility:[facility] Start: 04-28-2024 Encounter for antibo dy response examination JORGE PEREZ [facility] Start: 04-26-2024 Encounter for genera l adult medical examination without abnormal findings JORGE PEREZ [facility] Start: 04-26-2024 End: 04-26-2024 Patient encounter procedure Mary Hairston PA-C Work Phone: [facility] [place] Comment on above: Well adult exam (Marry vidhya Dx); Encounter for lipid screening for cardiovascular disease; Screening for diabetes mellitus; Iron deficiency anemia, unspecified iron deficiency anemia type; GERD without esophagitis; ANALILIA (generalized anxiety disorder); Obsessive-compulsive disorder, unspecified type; Bowel habit changes; Family history of Crohn's disease; Immunity status testing Start: 04-26-2024 End: 04-26-2024 Patient encounter status Mary Hairston PA-C Work Phone: [facility] Work Phone: Start: 04-26-2024 End: 04-26-2024 ambulatory JORGE PEREZ Facility:[facility] Start: 04-23-2024 End: 04-23-2024 ambulatory SUSANA BENÍTEZ Facility:[facility] Start: 04-23-2024 End: 04-23-2024 Office outpatient visit 15 minutes Susana Benítez MD Work Phone: OB/Gynecology Comment on above: Discharge from breas t (Primary Dx) Start: 10-12-2023 End: 10-12-2023 ambulatory JORGE PEREZ Facility:[facility] Start: 10-12-2023 End: 10-12-2023 Patient encounter procedure Melida Mathis APRN.DRIVER MATERIAL HANDLER Work Phone: [facility] Comment on above: Strep throat (Primar y Dx); Sore throat Start: 08-27-2023 End: 08-27-2023 ambulatory JORGE PEREZ Facility:[facility] Start: 08-13-2023 End: 08-13-2023 ambulatory JORGE PEREZ Facility:[facility] Start: 08-06-2023 End: 08-06-2023 Patient encounter procedure Jorge Perez MD Work Phone: [facility] [place] Comment on above: Periumbilical pain ( Primary Dx); Periumbilical abdominal pain; Prominent abdominal aortic pulse Start: 08-06-2023 End: 08-06-2023 ambulatory JORGE PEREZ Facility:[facility] Start: 07-31-2023 End: 07-31-2023 ambulatory JORGE PEREZ Facility:[facility] Start: 07-21-2023 End: 07-21-2023 ambulatory MARY HAIRSTON Facility:[facility] Start: 07-21-2023 End: 07-21-2023 Patient encounter procedure [facility] Comment on above: Encounter for immuni zation (Primary Dx) Start: 06-16-2023 Telephone encounter Pedro Luis Donato MD Work Phone: OB/Gynecology Comment on above: Results Start: 06-13-2023 ambulatory Pedro Luis stover MD Work Phone: OB/Gynecology Comment on above: Endometrial polyp (P rimary Dx); Irregular menstrual cycle Start: 06-13-2023 Patient encounter procedure Pedro Luis Donato MD Work Phone: [facility] Start: 06-03-[address] [facility] Mary Hairston PA-C Work Phone: [facility] [place] Comment on above: Question - upcoming outpatient surgery Start: 06-03-2023 End: 06-03-2023 ambulatory Mary Hairston PA-C Work Phone: [facility] Start: 06-03-2023 Telephone encounter Jorge Perez MD Work Phone: [facility] [place] Comment on above: Results Start: 05-29-2023 Chart abstracting Jorge lewis MD Work Phone: [facility] [place] Comment on above: outside H&P Start: 05-27-2023 End: 05-27-2023 ambulatory Pedro Luis Donato MD Work Phone: OB/Gynecology Comment on above: Endometrial polyp (P rimary Dx); RLQ abdominal pain Start: 05-27-2023 End: 05-27-2023 Telemedicine consultation with patient Pedro Luis Donato MD Work Phone: [facility] Start: 05-21-2023 ambulatory [facility] Comment on above: Actionable Imaging R esult Notification Patient Outreach Start: 05-21-2023 E-mail encounter fro m caregiver [facility] Start: 05-20-2023 Telephone encounter Pedro Luis Donato MD Work Phone: OB/Gynecology Comment on above: Results Start: 05-13-2023 End: 05-13-2023 Patient encounter procedure Pedro Luis Donato MD Work Phone: OB/Gynecology Comment on above: Irregular menstrual cycle (Primary Dx); Unintended weight gain; RLQ abdominal pain Start: 04-12-2023 End: 04-12-2023 Patient encounter procedure Brennen Griffin MD Work Phone: [facility] Comment on above: Suspected COVID-19 v irus infection (Primary Dx); Pharyngitis, unspecified etiology Start: 09-17-2022 ambulatory Mary Thakkar on PA-C Work Phone: [facility] [place] Comment on above: X-ray result Start: 09-16-2022 Telephone encounter Mary vallecillo PA-C Work Phone: [facility] [place] Comment on above: Results Start: 09-16-2022 End: 09-16-2022 Subsequent hospital visit by physician Kita [facility] [place] Work Phone: Radiology Comment on above: Coccydynia [M53.3] Start: 09-13-2022 ambulatory Mary Thakkar on PA-C Work Phone: [facility] [place] Comment on above: WBC result Start: 09-12-2022 End: 09-12-2022 Patient encounter procedure Mary Hairston PA-C Work Phone: [facility] Comment on above: Well adult exam (Marry vidhya Dx); GERD without esophagitis; ANALILIA (generalized anxiety disorder); Obsessive-compulsive disorder, unspecified type; Encounter for lipid screening for cardiovascular disease; Iron deficiency anemia, unspecified iron deficiency anemia type; Screening for diabetes mellitus; Coccydynia Start: 09-12-2022 End: 09-12-2022 Patient encounter status Mary Hairston PA-C Work Phone: [facility] Start: 08-06-2022 Refill Jorge garnett MD Work Phone: [facility] Comment on above: Refill Request Start: 07-30-2022 End: 07-30-2022 Patient encounter procedure Yari Magdaleno MD Work Phone: OB/Gynecology Comment on above: Encounter for gyneco logical examination (general) (routine) without abnormal findings (Primary Dx); Screening for cervical cancer; Special screening examination for human papillomavirus (HPV) Start: 07-30-2022 End: 07-30-2022 Patient encounter status Yari Magdaleno MD Work Phone: OB/Gynecology Start: 06-12-2022 End: 06-12-2022 ambulatory Mi Nurse Work Phone: [facility] Start: 05-17-2022 Telephone encounter Jorge Perez MD Work Phone: [facility] Comment on above: Results Start: 05-17-2022 End: 05-17-2022 Subsequent hospital visit by physician [facility] Work Phone: Radiology Comment on above: Pulsatile abdominal mass [R19.00] Start: 05-14-2022 Patient encounter status Nataliia Perez MD Work Phone: [facility] Work Phone: Start: 05-13-2022 End: 05-13-2022 Patient encounter procedure Jorge Perez MD Work Phone: [facility] Comment on above: GERD without esophag itis (Primary Dx); Dysfunction of left eustachian tube; Pulsatile abdominal mass Start: 04-04-2022 Telephone encounter Mary vallecillo PA-C Work Phone: [facility] Comment on above: Results Start: 04-01-2022 Chart abstracting Jorge lewis MD Work Phone: [facility] [place] Comment on above: Results Start: 02-28-2022 Telephone encounter Jorge Perez MD Work Phone: [facility] Comment on above: Results Start: 02-26-2022 Telephone encounter Jorge Perez MD Work Phone: [facility] Comment on above: Patient Question Start: 02-25-2022 Telephone encounter Evie Tae ALVAREZ [facility] Comment on above: Orders Start: 02-23-2022 End: 02-23-2022 Patient encounter procedure Jorge Perez MD Work Phone: [facility] Comment on above: GERD without esophag itis (Primary Dx); Burning sensation of mouth; Sebaceous cyst; Post-nasal drainage; Increased mucus in stool; ANALILIA (generalized anxiety disorder); Obsessive-compulsive disorder, unspecified type; Bloating Start: 01-04-2022 End: 01-04-2022 Patient encounter procedure Brennen Griffin MD Work Phone: [facility] Comment on above: Sebaceous cyst (Prim rolf Dx) Start: 12-28-2021 End: 12-28-2021 Patient encounter procedure Brennen Griffin MD Work Phone: [facility] Comment on above: Burning mouth syndro me (Primary Dx) Start: 06-12-2021 Patient encounter status Juan Griffin MD Work Phone: [facility] Work Phone: Procedures Date Procedure Procedure Detail Performing Clinician Start: 05-28-2024 PFIZER-BIONTECH COVI D-19 VACCINE AGE 12+ YR (COMIRNATY) Celsa Rubio MD Work Phone: Start: 05-20-2024 End: 05-20-2024 breast uni real time with image limited Susana Benítez MD Work Phone: Start: 05-20-2024 Digital breast tomos ynthesis bilateral Susana Benítez MD Work Phone: Start: 10-12-2023 STREP A MOLECULAR (POC) [facility] Provider Start: 07-21-2023 INFLUENZA VACCINE, A GE 6 MO - 64 YR, QUADRIVALENT (AFLURIA, FLULAVAL, FLUZONE) Blane Belle MD Work Phone: Start: 04-12-2023 STREP A MOLECULAR (POC) Brennen Griffin MD Work Phone: Start: 04-12-2023 COVID & INFLUENZA A/ B & RSV NAAT, ROUTINE Brennen Griffin MD Work Phone: Start: 04-12-2023 Iadna respiratry pro be & rev trnscr 3-5 targets Brennen Griffin MD Work Phone: Start: 04-12-2023 Sars-cov-2 detection by dna/rna Brennen Griffin MD Work Phone: Start: 09-16-2022 Radex sacrum & coccy x minimum 2 views Mary Hairston PA-C Work Phone: Start: 06-12-2022 INFLUENZA VACCINE QUADRIVALENT 6 MO - 64 YRS IM Brennen Griffin MD Work Phone: Start: 05-17-2022 Us retroperitoneal r eal time w/image limited Jorge Perez MD Work Phone: Start: 05-08-2021 Adult depression scr eening assessment Brennen Griffin MD Work Phone: Plan of Treatment Date Care Activity Detail Author Start: 01-25-2029 Urine microalbumin profile [facility] Start: 07-30-2027 HPV TESTING HPV TESTING [facility] Start: 07-30-2027 PAP TESTING PAP TESTING [facility] Start: 07-30-2027 Screening for malign ant neoplasm of cervix [facility] Start: 05-20-2025 Screening for malign ant neoplasm of breast Mammogram Screening [facility] Start: 08-13-2024 Screening for malign ant neoplasm of breast Mammogram Screening [facility] Start: 08-04-2024 End: 08-04-2024 Patient encounter procedure 08/04/2024 1:20 PM EST Office Visit OB/Gynecology [address] [place] [address] Yari Elkins MD [address] [place] [address] ANNUAL EXAM OB/Gynecology Comment on above: ANNUAL EXAM Start: 06-08-2024 End: 06-08-2024 Patient encounter procedure 06/08/2024 9:00 AM EDT Appointment Cardiology Lab [address] [place] [address] tilt table Cardiology Lab Comment on above: tilt table Start: 06-08-2024 Subsequent hospital visit by physician 06/08/2024 9:00 AM EDT Hospital Encounter Cardiology Lab [address] [place] [address] Cardiology Lab Start: 06-04-2024 End: 06-04-2024 Patient encounter procedure 06/04/2024 10:30 AM EDT Office Visit Cardiology [address] [place] [address] Orthostatic dizziness [R42]; HERNANDEZ (dyspnea on exertion) [R06.09] Cardiology Comment on above: Orthostatic dizzines s [R42]; HERNANDEZ (dyspnea on exertion) [R06.09] Start: 06-02-2024 End: 06-02-2024 Patient encounter procedure 06/02/2024 1:40 PM EDT Immunization [facility] [place] [address] [place] [address] [place], Immunization Clinic Nurse [address] [place] [address] Flu shot [facility] Comment on above: Flu shot Start: 05-31-2024 End: 05-31-2024 Patient encounter procedure 05/31/2024 11:40 AM EDT Office Visit [facility] [place] [address] [place] [address] Mary Hairston PA-C [address] [place], [place] [id number] 4 week recheck vertigo symptoms [facility] [place] Comment on above: 4 week recheck verti go symptoms Start: 05-27-2024 End: 05-27-2024 Patient encounter procedure 05/27/2024 11:00 AM EDT Office Visit [facility] [place] [address] [place] [address] covid vaccine [facility] [place] Comment on above: covid vaccine Start: 05-20-2024 End: 05-20-2024 Patient encounter procedure 05/20/2024 10:00 AM EDT Appointment Mammography [address] [place] [address] Comp-Bilat Discharge from breast Mammography Comment on above: Comp-Bilat Discharge from breast Start: 05-18-2024 End: 05-18-2024 Patient encounter procedure Mammogram Comment on above: Discharge from breas t [N64.52] Comp-Bilat Discharge from breast Start: 04-30-2024 End: 07-30-2024 Prolactin [Mass/volume] in Serum or Plasma PROLACTIN Lab Routine Discharge from breast Expected: 04/30/2024, Expires: 07/30/2024 [facility] Comment on above: Expected: 04/30/2024 , Expires: 07/30/2024 Start: 04-30-2024 End: 07-30-2024 Thyrotropin [Units/volume] in Serum or Plasma THYROID STIMULATING HORMONE Lab Routine Discharge from breast Expected: 04/30/2024, Expires: 07/30/2024 [facility] Work Phone: Comment on above: Expected: 04/30/2024 , Expires: 07/30/2024 Start: 04-26-2024 End: 07-26-2024 Basic metabolic 2000 panel - Serum or Plasma BASIC METABOLIC PANEL Lab Routine Well adult exam Encounter for lipid screening for cardiovascular disease Screening for diabetes mellitus Expected: 04/26/2024, Expires: 07/26/2024 [facility] Comment on above: Expected: 04/26/2024 , Expires: 07/26/2024 Start: 04-26-2024 End: 07-26-2024 CBC W Auto Differential panel - Blood COMPLETE BLOOD COUNT AND DIFFERENTIAL Lab Routine Iron deficiency anemia, unspecified iron deficiency anemia type Expected: 04/26/2024, Expires: 07/26/2024 [facility] Comment on above: Expected: 04/26/2024 , Expires: 07/26/2024 Start: 04-26-2024 End: 07-26-2024 Hemoglobin A1c in Blood HEMOGLOBIN A1C Lab Routine Screening for diabetes mellitus Expected: 04/26/2024, Expires: 07/26/2024 [facility] Work Phone: Comment on above: Expected: 04/26/2024 , Expires: 07/26/2024 Start: 04-26-2024 End: 07-26-2024 Hepatitis B virus surface Ab [Presence] in Serum HEPATITIS B SURFACE ANTIBODY Lab Routine Immunity status testing Expected: 04/26/2024, Expires: 07/26/2024 [facility] Comment on above: Expected: 04/26/2024 , Expires: 07/26/2024 Start: 04-26-2024 End: 07-26-2024 Iron and Iron binding capacity panel - Serum or Plasma IRON AND TIBC Lab Routine Iron deficiency anemia, unspecified iron deficiency anemia type Expected: 04/26/2024, Expires: 07/26/2024 [facility] Comment on above: Expected: 04/26/2024 , Expires: 07/26/2024 Start: 04-26-2024 End: 07-26-2024 LIPID PANEL, NONFASTING LIPID PANEL, NONFASTING Lab Routine Encounter for lipid screening for cardiovascular disease Expected: 04/26/2024, Expires: 07/26/2024 [facility] Comment on above: Expected: 04/26/2024 , Expires: 07/26/2024 Start: 04-26-2024 End: 04-26-2024 Patient encounter procedure 04/26/2024 12:40 PM EDT Office Visit [facility] [place] [address] [place] [id number] Mary Hairston PA-C [address] [place] [id number] Physical [facility] [place] Comment on above: Physical Start: 04-18-2024 Covid-19 Vaccine () Covid-19 Vaccine () [facility] Start: 04-18-2024 Covid-19 Vaccine () Covid-19 Vaccine () [facility] Start: 04-18-2024 Influenza vaccination Influenza Vacc ine (#1) [facility] Start: 08-18-2023 Depression Assessment Depression Ass essment [facility] Start: 06-03-2023 End: 09-02-2023 CBC W Auto Differential panel - Blood [facility] Work Phone: Comment on above: Expected: 06/03/2023 , Expires: 09/02/2023 Start: 06-03-2023 End: 09-02-2023 Iron and Iron binding capacity panel - Serum or Plasma [facility] Work Phone: Comment on above: Expected: 06/03/2023 , Expires: 09/02/2023 Start: 04-18-2023 Covid-19 Vaccine () Covid-19 Vaccine () [facility] Start: 04-18-2023 Influenza vaccination [facility] Start: 02-03-2023 HPV TESTING HPV TESTING [facility] Start: 02-03-2023 PAP TESTING PAP TESTING [facility] Start: 09-12-2022 End: 11-12-2022 CBC W Auto Differential panel - Blood [facility] Work Phone: Comment on above: Expected: 09/12/2022 , Expires: 11/12/2022 Start: 09-12-2022 End: 11-12-2022 Comprehensive metabolic 2000 panel - Serum or Plasma [facility] Work Phone: Comment on above: Expected: 09/12/2022 , Expires: 11/12/2022 Start: 09-12-2022 End: 11-12-2022 Helicobacter pylori [Quantitative] in Stomach by urea breath test BREATH TEST H PYLORI Lab Routine GERD without esophagitis Expected: 09/12/2022, Expires: 11/12/2022 [facility] Work Phone: Comment on above: Expected: 09/12/2022 , Expires: 11/12/2022 Start: 09-12-2022 End: 11-12-2022 Hemoglobin A1c in Blood [facility] Work Phone: Comment on above: Expected: 09/12/2022 , Expires: 11/12/2022 Start: 09-12-2022 End: 11-12-2022 Iron and Iron binding capacity panel - Serum or Plasma [facility] Work Phone: Comment on above: Expected: 09/12/2022 , Expires: 11/12/2022 Start: 09-12-2022 End: 11-12-2022 LIPID PANEL, NONFASTING [facility] Work Phone: Comment on above: Expected: 09/12/2022 , Expires: 11/12/2022 Start: 05-08-2022 Adult depression screening assessment DEPRESSION SCREENING [facility] Start: 04-18-2022 Influenza vaccination [facility] Start: 02-23-2022 End: 04-25-2022 Helicobacter pylori [Quantitative] in Stomach by urea breath test BREATH TEST H PYLORI Lab Routine GERD without esophagitis Expected: 02/23/2022, Expires: 04/25/2022 [facility] Work Phone: Comment on above: Expected: 02/23/2022 , Expires: 04/25/2022 Start: 02-23-2022 End: 04-25-2022 LACTOSE TOLERANCE LACTOSE TOLERANCE Lab Routine Bloating Expected: 02/23/2022, Expires: 04/25/2022 [facility] Work Phone: Comment on above: Expected: 02/23/2022 , Expires: 04/25/2022 Start: 12-28-2021 End: 02-27-2022 FERRITIN BLD [facility] Work Phone: Comment on above: Expected: 12/28/2021 , Expires: 02/27/2022 Start: 12-28-2021 End: 02-27-2022 Folate [Mass/volume] in Serum or Plasma [facility] Work Phone: Comment on above: Expected: 12/28/2021 , Expires: 02/27/2022 Start: 12-28-2021 End: 02-27-2022 IRON + TIBC [facility] Work Phone: Comment on above: Expected: 12/28/2021 , Expires: 02/27/2022 Start: 12-28-2021 End: 02-27-2022 Pyridoxine [Mass/volume] in Serum or Plasma [facility] Work Phone: Comment on above: Expected: 12/28/2021 , Expires: 02/27/2022 Start: 12-28-2021 End: 02-27-2022 VITAMIN B12 BLOOD [facility] Work Phone: Comment on above: Expected: 12/28/2021 , Expires: 02/27/2022 Start: 12-28-2021 End: 02-27-2022 ZINC BLD [facility] Work Phone: Comment on above: Expected: 12/28/2021 , Expires: 02/27/2022 Start: 10-15-2021 COVID-19 VACCINE (4 - Booster for Moderna series) COVID-19 VACCINE (4 - Booster for Moderna series) [facility] Start: 08-18-2021 DEPRESSION ASSESSMENT DEPRESSION ASS ESSMENT [facility] Start: 03-23-2003 HEPATITIS B (2 of 3 - 3-dose series) [facility] Start: 03-23-2003 Hepatitis B Vaccine (2 of 3 - 19+ 3-dose series) Hepatitis B Vaccine (2 of 3 - 19+ 3-dose series) [facility] Start: 2001 Depression Screening Depression Scre ening [facility] Cardiovascular funct ion eval w/tilt table w/mntr TILT TABLE EVALUATION Cardiology Routine Orthostatic dizziness Ordered: 05/31/2024 [facility] Comment on above: Ordered: 05/31/2024 End: 09-04-2024 Ct abdomen & pelvis w/contrast material CT ABD/PEL W IVCON Radiology Routine Periumbilical pain Periumbilical abdominal pain Prominent abdominal aortic pulse 1 Occurrences starting 08/06/2023 until 09/04/2024 [facility] Work Phone: Comment on above: 1 Occurrences starti ng 08/06/2023 until 09/04/2024 End: 06-12-2023 Dup-scan artl aye abdl/pel/scrot&/rpr orgn lmt US DOPPLER AORTA Radiology Routine Pulsatile abdominal mass 1 Occurrences starting 05/13/2022 until 06/12/2023 [facility] Work Phone: Comment on above: 1 Occurrences starti ng 05/13/2022 until 06/12/2023 End: 05-31-2025 Echocardiography ECHO Cardiology Routine Orthostatic dizziness HERNANDEZ (dyspnea on exertion) 1 Occurrences starting 05/31/2024 until 05/31/2025 [facility] Work Phone: Comment on above: 1 Occurrences starti ng 05/31/2024 until 05/31/2025 FAT, FECAL QUAL FAT, FECAL QUAL Lab Routine Increased mucus in stool 02/25/2022 7:10 AM EDT [facility] Work Phone: FECAL LACTOFERRIN/LEUKOCYTES FECAL LACTOFERRIN/LEUKOCYTES Lab Routine Increased mucus in stool 02/25/2022 7:10 AM EDT [facility] Work Phone: End: 05-23-2025 MG Breast - bilateral Diagnostic ALEK DIAGNOSTIC BILATERAL Radiology Routine Discharge from breast 1 Occurrences starting 04/23/2024 until 05/23/2025 [facility] Comment on above: 1 Occurrences starti ng 04/23/2024 until 05/23/2025 PAP FLUID CERVICAL SCREENING PAP FLUID CERVICAL SCREENING Lab Routine Screening for cervical cancer Special screening examination for human papillomavirus (HPV) 07/30/2022 11:39 AM EST [facility] Work Phone: End: 10-16-2023 Radex sacrum & coccyx minimum 2 views XR SACRUM/COCCYX 3V AP/LAT Radiology Routine Coccydynia 1 Occurrences starting 09/16/2022 until 10/16/2023 [facility] Work Phone: Comment on above: 1 Occurrences starti ng 09/16/2022 until 10/16/2023 Urine test visual color cmprsn meths HCG QUAL UR B/O Lab Routine Irregular menstrual cycle Unintended weight gain Ordered: 05/13/2023 [facility] Work Phone: Comment on above: Ordered: 05/13/2023 End: 05-23-2025 US Breast - left limited US BREAST LTD LEFT Radiology Routine Discharge from breast 1 Occurrences starting 04/23/2024 until 05/23/2025 [facility] Comment on above: 1 Occurrences starti ng 04/23/2024 until 05/23/2025 End: 05-23-2025 US Breast - right limited US BREAST LTD RIGHT Radiology Routine Discharge from breast 1 Occurrences starting 04/23/2024 until 05/23/2025 [facility] Comment on above: 1 Occurrences starti ng 04/23/2024 until 05/23/2025 End: 06-12-2023 Us retroperitoneal real time w/image limited US ABD AORTA Radiology Routine Pulsatile abdominal mass 1 Occurrences starting 05/13/2022 until 06/12/2023 [facility] Work Phone: Comment on above: 1 Occurrences starti ng 05/13/2022 until 06/12/2023 End: 06-11-2024 Us transvaginal US FEMALE PELVIS TRANSVAG Radiology Routine Irregular menstrual cycle Unintended weight gain RLQ abdominal pain 1 Occurrences starting 05/13/2023 until 06/11/2024 [facility] Work Phone: Comment on above: 1 Occurrences starti ng 05/13/2023 until 06/11/2024 [facility] Immunizations Immunization Date Immunization Notes Care Provider [facility] 06-02-2024 influenza, seasonal, injectable Immunization [place] Work Phone: [facility] 05-28-2024 COVID-19 vaccine, ag e 12+ yr (Talk [facility]) Jorge Perez MD Work Phone: [facility] 07-21-2023 influenza, injectabl e, quadrivalent, contains preservative Nurse [facility] 07-21-2023 influenza virus vaccine, unspecified formulation Susana Benítez MD Work Phone: [facility] 06-12-2022 influenza, injectabl e, quadrivalent, contains preservative Mi Nurse Work Phone: [facility] Work Phone: 06-12-2022 influenza virus vaccine, unspecified formulation Pedro Luis Donato MD Work Phone: [facility] 06-12-2020 influenza, injectabl e, quadrivalent, contains preservative Brennen Griffin MD Work Phone: [facility] 06-10-2019 influenza, injectabl e, quadrivalent, preservative free Brennen Griffin MD Work Phone: [facility] 01-25-2019 tetanus toxoid, reduced diphtheria toxoid, and acellular pertussis vaccine, adsorbed Brennen Griffin MD Work Phone: [facility] 07-27-2018 influenza, injectabl e, quadrivalent, contains preservative Brennen Griffin MD Work Phone: [facility] 07-01-2014 tetanus toxoid, reduced diphtheria toxoid, and acellular pertussis vaccine, adsorbed Brennen Griffin MD Work Phone: [facility] 05-20-2014 influenza, seasonal, injectable Brennen Griffin MD Work Phone: [facility] Work Phone: 08-18-2013 tetanus toxoid, reduced diphtheria toxoid, and acellular pertussis vaccine, adsorbed Brennen Griffin MD Work Phone: [facility] 02-23-2003 hepatitis B vaccine, pediatric or pediatric/adolescent dosage Brennen Griffin MD Work Phone: [facility] 02-23-2003 tetanus and diphther ia toxoids, adsorbed, preservative free, for adult use (5 Lf of tetanus toxoid and 2 Lf of diphtheria toxoid) Brennen Griffin MD Work Phone: [facility] 02-23-2003 hepatitis B vaccine, unspecified formulation Jorge Perez MD Work Phone: [facility] 02-01-1989 diphtheria, tetanus toxoids and acellular pertussis vaccine Brennen Griffin MD Work Phone: [facility] 04-13-1985 diphtheria, tetanus toxoids and acellular pertussis vaccine Brennen Griffin MD Work Phone: [facility] 04-13-1985 poliovirus vaccine, inactivated Brennen Griffin MD Work Phone: [facility] 11-24-1984 measles, mumps and rubella virus vaccine Brennen Griffin MD Work Phone: [facility] 09-03-1984 haemophilus influenz ae type b vaccine, HbOC conjugate Brennen Griffin MD Work Phone: [facility] 02-03-1984 diphtheria, tetanus toxoids and acellular pertussis vaccine Brennen Griffin MD Work Phone: [facility] 02-03-1984 poliovirus vaccine, inactivated Brennen Griffin MD Work Phone: [facility] 1983 diphtheria, tetanus toxoids and acellular pertussis vaccine Brennen Griffin MD Work Phone: [facility] 1985 poliovirus vaccine, inactivated Brennen Griffin MD Work Phone: [facility] 1985 diphtheria, tetanus toxoids and acellular pertussis vaccine Brennen Griffin MD Work Phone: [facility] 1985 poliovirus vaccine, inactivated Brennen Griffin MD Work Phone: [facility] Payers Date Payer Category Payer Unknown MMO MMO [employer] [id number] 2019-Present [phone] [address] [place] [address] O [id number] 2019 Unknown [id number] 2019 Unknown [id number] Social History Date Type Detail Facility Start: 04-18-2011 End: 05-13-2022 Tobacco smoking status NHIS Never smoked tobacco [facility] Start: 12-28-2021 End: 05-31-2024 Alcohol intake Current non-drinker of alcohol (finding) [facility] Start: 12-28-2021 History SDOH Alcohol Frequency 1 [facility] Start: 02-03-2018 History SDOH Alcohol Comment none [facility] Start: 12-28-2021 History SDOH Social Connections Phone 5 [facility] Start: 12-28-2021 History SDOH Social Connections Membership 2 [facility] Start: 12-28-2021 History SDOH Social Connections Living 3 [facility] Start: 12-28-2021 History SDOH Stress 4 [facility] Start: 1985 Sex Assigned At Not on file C [facility] Start: 12-18-2021 End: 02-23-2022 Exposure to SARS-CoV-2 (event) Not sure [facility] Start: 04-18-2011 End: 05-13-2022 Tobacco use and exposure Smokeless tobacco non-user [facility] Start: 01-09-2023 End: 05-27-2024 History of Social function [place] Start: 01-09-2023 End: 05-27-2024 Social connection and isolation panel [facility] Do you belong to any clubs or organizations such as restorationism groups, unions, fraternal or athletic groups, or school groups? No [facility] Are you now , , , , never or living with a partner? [facility] How often to you hav e a drink containing alcohol? Never [facility] How many standard dr inks containing alcohol do you have on a typical day? Patient does not drink [facility] Do you feel stress - tense, restless, nervous, or anxious, or unable to sleep at night because your mind is troubled all the time - these days [OSQ] To some extent [facility] (I/We) worried whenirmal er (my/our) food would run out before (I/we) got money to buy more. Never true [facility] Do you feel stress - tense, restless, nervous, or anxious, or unable to sleep at night because your mind is troubled all the time - these days [OSQ] Rather much [facility] Clinical Notes 07-27-2018 to 05-31-2024 Mary Hairston PA-C - 05/31/2024 11:47 AM Tomer Yen LPN - 05/28/2024 1:52 PM Evie Alejandro MA - 05/26/2024 6:56 PM Monica [employer] - 05/20/2024 10:00 AM EDT Note Date & Type Note Facility 05-31-2024 Note HNO ID: [id number] Author: MARY HAIRSTON PA-C Service: ? Author Type: Physician Wireless Communications Engineer Type: Progress Notes Filed: 05/31/2024 12:38 Note Text: Chief Complaint Patient presents with: Recheck: Vertigo symptoms HPI Nohelia Cadena is a 38 year old female who presents here today for vertigo. Patient reports infrequent episodes of episodes of lightheadedness. Reports lightheadedness with sitting to standing position. Not all the time. Patient states her mom has similar spells. Reports that this may have been going on for years but never sustained or consistent enough to give specific time frames. Paternal grandfather had heart surgery in his 40s. But not sure what. Has shortness of breath at times with exercise but also feels like she has decreased conditioning. No chest pain. No palpitations. Does have episodes of spasms of pain that comes and goes within seconds. Past medical history, appointments, medications, allergies reviewed. Previous Medical History PAST MEDICAL HISTORY Diagnosis Date acne ANALILIA (generalized anxiety disorder) 05/08/2021 GERD without esophagitis 05/08/2021 Iron deficiency 01/03/2022 Iron deficiency anemia 09/12/2022 Mastitis 10/26/2014 Obsessive-compulsive disorder 05/08/2021 Pilar cyst right side of head Sebaceous cyst 02/23/2022 Posterior neck and several on scalp. Well adult exam 06/12/2021 Previous Surgical History PAST SURGICAL HISTORY Procedure Laterality Date EGD 12/2020 HYSTEROSCOPY BX ENDOMETRIUMAND/POLYPC W/WO DANDC 06/13/2023 hysteroscopy DANDC w/ polyp resection PAST SURGICAL HISTORY OF WISDOM TEETH Family History FAMILY HISTORY Problem Relation Age of Onset None Mother None Father None Sister No Known Problems Brother other (anencephaly) Brother Breast Cancer Maternal Grandmother Diabetes Maternal Grandfather Heart Paternal Grandfather Allergies Son Eczema Son Crohn's Disease Son Breast Cancer Paternal Aunt other (spina bifida) Other Patient Allergies ALLERGIES No Known Allergies Current Medications No current outpatient medications on file prior to visit. No current facility-administered medications on file prior to visit. Social History Social History Tobacco Use Smoking status: Never Smokeless tobacco: Never Vaping Use Vaping status: Never Used Substance Use Topics Alcohol use: No Comment: none Drug use: No Review of Symptoms REVIEW OF SYSTEMS See hpi EXAM: BP 100/70 (BP Site: Left Arm, BP Position: Sitting, BP Cuff Size: Large Adult) Pulse 85 Temp 36.6 ?C (97.8 ?F) Resp 16 Wt 85.7 kg (189 lb) LMP 05/25/2024 (Exact Date) SpO2 99% BMI 29.60 kg/m? General Appearance: Well appearing, alert, in no acute distress, well-hydrated, well nourished.. Neck: Supple, no adenopathy; thyroid symmetric, normal size, no bruits. Lungs: Lungs clear to auscultation. No wheezing, rhonchi, rales.. Heart: RRR without murmur, gallop, or rubs. No ectopy. Health Maintenance List Depression Screening Never done Influenza Vaccine(1) due on 04/18/2024 Mammogram Screening due on 05/20/2025 Cervical Cancer Screening due on 07/30/2027 DTaP,Tdap,Td Vaccine(9 - Td or Tdap) due on 01/25/2029 Hepatitis C Screening Completed HIV Screening Completed Covid-19 Vaccine Completed HPV Vaccine Aged Out Data reviewed Latest Ref Rng 04/28/2024 04/29/2024 WBC 3.70 - 11.00 k/uL 4.91 5.77 RBC 3.90 - 5.20 m/uL 4.94 5.03 Hemoglobin 11.5 - 15.5 g/dL 13.7 13.9 Hematocrit 36.0 - 46.0 % 42.5 42.4 MCV 80.0 - 100.0 fL 86.0 84.3 MCH 26.0 - 34.0 pg 27.7 27.6 MCHC 30.5 - 36.0 g/dL 32.2 32.8 RDW-CV 11.5 - 15.0 % 13.5 13.5 Platelet Count 150 - 400 k/uL 46 (L) 213 MPV 9.0 - 12.7 fL 12.6 11.2 Neut% % 63.0 64.0 Abs Neut (ANC) 1.45 - 7.50 k/uL 3.09 3.69 Lymph% % 24.4 23.7 Abs Lymph 1.00 - 4.00 k/uL 1.20 1.37 Eagle% % 9.0 8.5 Abs Eagle <0.87 k/uL 0.44 0.49 Eosin% % 2.6 3.1 Abs Eosin <0.46 k/uL 0.13 0.18 Baso% % 0.8 0.5 Abs Baso <0.11 k/uL 0.04 0.03 Immature Gran % % 0.2 0.2 IMMATURE GRANS (ABS) <0.10 k/uL <0.03 <0.03 NRBC /100 WBC 0.0 0.0 Absolute nRBC <0.01 k/uL <0.01 <0.01 DTYPE Auto Auto Glucose 74 - 99 mg/dL 90 BUN 7 - 21 mg/dL 11 Creatinine 0.58 - 0.96 mg/dL 0.82 Sodium 136 - 144 mmol/L 140 Potassium 3.7 - 5.1 mmol/L 4.1 Chloride 98 - 107 mmol/L 105 CO2 22 - 30 mmol/L 25 Anion Gap 8 - 15 mmol/L 10 Calcium 8.5 - 10.2 mg/dL 9.1 eGFR >=60 mL/min/1.73m? 93 Total Cholesterol, Nonfasting <200 mg/dL 152 Triglycerides, Nonfasting <150 mg/dL 56 HDL Cholesterol, Nonfasting >39 mg/dL 46 LDL Cholesterol, Nonfasting <100 mg/dL 95 Non HDL Cholesterol, Nonfasting <130 mg/dL 106 VLDL Cholesterol, Nonfasting <30 mg/dL 11 Total Chol/HDL Ratio, Nonfasting <5.10 mg/dL 3.30 LDL/HDL Ratio, Nonfasting <2.54 mg/dL 2.07 Iron 41 - 186 ug/dL 73 TIBC 232 - 386 ug/dL 280 Transferrin Saturation 15.0 - 57.0 % 26.1 Hemoglobin A1C 4.3 - 5.6 % 5.2 Est (more content not included)... [facility] 05-31-2024 History of Present illness Narrative Chief Complaint Patient presents with: Recheck: Vertigo symptoms HPI Nohelia Cadena is a 38 year old female who presents here today for vertigo. Patient reports infrequent episodes of episodes of lightheadedness. Reports lightheadedness with sitting to standing position. Not all the time. Patient states her mom has similar spells. Reports that this may have been going on for years but never sustained or consistent enough to give specific time frames. Paternal grandfather had heart surgery in his 40s. But not sure what. Has shortness of breath at times with exercise but also feels like she has decreased conditioning. No chest pain. No palpitations. Does have episodes of spasms of pain that comes and goes within seconds. Past medical history, appointments, medications, allergies reviewed. Previous Medical History PAST MEDICAL HISTORY Diagnosis Date acne ANALILIA (generalized anxiety disorder) 05/08/2021 GERD without esophagitis 05/08/2021 Iron deficiency 01/03/2022 Iron deficiency anemia 09/12/2022 Mastitis 10/26/2014 Obsessive-compulsive disorder 05/08/2021 Pilar cyst right side of head Sebaceous cyst 02/23/2022 Posterior neck and several on scalp. Well adult exam 06/12/2021 Previous Surgical History PAST SURGICAL HISTORY Procedure Laterality Date EGD 12/2020 HYSTEROSCOPY BX ENDOMETRIUM&/POLYPC W/WO D&C 06/13/2023 hysteroscopy D&C w/ polyp resection PAST SURGICAL HISTORY OF WISDOM TEETH Family History FAMILY HISTORY Problem Relation Age of Onset None Mother None Father None Sister No Known Problems Brother other (anencephaly) Brother Breast Cancer Maternal Grandmother Diabetes Maternal Grandfather Heart Paternal Grandfather Allergies Son Eczema Son Crohn's Disease Son Breast Cancer Paternal Aunt other (spina bifida) Other Patient Allergies ALLERGIES No Known Allergies Current Medications No current outpatient medications on file prior to visit. No current facility-administered medications on file prior to visit. Social History Social History Tobacco Use Smoking status: Never Smokeless tobacco: Never Vaping Use Vaping status: Never Used Substance Use Topics Alcohol use: No Comment: none Drug use: No Review of Symptoms REVIEW OF SYSTEMS See hpi EXAM: BP 100/70 (BP Site: Left Arm, BP Position: Sitting, BP Cuff Size: Large Adult) Pulse 85 Temp 36.6 C (97.8 F) Resp 16 Wt 85.7 kg (189 lb) LMP 05/25/2024 (Exact Date) SpO2 99% BMI 29.60 kg/m General Appearance: Well appearing, alert, in no acute distress, well-hydrated, well nourished.. Neck: Supple, no adenopathy; thyroid symmetric, normal size, no bruits. Lungs: Lungs clear to auscultation. No wheezing, rhonchi, rales.. Heart: RRR without murmur, gallop, or rubs. No ectopy. Health Maintenance List Depression Screening Never done Influenza Vaccine(1) due on 04/18/2024 Mammogram Screening due on 05/20/2025 Cervical Cancer Screening due on 07/30/2027 DTaP,Tdap,Td Vaccine(9 - Td or Tdap) due on 01/25/2029 Hepatitis C Screening Completed HIV Screening Completed Covid-19 Vaccine Completed HPV Vaccine Aged Out Data reviewed Latest Ref Rng 04/28/2024 04/29/2024 WBC 3.70 - 11.00 k/uL 4.91 5.77 RBC 3.90 - 5.20 m/uL 4.94 5.03 Hemoglobin 11.5 - 15.5 g/dL 13.7 13.9 Hematocrit 36.0 - 46.0 % 42.5 42.4 MCV 80.0 - 100.0 fL 86.0 84.3 MCH 26.0 - 34.0 pg 27.7 27.6 MCHC 30.5 - 36.0 g/dL 32.2 32.8 RDW-CV 11.5 - 15.0 % 13.5 13.5 Platelet Count 150 - 400 k/uL 46 (L) 213 MPV 9.0 - 12.7 fL 12.6 11.2 Neut% % 63.0 64.0 Abs Neut (ANC) 1.45 - 7.50 k/uL 3.09 3.69 Lymph% % 24.4 23.7 Abs Lymph 1.00 - 4.00 k/uL 1.20 1.37 Eagle% % 9.0 8.5 Abs Eagle <0.87 k/uL 0.44 0.49 Eosin% % 2.6 3.1 Abs Eosin <0.46 k/uL 0.13 0.18 Baso% % 0.8 0.5 Abs Baso <0.11 k/uL 0.04 0.03 Immature Gran % % 0.2 0.2 IMMATURE GRANS (ABS) <0.10 k/uL <0.03 <0.03 NRBC /100 WBC 0.0 0.0 Absolute nRBC <0.01 k/uL <0.01 <0.01 DTYPE Auto Auto Glucose 74 - 99 mg/dL 90 BUN 7 - 21 mg/dL 11 Creatinine 0.58 - 0.96 mg/dL 0.82 Sodium 136 - 144 mmol/L 140 Potassium 3.7 - 5.1 mmol/L 4.1 Chloride 98 - 107 mmol/L 105 CO2 22 - 30 mmol/L 25 Anion Gap 8 - 15 mmol/L 10 Calcium 8.5 - 10.2 mg/dL 9.1 eGFR >=60 mL/min/1.73m 93 Total Cholesterol, Nonfasting <200 mg/dL 152 Triglycerides, Nonfasting <150 mg/dL 56 HDL Cholesterol, Nonfasting >39 mg/dL 46 LDL Cholesterol, Nonfasting <100 mg/dL 95 Non HDL Cholesterol, Nonfasting <130 mg/dL 106 VLDL Cholesterol, Nonfasting <30 mg/dL 11 Total Chol/HDL Ratio, Nonfasting <5.10 mg/dL 3.30 LDL/HDL Ratio, Nonfasting <2.54 mg/dL 2.07 Iron 41 - 186 ug/dL 73 TIBC 232 - 386 ug/dL 280 Transferrin Saturation 15.0 - 57.0 % 26.1 Hemoglobin A1C 4.3 - 5.6 % 5.2 Estimated Average Glucose mg/dL 103 Hep B Surface Ab, Qual Positive Hep B Surf Ab Quant mIU/mL 62.00 Legend: (L) Low ASSESSMENT/PLAN: 1. Orthostatic dizziness - ICD9: 780.4, ICD10: R42 (primary diagnosis) ?POTS Check tilt table and echo Orthostatic vitals show a increase in pulse from 77 to 106. - ECHO - PERFLUTREN LIPID MICROSPHERES 1.1 MG/ML INJECTION IN NS 10 ML - SODIUM CHLORIDE 0.9 % (FLUSH) INJECTION SYRINGE - TILT TABLE EVALUATION 2. HERNANDEZ (dyspnea on exertion) - ICD9: 786.09, ICD10: R06.09 As above. - ECHO Mary Hairston PA-C documented in this encounter [facility] 05-28-2024 Note HNO ID: [id number] Author: TOMER HERNANDEZ LPN Service: ? Author Type: LICENSED NURSE Type: Progress Notes Filed: 05/28/2024 13:53 Note Text: Scan on 05/28/2024 1:38 PM by Mian Marte PA-C: Miscellaneous Lab [facility] 05-28-2024 History of Present illness Narrative Scan on 05/28/2024 1:38 PM by Mian Marte PA-C: Miscellaneous Lab documented in this encounter [facility] 05-26-2024 Note HNO ID: [id number] Author: EVIE TAYLOR MA Service: ? Author Type: Police Officer Crime Prevention Type: Progress Notes Filed: 05/26/2024 18:56 Note Text: Scan on 05/24/2024 4:38 PM by Mian Marte PA-C: Hematology Scan on 05/24/2024 5:06 PM by Mian Marte PA-C: Patito Taylor MA [facility] 05-26-2024 History of Present illness Narrative Scan on 05/24/2024 4:38 PM by Mian Marte PA-C: Hematology Scan on 05/24/2024 5:06 PM by Mian Marte PA-C: Patito Taylor MA documented in this encounter [facility] 05-20-2024 History of Present illness Narrative Radiology Service Progress Note PATIENT NAME: Nohelia Cadena DATE OF SERVICE: May 20, 2024 TIME: 10:35 AM PATIENT IDENTITY VERIFICATION COMPLETED USING TWO (2) IDENTIFIERS: Name and Date of confirmed by patient verbally. FALL SCREENING: Has the patient had 2 falls in the last year or 1 fall with injury or currently using an Ambulatory Assistive Device (Walker, Cane, Wheelchair, Crutches, etc.)? No PATIENT GENDER DATA: Female. status: : No status: NO. PATIENT RELEVANT IMPLANT DATA REVIEWED: Yes PATIENT PRESENTS WITH AN IMPLANTABLE OR ATTACHED METAL CONTROL WORKER: No RADIOLOGY DEPARTMENT: Mammography PERIPHERAL IV DATA: Not applicable SIGNED BY: Hemant Mendez May 20, 2024 10:35 AM documented in this encounter [facility] 05-20-2024 Note HNO ID: [id number] Author: MONICA SOLIS Tech Service: ? Author Type: Tank Setter Helper Type: Progress Notes Filed: 05/20/2024 10:35 Note Text: Radiology Service Progress Note PATIENT NAME: Nohelia Cadena DATE OF SERVICE: May 20, 2024 TIME: 10:35 AM PATIENT IDENTITY VERIFICATION COMPLETED USING TWO (2) IDENTIFIERS: Name and Date of confirmed by patient verbally. FALL SCREENING: Has the patient had 2 falls in the last year or 1 fall with injury or currently using an Ambulatory Assistive Device (Walker, Cane, Wheelchair, Crutches, etc.)? No PATIENT GENDER DATA: Female. status: : No status: NO. PATIENT RELEVANT IMPLANT DATA REVIEWED: Yes PATIENT PRESENTS WITH AN IMPLANTABLE OR ATTACHED METAL CONTROL WORKER: No RADIOLOGY DEPARTMENT: Mammography PERIPHERAL IV DATA: Not applicable SIGNED BY: Hemant Mendez May 20, 2024 10:35 AM [facility] 04-29-2024 Telephone encounter Note Call to pt and notified her of results below from Provider. Verbalized understanding. Deandra Antony MA [facility] 04-29-2024 Miscellaneous Notes Call to pt and notified her of results below from Provider. Verbalized understanding. Deandra Antony MA Repeat platelet count is normal. This is very reassuring. Yesterday lab was likely a result from the collection process causing a pseudo low platelet count. Thanks. Mary Hairston PA-C documented in this encounter [facility] 04-29-2024 Telephone encounter Note Repeat platelet count is normal. This is very reassuring. Yesterday lab was likely a result from the collection process causing a pseudo low platelet count. Thanks. Mary Hairston PA-C [facility] 04-29-2024 Telephone encounter Note Noted. [facility] 04-29-2024 Miscellaneous Notes Noted. Spoke with pt and reviewed Mary's message and instructions. Pt verbalizes understanding. Pt will come to [facility] lab. Pt denies any abnormal brusing or bleeding. States she does have a good bruise from lab draw. Tomer Hernandez LPN Let patient know her Platelet count is very low. I need a repeat blood count today for a stat read. Go to [place] [facility]. If it is lower, I will have to send her to hospital for workup. If it is better, then we will reach out to hematology for further evaluation. Has she noted any abnormal bruising or bleeding? I know during our visit she did not have that concern. Otherwise her labs were all normal. Mary Hairston PA-C documented in this encounter [facility] 04-29-2024 Telephone encounter Note Spoke with pt and reviewed Mary's message and instructions. Pt verbalizes understanding. Pt will come to [facility] lab. Pt denies any abnormal brusing or bleeding. States she does have a good bruise from lab draw. Tomer Hernandez LPN [facility] 04-29-2024 Telephone encounter Note Let patient know her Platelet count is very low. I need a repeat blood count today for a stat read. Go to [facility]. If it is lower, I will have to send her to hospital for workup. If it is better, then we will reach out to hematology for further evaluation. Has she noted any abnormal bruising or bleeding? I know during our visit she did not have that concern. Otherwise her labs were all normal. Mary Hairston PA-C [facility] 04-26-2024 Note HNO ID: [id number] Author: MARY HAIRSTON PA-C Service: ? Author Type: Physician Wireless Communications Engineer Type: Progress Notes Filed: 04/26/2024 13:15 Note Text: Chief Complaint Patient presents with: Physical HPI Nohelia Cadena is a 38 year old female who presents here today for physical. Patient with hx of GERD, anemia, OCD, anxiety, and those as below. Patient has had some nipple discharge recently. 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 Has also had some episodes of vertigo/lightheadedness at times. Not consistent. Past medical history, appointments, medications, allergies reviewed. Previous Medical History PAST MEDICAL HISTORY No date: acne 05/08/2021: ANALILIA (generalized anxiety disorder) 05/08/2021: GERD without esophagitis 01/03/2022: Iron deficiency 09/12/2022: Iron deficiency anemia 10/26/2014: Mastitis 05/08/2021: Obsessive-compulsive disorder No date: Pilar cyst Comment: right side of head 02/23/2022: Sebaceous cyst Comment: Posterior neck and several on scalp. 06/12/2021: Well adult exam Previous Surgical History PAST SURGICAL HISTORY 12/2020: EGD 06/13/2023: HYSTEROSCOPY BX ENDOMETRIUMAND/POLYPC W/WO DANDC Comment: hysteroscopy DANDC w/ polyp resection No date: PAST SURGICAL HISTORY OF Comment: WISDOM TEETH Family History FAMILY HISTORY Problem Relation Age of Onset None Mother None Father No Known Problems Brother Breast Cancer Maternal Grandmother Diabetes Maternal Grandfather Heart Paternal Grandfather Breast Cancer Paternal Aunt None Sister other (anencephaly) Brother other (spina bifida) Other Allergies Son Eczema Son Patient Allergies ALLERGIES No Known Allergies Current Medications Current Outpatient Medications on File Prior to Visit Medication Sig ferrous sulfate 325 mg (65 mg iron) tablet Take 1 tablet by mouth once daily. (Patient not taking: Reported on 04/26/2024) No current facility-administered medications on file prior to visit. Social History Social History Tobacco Use Smoking status: Never Smokeless tobacco: Never Vaping Use Vaping status: Never Used Substance Use Topics Alcohol use: No Comment: none Drug use: No Review of Symptoms REVIEW OF SYSTEMS GENERAL: No weight loss, malaise or fevers HEENT: No changes in hearing or vision, no nose bleeds or other nasal problems NECK: Negative for lumps, goiter, pain and significant neck swelling RESPIRATORY: Negative for cough, hemoptysis, wheezing, COPD, dyspnea or shortness of breath CARDIOVASCULAR: Negative for chest pain, leg swelling, hypertension, CHF or palpitations GI: recurring GERD at times. Has had frequent BM which has changed over the past year. : No history of dysuria, frequency or incontinence MUSCULOSKELETAL: Negative for joint pain or swelling, back pain or muscle pain SKIN: Negative for lesions, rash, and itching PSYCH: Negative for sleep disturbance, mood disorder and recent psychosocial stressors HEMATOLOGY/LYMPHOLOGY: Negative for prolonged bleeding, bruising easily or swollen nodes ENDOCRINE: Negative for cold or heat intolerance, polyuria, polydipsia and goiter NEURO: No history of headaches, syncope, paralysis, seizures or tremors EXAM: BP 102/70 (BP Site: Left Arm, BP Position: Sitting, BP Cuff Size: Large Adult) Pulse 82 Temp 37 ?C (98.6 ?F) Resp 18 Wt 85.3 kg (188 lb) LMP 04/02/2024 (Exact Date) SpO2 98% BMI 29.44 kg/m? General Appearance: Well appearing, alert, in no acute distress, well-hydrated, well nourished. Skin: Skin color, texture, turgor normal, no suspicious rashes or lesions. Head: Normocephalic, no masses, lesions, tenderness or abnormalities. Eyes: Anicteric sclera. Pupils are equally round and reactive to light. Extraocular movements are intact. . Ears: External ears normal, canals clear, TMs pearly lopez . Nose/Sinuses: Nares normal, septum midline, mucosa normal, no drainage or sinus tenderness. Oropharynx: Lips, mucosa, and tongue normal, teeth and gums normal, oropharynx normal. Neck: Supple, no adenopathy; thyroid symmetric, normal size, no bruits. Lungs: Lungs clear to auscultation. No wheezing, rhonchi, rales.. Heart: RRR without murmur, gallop, or rubs. No ectopy. Abdomen: normal BS. Mild tenderness to palp Extremities: No deformities, edema, skin discoloration, clubbing or cyanosis. Good capillary refill. . Peripheral Pulses: Normal. Neurologic: Gait normal. Reflexes normal and symmetric. Sensation grossly intact.. Health Maintenance List Depression Screening Never done Hepatitis B Vaccine(2 of 3 - 19+ 3-dose series) due on 03/23/2003 Covid-19 Vaccine(2022- season) due on 04/18/2024 Influenza Vaccine(1) due on 04/18/2024 Mammogram Screening due on 08/13/2024 Cervical Cancer Screening due on 07/30/2027 DTaP,Tdap,Td Vaccine(9 - Td or Tdap) due on 01/25/2029 Hepatitis C Screening Completed HIV Screening Completed HPV Vaccine Aged Out Data reviewed ASSESS (more content not included)... [facility] 04-26-2024 History of Present illness Narrative Chief Complaint Patient presents with: Physical HPI Nohelia Cadena is a 38 year old female who presents here today for physical. Patient with hx of GERD, anemia, OCD, anxiety, and those as below. Patient has had some nipple discharge recently. 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 Has also had some episodes of vertigo/lightheadedness at times. Not consistent. Past medical history, appointments, medications, allergies reviewed. Previous Medical History PAST MEDICAL HISTORY No date: acne 05/08/2021: ANALILIA (generalized anxiety disorder) 05/08/2021: GERD without esophagitis 01/03/2022: Iron deficiency 09/12/2022: Iron deficiency anemia 10/26/2014: Mastitis 05/08/2021: Obsessive-compulsive disorder No date: Pilar cyst Comment: right side of head 02/23/2022: Sebaceous cyst Comment: Posterior neck and several on scalp. 06/12/2021: Well adult exam Previous Surgical History PAST SURGICAL HISTORY 12/2020: EGD 06/13/2023: HYSTEROSCOPY BX ENDOMETRIUM&/POLYPC W/WO D&C Comment: hysteroscopy D&C w/ polyp resection No date: PAST SURGICAL HISTORY OF Comment: WISDOM TEETH Family History FAMILY HISTORY Problem Relation Age of Onset None Mother None Father No Known Problems Brother Breast Cancer Maternal Grandmother Diabetes Maternal Grandfather Heart Paternal Grandfather Breast Cancer Paternal Aunt None Sister other (anencephaly) Brother other (spina bifida) Other Allergies Son Eczema Son Patient Allergies ALLERGIES No Known Allergies Current Medications Current Outpatient Medications on File Prior to Visit Medication Sig ferrous sulfate 325 mg (65 mg iron) tablet Take 1 tablet by mouth once daily. (Patient not taking: Reported on 04/26/2024) No current facility-administered medications on file prior to visit. Social History Social History Tobacco Use Smoking status: Never Smokeless tobacco: Never Vaping Use Vaping status: Never Used Substance Use Topics Alcohol use: No Comment: none Drug use: No Review of Symptoms REVIEW OF SYSTEMS GENERAL: No weight loss, malaise or fevers HEENT: No changes in hearing or vision, no nose bleeds or other nasal problems NECK: Negative for lumps, goiter, pain and significant neck swelling RESPIRATORY: Negative for cough, hemoptysis, wheezing, COPD, dyspnea or shortness of breath CARDIOVASCULAR: Negative for chest pain, leg swelling, hypertension, CHF or palpitations GI: recurring GERD at times. Has had frequent BM which has changed over the past year. : No history of dysuria, frequency or incontinence MUSCULOSKELETAL: Negative for joint pain or swelling, back pain or muscle pain SKIN: Negative for lesions, rash, and itching PSYCH: Negative for sleep disturbance, mood disorder and recent psychosocial stressors HEMATOLOGY/LYMPHOLOGY: Negative for prolonged bleeding, bruising easily or swollen nodes ENDOCRINE: Negative for cold or heat intolerance, polyuria, polydipsia and goiter NEURO: No history of headaches, syncope, paralysis, seizures or tremors EXAM: BP 102/70 (BP Site: Left Arm, BP Position: Sitting, BP Cuff Size: Large Adult) Pulse 82 Temp 37 C (98.6 F) Resp 18 Wt 85.3 kg (188 lb) LMP 04/02/2024 (Exact Date) SpO2 98% BMI 29.44 kg/m General Appearance: Well appearing, alert, in no acute distress, well-hydrated, well nourished.\ Skin: Skin color, texture, turgor normal, no suspicious rashes or lesions. Head: Normocephalic, no masses, lesions, tenderness or abnormalities. Eyes: Anicteric sclera. Pupils are equally round and reactive to light. Extraocular movements are intact. . Ears: External ears normal, canals clear, TMs pearly lopez . Nose/Sinuses: Nares normal, septum midline, mucosa normal, no drainage or sinus tenderness. Oropharynx: Lips, mucosa, and tongue normal, teeth and gums normal, oropharynx normal. Neck: Supple, no adenopathy; thyroid symmetric, normal size, no bruits. Lungs: Lungs clear to auscultation. No wheezing, rhonchi, rales.. Heart: RRR without murmur, gallop, or rubs. No ectopy. Abdomen: normal BS. Mild tenderness to palp Extremities: No deformities, edema, skin discoloration, clubbing or cyanosis. Good capillary refill. . Peripheral Pulses: Normal. Neurologic: Gait normal. Reflexes normal and symmetric. Sensation grossly intact.. Health Maintenance List Depression Screening Never done Hepatitis B Vaccine(2 of 3 - 19+ 3-dose series) due on 03/23/2003 Covid-19 Vaccine( - 2022- season) due on 04/18/2024 Influenza Vaccine(1) due on 04/18/2024 Mammogram Screening due on 08/13/2024 Cervical Cancer Screening due on 07/30/2027 DTaP,Tdap,Td Vaccine(9 - Td or Tdap) due on 01/25/2029 Hepatitis C Screening Completed HIV Screening Completed HPV Vaccine Aged Out Data reviewed ASSESSMENT/PLAN: 1. Well adult exam - ICD9: V70.0, ICD10: Z00.00 (primary diagnosis) - Counseled on healthy diet and regular exercise - BASIC METABOLIC PANEL 2. Encounter for lipid screening for cardiovascular disease - ICD9: V77.91, V81.2, ICD10: Z13.220, Z13.6 - LIPID PANEL, NONFASTING - BASIC METABOLIC PANEL 3. Screening for diabetes mellitus - ICD9: V77.1, ICD10: Z13.1 - HEMOGLOBIN A1C - BASIC METABOLIC PANEL 4. Iron deficiency anemia, unspecified iron deficiency anemia type - ICD9: 280.9, ICD10: D50.9 - COMPLETE BLOOD COUNT AND DIFFERENTIAL - IRON AND TIBC 5. GERD without esophagitis - ICD9: 530.81, ICD10: K21.9 Overall stable 6. ANALILIA (generalized anxiety disorder) - ICD9: 300.02, ICD10: F41.1 stable 7. Obsessive-compulsive disorder, unspecified type - ICD9: 300.3, ICD10: F42.9 stable 8. Bowel habit changes - ICD9: 787.99, ICD10: R19.4 Consider scope - CONSULT TO GASTROENTEROLOGY - CONSULT TO GASTROENTEROLOGY 9. Family history of Crohn's disease - ICD9: V18.59, ICD10: Z83.79 - CONSULT TO GASTROENTEROLOGY - CONSULT TO GASTROENTEROLOGY 10. Immunity status testing - ICD9: V72.61, ICD10: Z01.84 Check: - HEPATITIS B SURFACE ANTIBODY Mary Hairston PA-C documented in this encounter [facility] 04-23-2024 Note HNO ID: [id number] Author: SUSANA BENÍTEZ MD Service: ? Author Type: Physician Type: Progress Notes Filed: 04/23/2024 16:56 Note Text: Machine Shop Lead Man offered: Patient declines. Nohelia Cadena is a 38 year old female who presents for problem visit breast discharge for 1 day. HPI: Noticed dark nipple discharge from both breasts. Maybe dark green but not really blood colored. No pain. Was able squeeze more out. Mammogram last year was normal. Breast fed up to 4 years ago. Did have mastitis but doesn't remember what breast. Has also had random head pressure and low grade fevers for days at a time. Had at least one episode of vision disturbances. OB History T2 L2 SAB0 IAB0 Ectopic0 Multiple0 Live Births2 Low Pressure Firer History LMP: 04/02/2024 (Exact Date), Having periods Age at Menarche: Age at First : Age at Menopause: Low Pressure Firer History Comments: Sexual Activity: Yes; Male Contraception: Condom PAST MEDICAL HISTORY No date: acne 05/08/2021: ANALILIA (generalized anxiety disorder) 05/08/2021: GERD without esophagitis 01/03/2022: Iron deficiency 09/12/2022: Iron deficiency anemia 10/26/2014: Mastitis 05/08/2021: Obsessive-compulsive disorder No date: Pilar cyst Comment: right side of head 02/23/2022: Sebaceous cyst Comment: Posterior neck and several on scalp. 06/12/2021: Well adult exam PAST SURGICAL HISTORY 12/2020: EGD 06/13/2023: HYSTEROSCOPY BX ENDOMETRIUMAND/POLYPC W/WO DANDC Comment: hysteroscopy DANDC w/ polyp resection No date: PAST SURGICAL HISTORY OF Comment: WISDOM TEETH FAMILY HISTORY Problem Relation Age of Onset None Mother None Father No Known Problems Brother Breast Cancer Maternal Grandmother Diabetes Maternal Grandfather Heart Paternal Grandfather Breast Cancer Paternal Aunt None Sister other (anencephaly) Brother other (spina bifida) Other Allergies Son Eczema Son Social History Tobacco Use Smoking status: Never Smokeless tobacco: Never Vaping Use Vaping status: Never Used Substance Use Topics Alcohol use: No Comment: none Drug use: No Current Outpatient Medications Medication Sig ferrous sulfate 325 mg (65 mg iron) tablet Take 1 tablet by mouth once daily. (Patient not taking: Reported on 08/06/2023) No current facility-administered medications for this visit. Allergies As of Date: 04/23/2024 (No Known Allergies) Fully Assessed 04/23/2024 REVIEW OF SYSTEMS Abdomen: No bloating, early satiety, indigestion, or increased flatulence. No abdominal pain, nausea, vomiting, diarrhea, or constipation. Bladder: No dysuria, gross hematuria, urinary frequency, urinary urgency, or incontinence. Breast: Nipple discharge. Expanded ROS: N/A Allergies and current medication updated:Yes EXAM: BP 120/72 Wt 189 lb (85.7kg) LMP 04/02/2024 GENERAL: pleasant, female in no apparent distress HEENT: Normocephalic, atraumatic, mucus membranes moist, and no lesions NECK: Supple, full range of motion, and thyroid normal DERMATOLOGY: Normal, without lesions, non-icteric, and non-hirsute BREAST: soft, non-tender, symmetric, no dominant mass, normal nipple-areolar complex, no lymphadenopathy, and I could not express any discharge CHEST: Normal inspiratory effort ABDOMEN: Deferred PELVIC: deferred BIMANUAL: deferred NEURO: alert and oriented x3,exam grossly non-focal EXTREMITIES: normal ASSESSMENT AND PLAN: Encounter Diagnosis ICD-10-CM 1. Discharge from breast N64.52 THYROID STIMULATING HORMONE PROLACTIN ALEK DIAGNOSTIC BILATERAL US BREAST LTD RIGHT US BREAST LTD LEFT Susana Benítez MD [facility] 04-23-2024 History of Present illness Narrative Machine Shop Lead Man offered: Patient declines. Nohelia Cadena is a 38 year old female who presents for problem visit breast discharge for 1 day. HPI: Noticed dark nipple discharge from both breasts. Maybe dark green but not really blood colored. No pain. Was able squeeze more out. Mammogram last year was normal. Breast fed up to 4 years ago. Did have mastitis but doesn't remember what breast. Has also had random head pressure and low grade fevers for days at a time. Had at least one episode of vision disturbances. OB History T2 L2 SAB0 IAB0 Ectopic0 Multiple0 Live Births2 Low Pressure Firer History LMP: 04/02/2024 (Exact Date), Having periods Age at Menarche: Age at First : Age at Menopause: Low Pressure Firer History Comments: Sexual Activity: Yes; Male Contraception: Condom PAST MEDICAL HISTORY No date: acne 05/08/2021: ANALILIA (generalized anxiety disorder) 05/08/2021: GERD without esophagitis 01/03/2022: Iron deficiency 09/12/2022: Iron deficiency anemia 10/26/2014: Mastitis 05/08/2021: Obsessive-compulsive disorder No date: Pilar cyst Comment: right side of head 02/23/2022: Sebaceous cyst Comment: Posterior neck and several on scalp. 06/12/2021: Well adult exam PAST SURGICAL HISTORY 12/2020: EGD 06/13/2023: HYSTEROSCOPY BX ENDOMETRIUM&/POLYPC W/WO D&C Comment: hysteroscopy D&C w/ polyp resection No date: PAST SURGICAL HISTORY OF Comment: WISDOM TEETH FAMILY HISTORY Problem Relation Age of Onset None Mother None Father No Known Problems Brother Breast Cancer Maternal Grandmother Diabetes Maternal Grandfather Heart Paternal Grandfather Breast Cancer Paternal Aunt None Sister other (anencephaly) Brother other (spina bifida) Other Allergies Son Eczema Son Social History Tobacco Use Smoking status: Never Smokeless tobacco: Never Vaping Use Vaping status: Never Used Substance Use Topics Alcohol use: No Comment: none Drug use: No Current Outpatient Medications Medication Sig ferrous sulfate 325 mg (65 mg iron) tablet Take 1 tablet by mouth once daily. (Patient not taking: Reported on 08/06/2023) No current facility-administered medications for this visit. Allergies As of Date: 04/23/2024 (No Known Allergies) Fully Assessed 04/23/2024 REVIEW OF SYSTEMS Abdomen: No bloating, early satiety, indigestion, or increased flatulence. No abdominal pain, nausea, vomiting, diarrhea, or constipation. Bladder: No dysuria, gross hematuria, urinary frequency, urinary urgency, or incontinence. Breast: Nipple discharge. Expanded ROS: N/A Allergies and current medication updated:Yes EXAM: BP 120/72 Wt 189 lb (85.7kg) LMP 04/02/2024 GENERAL: pleasant, female in no apparent distress HEENT: Normocephalic, atraumatic, mucus membranes moist, and no lesions NECK: Supple, full range of motion, and thyroid normal DERMATOLOGY: Normal, without lesions, non-icteric, and non-hirsute BREAST: soft, non-tender, symmetric, no dominant mass, normal nipple-areolar complex, no lymphadenopathy, and I could not express any discharge CHEST: Normal inspiratory effort ABDOMEN: Deferred PELVIC: deferred BIMANUAL: deferred NEURO: alert and oriented x3,exam grossly non-focal EXTREMITIES: normal ASSESSMENT AND PLAN: Encounter Diagnosis ICD-10-CM 1. Discharge from breast N64.52 THYROID STIMULATING HORMONE PROLACTIN ALEK DIAGNOSTIC BILATERAL US BREAST LTD RIGHT US BREAST LTD LEFT Susana Benítez MD documented in this encounter [facility] 10-12-2023 Note HNO ID: [id number] Author: MELIDA MATHIS APRN.DRIVER MATERIAL HANDLER Service: ? Author Type: Nurse Practitioner Type: Progress Notes Filed: 10/12/2023 09:45 Note Text: Subjective The history is provided by the patient. No senior architect was used. Sore Throat Associated symptoms include headaches. Pertinent negatives include no abdominal pain, congestion, coughing, diarrhea, ear pain, shortness of breath or vomiting. JACINTO Cadena is a 38 year old female who presents today for CC of sore throat for 2 days and worsening. She is also having a headache. She denies any cough congestion or runny nose. No vomiting, nausea, or diarrhea. She has used tylenol, with short term relief. BP 118/78 Pulse 75 Temp 36.8 ?C (98.2 ?F) (Tympanic) Resp 18 Wt 83.3 kg (183 lb 9.6 oz) LMP 07/17/2023 (Exact Date) SpO2 100% BMI 28.76 kg/m? Social History Tobacco Use Smoking status: Never Smokeless tobacco: Never Vaping Use Vaping Use: Never used Substance Use Topics Alcohol use: No Comment: none Drug use: No PAST MEDICAL HISTORY Diagnosis Date acne ANALILIA (generalized anxiety disorder) 05/08/2021 GERD without esophagitis 05/08/2021 Iron deficiency 01/03/2022 Iron deficiency anemia 09/12/2022 Mastitis 10/26/2014 Obsessive-compulsive disorder 05/08/2021 Pilar cyst right side of head Sebaceous cyst 02/23/2022 Posterior neck and several on scalp. Well adult exam 06/12/2021 I have confirmed and edited as necessary, the [facility] Review of Systems Constitutional: Negative for chills, fever and malaise/fatigue. HENT: Positive for sore throat. Negative for congestion, ear pain and sinus pain. Respiratory: Negative for cough, sputum production, shortness of breath and wheezing. Cardiovascular: Negative for chest pain. Gastrointestinal: Negative for abdominal pain, diarrhea, nausea and vomiting. Musculoskeletal: Negative for myalgias. Neurological: Positive for headaches. Objective Physical Exam Vitals and nursing note reviewed. HENT: Head: Normocephalic and atraumatic. Right Ear: Tympanic membrane, ear canal and external ear normal. Left Ear: Tympanic membrane, ear canal and external ear normal. Nose: No mucosal edema, congestion or rhinorrhea. Right Sinus: No maxillary sinus tenderness or frontal sinus tenderness. Left Sinus: No maxillary sinus tenderness or frontal sinus tenderness. Mouth/Throat: Pharynx: Uvula midline. Posterior oropharyngeal erythema present. No oropharyngeal exudate. Cardiovascular: Rate and Rhythm: Normal rate and regular rhythm. Heart sounds: Normal heart sounds. Pulmonary: Effort: Pulmonary effort is normal. Breath sounds: Normal breath sounds. Lymphadenopathy: Head: Right side of head: No submental, submandibular or tonsillar adenopathy. Left side of head: No submental, submandibular or tonsillar adenopathy. Cervical: No cervical adenopathy. Skin: General: Skin is warm and dry. Neurological: Mental Status: She is alert. Psychiatric: Mood and Affect: Affect normal. ASSESSMENT/PLAN: 1. Strep throat - ICD9: 034.0, ICD10: J02.0 (primary diagnosis) - suspect strep - Ppsitive PCR - Amoxicillin for 10 days. - Discussed supportive care treatment with fluids, rest and analgesia. - The patient may also use warm salt water gargles, throat lozenges and/or OTC throat spray as needed. - Contagious dz precautions discussed- including considered contagious until on antibiotics for 24 hours - The patient should follow up in one week if symptoms persist or worsen - Call back if drooling, increased temperature, symptoms of dehydration and/or still sick in one week 2. Sore throat - ICD9: 462, ICD10: J02.9 - Group A strep molecular testing positive Diagnosis and treatment plan were discussed and questions were answered to the patient's satisfaction. Pt acknowledged understanding of concepts and follow up plan. Specific signs and symptoms that would indicate the need for higher level of care were discussed in detail warranting prompt ER evaluation. Melida Mathis APRN.[facility] 10-12-2023 History of Present illness Narrative Subjective The history is provided by the patient. No senior architect was used. Sore Throat Associated symptoms include headaches. Pertinent negatives include no abdominal pain, congestion, coughing, diarrhea, ear pain, shortness of breath or vomiting. HPI Nohelia Cadena is a 38 year old female who presents today for CC of sore throat for 2 days and worsening. She is also having a headache. She denies any cough congestion or runny nose. No vomiting, nausea, or diarrhea. She has used tylenol, with short term relief. BP 118/78 Pulse 75 Temp 36.8 C (98.2 F) (Tympanic) Resp 18 Wt 83.3 kg (183 lb 9.6 oz) LMP 07/17/2023 (Exact Date) SpO2 100% BMI 28.76 kg/m Social History Tobacco Use Smoking status: Never Smokeless tobacco: Never Vaping Use Vaping Use: Never used Substance Use Topics Alcohol use: No Comment: none Drug use: No PAST MEDICAL HISTORY Diagnosis Date acne ANALILIA (generalized anxiety disorder) 05/08/2021 GERD without esophagitis 05/08/2021 Iron deficiency 01/03/2022 Iron deficiency anemia 09/12/2022 Mastitis 10/26/2014 Obsessive-compulsive disorder 05/08/2021 Pilar cyst right side of head Sebaceous cyst 02/23/2022 Posterior neck and several on scalp. Well adult exam 06/12/2021 I have confirmed and edited as necessary, the [facility] Review of Systems Constitutional: Negative for chills, fever and malaise/fatigue. HENT: Positive for sore throat. Negative for congestion, ear pain and sinus pain. Respiratory: Negative for cough, sputum production, shortness of breath and wheezing. Cardiovascular: Negative for chest pain. Gastrointestinal: Negative for abdominal pain, diarrhea, nausea and vomiting. Musculoskeletal: Negative for myalgias. Neurological: Positive for headaches. Objective Physical Exam Vitals and nursing note reviewed. HENT: Head: Normocephalic and atraumatic. Right Ear: Tympanic membrane, ear canal and external ear normal. Left Ear: Tympanic membrane, ear canal and external ear normal. Nose: No mucosal edema, congestion or rhinorrhea. Right Sinus: No maxillary sinus tenderness or frontal sinus tenderness. Left Sinus: No maxillary sinus tenderness or frontal sinus tenderness. Mouth/Throat: Pharynx: Uvula midline. Posterior oropharyngeal erythema present. No oropharyngeal exudate. Cardiovascular: Rate and Rhythm: Normal rate and regular rhythm. Heart sounds: Normal heart sounds. Pulmonary: Effort: Pulmonary effort is normal. Breath sounds: Normal breath sounds. Lymphadenopathy: Head: Right side of head: No submental, submandibular or tonsillar adenopathy. Left side of head: No submental, submandibular or tonsillar adenopathy. Cervical: No cervical adenopathy. Skin: General: Skin is warm and dry. Neurological: Mental Status: She is alert. Psychiatric: Mood and Affect: Affect normal. ASSESSMENT/PLAN: 1. Strep throat - ICD9: 034.0, ICD10: J02.0 (primary diagnosis) - suspect strep - Ppsitive PCR - Amoxicillin for 10 days. - Discussed supportive care treatment with fluids, rest and analgesia. - The patient may also use warm salt water gargles, throat lozenges and/or OTC throat spray as needed. - Contagious dz precautions discussed- including considered contagious until on antibiotics for 24 hours - The patient should follow up in one week if symptoms persist or worsen - Call back if drooling, increased temperature, symptoms of dehydration and/or still sick in one week 2. Sore throat - ICD9: 462, ICD10: J02.9 - Group A strep molecular testing positive Diagnosis and treatment plan were discussed and questions were answered to the patient's satisfaction. Pt acknowledged understanding of concepts and follow up plan. Specific signs and symptoms that would indicate the need for higher level of care were discussed in detail warranting prompt ER evaluation. Melida Mathis APRN.CNP documented in this encounter [facility] 10-12-2023 Instructions Melida Mathis APRN.CNP - 10/12/2023 9:42 AM EST Make sure to finish all of the antibiotic as prescribed. Do not stop early even if you are feeling better as the infection may not fully resolve and bacteria may start to grow again. Rest as much as possible, eat nutritiously and drink plenty of non caffeinated fluids. Change your toothbrush in 3 days after beginning the antibiotic. Tylenol or Motrin as needed for pain. Salt water gargles, Cepacol lozenges or Chloraseptic spray may also be helpful for pain. * Seek medical care immediately, call 911, go to ER if you have chest pain, difficulty breathing, shortness of breath, inability to swallow. documented in this encounter [facility] 08-27-2023 Note HNO ID: [id number] Author: MADELIN PULLIAM RT(R) Service: ? Author Type: Tank Setter Helper Type: Progress Notes Filed: 08/27/2023 15:04 Note Text: Radiology Service Progress Note DATE OF SERVICE: August 27, 2023 TIME: 3:03 PM PATIENT IDENTITY VERIFICATION COMPLETED USING TWO (2) STANDARD IDENTIFIERS: Name and Date of confirmed by patient verbally. FALL SCREENING: Has the patient had 2 falls in the last year or 1 fall with injury or currently using an Ambulatory Assistive Device (Walker, Cane, Wheelchair, Crutches, etc.)? No PATIENT GENDER DATA: Female. status: : No status: NO. PATIENT RELEVANT IMPLANT DATA REVIEWED: Yes ALLERGIES: Reviewed and unchanged CONTRAST ALLERGY: NO. EXAM: CT -CONTRAST INDUCED NEPHROPATHY RISK FACTORS: Not applicable CREATININE: Creatinine Date Value Ref Range Status 09/12/2022 0.74 0.58 - 0.96 mg/dL Final 06/12/2021 0.82 0.58 - 0.96 mg/dL Final Estimated Glomerular Filtration Rate Date Value Ref Range Status 09/12/2022 106 >=60 mL/min/1.73m? Final Comment: Estimated Glomerular Filtration Rate (eGFR) is calculated using the 2020 CKD-EPI creatinine equation. This equation utilizes serum creatinine, sex, and age as parameters. The creatinine assay has traceable calibration to isotope dilution-mass spectrometry. Refer to KDIGO guidelines for clinical interpretation. In patients with unstable renal function, e.g. those with acute kidney injury, the eGFR may not accurately reflect actual GFR. eGFR- Date Value Ref Range Status 06/12/2021 >60 Final P.O.C.T. RESULTS: POC done: Yes, See Lab Tab August 27, 2023 TREATMENT: N/A PERIPHERAL IV DATA: Ambulatory: A peripheral IV was started in the Left antecubital site with a Angio cath: 22 gauge. RADIOLOGY DEPARTMENT: CT; Exam(s) Completed: Abdomen/Pelvis SIGNATURE: RT Hever(R) PATIENT NAME: Nohelia Cadena DATE: August 27, 2023 TIME: 3:03 PM [facility] 08-13-2023 Note HNO ID: [id number] Author: Chelsy Rand Mammo Tech Service: ? Author Type: Tank Setter Helper Type: Progress Notes Filed: 08/13/2023 1:08 PM Note Text: Radiology Service Progress Note PATIENT NAME: Nohelia Cadena DATE OF SERVICE: August 13, 2023 TIME: 12:53 PM PATIENT IDENTITY VERIFICATION COMPLETED USING TWO (2) IDENTIFIERS: Name and Date of confirmed by patient verbally. FALL SCREENING: Has the patient had 2 falls in the last year or 1 fall with injury or currently using an Ambulatory Assistive Device (Walker, Cane, Wheelchair, Crutches, etc.)? No PATIENT GENDER DATA: Female. status: : No status: NO. PATIENT RELEVANT IMPLANT DATA REVIEWED: Not Applicable RADIOLOGY DEPARTMENT: Mammography PERIPHERAL IV DATA: Not applicable SIGNED BY: Chelsy Rand echoecho August 13, 2023 12:53 PM [facility] 08-06-2023 Note HNO ID: [id number] Author: Jorge Perez MD Service: ? Author Type: Physician Type: Progress Notes Filed: 08/07/2023 8:57 AM Note Text: Chief Complaint Patient presents with: Pain HPI Nohelia Cadena is a 37 year old female who presents here today for intermittent stomach pain. Patient indicated that she saw OB last week and during the exam when they pushed on her belly above navel she experienced pain/tenderness. She was told to follow up with her PCP. No N/V. Some issues with constipation. Rarely hurts unless pushed on. Sometimes if constipated may have a mild discomfort in this area. Usually has a BM daily and typically soft and easy to pass. No hematochezia, melena or mucus in her stools. Feels bloated at times with recent weight gain. Past medical history, appointments, medications, allergies reviewed. Previous Medical History PAST MEDICAL HISTORY Diagnosis Date acne ANALILIA (generalized anxiety disorder) 05/08/2021 GERD without esophagitis 05/08/2021 Iron deficiency 01/03/2022 Iron deficiency anemia 09/12/2022 Mastitis 10/26/2014 Obsessive-compulsive disorder 05/08/2021 Pilar cyst right side of head Sebaceous cyst 02/23/2022 Posterior neck and several on scalp. Well adult exam 06/12/2021 Previous Surgical History PAST SURGICAL HISTORY Procedure Laterality Date EGD 12/2020 HYSTEROSCOPY BX ENDOMETRIUMAND/POLYPC W/WO DANDC 06/13/2023 hysteroscopy DANMT w/ polyp resection PAST SURGICAL HISTORY OF WISDOM TEETH Family History FAMILY HISTORY Problem Relation Age of Onset None Mother None Father No Known Problems Brother Breast Cancer Maternal Grandmother Diabetes Maternal Grandfather Heart Paternal Grandfather Breast Cancer Paternal Aunt None Sister other (anencephaly) Brother other (spina bifida) Other Allergies Son Eczema Son Patient Allergies ALLERGIES No Known Allergies Current Medications Current Outpatient Medications on File Prior to Visit Medication Sig ferrous sulfate 325 mg (65 mg iron) tablet Take 1 tablet by mouth once daily. (Patient not taking: Reported on 08/06/2023) No current facility-administered medications on file prior to visit. Social History Social History Tobacco Use Smoking status: Never Smokeless tobacco: Never Vaping Use Vaping Use: Never used Substance Use Topics Alcohol use: No Comment: none Drug use: No Review of Symptoms REVIEW OF SYSTEMS Se HPI EXAM: BP 118/86 (BP Site: Left Arm, BP Position: Sitting, BP Cuff Size: Regular Adult) Pulse 76 Resp 16 Wt 82.6 kg (182 lb) LMP 07/17/2023 (Exact Date) BMI 28.51 kg/m? General Appearance: Well appearing, alert, in no acute distress, well-hydrated, well nourished.. Abdomen: Abdomen soft, non-distended. Bowel sounds normal. No masses, organomegaly. There is mild per-umbilical tenderness. Aortic pulse is palpable. Health Maintenance List Hepatitis B Vaccine(2 of 3 - 19+ 3-dose series) due on 03/23/2003 Covid-19 Vaccine(2022- season) due on 04/18/2023 Pap Testing due on 07/30/2027 HPV Testing due on 07/30/2027 DTaP,Tdap,Td Vaccine(9 - Td or Tdap) due on 01/25/2029 Influenza Vaccine Completed Depression Assessment Completed Hepatitis C Screening Completed HIV Screening Completed HPV Vaccine Aged Out Data reviewed Component Results Component Performing Lab Radiology Result (Actionable) (Final) [facility] ACTIONABLE Comment: This report contains an incidental or actionable finding. This finding may be a new finding separate from the reason your provider ordered the imaging test or it may be an already known finding that needs additional or continued follow-up. Because of this incidental or actionable finding, you may need another test (imaging or a different type of test). Please contact your provider for the next steps. Impression IMPRESSION: Echogenic solid vascular focus within the endometrium is likely a polyp. Further evaluation recommended. Small amount of free pelvic fluid. Otherwise normal pelvic ultrasound ACTIONABLE RESULT: FOLLOW-UP Acuity: Actionable Findings: Female reproductive tract (pelvis, adnexa) Routing code: [email or web address] Recommendation: Unlisted Recommendation (see report) Time Frame: At the discretion of the clinical team. COMMUNICATION: Results will be communicated with the ordering provider via [facility] staff message or phone message by Imaging Support Services within 2 business days of report finalization. --END OF FINDING-- === Algorithms for management of incidental imaging findings can be found on the [facility] Intranet Sharepoint site at: [email or web address] Learning Support Services Director: LAURA Transcribe Date/Time: May 20 2023 12:21P Dictated by : MARYANN PAGAN MD This examination was interpreted and the report reviewed (more content not included)... [facility] 08-06-2023 History of Present illness Narrative Chief Complaint Patient presents with: Pain HPI Nohelia Cadena is a 37 year old female who presents here today for intermittent stomach pain. Patient indicated that she saw OB last week and during the exam when they pushed on her belly above navel she experienced pain/tenderness. She was told to follow up with her PCP. No N/V. Some issues with constipation. Rarely hurts unless pushed on. Sometimes if constipated may have a mild discomfort in this area. Usually has a BM daily and typically soft and easy to pass. No hematochezia, melena or mucus in her stools. Feels bloated at times with recent weight gain. Past medical history, appointments, medications, allergies reviewed. Previous Medical History PAST MEDICAL HISTORY Diagnosis Date acne ANALILIA (generalized anxiety disorder) 05/08/2021 GERD without esophagitis 05/08/2021 Iron deficiency 01/03/2022 Iron deficiency anemia 09/12/2022 Mastitis 10/26/2014 Obsessive-compulsive disorder 05/08/2021 Pilar cyst right side of head Sebaceous cyst 02/23/2022 Posterior neck and several on scalp. Well adult exam 06/12/2021 Previous Surgical History PAST SURGICAL HISTORY Procedure Laterality Date EGD 12/2020 HYSTEROSCOPY BX ENDOMETRIUM&/POLYPC W/WO D&C 06/13/2023 hysteroscopy D&C w/ polyp resection PAST SURGICAL HISTORY OF WISDOM TEETH Family History FAMILY HISTORY Problem Relation Age of Onset None Mother None Father No Known Problems Brother Breast Cancer Maternal Grandmother Diabetes Maternal Grandfather Heart Paternal Grandfather Breast Cancer Paternal Aunt None Sister other (anencephaly) Brother other (spina bifida) Other Allergies Son Eczema Son Patient Allergies ALLERGIES No Known Allergies Current Medications Current Outpatient Medications on File Prior to Visit Medication Sig ferrous sulfate 325 mg (65 mg iron) tablet Take 1 tablet by mouth once daily. (Patient not taking: Reported on 08/06/2023) No current facility-administered medications on file prior to visit. Social History Social History Tobacco Use Smoking status: Never Smokeless tobacco: Never Vaping Use Vaping Use: Never used Substance Use Topics Alcohol use: No Comment: none Drug use: No Review of Symptoms REVIEW OF SYSTEMS Se HPI EXAM: BP 118/86 (BP Site: Left Arm, BP Position: Sitting, BP Cuff Size: Regular Adult) Pulse 76 Resp 16 Wt 82.6 kg (182 lb) LMP 07/17/2023 (Exact Date) BMI 28.51 kg/m General Appearance: Well appearing, alert, in no acute distress, well-hydrated, well nourished.. Abdomen: Abdomen soft, non-distended. Bowel sounds normal. No masses, organomegaly. There is mild per-umbilical tenderness. Aortic pulse is palpable. Health Maintenance List Hepatitis B Vaccine(2 of 3 - 19+ 3-dose series) due on 03/23/2003 Covid-19 Vaccine(2022- season) due on 04/18/2023 Pap Testing due on 07/30/2027 HPV Testing due on 07/30/2027 DTaP,Tdap,Td Vaccine(9 - Td or Tdap) due on 01/25/2029 Influenza Vaccine Completed Depression Assessment Completed Hepatitis C Screening Completed HIV Screening Completed HPV Vaccine Aged Out Data reviewed Component Results Component Performing Lab Radiology Result (Actionable) (Final) [facility] ACTIONABLE Comment: This report contains an incidental or actionable finding. This finding may be a new finding separate from the reason your provider ordered the imaging test or it may be an already known finding that needs additional or continued follow-up. Because of this incidental or actionable finding, you may need another test (imaging or a different type of test). Please contact your provider for the next steps. Impression IMPRESSION: Echogenic solid vascular focus within the endometrium is likely a polyp. Further evaluation recommended. Small amount of free pelvic fluid. Otherwise normal pelvic ultrasound ACTIONABLE RESULT: FOLLOW-UP Acuity: Actionable Findings: Female reproductive tract (pelvis, adnexa) Routing code: [email or web address] Recommendation: Unlisted Recommendation (see report) Time Frame: At the discretion of the clinical team. COMMUNICATION: Results will be communicated with the ordering provider via [facility] staff message or phone message by Imaging Support Services within 2 business days of report finalization. --END OF FINDING-- === Algorithms for management of incidental imaging findings can be found on the [facility] Intranet Sharepoint site at: [email or web address] .[email or web address] Learning Support Services Director: LAURA Transcribe Date/Time: May 20 2023 12:21P Dictated by : MARYANN PAGAN MD This examination was interpreted and the report reviewed and electronically signed by: MARYANN PAGAN MD on May 20 2023 12:24PM EST Results-Findings * * *Final Report* * * DATE OF EXAM: May 20 2023 10:36AM WRU [id number] - US FEMALE PELVIS TRANSVAG / PROCEDURE REASON: multiple diagnoses * * * * Physician Interpretation * * * * EXAMINATION: TRANSVAGINAL AND LIMITED TRANSABDOMINAL FEMALE PELVIC ULTRASOUND CLINICAL HISTORY: Irregular bleeding TECHNIQUE: Sonography of the pelvis was performed by transvaginal and transabdominal (limited) techniques. Images were obtained and stored in a permanent archive. MQ: [id number] COMPARISON: None RESULT: LMP 05/02/2023 Uterus: -Size: 7.6 x 5.2 x 5.6 cm -Orientation: Retroverted -Endometrial echo complex: Evaluation of the endometrium was adequate. Echogenic solid focus within the endometrium of 1.3 x 0.6 x 1.3 cm. Blood flow within it. Likely a polyp. The endometrial echo complex measured 1.4 cm. -Cervix: Unremarkable. -Adenomyosis assessment: There are no sonographic findings of adenomyosis. -Fibroids: There are no fibroids. Right Ovary: 3.5 x 2.1 x 2.7 cm. Normal in appearance Left Ovary: 3.2 x 2.1 x 1.8 cm Normal appearance Free Fluid: Small amount of free pelvic fluid Patient did have uterine polyp removed at the end of May 2023. A/P ASSESSMENT/PLAN: 1. Periumbilical pain - ICD9: 789.05, ICD10: R10.33 (primary diagnosis) Check - CT ABD/PEL W IVCON - IV CONTRAST (RADIOLOGY PROCEDURE) - ENTERIC CONTRAST (RADIOLOGY PROCEDURE) 2. Periumbilical abdominal pain - ICD9: 789.05, ICD10: R10.33 Check - CT ABD/PEL W IVCON - IV CONTRAST (RADIOLOGY PROCEDURE) - ENTERIC CONTRAST (RADIOLOGY PROCEDURE) 3. Prominent abdominal aortic pulse - ICD9: 785.9, ICD10: R09.89 Check - CT ABD/PEL W IVCON - IV CONTRAST (RADIOLOGY PROCEDURE) - ENTERIC CONTRAST (RADIOLOGY PROCEDURE) Await CT results. Jorge Perez MD documented in this encounter [facility] 07-31-2023 Note HNO ID: [id number] Author: Yari Elkins MD Service: ? Author Type: Physician Type: Progress Notes Filed: 07/31/2023 2:05 PM Note Text: [employer] Man offered: Patient declinesGa Pozo is a 37 year old who presents for an annual gynecologic exam with complaints, right breast pain for a few months . Menses: cycles every 25 days and 4-5 days of flow. Contraception: condoms HPV vaccine: No Last Pap: 08/02/2022 normal HPV: 08/01/2022 negative History of abnormal pap: No Last mammogram: never Sexually active: Yes Pain with intercourse: No Postcoital bleeding: No Hot flashes: Yes Night sweats: No Exercise: active Diet: balanced OB History T2 L2 SAB0 IAB0 Ectopic0 Multiple0 Live Births2 Low Pressure Firer History LMP: 07/17/2023 (Exact Date), Having periods Age at Menarche: Age at First : Age at Menopause: Low Pressure Firer History Comments: Sexual Activity: Yes; Male Contraception: Condom PAST MEDICAL HISTORY Diagnosis Date acne ANALILIA (generalized anxiety disorder) 05/08/2021 GERD without esophagitis 05/08/2021 Iron deficiency 01/03/2022 Iron deficiency anemia 09/12/2022 Mastitis 10/26/2014 Obsessive-compulsive disorder 05/08/2021 Pilar cyst right side of head Sebaceous cyst 02/23/2022 Posterior neck and several on scalp. Well adult exam 06/12/2021 PAST SURGICAL HISTORY Procedure Laterality Date EGD 12/2020 HYSTEROSCOPY BX ENDOMETRIUMAND/POLYPC W/WO DANDC 06/13/2023 hysteroscopy DANDC w/ polyp resection PAST SURGICAL HISTORY OF WISDOM TEETH FAMILY HISTORY Problem Relation Age of Onset None Mother None Father No Known Problems Brother Breast Cancer Maternal Grandmother Diabetes Maternal Grandfather Heart Paternal Grandfather Breast Cancer Paternal Aunt None Sister other (anencephaly) Brother other (spina bifida) Other Allergies Son Eczema Son SOCIAL HISTORY Social History Tobacco Use Smoking status: Never Smokeless tobacco: Never Vaping Use Vaping Use: Never used Substance Use Topics Alcohol use: No Comment: none Drug use: No REVIEW OF SYSTEMS Abdomen: No abdominal pain, nausea, vomiting, diarrhea, or constipation. No bloating, early satiety, indigestion, or increased flatulence. Bladder: No dysuria, gross hematuria, urinary frequency, urinary urgency, or incontinence. Breast: No breast lumps, nipple d/c, overlying skin changes, redness or skin retraction. Breast pain on right. Allergies and current medication updated:Yes EXAM: BP 118/70 Ht 5' 7 (1.70m) Wt 181 lb (82.1kg) LMP 07/17/2023 BMI 28.34 kg/(m2). GENERAL: pleasant, female in no apparent distress HEENT: Normocephalic, atraumatic, mucus membranes moist, and no lesions NECK: Supple, full range of motion, no adenopathy, and thyroid normal DERMATOLOGY: Normal, without lesions, non-icteric, and non-hirsute BREAST: soft, non-tender, symmetric, no dominant mass, normal nipple-areolar complex, no lymphadenopathy, and no nipple discharge ABDOMEN: soft, and no masses- mild tender PELVIC: external genitalia normal, normal Bartholin's glands, urethra, Vieques's glands, no vulvar lesions, no cervical lesions, good vaginal support, physiologic discharge present, normal appearing perineal body and perianal region BIMANUAL: uterus normal size, shape and consistency, no adnexal masses, and non-tender RECTOVAGINAL: deferred. NEURO: alert and oriented x3,exam grossly non-focal EXTREMITIES: normal ASSESSMENT/PLAN: 1) Health maintenance: Pap/HPV up to date. Mammogram ordered. Nutrition, exercise and routine health maintenance exams reviewed. 2) Contraception: condoms. Contraceptive options reviewed and information provided. 3) STD screening: Declined STD check. 4) Follow up one year or sooner as needed Yari Lundy MD [facility] 06-16-2023 Note HNO ID: [id number] Author: Pedro Luis Donato MD Service: ? Author Type: Physician Type: Progress Notes Filed: 06/16/2023 5:14 PM Note Text: Patient underwent hysteroscopy DANDC for endometrial polyp and irregular menses at [facility] on 07/14/2023 without complications. There is a lot of thick endometrium. Visual DANDC done. There did appear to be a polypoid structure which was removed in its entirety.. However pathology showed secretory endometrium without discrete polyp. Clinically there was a definitive polyp. Patient should follow-up as needed or for annual exam. Pedro Luis Donato MD [facility] 06-16-2023 History of Present illness Narrative Patient underwent hysteroscopy D&C for endometrial polyp and irregular menses at [facility] on 07/14/2023 without complications. There is a lot of thick endometrium. Visual D&C done. There did appear to be a polypoid structure which was removed in its entirety.. However pathology showed secretory endometrium without discrete polyp. Clinically there was a definitive polyp. Patient should follow-up as needed or for annual exam. Pedro Luis Donato MD documented in this encounter [facility] 06-16-2023 Miscellaneous Notes Patient notified. Doing well with no concerns. Chiquita Hinson RN Please let her know that her pathology is benign. I hope she is doing well postop and let us know if she has any other problems. Pedro Luis Donato MD documented in this encounter [facility] 06-04-2023 Miscellaneous Notes Pt called and is notified of providers results and instructions. Pt voices understanding. Monica Higgins RN Let patient know her CBC is ok and though her iron is normal it is at the lower end of normal. It may not be a bad idea to get back on the iron once a day and continue it for about a month after your procedure. documented in this encounter [facility] 05-29-2023 History of Present illness Narrative Scan on 05/28/2023 4:25 PM by Provider, ALEXY Pappas documented in this encounter [facility] 05-27-2023 History and physical note Pre-Op History and Physical HPI: The patient is a 37 year old female presenting for pre-operative visit. She is scheduled for Hysteroscopy D&C and polyp resection, for endometrial polyp. Procedure discussed along with risks, benefits and complications. Other alternatives discussed for management. Consent form signed? No. PAST MEDICAL HISTORY Diagnosis Date acne ANALILIA (generalized anxiety disorder) 05/08/2021 GERD without esophagitis 05/08/2021 Iron deficiency 01/03/2022 Iron deficiency anemia 09/12/2022 Mastitis 10/26/2014 Obsessive-compulsive disorder 05/08/2021 Pilar cyst right side of head Sebaceous cyst 02/23/2022 Posterior neck and several on scalp. Well adult exam 06/12/2021 PAST SURGICAL HISTORY Procedure Laterality Date EGD 12/2020 PAST SURGICAL HISTORY OF WISDOM TEETH Current Outpatient Medications Medication Sig Dispense Refill ferrous sulfate 325 mg (65 mg iron) tablet Take 1 tablet by mouth once daily. 90 tablet 1 No current facility-administered medications for this visit. ALLERGIES: Patient has no known allergies. PERSONAL HISTORY: Social History Tobacco Use Smoking status: Never Smokeless tobacco: Never Vaping Use Vaping Use: Never used Substance Use Topics Alcohol use: No Comment: none Drug use: No FAMILY HISTORY: FAMILY HISTORY Problem Relation Age of Onset None Mother None Father No Known Problems Brother Breast Cancer Maternal Grandmother Diabetes Maternal Grandfather Heart Paternal Grandfather Breast Cancer Paternal Aunt None Sister other (anencephaly) Brother other (spina bifida) Other Allergies Son Eczema Son REVIEW OF SYMPTOMS: GENERAL: denies fevers or chills ENDOCRINOLOGY: has not been on steroids Cardiology : denies palpitations or chest pain Respiratory: denies SOB or cough Hematology: denies history of prolonged bleeding or easy bruising or VTE Allergy: Denies history of personal or family history of allergy to anesthesia PHYSICAL EXAMINATION: VITALS: Last menstrual period 05/02/2023. GENERAL: The patient is well nourished, well hydrated in no acute distress. , The patient is oriented to time, place, and person. IMPRESSION: endometrial polyp PLAN: The risks/benefits/alternatives and personal involved for the planned hysteroscopy D&C with polyp resection were reviewed with the patient. Her questions were answered to her satisfaction and she desires to proceed. Consent was signed. I reviewed with her postop instructions and expectations. I have reviewed and updated past medical and surgical history, medications and allergies Pedro Luis Donato M.D. documented in this encounter [facility] 05-27-2023 History of Present illness Narrative VIRTUAL VISIT PROGRESS NOTE This is a virtual visit using [employer] Video Visit. It required patient-provider interaction for the medical decision making as documented below. I have communicated my name and active licensure. The patient's identity and physical location were verified at the time of this visit. Either the patient or their legal field support representative has been informed of the risks and benefits of -- and alternatives to -- treatment through a remote evaluation and consents to proceed with the evaluation remotely. Nohelia Cadena is a 37 year old female seen for follow-up pelvic ultrasound. Patient had maybe 1 episode of midcycle spotting. Mostly she is been having right lower quadrant pain and some bloating. No other new complaints today.. HISTORY REVIEWED (electronic chart updated): PAST MEDICAL HISTORY Diagnosis Date acne ANALILIA (generalized anxiety disorder) 05/08/2021 GERD without esophagitis 05/08/2021 Iron deficiency 01/03/2022 Iron deficiency anemia 09/12/2022 Mastitis 10/26/2014 Obsessive-compulsive disorder 05/08/2021 Pilar cyst right side of head Sebaceous cyst 02/23/2022 Posterior neck and several on scalp. Well adult exam 06/12/2021 PAST SURGICAL HISTORY Procedure Laterality Date EGD 12/2020 PAST SURGICAL HISTORY OF WISDOM TEETH FAMILY HISTORY Problem Relation Age of Onset None Mother None Father No Known Problems Brother Breast Cancer Maternal Grandmother Diabetes Maternal Grandfather Heart Paternal Grandfather Breast Cancer Paternal Aunt None Sister other (anencephaly) Brother other (spina bifida) Other Allergies Son Eczema Son Social History Tobacco Use Smoking status: Never Smokeless tobacco: Never Vaping Use Vaping Use: Never used Substance Use Topics Alcohol use: No Comment: none Drug use: No Current Outpatient Medications Medication Sig ferrous sulfate 325 mg (65 mg iron) tablet Take 1 tablet by mouth once daily. omeprazole (PRILOSEC) 40 mg capsule Take 1 capsule by mouth twice daily. 1/2 hr before meal. (Patient not taking: Reported on 03/10/2023) No current facility-administered medications for this visit. ALLERGIES No Known Allergies PHYSICAL EXAMINATION: VIDEO EXAM: (if completed, performed via video enabled technology) GENERAL: alert and appropriate, in no distress, well-hydrated, well nourished, and happy, smiling, interactive ASSESSMENT: Endometrial polyp noted on ultrasound PLAN: Reviewed the ultrasound findings with the patient. We discussed her right lower quadrant pain. At this point there is nothing on the ultrasound to explain the right lower quadrant pain and bloating. Pain is not bothersome enough at this point to pursue this further. Discussed with her if it does get worse please let us know and we could consider reevaluation and if musculoskeletal leaning towards physical therapy if seems more GI consider GI work-up. Patient is comfortable with this plan. She can call us or contact her primary care physician. For the endometrial polyp we reviewed risk benefits alternatives to hysteroscopy dilation curettage with polyp resection. Questions were answered to her satisfaction she desires to proceed. Patient is comfortable proceeding with surgery without a preop visit and can sign consent day of surgery. There are no Patient Instructions on file for this visit. I spent a total of 22 minutes on the date of the service which included preparing to see the patient, [id number] patient care, completing clinical documentation, ordering medications, tests, or procedures, and independently interpreting results (not separately reported) Pedro Luis Donato MD documented in this encounter [facility] 05-26-2023 Miscellaneous Notes noted. Will d/w her tomorrow. Pedro Luis Donato MD Surgery sheet placed in RR mailbox to complete when she returns next week. Susana Zapata RN Pt would like to move forward with getting the procedure scheduled and still have the video visit with Dr. Donato. Spoke with RR. Polyp seen on her US. Called and discussed with patient that RR recommends hysteroscopy D&C with polypectomy. Ok to schedule a visit to discuss further if patient desires. Patient would like an appointment with RR to discuss first. Scheduled her for 05/27 virtual visit. Susana Zapata RN documented in this encounter [facility] 05-13-2023 History of Present illness Narrative Nohelia Cadena is a 37 year old female who presents for problem visit for c/o bloating and wt gain.. HPI: 37 YOF w/ c/o change in menses. [place] for her. They are 23-25 days. They used to be 28 days so this is a change. No bleeding between menses. No spotting after intercourse. Denies hair or skin changes. Has been attempting wt loss. Has tried to increase activity and decrease some calories. Minor hot flushes at times. Had some labs drawn in August. Had normal TSH last . RLQ pain. When patient called also said she might have had mid cycle spotting. However, had a small cut on her vulva from shaving and noted the next day that is only place blood came from. no signif changes in hair or skiin OB History T2 L2 SAB0 IAB0 Ectopic0 Multiple0 Live Births2 Low Pressure Firer History LMP: 05/02/2023 (Exact Date), Having periods Age at Menarche: Age at First : Age at Menopause: Low Pressure Firer History Comments: Sexual Activity: Yes; Male Contraception: Condom PAST MEDICAL HISTORY Diagnosis Date acne ANALILIA (generalized anxiety disorder) 05/08/2021 GERD without esophagitis 05/08/2021 Iron deficiency 01/03/2022 Iron deficiency anemia 09/12/2022 Mastitis 10/26/2014 Obsessive-compulsive disorder 05/08/2021 Pilar cyst right side of head Sebaceous cyst 02/23/2022 Posterior neck and several on scalp. Well adult exam 06/12/2021 PAST SURGICAL HISTORY Procedure Laterality Date EGD 12/2020 PAST SURGICAL HISTORY OF WISDOM TEETH FAMILY HISTORY Problem Relation Age of Onset None Mother None Father No Known Problems Brother Breast Cancer Maternal Grandmother Diabetes Maternal Grandfather Heart Paternal Grandfather Breast Cancer Paternal Aunt None Sister other (anencephaly) Brother other (spina bifida) Other Allergies Son Eczema Son Social History Tobacco Use Smoking status: Never Smokeless tobacco: Never Vaping Use Vaping Use: Never used Substance Use Topics Alcohol use: No Comment: none Drug use: No Current Outpatient Medications Medication Sig ferrous sulfate 325 mg (65 mg iron) tablet Take 1 tablet by mouth once daily. omeprazole (PRILOSEC) 40 mg capsule Take 1 capsule by mouth twice daily. 1/2 hr before meal. (Patient not taking: Reported on 03/10/2023) No current facility-administered medications for this visit. Allergies As of Date: 05/13/2023 (No Known Allergies) Fully Assessed 05/13/2023 REVIEW OF SYSTEMS Abdomen: no changes, sees GI for dyspepsia Bladder: No dysuria, gross hematuria, urinary frequency, urinary urgency, or incontinence. Breast: no nipple discharge. Allergies and current medication updated:Yes EXAM: BP 118/70 Wt 181 lb (82.1kg) LMP 05/02/2023 GENERAL: pleasant, female in no apparent distress HEENT: Normocephalic, atraumatic, mucus membranes moist, and no lesions ASSESSMENT AND PLAN: Pt reports 30 lb wt gain, 13 lbs since last year by our scale. Had labs/thyroid within past year. Discussed with her no indication for hormone testing. Cycles are regular. She does not actually have midcycle spotting per her report it was a paco in the skin. She admits she has some anxiety over her health care. However because she has had had some occasional right lower quadrant pain its reasonable to check a pelvic ultrasound. She has had a change in her menstrual cycles but this has been consistent for over the past year. Discussed with her this is still a normal menstrual cycle. Encouraged to continue her healthy diet changes and increase physical activity. Follow-up for annual exam and call with any acute changes. The patient is comfortable with this plan. Pedro Luis Donato MD documented in this encounter [facility] 04-12-2023 History of Present illness Narrative Chief Complaint Patient presents with: Sore Throat: Headache and fever x1 day HPI Nohelia Cadena is a 37 year old female who presents here today for Above Complaints. Patient complaining of sore throat with lymphadenopathy, headache, fatigue, nausea, and low grade fever 99.9 with chills starting yesterday. No treating with anything OTC thus far. Denies cough, SOB, wheezing, myalgias, new loss of taste/smell, nasal congestion, rhinorrhea, vomiting diarrhea. Symptoms worsening since yesterday. Son sick 1 week ago with fever. No COVID exposure in the last 2 weeks. Past medical history, appointments, medications, allergies reviewed. Previous Medical History PAST MEDICAL HISTORY Diagnosis Date acne ANALILIA (generalized anxiety disorder) 05/08/2021 GERD without esophagitis 05/08/2021 Iron deficiency 01/03/2022 Iron deficiency anemia 09/12/2022 Mastitis 10/26/2014 Obsessive-compulsive disorder 05/08/2021 Pilar cyst right side of head Sebaceous cyst 02/23/2022 Posterior neck and several on scalp. Well adult exam 06/12/2021 Previous Surgical History PAST SURGICAL HISTORY Procedure Laterality Date EGD 12/2020 PAST SURGICAL HISTORY OF WISDOM TEETH Family History FAMILY HISTORY Problem Relation Age of Onset None Mother None Father No Known Problems Brother Breast Cancer Maternal Grandmother Diabetes Maternal Grandfather Heart Paternal Grandfather Breast Cancer Paternal Aunt None Sister other (anencephaly) Brother other (spina bifida) Other Allergies Son Eczema Son Patient Allergies ALLERGIES No Known Allergies Current Medications Current Outpatient Medications on File Prior to Visit Medication Sig ferrous sulfate 325 mg (65 mg iron) tablet Take 1 tablet by mouth once daily. omeprazole (PRILOSEC) 40 mg capsule Take 1 capsule by mouth twice daily. 1/2 hr before meal. (Patient not taking: Reported on 03/10/2023) No current facility-administered medications on file prior to visit. Social History Social History Tobacco Use Smoking status: Never Smokeless tobacco: Never Vaping Use Vaping Use: Never used Substance Use Topics Alcohol use: No Comment: none Drug use: No Review of Symptoms REVIEW OF SYSTEMS See HPI EXAM: BP 102/76 Pulse 90 Temp 37.1 C (98.8 F) Resp 18 Wt 83.1 kg (183 lb 3.2 oz) LMP 08/21/2022 SpO2 98% BMI 27.77 kg/m General Appearance: Ill appearing, non toxic. Skin: Skin color, texture, turgor normal, no suspicious rashes or lesions. Head: Normocephalic, no masses, lesions, tenderness or abnormalities. Eyes: Anicteric sclera. Pupils are equally round and reactive to light. Extraocular movements are intact. . Ears: External ears normal, canals clear. Oropharynx: Positive findings: mild oropharyngeal erythema without exudate, palatal petechia. 1-2+ tonsillar hypertrophy. No uvula deviation. Nose/Sinus: sinuses non tender to palpation. Neck: Supple, no adenopathy; thyroid symmetric, normal size, no bruits. Lungs: Lungs clear to auscultation. No wheezing, rhonchi, rales.. Heart: RRR without murmur, gallop, or rubs. No ectopy. Health Maintenance List HEPATITIS B(2 of 3 - 19+ 3-dose series) due on 03/23/2003 INFLUENZA(1) due on 04/18/2023 PAP TESTING due on 07/30/2027 HPV TESTING due on 07/30/2027 DTAP,TDAP,TD(9 - Td or Tdap) due on 01/25/2029 DEPRESSION ASSESSMENT Completed HEPATITIS C SCREENING Completed HIV SCREENING Completed COVID-19 VACCINE Completed HPV VACCINE Aged Out Data reviewed Component Latest Ref Rng & Units 04/12/2023 Strep A (POCT) Negative Positive (A) Procedural Control Valid ASSESSMENT/PLAN: 1. Suspected COVID-19 virus infection - ICD9: V01.79, ICD10: Z20.822 (primary diagnosis) Recommend rest, supportive care, and should isolate until: At least 5 days have passed since symptoms first appeared and At least 24 hours have passed since last fever without the use of fever-reducing medications and Symptoms (e.g., cough, shortness of breath) have improved. Should wear mask for at least 5 days after he ends isolation to prevent spread to others. Red flags for re-assessment reviewed with patient in detail. - COVID & INFLUENZA A/B & RSV NAAT, ROUTINE - COVID NAAT, ROUTINE - ROUTINE FLU A/B + RSV 2. Pharyngitis, unspecified etiology - ICD9: 462, ICD10: J02.9 - suspect strep - Rapid Strep positive in the office today - Amoxicillin for 10 days. - Discussed supportive care treatment with fluids, rest and analgesia. - Contagious dz precautions discussed- including considered contagious until on antibiotics for 24 hours - The patient should follow up in one week if symptoms persist or worsen - Call back if drooling, increased temperature, symptoms of dehydration and/or still sick in one week - STREP A MOLECULAR (POC) Brennen Griffin MD documented in this encounter [facility] 09-16-2022 History of Present illness Narrative Radiology Service Progress Note PATIENT NAME: Nohelia Cadena DATE OF SERVICE: September 16, 2022 TIME: 1:19 PM PATIENT IDENTITY VERIFICATION COMPLETED USING TWO (2) IDENTIFIERS: Name and Date of confirmed by patient verbally. FALL SCREENING: Has the patient had 2 falls in the last year or 1 fall with injury or currently using an Ambulatory Assistive Device (Walker, Cane, Wheelchair, Crutches, etc.)? No PATIENT GENDER DATA: Female. status: : No status: NO. PATIENT RELEVANT IMPLANT DATA REVIEWED: Not Applicable RADIOLOGY DEPARTMENT: General X-ray: Exam(s) Completed: Spine X-Ray(s): Sacrum/Coccyx PERIPHERAL IV DATA: Not applicable SIGNED BY: RT Nikki(R) September 16, 2022 1:19 PM documented in this encounter [facility] 09-16-2022 Miscellaneous Notes Patient called and notified of provider recommendations of xray to coccyx due to pain. Patient voiced understanding. Amanda Travis RN Left message to call office. 09/16/2022 8:44 AM. Sara Biggs LPN Let patient know that after thinking about her tailbone pain, I would like to get an xray of the area just to make sure nothing more is there that would be causing the pain. Order is placed and she can do this at her convenience. Mary Hairston PA-C documented in this encounter [facility] 09-12-2022 History of Present illness Narrative Chief Complaint Patient presents with: Yearly Exam: Having problems with acid reflux HPI Nohelia Cadena is a 37 year old female who presents here today for physical. Patient with hx of GERD, burning mouth syndrome, ANALILIA, OCD and those as below. Patient has seen gastro and plans to follow up with them in October. However she has been off of her PPI for 2 weeks and would like a h.pylori test done if possible. Has had tailbone pain for a couple years. Xray in past was negative. Only hurts at times. Past medical history, appointments, medications, allergies reviewed. Previous Medical History PAST MEDICAL HISTORY Diagnosis Date acne ANALILIA (generalized anxiety disorder) 05/08/2021 GERD without esophagitis 05/08/2021 Iron deficiency 01/03/2022 Mastitis 10/26/2014 Obsessive-compulsive disorder 05/08/2021 Pilar cyst right side of head Sebaceous cyst 02/23/2022 Posterior neck and several on scalp. Well adult exam 06/12/2021 Previous Surgical History PAST SURGICAL HISTORY Procedure Laterality Date EGD 12/2020 PAST SURGICAL HISTORY OF WISDOM TEETH Family History FAMILY HISTORY Problem Relation Age of Onset None Mother None Father No Known Problems Brother Breast Cancer Maternal Grandmother Diabetes Maternal Grandfather Heart Paternal Grandfather Breast Cancer Paternal Aunt None Sister other (anencephaly) Brother other (spina bifida) Other Allergies Son Eczema Son Patient Allergies ALLERGIES No Known Allergies Current Medications Current Outpatient Medications on File Prior to Visit Medication Sig ferrous sulfate 325 mg (65 mg iron) tablet Take 1 tablet by mouth once daily. omeprazole (PRILOSEC) 40 mg capsule Take 1 capsule by mouth twice daily. 1/2 hr before meal. fluticasone (FLONASE) 50 mcg/actuation nasal spray Use 2 Sprays in each nostril twice daily. Rinse mouth after use. (Patient not taking: Reported on 09/12/2022) No current facility-administered medications on file prior to visit. Social History Social History Tobacco Use Smoking status: Never Smokeless tobacco: Never Vaping Use Vaping Use: Never used Substance Use Topics Alcohol use: No Comment: none Drug use: No Review of Symptoms REVIEW OF SYSTEMS GENERAL: No weight loss, malaise or fevers HEENT: No changes in hearing or vision, no nose bleeds or other nasal problems NECK: Negative for lumps, goiter, pain and significant neck swelling RESPIRATORY: Negative for cough, hemoptysis, wheezing, COPD, dyspnea or shortness of breath CARDIOVASCULAR: Negative for chest pain, leg swelling, hypertension, CHF or palpitations GI: See HPI : No history of dysuria, frequency or incontinence MUSCULOSKELETAL: has chronic tailbone pain after a fall. stable SKIN: Negative for lesions, rash, and itching PSYCH: Negative for sleep disturbance, mood disorder and recent psychosocial stressors HEMATOLOGY/LYMPHOLOGY: Negative for prolonged bleeding, bruising easily or swollen nodes ENDOCRINE: Negative for cold or heat intolerance, polyuria, polydipsia and goiter NEURO: No history of headaches, syncope, paralysis, seizures or tremors EXAM: BP 108/82 (BP Site: Left Arm, BP Position: Sitting, BP Cuff Size: Regular Adult) Pulse 86 Resp 18 Ht 173 cm (5' 8.11 ) Wt 77.7 kg (171 lb 6.4 oz) LMP 08/21/2022 SpO2 99% BMI 25.98 kg/m General Appearance: Well appearing, alert, in no acute distress, well-hydrated, well nourished.. Skin: Skin color, texture, turgor normal, no suspicious rashes or lesions on exposed skin Head: Normocephalic, no masses, lesions, tenderness or abnormalities. Eyes: Anicteric sclera. Pupils are equally round and reactive to light. Extraocular movements are intact. . Ears: External ears normal, canals clear, TMs pearly lopez. Neck: Supple, no adenopathy; thyroid symmetric, normal size, no bruits. Lungs: Lungs clear to auscultation. No wheezing, rhonchi, rales.. Heart: RRR without murmur, gallop, or rubs. No ectopy. Abdomen: Normal abdominal exam, Abdomen soft, non-tender. Bowel sounds normal. No masses, organomegaly. Extremities: No deformities, edema, skin discoloration, clubbing or cyanosis. Good capillary refill. . Peripheral Pulses: Normal. Neurologic: Gait normal. Reflexes normal and symmetric. Sensation grossly intact.. Health Maintenance List HEPATITIS B(2 of 3 - 19+ 3-dose series) due on 03/23/2003 DEPRESSION ASSESSMENT Never done PAP TESTING due on 07/30/2027 HPV TESTING due on 07/30/2027 DTAP,TDAP,TD(9 - Td or Tdap) due on 01/25/2029 INFLUENZA Completed HEPATITIS C SCREENING Completed HIV SCREENING Completed COVID-19 VACCINE Completed Data reviewed N/a ASSESSMENT/PLAN: 1. Well adult exam - ICD9: V70.0, ICD10: Z00.00 (primary diagnosis) - Counseled on healthy diet and regular exercise - Calcium intake with supplements or by diet of 1000 mg/day for under 50, 4047-5292 mg/day for 50+ - Follow up for annual exam in one year - COMP METABOLIC PANEL 2. GERD without esophagitis - ICD9: 530.81, ICD10: K21.9 - will check breath test. Otherwise follow up with gastro as scheduled - BREATH TEST H PYLORI - CBC + DIFF 3. ANALILIA (generalized anxiety disorder) - ICD9: 300.02, ICD10: F41.1 stable 4. Obsessive-compulsive disorder, unspecified type - ICD9: 300.3, ICD10: F42.9 stable 5. Encounter for lipid screening for cardiovascular disease - ICD9: V77.91, V81.2, ICD10: Z13.220, Z13.6 - LIPID PANEL, NONFASTING 6. Iron deficiency anemia, unspecified iron deficiency anemia type - ICD9: 280.9, ICD10: D50.9 check - IRON + TIBC 7. Screening for diabetes mellitus - ICD9: V77.1, ICD10: Z13.1 - HGB A1C 8. Coccydynia - ICD9: 724.79, ICD10: M53.3 Discussed options. Patient will consider and continue to monitor for now. Follow up yearly or sooner prn. Mary Hairston PA-C documented in this encounter [facility] 08-06-2022 Miscellaneous Notes ANTONIETA 05/13/22 NOV 01/26/23 Patient has been identified by name and date of : Yes Requested Prescriptions Pending Prescriptions Disp Refills ferrous sulfate 325 mg (65 mg iron) tablet 90 tablet 1 Sig: Take 1 tablet by mouth once daily. RX INSTRUCTIONS: Patient aware RX will be sent to pharmacy. No need to notify patient. Sarai Valderrama Pss documented in this encounter [facility] 07-30-2022 History of Present illness Narrative Nohelia is a 36 year old who presents for an annual gynecologic exam without complaints. Two children ages 3/7 Menses: cycles every 26-34 days Contraception: condoms HPV vaccine: No Last Pap: 02/09/2018 normal HPV: 02/05/2018 negative History of abnormal pap: No Last mammogram: normal Sexually active: Yes History of STDS: None Patient concerns for STD exposure: No. Pain with intercourse: No Postcoital bleeding: No Exercise: active Diet: balanced OB History T2 L2 SAB0 IAB0 Ectopic0 Multiple0 Live Births2 Low Pressure Firer History LMP: 07/23/2022, Having periods Age at Menarche: Age at First : Age at Menopause: Low Pressure Firer History Comments: Sexual Activity: Yes; Male Contraception: No contraception data on record PAST MEDICAL HISTORY Diagnosis Date acne ANALILIA (generalized anxiety disorder) 05/08/2021 GERD without esophagitis 05/08/2021 Iron deficiency 01/03/2022 Mastitis 10/26/2014 Obsessive-compulsive disorder 05/08/2021 Pilar cyst right side of head Sebaceous cyst 02/23/2022 Posterior neck and several on scalp. Well adult exam 06/12/2021 PAST SURGICAL HISTORY Procedure Laterality Date EGD 12/2020 PAST SURGICAL HISTORY OF WISDOM TEETH FAMILY HISTORY Problem Relation Age of Onset None Mother None Father No Known Problems Brother Breast Cancer Maternal Grandmother Diabetes Maternal Grandfather Heart Paternal Grandfather Breast Cancer Paternal Aunt None Sister other (anencephaly) Brother other (spina bifida) Other Allergies Son Eczema Son SOCIAL HISTORY Social History Tobacco Use Smoking status: Never Smokeless tobacco: Never Vaping Use Vaping Use: Never used Substance Use Topics Alcohol use: No Comment: none Drug use: No REVIEW OF SYSTEMS Abdomen: No abdominal pain, nausea, vomiting, diarrhea, or constipation. No bloating, early satiety, indigestion, or increased flatulence. Bladder: No dysuria, gross hematuria, urinary frequency, urinary urgency, or incontinence. Breast: No breast lumps, nipple d/c, overlying skin changes, redness or skin retraction. Allergies and current medication updated:Yes EXAM: BP 106/64 Ht 5' 7 (1.70m) Wt 168 lb (76.2kg) LMP 07/23/2022 BMI 26.31 kg/(m^2). GENERAL: pleasant, female in no apparent distress HEENT: Normocephalic, atraumatic, mucus membranes moist, and no lesions NECK: Supple, full range of motion, no adenopathy, and thyroid normal DERMATOLOGY: Normal, without lesions, non-icteric, and non-hirsute BREAST: soft, non-tender, symmetric, no dominant mass, normal nipple-areolar complex, no lymphadenopathy, and no nipple discharge ABDOMEN: soft, non-tender, and no masses PELVIC: external genitalia normal, normal Bartholin's glands, urethra, Vieques's glands, no vulvar lesions, no cervical lesions, good vaginal support, physiologic discharge present, normal appearing perineal body and perianal region BIMANUAL: uterus normal size, shape and consistency, no adnexal masses, and non-tender RECTOVAGINAL: deferred. NEURO: alert and oriented x3,exam grossly non-focal EXTREMITIES: normal ASSESSMENT/PLAN: 1) Health maintenance: Pap done with HPV. Mammogram starting age 40. Nutrition, exercise and routine health maintenance exams reviewed. Calcium/Vitamin D supplementation information provided. 2) Contraception: condoms. Contraceptive options reviewed and information provided. 3) STD screening: Declined STD check. 4) Follow up one year or sooner as needed Yari Lundy MD [employer] offered: Patient declines. documented in this encounter [facility] 05-17-2022 Miscellaneous Notes Patient notified and voiced understanding. Evie Taylor MA Let patient know US of abdomen was normal. No enlarged Aorta or mass. documented in this encounter [facility] 05-17-2022 History of Present illness Narrative Radiology Service Progress Note PATIENT NAME: Nohelia Cadena DATE OF SERVICE: May 17, 2022 TIME: 2:43 PM PATIENT IDENTITY VERIFICATION COMPLETED USING TWO (2) IDENTIFIERS: Name and Date of confirmed by patient verbally. FALL SCREENING: Has the patient had 2 falls in the last year or 1 fall with injury or currently using an Ambulatory Assistive Device (Walker, Cane, Wheelchair, Crutches, etc.)? No PATIENT GENDER DATA: Female. status: : No status: NO. PATIENT RELEVANT IMPLANT DATA REVIEWED: Not Applicable RADIOLOGY DEPARTMENT: Ultrasound PERIPHERAL IV DATA: Not applicable SIGNED BY: Comfort Louis RDMS RVT May 17, 2022 2:43 PM documented in this encounter [facility] 05-13-2022 History of Present illness Narrative Chief Complaint Patient presents with: Recheck: Patient PND, GERD and re-eval burning mouth HPI Nohelia Cadena is a 36 year old female who presents here today for Follow up on PND, GERD; re-evaluate burning in mouth. Patient indicated that she had a cold but is now having pressure in her throat, chest and ear x 1 week. Patient not having the burning sensation in her throat like she had been previously. At appt in February patient was taken off the omeprazole so she could get a H. Pylori breath test. However after stopping it she noted her GERD was worse. So I put her back on omeprazole but at 40 mg twice a day. An upper GI was unremarkable. She also had stool studies for eval of mucous in her stools and these came back normal. Patient was also placed on Flonase to see if reducing post nasal drainage helped her GERD symptoms. However patient never started the Flonase. No fevers or chills. No sore throat, cough or dysphagia. Patient never preceded with the OCD/Anxiety facility in [place] she informed me about at last visit. Past medical history, appointments, medications, allergies reviewed. Previous Medical History PAST MEDICAL HISTORY Diagnosis Date acne ANALILIA (generalized anxiety disorder) 05/08/2021 GERD without esophagitis 05/08/2021 Iron deficiency 01/03/2022 Mastitis 10/26/2014 Obsessive-compulsive disorder 05/08/2021 Pilar cyst right side of head Sebaceous cyst 02/23/2022 Posterior neck and several on scalp. Previous Surgical History PAST SURGICAL HISTORY Procedure Laterality Date EGD 12/2020 PAST SURGICAL HISTORY OF WISDOM TEETH Family History FAMILY HISTORY Problem Relation Age of Onset None Mother None Father No Known Problems Brother Breast Cancer Maternal Grandmother Diabetes Maternal Grandfather Heart Paternal Grandfather Breast Cancer Paternal Aunt None Sister other (anencephaly) Brother other (spina bifida) Other Allergies Son Eczema Son Patient Allergies ALLERGIES No Known Allergies Current Medications Current Outpatient Medications on File Prior to Visit Medication Sig omeprazole (PRILOSEC) 40 mg capsule Take 1 capsule by mouth twice daily. 1/2 hr before meal. fluticasone (FLONASE) 50 mcg/actuation nasal spray Use 2 Sprays in each nostril twice daily. Rinse mouth after use. No current facility-administered medications on file prior to visit. Social History Social History Tobacco Use Smoking status: Never Smokeless tobacco: Never Vaping Use Vaping Use: Never used Substance Use Topics Alcohol use: No Comment: none Drug use: No Review of Symptoms REVIEW OF SYSTEMS See HPI EXAM: BP 120/74 (BP Site: Right Arm, BP Position: Sitting, BP Cuff Size: Regular Adult) Pulse 76 Resp 16 Wt 72.6 kg (160 lb) LMP 05/02/2022 BMI 25.11 kg/m Ears: External ears normal, canals clear. Left TM insufflated well. Neck: Supple, no adenopathy; thyroid symmetric, normal size, no bruits. Lungs: Lungs clear to auscultation. No wheezing, rhonchi, rales.. Heart: RRR without murmur, gallop, or rubs. No ectopy. Abdomen: Abdomen soft, mild epigastric tenderness. There is a pulsatile mass in the mid abdomen that is tender to palpation. Bowel sounds normal. No masses, organomegaly. Health Maintenance List HEPATITIS B(2 of 3 - 3-dose series) due on 03/23/2003 COVID-19 VACCINE(4 - Booster for Moderna series) due on 10/15/2021 DEPRESSION SCREENING due on 05/08/2022 INFLUENZA(1) due on 04/18/2022 PAP TESTING due on 02/03/2023 HPV TESTING due on 02/03/2023 DTAP,TDAP,TD(9 - Td or Tdap) due on 01/25/2029 HEPATITIS C SCREENING Completed HIV SCREENING Completed Data reviewed Component Latest Ref Rng & Units 02/25/2022 Fat,Fecal-Neutral Normal Normal Fat, Fecal - Split Normal Normal Test Results Negative Negative for lactoferrin, which may indicate the absence of fecal white blood cells A/P ASSESSMENT/PLAN: 1. GERD without esophagitis - ICD9: 530.81, ICD10: K21.9 (primary diagnosis) - Continue treatment with Prilosec 40 mg BID - - at this time will refer patient to Gastro for anticipated EGD. Dr. Delgado in [place] 2. Dysfunction of left eustachian tube - ICD9: 381.81, ICD10: H69.82 - advised to do the flonase 3. Pulsatile abdominal mass - ICD9: 789.30, ICD10: R19.00 Check - US ABD AORTA - US DOPPLER AORTA F/u 4 months TABATHA Perez MD documented in this encounter [facility] 04-04-2022 Miscellaneous Notes Pt advised of same. Tomer Hernandez LPN Let her know that the upper GI Test was normal. Obtain report from [facility]. Evie Taylor MA Pt called and is notified of providers message. Pt voices understanding. Monica Higgins RN Let patient know that Dr. Perez is out of office this week. We will try to find the report if available and will contact her once I am able to review it. Mary Hairston PA-C Patient had a barium swallow completed at [facility] on 04/01/2022 and was asking for results. Please advise. documented in this encounter [facility] 04-01-2022 History of Present illness Narrative Please see Upper GI report: Scan on 04/01/2022 1:33 PM by External Provider: Miscellaneous Imaging Kym Sanders LPN documented in this encounter [facility] 03-06-2022 Miscellaneous Notes Patient read message on 02/27 and aware needs to schedule Celsa Brito Ma Sent patient a [employer] message on scheduling h pylori test. Evie Taylor MA Patient needs scheduled for hypylori breath test. Evie Taylor MA Patient was sent [employer] message. Evie Taylor MA Let patient know it appears the script for the Flonase that was sent did say 2 sprays each nostril once a day however I want her to do it 2 sprays twice a day. MAR updated. Contacted patient and scheduled her 2 month follow up. Also let patient know order for upper GI was faxed to [facility] and they would be reaching out to her. Gave her the number also. Patient needs scheduled for Hyplori Breath Test. Patient indicated that when she went to go nut picker the Flonase spray it was only for once daily. Patient indicated she thought it was for twice daily. Per provider note: 4. Post-nasal drainage - ICD9: 473.9, ICD10: R09.82 - will trial flonase 2 sprays each nostril twice a day. Evie Taylor MA documented in this encounter [facility] 03-01-2022 Miscellaneous Notes Pt called and is notified of providers results. Pt voices understanding. Monica Higgins RN Called and left a voicemail for the Patient to call back and ask for a nurse to receive the providers message. Monica Higgins RN Let patient know stool studies were normal. documented in this encounter [facility] 02-26-2022 Miscellaneous Notes Pt advised of Dr Perez's message and instructions. Pt verbalizes understanding. Pt did not schedule the H. Pylori testing. Tomer Hernandez LPN Let patient know I'm ok with putting her back on the omeprazole but will change the dose to 40 mg twice a day. She should still stay off the pepcid for know. At least this provide the medication was working better then she was aware. Also if there is a H. Pylori breath test scheduled this can be cancelled. She cannot do this and be on the omeprazole. The order was cancelled. The following approved medication requests have been transmitted electronically. Signed Prescriptions Disp Refills omeprazole (PRILOSEC) 40 mg capsule 60 capsule 5 Sig: Take 1 capsule by mouth twice daily. 1/2 hr before meal. [place]: No Authorizing Provider: JORGE PEREZ MD Pt called in and reports she saw provider on Friday. She states he told her to stop her Gerd medication, so she could have some tests run. She reports that 1 1/2 days later the symptoms are getting worse. She states she has burning in her mouth/throat and a little in her chest. Pt asking provider if she can start taking them again. Please call and advise. documented in this encounter [facility] 02-23-2022 History of Present illness Narrative Chief Complaint Patient presents with: Abdominal Pain: Patient indicated reflux, low iron, IBS HPI Nohelia Cadena is a 36 year old female who presents here today for reflux, IBS, Iron issues. Patient was seen about a month ago for her GERD symptoms. Patient does get a burning sensation in her throat. Does get a lot of post nasal drainage and clears her throat. Does not take any allergy meds and not sure if the burning in her throat is worse with this. No burning in her chest and may have epigastric pain a few days a week. Patient can't say she has noted any improvement in her symptoms with the addition of the pepcid at night with the omeprazole in the AM. Would like to eventually come off medication. Has been taking Iron for about a month. Forgets some days. When seen in office 12/28/2021 patient discussed a burning in her mouth that had been going on for a year. She did have a EGD for this a little over a year ago by Dr. Harris and was told slight stomach irritation but esophagus looked normal. Patient also told the animal husbandry teacher about getting mucus in her stool some times. She says he told her she had IBS but no scope was done. Patient has a BM every day and most days it's soft. She may have a bout of constipation 1-2 days a month or less. She has diarrhea on occasion, maybe once every few months. Still gets mucus on her stools every so often. She has not noticed any hematochezia. Since being on the iron she has had darker stools sometimes with black spots. Will have lower abdominal pain that comes and goes on occasion. Has hx of OCD and anxiety. Has never been on medication for this and has found a center in [place] that specializes in anxiety and OCD. C/o lumps on head and neck. Says she has family members who have this. Sometimes will hurt if over a bone. She was found to be anemic and has been taking iron. Most likely related to periods. Past medical history, appointments, medications, allergies reviewed. Previous Medical History PAST MEDICAL HISTORY Diagnosis Date acne ANALILIA (generalized anxiety disorder) 05/08/2021 GERD without esophagitis 05/08/2021 Iron deficiency 01/03/2022 Mastitis 10/26/2014 Obsessive-compulsive disorder 05/08/2021 Pilar cyst right side of head Previous Surgical History PAST SURGICAL HISTORY Procedure Laterality Date EGD 12/2020 PAST SURGICAL HISTORY OF WISDOM TEETH Family History FAMILY HISTORY Problem Relation Age of Onset None Mother None Father No Known Problems Brother Breast Cancer Maternal Grandmother Diabetes Maternal Grandfather Heart Paternal Grandfather Breast Cancer Paternal Aunt None Sister other (anencephaly) Brother other (spina bifida) Other Allergies Son Eczema Son Patient Allergies ALLERGIES No Known Allergies Current Medications Current Outpatient Medications on File Prior to Visit Medication Sig ferrous sulfate 325 mg (65 mg iron) tablet Take 1 tablet by mouth daily with breakfast. famotidine (PEPCID) 40 mg tablet Take 1 tablet by mouth once daily. omeprazole (PRILOSEC) 20 mg capsule Take 1 capsule by mouth daily before breakfast. 1/2 hr before meal. Apslzqrj-Ex-Unb-Fe-FA ( VITAMIN) tab Take 1 tablet by mouth. (Patient not taking: Reported on 03/19/2021 ) DOCOSAHEXANOIC ACID (DHA ORAL) Take by mouth. (Patient not taking: Reported on 03/19/2021 ) No current facility-administered medications on file prior to visit. Social History Social History Tobacco Use Smoking status: Never Smoker Smokeless tobacco: Never Used Vaping Use Vaping Use: Never used Substance Use Topics Alcohol use: No Comment: none Drug use: No Review of Symptoms REVIEW OF SYSTEMS See HPI EXAM: BP 118/74 (BP Site: Left Arm, BP Position: Sitting, BP Cuff Size: Regular Adult) Pulse 76 Resp 14 Wt 67.1 kg (148 lb) LMP 02/15/2022 BMI 23.23 kg/m General Appearance: Well appearing, alert, in no acute distress, well-hydrated, well nourished.. Skin: Skin color, texture, turgor normal, no suspicious rashes or lesions. Has several sebaceous cysts on her scalp and one on the posterior cervical neck. Ears: External ears normal, canals clear. Nose/Sinuses: Negative findings: nose shows no deformity, asymmetry, or inflammation, nasal mucosa normal, turbinates normal. Oropharynx: Negative findings: lips normal without lesions, buccal mucosa normal, gums healthy, teeth intact, non-carious, palate normal, tongue midline and normal, soft palate, uvula, and tonsils normal, palpation of salivary glands negative. Neck: Supple, no adenopathy; thyroid symmetric, normal size, no bruits. Lungs: Lungs clear to auscultation. No wheezing, rhonchi, rales.. Heart: RRR without murmur, gallop, or rubs. No ectopy. Abdomen: Normal abdominal exam, Abdomen soft, non-tender. Bowel sounds normal. No masses, organomegaly. Health Maintenance List INFLUENZA(1) due on 04/18/2022 DEPRESSION SCREENING due on 05/08/2022 PAP TESTING due on 02/03/2023 HPV TESTING due on 02/03/2023 DTAP,TDAP,TD(9 - Td or Tdap) due on 01/25/2029 HEPATITIS C SCREENING Completed HIV SCREENING Completed COVID-19 VACCINE Completed Data reviewed A/P ASSESSMENT/PLAN: 1. GERD without esophagitis - ICD9: 530.81, ICD10: K21.9 (primary diagnosis) - Patient to stop the omeprazole 20 mg a day and the pepcid in the evening. - BREATH TEST H PYLORI in 2 weeks - Check upper GI 2. Burning sensation of mouth - ICD9: 528.9, ICD10: R20.8 - Not sure if true burning mouth syndrome: If so may trial gabapentin. - Not sure if GERD related, if has GERD or a component of OCD and sematic in nature. 3. Sebaceous cyst - ICD9: 706.2, ICD10: L72.3 - discussed that these lumps on her head and posterior neck are benign. 4. Post-nasal drainage - ICD9: 473.9, ICD10: R09.82 - will trial flonase 2 sprays each nostril twice a day. 5. Increased mucus in stool - ICD9: 792.1, ICD10: R19.5 Check - FAT, FECAL QUAL - FECAL LACTOFERRIN/LEUKOCYTES Ultimately may need colonoscopy and w/u with Dr. Delgdao. 6. ANALILIA (generalized anxiety disorder) - ICD9: 300.02, ICD10: F41.1 - Patient not wanting Tx so encouraged her to look into the facility in [place]. 7. Obsessive-compulsive disorder, unspecified type - ICD9: 300.3, ICD10: F42.9 - As per #7. Discussed that this maybe contributing to the mouth sensation 8. Bloating - ICD9: 787.3, ICD10: R14.0 - Will check lactose tolerance test Signed Prescriptions Disp Refills fluticasone (FLONASE) 50 mcg/actuation nasal spray 1 Each 1 Sig: Use 2 Sprays in each nostril once daily. Rinse mouth after use. F/u in 8 weeks to re-eval. I spent a total of 30 minutes on the date of the service which included preparing to see the patient, [id number] patient care, completing clinical documentation, performing a medically appropriate examination, counseling and educating the patient/family/caregiver and ordering medications, tests, or procedures. Jorge Perez MD documented in this encounter [facility] 01-04-2022 History of Present illness Narrative Chief Complaint Patient presents with: Derm Problem: cyst on back of neck HPI Nohelia Cadena is a 36 year old female who presents here today for above complaint. Patient complaining of right posterior neck cyst which has been present fro about 6+ months without change. Denies erythema, pain, drainage, warmth to touch. Has not been treating with anything at home. Past medical history, appointments, medications, allergies reviewed. Previous Medical History PAST MEDICAL HISTORY Diagnosis Date acne ANALILIA (generalized anxiety disorder) 05/08/2021 GERD without esophagitis 05/08/2021 Iron deficiency 01/03/2022 Mastitis 10/26/2014 Obsessive-compulsive disorder 05/08/2021 Pilar cyst right side of head Previous Surgical History PAST SURGICAL HISTORY Procedure Laterality Date EGD 12/2020 PAST SURGICAL HISTORY OF WISDOM TEETH Family History FAMILY HISTORY Problem Relation Age of Onset None Mother None Father No Known Problems Brother Breast Cancer Maternal Grandmother Diabetes Maternal Grandfather Heart Paternal Grandfather Breast Cancer Paternal Aunt None Sister other (anencephaly) Brother other (spina bifida) Other Allergies Son Eczema Son Patient Allergies ALLERGIES No Known Allergies Current Medications Current Outpatient Medications on File Prior to Visit Medication Sig ferrous sulfate 325 mg (65 mg iron) tablet Take 1 tablet by mouth daily with breakfast. nystatin (MYCOSTATIN) 100,000 unit/mL suspension Take 5 mL by mouth four times daily for 14 days. 1tsp swish in mouth for several minutes, then swallow (or expectorate) 4 times daily until gone. famotidine (PEPCID) 40 mg tablet Take 1 tablet by mouth once daily. omeprazole (PRILOSEC) 20 mg capsule Take 1 capsule by mouth daily before breakfast. 1/2 hr before meal. Tikydzbm-Mp-Cyj-Fe-FA ( VITAMIN) tab Take 1 tablet by mouth. (Patient not taking: Reported on 03/19/2021 ) DOCOSAHEXANOIC ACID (DHA ORAL) Take by mouth. (Patient not taking: Reported on 03/19/2021 ) No current facility-administered medications on file prior to visit. Social History Social History Tobacco Use Smoking status: Never Smoker Smokeless tobacco: Never Used Vaping Use Vaping Use: Never used Substance Use Topics Alcohol use: No Comment: none Drug use: No Review of Symptoms REVIEW OF SYSTEMS See HPI EXAM: BP 104/64 Pulse 86 Resp 16 Wt 68.8 kg (151 lb 9.6 oz) LMP 12/27/2021 (Exact Date) SpO2 99% BMI 23.79 kg/m General Appearance: Well appearing, alert, in no acute distress, well-hydrated, well nourished.. Skin: 0.8 cm sebaceous cyst on right posterior neck without TTP, warmth, erythema, fluctuance. Health Maintenance List INFLUENZA(Season Ended) due on 04/18/2022 DEPRESSION SCREENING due on 05/08/2022 PAP TESTING due on 02/03/2023 HPV TESTING due on 02/03/2023 DTAP,TDAP,TD(9 - Td or Tdap) due on 01/25/2029 HEPATITIS C SCREENING Completed HIV SCREENING Completed COVID-19 VACCINE Completed MENINGOCOCCAL CONJUGATE Aged Out ASSESSMENT/PLAN: 1. Sebaceous cyst - ICD9: 706.2, ICD10: L72.3 Benign cyst. Offered referral to surgery/ENT for excision which she is refusing. Will monitor and have reassessed at future OV with PCP. Brennen Griffin MD documented in this encounter [facility] 12-28-2021 History of Present illness Narrative Chief Complaint Patient presents with: tongue: burning- reflux? HPI Nohelia Cadena is a 36 year old female who presents here today for Above Complaints.. Patient states that she has been suffering from GERD since 06/2020 which was initially treated with omeprazole which did help. Developed burning mouth in October 2020 and was started on Pepcid in April. This has not resolved her symptoms. States that she gets burning sensation on her tongue and all over in my mouth really. Still gets occasional heartburn with burning in her throat. Has noticed a white coating on the back of her tongue and gets red spots on the side of her tongue. Past medical history, appointments, medications, allergies reviewed. Previous Medical History PAST MEDICAL HISTORY Diagnosis Date acne ANALILIA (generalized anxiety disorder) 05/08/2021 GERD without esophagitis 05/08/2021 Mastitis 10/26/2014 Obsessive-compulsive disorder 05/08/2021 Pilar cyst right side of head Previous Surgical History PAST SURGICAL HISTORY Procedure Laterality Date EGD 12/2020 PAST SURGICAL HISTORY OF WISDOM TEETH Family History FAMILY HISTORY Problem Relation Age of Onset None Mother None Father No Known Problems Brother Breast Cancer Maternal Grandmother Diabetes Maternal Grandfather Heart Paternal Grandfather Breast Cancer Paternal Aunt None Sister other (anencephaly) Brother other (spina bifida) Other Allergies Son Eczema Son Patient Allergies ALLERGIES No Known Allergies Current Medications Current Outpatient Medications on File Prior to Visit Medication Sig famotidine (PEPCID) 40 mg tablet Take 1 tablet by mouth once daily. omeprazole (PRILOSEC) 20 mg capsule Take 1 capsule by mouth daily before breakfast. 1/2 hr before meal. Usseepys-Ux-Mmw-Fe-FA ( VITAMIN) tab Take 1 tablet by mouth. (Patient not taking: Reported on 03/19/2021 ) DOCOSAHEXANOIC ACID (DHA ORAL) Take by mouth. (Patient not taking: Reported on 03/19/2021 ) No current facility-administered medications on file prior to visit. Social History Social History Tobacco Use Smoking status: Never Smoker Smokeless tobacco: Never Used Vaping Use Vaping Use: Never used Substance Use Topics Alcohol use: No Comment: none Drug use: No Review of Symptoms REVIEW OF SYSTEMS See HPI EXAM: BP 104/60 Pulse 85 Resp 16 Wt 70.9 kg (156 lb 3.2 oz) LMP 12/27/2021 (Exact Date) SpO2 97% BMI 24.52 kg/m General Appearance: Well appearing, alert, in no acute distress, well-hydrated, well nourished.. Skin: Skin color, texture, turgor normal, no suspicious rashes or lesions. Oropharynx: Lips,, teeth and gums normal, oropharynx normal. Tongue with mild white plaque which is easily removed with tongue depressor. No plaque on palate or buccal mucosa. Neck: Supple, no adenopathy; thyroid symmetric, normal size, no bruits. Health Maintenance List INFLUENZA(Season Ended) due on 04/18/2022 DEPRESSION SCREENING due on 05/08/2022 PAP TESTING due on 02/03/2023 HPV TESTING due on 02/03/2023 DTAP,TDAP,TD(9 - Td or Tdap) due on 01/25/2029 HEPATITIS C SCREENING Completed HIV SCREENING Completed COVID-19 VACCINE Completed MENINGOCOCCAL CONJUGATE Aged Out Data reviewed Component Latest Ref Rng & Units 06/12/2021 Protein, Total 6.3 - 8.0 g/dL 7.1 Albumin 3.9 - 4.9 g/dL 4.3 Calcium 8.5 - 10.2 mg/dL 9.6 Bilirubin, Total 0.2 - 1.3 mg/dL 0.3 Alkaline Phosphatase 34 - 123 U/L 58 AST 13 - 35 U/L 20 Glucose 74 - 99 mg/dL 78 BUN 7 - 21 mg/dL 11 Creatinine 0.58 - 0.96 mg/dL 0.82 Sodium 136 - 144 mmol/L 141 Potassium 3.7 - 5.1 mmol/L 4.1 Chloride 97 - 105 mmol/L 106 (H) CO2 22 - 30 mmol/L 27 Anion Gap 9 - 18 mmol/L 8 (L) ALT 7 - 38 U/L 11 eGFR- >60 eGFR-All Other Races . >60 Total Cholesterol, Nonfasting <200 mg/dL 166 Triglycerides, Nonfasting <150 mg/dL 39 HDL Cholesterol, Nonfasting >39 mg/dL 55 LDL Cholesterol, Nonfasting <100 mg/dL 103 (H) Non HDL Cholesterol, Nonfasting <130 mg/dL 111 VLDL Cholesterol, Nonfasting <30 mg/dL 8 Total Chol/HDL Ratio, Nonfasting <5.10 mg/dL 3.02 LDL/HDL Ratio, Nonfasting <2.54 mg/dL 1.87 Hemoglobin A1C 4.3 - 5.6 % 5.0 Estimated Average Glucose mg/dL 97 Hep C Antibody IA Negative Negative ASSESSMENT/PLAN: 1. 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 Recommend hydration and will call with results. Avoid irritating foods. F/u with PCP on a PRN basis. - VITAMIN B12 BLOOD - FOLATE SERUM - VITAMIN B6/PYRIDOXIN - IRON + TIBC - FERRITIN BLD - ZINC BLD Brennen Griffin MD documented in this encounter [facility] 07-10-2021 Note HNO ID: [id number] Author: RT Richa(R) Service: Radiology Author Type: Technologist Type: Progress Notes Filed: 07/10/2021 11:09 AM Note Text: Radiology Service Progress Note PATIENT NAME: Nohelia Cadena DATE OF SERVICE: July 10, 2021 TIME: 11:09 AM PATIENT IDENTITY VERIFICATION COMPLETED USING TWO (2) IDENTIFIERS: Name and Date of confirmed by patient verbally. FALL SCREENING: Has the patient had 2 falls in the last year or 1 fall with injury or currently using an Ambulatory Assistive Device (Walker, Cane, Wheelchair, Crutches, etc.)? No PATIENT GENDER DATA: Female. status: : No status: NO. PATIENT RELEVANT IMPLANT DATA REVIEWED: Not Applicable RADIOLOGY DEPARTMENT: Mammography PERIPHERAL IV DATA: Not applicable SIGNED BY: RT Lux July 10, 2021 11:09 AM [facility] 07-10-2021 Note HNO ID: [id number] Author: RT Richa(R) Service: Radiology Author Type: Technologist Type: Progress Notes Filed: 07/10/2021 1:00 PM Note Text: Radiology Service Progress Note PATIENT NAME: Nohelia aCdena DATE OF SERVICE: July 10, 2021 TIME: 1:00 PM PATIENT IDENTITY VERIFICATION COMPLETED USING TWO (2) IDENTIFIERS: Name and Date of confirmed by patient verbally. FALL SCREENING: Has the patient had 2 falls in the last year or 1 fall with injury or currently using an Ambulatory Assistive Device (Walker, Cane, Wheelchair, Crutches, etc.)? No PATIENT GENDER DATA: Female. status: : No status: NO. PATIENT RELEVANT IMPLANT DATA REVIEWED: Not Applicable RADIOLOGY DEPARTMENT: Mammography PERIPHERAL IV DATA: Not applicable SIGNED BY: RT Richa(R) July 10, 2021 1:00 PM [facility] 07-27-2018 History of Past i llness Narrative Problem Noted Date Resolved Date Family history of diabetes mellitus 07/27/2018 04/21/2019 Overview: 07/27/18: FOB h/o Type 1 DM- well controlled. Dx age 18. Yari Magdaleno MD History of gestational hypertension 07/27/2018 04/21/2019 Overview: 07/27/18: baby asa reviewed. Antepartum multigravida of advanced maternal age 1107/06/2018 04/21/2019 Overview: 11/16/18: pt is requesting physician for delivery. Declines midwifery services Yari Lundy MD 07/06/2018Patient will be 33 years old at time of delivery. Advanced Maternal age discussed. Pt refused handouts on Genetic Amniocentesis and [facility]. [facility] handout on Early Screening In given and discussed. Level II Ultrasound and Dr. Keen's services discussed.Patient considering nuchal ultrasound and [id number] testing.TKRN History of anxiety 07/06/2018 04/21/2019 Overview: 07/06/2018 Patient has a history of anxiety. She denies ever having depression. Lidia DEMARCON RN Supervision of normal first 07/05/2014 10/26/2014 Echogenic focus of heart, fe ewa, affecting care of mother, antepartum 05/20/2014 10/26/2014 Overview: Maternity 21 negative Family history of open neural tube defect 201310/26/2014 Overview: 07/06/2018 She has a brother born with anencephaly. Patient's first cousin born with spina bifida. Patient is currently taking folic acid supplement daily. TKRN documented as of this encounter (statuses as of 12/28/2021) [facility] History of Past illness Narrative* Problem Noted Date Resolved Date Family history of diabetes mellitus 07/27/2018 04/21/2019 Overview: 07/27/18: FOB h/o Type 1 DM- well controlled. Dx age 18. Yari Magdaleno MD History of gestational hypertension 07/27/2018 04/21/2019 Overview: 07/27/18: baby asa reviewed. Antepartum multigravida of advanced maternal age 1107/06/2018 04/21/2019 Overview: 11/16/18: pt is requesting physician for delivery. Declines midwifery services Yari Lundy MD 07/06/2018Patient will be 33 years old at time of delivery. Advanced Maternal age discussed. Pt refused handouts on Genetic Amniocentesis and [facility]. [facility] handout on Early Screening In given and discussed. Level II Ultrasound and Dr. Keen's services discussed.Patient considering nuchal ultrasound and [id number] testing.TKRN History of anxiety 07/06/2018 04/21/2019 Overview: 07/06/2018 Patient has a history of anxiety. She denies ever having depression. Lidia DEMARCON RN Supervision of normal first 07/05/2014 10/26/2014 Echogenic focus of heart, fe ewa, affecting care of mother, antepartum 05/20/2014 10/26/2014 Overview: Maternity 21 negative Family history of open neural tube defect 201310/26/2014 Overview: 07/06/2018 She has a brother born with anencephaly. Patient's first cousin born with spina bifida. Patient is currently taking folic acid supplement daily. TKRN documented as of this encounter (statuses as of 01/04/2022) [facility] History of Past illness Narrative* Problem Noted Date Resolved Date Family history of diabetes mellitus 07/27/2018 04/21/2019 Overview: 07/27/18: FOB h/o Type 1 DM- well controlled. Dx age 18. Yari Magdaleno MD History of gestational hypertension 07/27/2018 04/21/2019 Overview: 07/27/18: baby asa reviewed. Antepartum multigravida of advanced maternal age 1107/06/2018 04/21/2019 Overview: 11/16/18: pt is requesting physician for delivery. [facility] midwifery services Yari Lundy MD 07/06/2018Patient will be 33 years old at time of delivery. Advanced Maternal age discussed. Pt refused handouts on Genetic Amniocentesis and [facility]. [facility] handout on Early Screening In given and discussed. Level II Ultrasound and Dr. Keen's services discussed.Patient considering nuchal ultrasound and [id number] testing.TKRN History of anxiety 07/06/2018 04/21/2019 Overview: 07/06/2018 Patient has a history of anxiety. She denies ever having depression. Lidia DEMARCON RN Supervision of normal first 07/05/2014 10/26/2014 Echogenic focus of heart, fe ewa, affecting care of mother, antepartum 05/20/2014 10/26/2014 Overview: Maternity 21 negative Family history of open neural tube defect 201310/26/2014 Overview: 07/06/2018 She has a brother born with anencephaly. Patient's first cousin born with spina bifida. Patient is currently taking folic acid supplement daily. TKRN documented as of this encounter (statuses as of 02/26/2022) [facility] History of Past illness Narrative* Problem Noted Date Resolved Date Family history of diabetes mellitus 07/27/2018 04/21/2019 Overview: 07/27/18: FOB h/o Type 1 DM- well controlled. Dx age 18. Yari Magdaleno MD History of gestational hypertension 07/27/2018 04/21/2019 Overview: 07/27/18: baby asa reviewed. Antepartum multigravida of advanced maternal age 1107/06/2018 04/21/2019 Overview: 11/16/18: pt is requesting physician for delivery. Declines midwifery services Yari Lundy MD 07/06/2018Patient will be 33 years old at time of delivery. Advanced Maternal age discussed. Pt refused handouts on Genetic Amniocentesis and [facility]. [facility] handout on Early Screening In given and discussed. Level II Ultrasound and Dr. Keen's services discussed.Patient considering nuchal ultrasound and [id number] testing.TKRN History of anxiety 07/06/2018 04/21/2019 Overview: 07/06/2018 Patient has a history of anxiety. She denies ever having depression. Lidia WATKINS RN Supervision of normal first 07/05/2014 10/26/2014 Echogenic focus of heart, fe ewa, affecting care of mother, antepartum 05/20/2014 10/26/2014 Overview: Maternity 21 negative Family history of open neural tube defect 201310/26/2014 Overview: 07/06/2018 She has a brother born with anencephaly. Patient's first cousin born with spina bifida. Patient is currently taking folic acid supplement daily. TKRN documented as of this encounter (statuses as of 02/26/2022) [facility] History of Past illness Narrative* Problem Noted Date Resolved Date Family history of diabetes mellitus 07/27/2018 04/21/2019 Overview: 07/27/18: FOB h/o Type 1 DM- well controlled. Dx age 18. Yari Magdaleno MD History of gestational hypertension 07/27/2018 04/21/2019 Overview: 07/27/18: baby asa reviewed. Antepartum multigravida of advanced maternal age 1107/06/2018 04/21/2019 Overview: 11/16/18: pt is requesting physician for delivery. Declines midwifery services Yari Lundy MD 07/06/2018Patient will be 33 years old at time of delivery. Advanced Maternal age discussed. Pt refused handouts on Genetic Amniocentesis and [facility]. [facility] handout on Early Screening In given and discussed. Level II Ultrasound and Dr. eKen's services discussed.Patient considering nuchal ultrasound and [id number] testing.TKRN History of anxiety 07/06/2018 04/21/2019 Overview: 07/06/2018 Patient has a history of anxiety. She denies ever having depression. Lidia DEMARCON RN Supervision of normal first 07/05/2014 10/26/2014 Echogenic focus of heart, fe ewa, affecting care of mother, antepartum 05/20/2014 10/26/2014 Overview: Maternity 21 negative Family history of open neural tube defect 201310/26/2014 Overview: 07/06/2018 She has a brother born with anencephaly. Patient's first cousin born with spina bifida. Patient is currently taking folic acid supplement daily. TKRN documented as of this encounter (statuses as of 03/01/2022) [facility] History of Past illness Narrative* Problem Noted Date Resolved Date Family history of diabetes mellitus 07/27/2018 04/21/2019 Overview: 07/27/18: FOB h/o Type 1 DM- well controlled. Dx age 18. Yari Magdaleno MD History of gestational hypertension 07/27/2018 04/21/2019 Overview: 07/27/18: baby asa reviewed. Antepartum multigravida of advanced maternal age 1107/06/2018 04/21/2019 Overview: 11/16/18: pt is requesting physician for delivery. [facility] midwifery services Yari Lundy MD 07/06/2018Patient will be 33 years old at time of delivery. Advanced Maternal age discussed. Pt refused handouts on Genetic Amniocentesis and [facility]. [facility] handout on Early Screening In given and discussed. Level II Ultrasound and Dr. Keen's services discussed.Patient considering nuchal ultrasound and [id number] testing.TKRN History of anxiety 07/06/2018 04/21/2019 Overview: 07/06/2018 Patient has a history of anxiety. She denies ever having depression. Lidia Kaufman BSN RN Supervision of normal first 07/05/2014 10/26/2014 Echogenic focus of heart, fe ewa, affecting care of mother, antepartum 05/20/2014 10/26/2014 Overview: Maternity 21 negative Family history of open neural tube defect 201310/26/2014 Overview: 07/06/2018 She has a brother born with anencephaly. Patient's first cousin born with spina bifida. Patient is currently taking folic acid supplement daily. TKRN documented as of this encounter (statuses as of 03/06/2022) [facility] [facility] History of Past illness Narrative* Problem Noted Date Resolved Date Family history of diabetes mellitus 07/27/2018 04/21/2019 Overview: 07/27/18: FOB h/o Type 1 DM- well controlled. Dx age 18. Yari Magdaleno MD History of gestational hypertension 07/27/2018 04/21/2019 Overview: 07/27/18: baby asa reviewed. Antepartum multigravida of advanced maternal age 1107/06/2018 04/21/2019 Overview: 11/16/18: pt is requesting physician for delivery. Declines midwifery services Yari Lundy MD 07/06/2018Patient will be 33 years old at time of delivery. Advanced Maternal age discussed. Pt refused handouts on Genetic Amniocentesis and [facility]. [facility] handout on Early Screening In given and discussed. Level II Ultrasound and Dr. Keen's services discussed.Patient considering nuchal ultrasound and [id number] testing.TKRN History of anxiety 07/06/2018 04/21/2019 Overview: 07/06/2018 Patient has a history of anxiety. She denies ever having depression. Lidia DEMARCON RN Supervision of normal first 07/05/2014 10/26/2014 Echogenic focus of heart, fe ewa, affecting care of mother, antepartum 05/20/2014 10/26/2014 Overview: Maternity 21 negative Family history of open neural tube defect 201310/26/2014 Overview: 07/06/2018 She has a brother born with anencephaly. Patient's first cousin born with spina bifida. Patient is currently taking folic acid supplement daily. TKRN documented as of this encounter (statuses as of 04/01/2022) [facility]12-10-2018 History of Past illness Narrative* Problem Noted Date Resolved Date Family history of diabetes mellitus 07/27/2018 04/21/2019 Overview: 07/27/18: FOB h/o Type 1 DM- well controlled. Dx age 18. Yari Magdaleno MD History of gestational hypertension 07/27/2018 04/21/2019 Overview: 07/27/18: baby asa reviewed. Antepartum multigravida of advanced maternal age 1107/06/2018 04/21/2019 Overview: 11/16/18: pt is requesting physician for delivery. [facility] midwifery services Yari Lundy MD 07/06/2018Patient will be 33 years old at time of delivery. Advanced Maternal age discussed. Pt refused handouts on Genetic Amniocentesis and [facility]. [facility] handout on Early Screening In given and discussed. Level II Ultrasound and Dr. Keen's services discussed.Patient considering nuchal ultrasound and [id number] testing.TKRN History of anxiety 07/06/2018 04/21/2019 Overview: 07/06/2018 Patient has a history of anxiety. She denies ever having depression. Lidia WATIKNS RN Supervision of normal first 07/05/2014 10/26/2014 Echogenic focus of heart, fe ewa, affecting care of mother, antepartum 05/20/2014 10/26/2014 Overview: Maternity 21 negative Family history of open neural tube defect 201310/26/2014 Overview: 07/06/2018 She has a brother born with anencephaly. Patient's first cousin born with spina bifida. Patient is currently taking folic acid supplement daily. TKRN documented as of this encounter (statuses as of 04/04/2022) [facility]12-10-2018 History of Past illness Narrative* Problem Noted Date Resolved Date Family history of diabetes mellitus 07/27/2018 04/21/2019 Overview: 07/27/18: FOB h/o Type 1 DM- well controlled. Dx age 18. Yari Magdaleno MD History of gestational hypertension 07/27/2018 04/21/2019 Overview: 07/27/18: baby asa reviewed. Antepartum multigravida of advanced maternal age 1107/06/2018 04/21/2019 Overview: 11/16/18: pt is requesting physician for delivery. Declines midwifery services Yari Lundy MD 07/06/2018Patient will be 33 years old at time of delivery. Advanced Maternal age discussed. Pt refused handouts on Genetic Amniocentesis and [facility]. [facility] handout on Early Screening In given and discussed. Level II Ultrasound and Dr. Keen's services discussed.Patient considering nuchal ultrasound and [id number] testing.TKRN History of anxiety 07/06/2018 04/21/2019 Overview: 07/06/2018 Patient has a history of anxiety. She denies ever having depression. Lidia WATKINS RN Supervision of normal first 07/05/2014 10/26/2014 Echogenic focus of heart, fe ewa, affecting care of mother, antepartum 05/20/2014 10/26/2014 Overview: Maternity 21 negative Family history of open neural tube defect 201310/26/2014 Overview: 07/06/2018 She has a brother born with anencephaly. Patient's first cousin born with spina bifida. Patient is currently taking folic acid supplement daily. TKRN documented as of this encounter (statuses as of 05/14/2022) [facility]12-10-2018 History of Past illness Narrative* Problem Noted Date Resolved Date Family history of diabetes mellitus 07/27/2018 04/21/2019 Overview: 07/27/18: FOB h/o Type 1 DM- well controlled. Dx age 18. Yari Magdaleno MD History of gestational hypertension 07/27/2018 04/21/2019 Overview: 07/27/18: baby asa reviewed. Antepartum multigravida of advanced maternal age 1107/06/2018 04/21/2019 Overview: 11/16/18: pt is requesting physician for delivery. Declines midwifery services Yari Lundy MD 07/06/2018Patient will be 33 years old at time of delivery. Advanced Maternal age discussed. Pt refused handouts on Genetic Amniocentesis and [facility]. [facility] handout on Early Screening In given and discussed. Level II Ultrasound and Dr. Keen's services discussed.Patient considering nuchal ultrasound and [id number] testing.TKRN History of anxiety 07/06/2018 04/21/2019 Overview: 07/06/2018 Patient has a history of anxiety. She denies ever having depression. Lidia DEMARCON RN Supervision of normal first 07/05/2014 10/26/2014 Echogenic focus of heart, fe ewa, affecting care of mother, antepartum 05/20/2014 10/26/2014 Overview: Maternity 21 negative Family history of open neural tube defect 201310/26/2014 Overview: 07/06/2018 She has a brother born with anencephaly. Patient's first cousin born with spina bifida. Patient is currently taking folic acid supplement daily. TKRN documented as of this encounter (statuses as of 05/17/2022) [facility]12-10-2018 History of Past illness Narrative* Problem Noted Date Resolved Date Family history of diabetes mellitus 07/27/2018 04/21/2019 Overview: 07/27/18: FOB h/o Type 1 DM- well controlled. Dx age 18. Yari Magdaleno MD History of gestational hypertension 07/27/2018 04/21/2019 Overview: 07/27/18: baby asa reviewed. Antepartum multigravida of advanced maternal age 1107/06/2018 04/21/2019 Overview: 11/16/18: pt is requesting physician for delivery. Declines midwifery services Yari Lundy MD 07/06/2018Patient will be 33 years old at time of delivery. Advanced Maternal age discussed. Pt refused handouts on Genetic Amniocentesis and [facility]. [facility] handout on Early Screening In given and discussed. Level II Ultrasound and Dr. Keen's services discussed.Patient considering nuchal ultrasound and [id number] testing.TKRN History of anxiety 07/06/2018 04/21/2019 Overview: 07/06/2018 Patient has a history of anxiety. She denies ever having depression. Lidia DEMARCON RN Supervision of normal first 07/05/2014 10/26/2014 Echogenic focus of heart, fe ewa, affecting care of mother, antepartum 05/20/2014 10/26/2014 Overview: Maternity 21 negative Family history of open neural tube defect 201310/26/2014 Overview: 07/06/2018 She has a brother born with anencephaly. Patient's first cousin born with spina bifida. Patient is currently taking folic acid supplement daily. TKRN documented as of this encounter (statuses as of 05/18/2022) [facility]12-10-2018 History of Past illness Narrative* Problem Noted Date Resolved Date Family history of diabetes mellitus 07/27/2018 04/21/2019 Overview: 07/27/18: FOB h/o Type 1 DM- well controlled. Dx age 18. Yari Magdaleno MD History of gestational hypertension 07/27/2018 04/21/2019 Overview: 07/27/18: baby asa reviewed. Antepartum multigravida of advanced maternal age 1107/06/2018 04/21/2019 Overview: 11/16/18: pt is requesting physician for delivery. [facility] midwifery services Yari Lundy MD 07/06/2018Patient will be 33 years old at time of delivery. Advanced Maternal age discussed. Pt refused handouts on Genetic Amniocentesis and [facility]. [facility] handout on Early Screening In given and discussed. Level II Ultrasound and Dr. Keen's services discussed.Patient considering nuchal ultrasound and [id number] testing.TKRN History of anxiety 07/06/2018 04/21/2019 Overview: 07/06/2018 Patient has a history of anxiety. She denies ever having depression. Lidia DEMARCON RN Supervision of normal first 07/05/2014 10/26/2014 Echogenic focus of heart, fe ewa, affecting care of mother, antepartum 05/20/2014 10/26/2014 Overview: Maternity 21 negative Family history of open neural tube defect 201310/26/2014 Overview: 07/06/2018 She has a brother born with anencephaly. Patient's first cousin born with spina bifida. Patient is currently taking folic acid supplement daily. TKRN documented as of this encounter (statuses as of 06/12/2022) [facility]12-10-2018 History of Past illness Narrative* Problem Noted Date Resolved Date Family history of diabetes mellitus 07/27/2018 04/21/2019 Overview: 07/27/18: FOB h/o Type 1 DM- well controlled. Dx age 18. Yari Magdaleno MD History of gestational hypertension 07/27/2018 04/21/2019 Overview: 07/27/18: baby asa reviewed. Antepartum multigravida of advanced maternal age 1107/06/2018 04/21/2019 Overview: 11/16/18: pt is requesting physician for delivery. [facility] midwifery services Yari Lundy MD 07/06/2018Patient will be 33 years old at time of delivery. Advanced Maternal age discussed. Pt refused handouts on Genetic Amniocentesis and [facility]. [facility] handout on Early Screening In given and discussed. Level II Ultrasound and Dr. Keen's services discussed.Patient considering nuchal ultrasound and [id number] testing.TKRN History of anxiety 07/06/2018 04/21/2019 Overview: 07/06/2018 Patient has a history of anxiety. She denies ever having depression. Lidia DEMARCON RN Supervision of normal first 07/05/2014 10/26/2014 Echogenic focus of heart, fe ewa, affecting care of mother, antepartum 05/20/2014 10/26/2014 Overview: Maternity 21 negative Family history of open neural tube defect 201310/26/2014 Overview: 07/06/2018 She has a brother born with anencephaly. Patient's first cousin born with spina bifida. Patient is currently taking folic acid supplement daily. TKRN documented as of this encounter (statuses as of 07/30/2022) [facility]12-10-2018 History of Past illness Narrative* Problem Noted Date Resolved Date Family history of diabetes mellitus 07/27/2018 04/21/2019 Overview: 07/27/18: FOB h/o Type 1 DM- well controlled. Dx age 18. Yari Magdaleno MD History of gestational hypertension 07/27/2018 04/21/2019 Overview: 07/27/18: baby asa reviewed. Antepartum multigravida of advanced maternal age 1107/06/2018 04/21/2019 Overview: 11/16/18: pt is requesting physician for delivery. Declines midwifery services Yari Lundy MD 07/06/2018Patient will be 33 years old at time of delivery. Advanced Maternal age discussed. Pt refused handouts on Genetic Amniocentesis and [facility]. [facility] handout on Early Screening In given and discussed. Level II Ultrasound and Dr. Keen's services discussed.Patient considering nuchal ultrasound and [id number] testing.TKRN History of anxiety 07/06/2018 04/21/2019 Overview: 07/06/2018 Patient has a history of anxiety. She denies ever having depression. Lidia DEMARCON RN Supervision of normal first 07/05/2014 10/26/2014 Echogenic focus of heart, fe ewa, affecting care of mother, antepartum 05/20/2014 10/26/2014 Overview: Maternity 21 negative Family history of open neural tube defect 201310/26/2014 Overview: 07/06/2018 She has a brother born with anencephaly. Patient's first cousin born with spina bifida. Patient is currently taking folic acid supplement daily. TKRN documented as of this encounter (statuses as of 08/06/2022) [facility]12-10-2018 History of Past illness Narrative* Problem Noted Date Resolved Date Family history of diabetes mellitus 07/27/2018 04/21/2019 Overview: 07/27/18: FOB h/o Type 1 DM- well controlled. Dx age 18. Yari Magdaleno MD History of gestational hypertension 07/27/2018 04/21/2019 Overview: 07/27/18: baby asa reviewed. Antepartum multigravida of advanced maternal age 1107/06/2018 04/21/2019 Overview: 11/16/18: pt is requesting physician for delivery. [facility] midwifery services Yari Lundy MD 07/06/2018Patient will be 33 years old at time of delivery. Advanced Maternal age discussed. Pt refused handouts on Genetic Amniocentesis and [facility]. [facility] handout on Early Screening In given and discussed. Level II Ultrasound and Dr. Keen's services discussed.Patient considering nuchal ultrasound and [id number] testing.TKRN History of anxiety 07/06/2018 04/21/2019 Overview: 07/06/2018 Patient has a history of anxiety. She denies ever having depression. Lidia DEMARCON RN Supervision of normal first 07/05/2014 10/26/2014 Echogenic focus of heart, fe ewa, affecting care of mother, antepartum 05/20/2014 10/26/2014 Overview: Maternity 21 negative Family history of open neural tube defect 201310/26/2014 Overview: 07/06/2018 She has a brother born with anencephaly. Patient's first cousin born with spina bifida. Patient is currently taking folic acid supplement daily. TKRN documented as of this encounter (statuses as of 09/12/2022) [facility]12-10-2018 History of Past illness Narrative* Problem Noted Date Resolved Date Family history of diabetes mellitus 07/27/2018 04/21/2019 Overview: 07/27/18: FOB h/o Type 1 DM- well controlled. Dx age 18. Yari Magdaleno MD History of gestational hypertension 07/27/2018 04/21/2019 Overview: 07/27/18: baby asa reviewed. Antepartum multigravida of advanced maternal age 1107/06/2018 04/21/2019 Overview: 11/16/18: pt is requesting physician for delivery. [facility] midwifery services Yari Lundy MD 07/06/2018Patient will be 33 years old at time of delivery. Advanced Maternal age discussed. Pt refused handouts on Genetic Amniocentesis and [facility]. [facility] handout on Early Screening In given and discussed. Level II Ultrasound and Dr. Keen's services discussed.Patient considering nuchal ultrasound and [id number] testing.TKRN History of anxiety 07/06/2018 04/21/2019 Overview: 07/06/2018 Patient has a history of anxiety. She denies ever having depression. Lidia DEMARCON RN Supervision of normal first 07/05/2014 10/26/2014 Echogenic focus of heart, fe ewa, affecting care of mother, antepartum 05/20/2014 10/26/2014 Overview: Maternity 21 negative Family history of open neural tube defect 201310/26/2014 Overview: 07/06/2018 She has a brother born with anencephaly. Patient's first cousin born with spina bifida. Patient is currently taking folic acid supplement daily. TKRN documented as of this encounter (statuses as of 09/13/2022) [facility]12-10-2018 History of Past illness Narrative* Problem Noted Date Resolved Date Family history of diabetes mellitus 07/27/2018 04/21/2019 Overview: 07/27/18: FOB h/o Type 1 DM- well controlled. Dx age 18. Yari Magdaleno MD History of gestational hypertension 07/27/2018 04/21/2019 Overview: 07/27/18: baby asa reviewed. Antepartum multigravida of advanced maternal age 1107/06/2018 04/21/2019 Overview: 11/16/18: pt is requesting physician for delivery. [facility] midwifery services Yari Lundy MD 07/06/2018Patient will be 33 years old at time of delivery. Advanced Maternal age discussed. Pt refused handouts on Genetic Amniocentesis and [facility]. [facility] handout on Early Screening In given and discussed. Level II Ultrasound and Dr. Keen's services discussed.Patient considering nuchal ultrasound and [id number] testing.TKRN History of anxiety 07/06/2018 04/21/2019 Overview: 07/06/2018 Patient has a history of anxiety. She denies ever having depression. Lidia WATKINS RN Supervision of normal first 07/05/2014 10/26/2014 Echogenic focus of heart, fe ewa, affecting care of mother, antepartum 05/20/2014 10/26/2014 Overview: Maternity 21 negative Family history of open neural tube defect 201310/26/2014 Overview: 07/06/2018 She has a brother born with anencephaly. Patient's first cousin born with spina bifida. Patient is currently taking folic acid supplement daily. TKRN documented as of this encounter (statuses as of 09/16/2022) [facility]12-10-2018 History of Past illness Narrative* Problem Noted Date Resolved Date Family history of diabetes mellitus 07/27/2018 04/21/2019 Overview: 07/27/18: FOB h/o Type 1 DM- well controlled. Dx age 18. Yari Magdaleno MD History of gestational hypertension 07/27/2018 04/21/2019 Overview: 07/27/18: baby asa reviewed. Antepartum multigravida of advanced maternal age 1107/06/2018 04/21/2019 Overview: 11/16/18: pt is requesting physician for delivery. Declines midwifery services Yari Lundy MD 07/06/2018Patient will be 33 years old at time of delivery. Advanced Maternal age discussed. Pt refused handouts on Genetic Amniocentesis and [facility]. [facility] handout on Early Screening In given and discussed. Level II Ultrasound and Dr. Keen's services discussed.Patient considering nuchal ultrasound and [id number] testing.TKRN History of anxiety 07/06/2018 04/21/2019 Overview: 07/06/2018 Patient has a history of anxiety. She denies ever having depression. Lidia DEMARCON RN Supervision of normal first 07/05/2014 10/26/2014 Echogenic focus of heart, fe ewa, affecting care of mother, antepartum 05/20/2014 10/26/2014 Overview: Maternity 21 negative Family history of open neural tube defect 201310/26/2014 Overview: 07/06/2018 She has a brother born with anencephaly. Patient's first cousin born with spina bifida. Patient is currently taking folic acid supplement daily. TKRN documented as of this encounter (statuses as of 09/18/2022) [facility]12-10-2018 History of Past illness Narrative* Problem Noted Date Diagnosed Date Resolved Date Family history of diabetes mellitus 07/27/2018 04/21/2019 Overview: 07/27/18: FOB h/o Type 1 DM- well controlled. Dx age 18. Yari Magdaleno MD History of gestational hypertension 07/27/2018 04/21/2019 Overview: 07/27/18: baby asa reviewed. Antepartum multigravida of a dvanced maternal age 1107/06/2018 04/21/2019 Overview: 11/16/18: pt is requesting physician for delivery. Declines midwifery services Yari Lundy MD 07/06/2018Patient will be 33 years old at time of delivery. Advanced Maternal age discussed. Pt refused handouts on Genetic Amniocentesis and [facility]. [facility] handout on Early Screening In given and discussed. Level II Ultrasound and Dr. Keen's services discussed.Patient considering nuchal ultrasound and [id number] testing.TKRN History of anxiety 07/06/2018 9 Overview: 07/06/2018 Patient has a history of anxiety. She denies ever having depression. Lidia DEMARCON RN Supervision of normal first 07/05/2014 10/26/2014 Echogenic focus of heart, fe ewa, affecting care of mother, antepartum 05/20/2014 10/26/2014 Overview: Maternity 21 negative Family history of open neural tube defect 02/01/2014 10/26/2014 Overview: 07/06/2018 She has a brother born with anencephaly. Patient's first cousin born with spina bifida. Patient is currently taking folic acid supplement daily. TKRN documented as of this encounter (statuses as of 04/14/2023) [facility]12-10-2018 History of Past illness Narrative* Problem Noted Date Diagnosed Date Resolved Date Family history of diabetes mellitus 07/27/2018 04/21/2019 Overview: 07/27/18: FOB h/o Type 1 DM- well controlled. Dx age 18. Yari Magdaleno MD History of gestational hypertension 07/27/2018 04/21/2019 Overview: 07/27/18: baby asa reviewed. Antepartum multigravida of a dvanced maternal age 1107/06/2018 04/21/2019 Overview: 11/16/18: pt is requesting physician for delivery. Declines midwifery services Yari Lundy MD 07/06/2018Patient will be 33 years old at time of delivery. Advanced Maternal age discussed. Pt refused handouts on Genetic Amniocentesis and [facility]. [facility] handout on Early Screening In given and discussed. Level II Ultrasound and Dr. Keen's services discussed.Patient considering nuchal ultrasound and [id number] testing.TKRN History of anxiety 07/06/2018 9 Overview: 07/06/2018 Patient has a history of anxiety. She denies ever having depression. Lidia Kaufman BSN RN Supervision of normal first 07/05/2014 10/26/2014 Echogenic focus of heart, fe ewa, affecting care of mother, antepartum 05/20/2014 10/26/2014 Overview: Maternity 21 negative Family history of open neural tube defect 02/01/2014 10/26/2014 Overview: 07/06/2018 She has a brother born with anencephaly. Patient's first cousin born with spina bifida. Patient is currently taking folic acid supplement daily. TKRN documented as of this encounter (statuses as of 05/13/2023) [facility]12-10-2018 History of Past illness Narrative* Problem Noted Date Diagnosed Date Resolved Date Family history of diabetes mellitus 07/27/2018 04/21/2019 Overview: 07/27/18: FOB h/o Type 1 DM- well controlled. Dx age 18. Yari Magdaleno MD History of gestational hypertension 07/27/2018 04/21/2019 Overview: 07/27/18: baby asa reviewed. Antepartum multigravida of a dvanced maternal age 1107/06/2018 04/21/2019 Overview: 11/16/18: pt is requesting physician for delivery. Declines midwifery services Yari Lundy MD 07/06/2018Patient will be 33 years old at time of delivery. Advanced Maternal age discussed. Pt refused handouts on Genetic Amniocentesis and [facility]. [facility] handout on Early Screening In given and discussed. Level II Ultrasound and Dr. Keen's services discussed.Patient considering nuchal ultrasound and [id number] testing.TKRN History of anxiety 07/06/2018 9 Overview: 07/06/2018 Patient has a history of anxiety. She denies ever having depression. Lidia DEMARCON RN Supervision of normal first 07/05/2014 10/26/2014 Echogenic focus of heart, fe ewa, affecting care of mother, antepartum 05/20/2014 10/26/2014 Overview: Maternity 21 negative Family history of open neural tube defect 02/01/2014 10/26/2014 Overview: 07/06/2018 She has a brother born with anencephaly. Patient's first cousin born with spina bifida. Patient is currently taking folic acid supplement daily. TKRN documented as of this encounter (statuses as of 05/26/2023) [facility]12-10-2018 History of Past illness Narrative* Problem Noted Date Diagnosed Date Resolved Date Family history of diabetes mellitus 07/27/2018 04/21/2019 Overview: 07/27/18: FOB h/o Type 1 DM- well controlled. Dx age 18. Yari Magdaleno MD History of gestational hypertension 07/27/2018 04/21/2019 Overview: 07/27/18: baby asa reviewed. Antepartum multigravida of a dvanced maternal age 1107/06/2018 04/21/2019 Overview: 11/16/18: pt is requesting physician for delivery. [facility] midwifery services Yari Lundy MD 07/06/2018Patient will be 33 years old at time of delivery. Advanced Maternal age discussed. Pt refused handouts on Genetic Amniocentesis and [facility]. [facility] handout on Early Screening In given and discussed. Level II Ultrasound and Dr. Keen's services discussed.Patient considering nuchal ultrasound and [id number] testing.TKRN History of anxiety 07/06/2018 9 Overview: 07/06/2018 Patient has a history of anxiety. She denies ever having depression. Lidia WATKINS RN Supervision of normal first 07/05/2014 10/26/2014 Echogenic focus of heart, fe ewa, affecting care of mother, antepartum 05/20/2014 10/26/2014 Overview: Maternity 21 negative Family history of open neural tube defect 02/01/2014 10/26/2014 Overview: 07/06/2018 She has a brother born with anencephaly. Patient's first cousin born with spina bifida. Patient is currently taking folic acid supplement daily. TKRN documented as of this encounter (statuses as of 05/29/2023) [facility]12-10-[facility] History of Past illness Narrative* Problem Noted Date Diagnosed Date Resolved Date Family history of diabetes mellitus 07/27/2018 04/21/2019 Overview: 07/27/18: FOB h/o Type 1 DM- well controlled. Dx age 18. Yari Magdaleno MD History of gestational hypertension 07/27/2018 04/21/2019 Overview: 07/27/18: baby asa reviewed. Antepartum multigravida of a dvanced maternal age 1107/06/2018 04/21/2019 Overview: 11/16/18: pt is requesting physician for delivery. [facility] midwifery services Yari Lundy MD 07/06/2018Patient will be 33 years old at time of delivery. Advanced Maternal age discussed. Pt refused handouts on Genetic Amniocentesis and [facility]. [facility] handout on Early Screening In given and discussed. Level II Ultrasound and Dr. Keen's services discussed.Patient considering nuchal ultrasound and [id number] testing.TKRN History of anxiety 07/06/2018 9 Overview: 07/06/2018 Patient has a history of anxiety. She denies ever having depression. Lidia WATKINS RN Supervision of normal first 07/05/2014 10/26/2014 Echogenic focus of heart, fe ewa, affecting care of mother, antepartum 05/20/2014 10/26/2014 Overview: Maternity 21 negative Family history of open neural tube defect 02/01/2014 10/26/2014 Overview: 07/06/2018 She has a brother born with anencephaly. Patient's first cousin born with spina bifida. Patient is currently taking folic acid supplement daily. TKRN documented as of this encounter (statuses as of 06/03/2023) [facility]12-10-2018 History of Past illness Narrative* Problem Noted Date Diagnosed Date Resolved Date Family history of diabetes mellitus 07/27/2018 04/21/2019 Overview: 07/27/18: FOB h/o Type 1 DM- well controlled. Dx age 18. Yari Magdaleno MD History of gestational hypertension 07/27/2018 04/21/2019 Overview: 07/27/18: baby asa reviewed. Antepartum multigravida of a dvanced maternal age 1107/06/2018 04/21/2019 Overview: 11/16/18: pt is requesting physician for delivery. [facility] midwifery services Yari Lundy MD 07/06/2018Patient will be 33 years old at time of delivery. Advanced Maternal age discussed. Pt refused handouts on Genetic Amniocentesis and [facility]. [facility] handout on Early Screening In given and discussed. Level II Ultrasound and Dr. Keen's services discussed.Patient considering nuchal ultrasound and [id number] testing.TKRN History of anxiety 07/06/2018 9 Overview: 07/06/2018 Patient has a history of anxiety. She denies ever having depression. Lidia DEMARCON RN Supervision of normal first 07/05/2014 10/26/2014 Echogenic focus of heart, fe ewa, affecting care of mother, antepartum 05/20/2014 10/26/2014 Overview: Maternity 21 negative Family history of open neural tube defect 02/01/2014 10/26/2014 Overview: 07/06/2018 She has a brother born with anencephaly. Patient's first cousin born with spina bifida. Patient is currently taking folic acid supplement daily. TKRN documented as of this encounter (statuses as of 06/03/2023) [facility]12-10-2018 History of Past illness Narrative* Problem Noted Date Diagnosed Date Resolved Date Family history of diabetes mellitus 07/27/2018 04/21/2019 Overview: 07/27/18: FOB h/o Type 1 DM- well controlled. Dx age 18. Yari Magdaleno MD History of gestational hypertension 07/27/2018 04/21/2019 Overview: 07/27/18: baby asa reviewed. Antepartum multigravida of a dvanced maternal age 1107/06/2018 04/21/2019 Overview: 11/16/18: pt is requesting physician for delivery. [facility] Yari Lundy MD 07/06/2018Patient will be 33 years old at time of delivery. Advanced Maternal age discussed. Pt refused handouts on Genetic Amniocentesis and [facility]. [facility] handout on Early Screening In given and discussed. Level II Ultrasound and Dr. Keen's services discussed.Patient considering nuchal ultrasound and [id number] testing.TKRN History of anxiety 07/06/2018 9 Overview: 07/06/2018 Patient has a history of anxiety. She denies ever having depression. Lidia DEMARCON RN Supervision of normal first 07/05/2014 10/26/2014 Echogenic focus of heart, fe ewa, affecting care of mother, antepartum 05/20/2014 10/26/2014 Overview: Maternity 21 negative Family history of open neural tube defect 02/01/2014 10/26/2014 Overview: 07/06/2018 She has a brother born with anencephaly. Patient's first cousin born with spina bifida. Patient is currently taking folic acid supplement daily. TKRN documented as of this encounter (statuses as of 06/04/2023) [facility]12-10-2018 History of Past illness Narrative* Problem Noted Date Diagnosed Date Resolved Date Family history of diabetes mellitus 07/27/2018 04/21/2019 Overview: 07/27/18: FOB h/o Type 1 DM- well controlled. Dx age 18. Yari Magdaleno MD History of gestational hypertension 07/27/2018 04/21/2019 Overview: 07/27/18: baby asa reviewed. Antepartum multigravida of a dvanced maternal age 1107/06/2018 04/21/2019 Overview: 11/16/18: pt is requesting physician for delivery. [facility] midwifery services Yari Lundy MD 07/06/2018Patient will be 33 years old at time of delivery. Advanced Maternal age discussed. Pt refused handouts on Genetic Amniocentesis and [facility]. [facility] handout on Early Screening In given and discussed. Level II Ultrasound and Dr. Keen's services discussed.Patient considering nuchal ultrasound and [id number] testing.TKRN History of anxiety 07/06/2018 9 Overview: 07/06/2018 Patient has a history of anxiety. She denies ever having depression. Lidia Kaufman BSN RN Supervision of normal first 07/05/2014 10/26/2014 Echogenic focus of heart, fe ewa, affecting care of mother, antepartum 05/20/2014 10/26/2014 Overview: Maternity 21 negative Family history of open neural tube defect 02/01/2014 10/26/2014 Overview: 07/06/2018 She has a brother born with anencephaly. Patient's first cousin born with spina bifida. Patient is currently taking folic acid supplement daily. TKRN documented as of this encounter (statuses as of 06/17/2023) [facility]12-10-2018 History of Past illness Narrative* Problem Noted Date Diagnosed Date Resolved Date Family history of diabetes mellitus 07/27/2018 04/21/2019 Overview: 07/27/18: FOB h/o Type 1 DM- well controlled. Dx age 18. Yari Magdaleno MD History of gestational hypertension 07/27/2018 04/21/2019 Overview: 07/27/18: baby asa reviewed. Antepartum multigravida of a dvanced maternal age 1107/06/2018 04/21/2019 Overview: 11/16/18: pt is requesting physician for delivery. [facility] midwifery services Yari Lundy MD 07/06/2018Patient will be 33 years old at time of delivery. Advanced Maternal age discussed. Pt refused handouts on Genetic Amniocentesis and [facility]. [facility] handout on Early Screening In given and discussed. Level II Ultrasound and Dr. Keen's services discussed.Patient considering nuchal ultrasound and [id number] testing.TKRN History of anxiety 07/06/2018 9 Overview: 07/06/2018 Patient has a history of anxiety. She denies ever having depression. Lidia DEMARCON RN Supervision of normal first 07/05/2014 10/26/2014 Echogenic focus of heart, fe ewa, affecting care of mother, antepartum 05/20/2014 10/26/2014 Overview: Maternity 21 negative Family history of open neural tube defect 02/01/2014 10/26/2014 Overview: 07/06/2018 She has a brother born with anencephaly. Patient's first cousin born with spina bifida. Patient is currently taking folic acid supplement daily. TKRN documented as of this encounter (statuses as of 06/17/2023) [facility]12-10-2018 History of Past illness Narrative* Problem Noted Date Diagnosed Date Resolved Date Family history of diabetes mellitus 07/27/2018 04/21/2019 Overview: 07/27/18: FOB h/o Type 1 DM- well controlled. Dx age 18. Yari Magdaleno MD History of gestational hypertension 07/27/2018 04/21/2019 Overview: 07/27/18: baby asa reviewed. Antepartum multigravida of a dvanced maternal age 1107/06/2018 04/21/2019 Overview: 11/16/18: pt is requesting physician for delivery. [facility] midwifery services Yari Lundy MD 07/06/2018Patient will be 33 years old at time of delivery. Advanced Maternal age discussed. Pt refused handouts on Genetic Amniocentesis and [facility]. [facility] handout on Early Screening In given and discussed. Level II Ultrasound and Dr. Keen's services discussed.Patient considering nuchal ultrasound and [id number] testing.TKRN History of anxiety 07/06/2018 9 Overview: 07/06/2018 Patient has a history of anxiety. She denies ever having depression. Lidia DEMARCON RN Supervision of normal first 07/05/2014 10/26/2014 Echogenic focus of heart, fe ewa, affecting care of mother, antepartum 05/20/2014 10/26/2014 Overview: Maternity 21 negative Family history of open neural tube defect 02/01/2014 10/26/2014 Overview: 07/06/2018 She has a brother born with anencephaly. Patient's first cousin born with spina bifida. Patient is currently taking folic acid supplement daily. TKRN documented as of this encounter (statuses as of 07/22/2023) [facility]12-10-2018 History of Past illness Narrative* Problem Noted Date Diagnosed Date Resolved Date Family history of diabetes mellitus 07/27/2018 04/21/2019 Overview: 07/27/18: FOB h/o Type 1 DM- well controlled. Dx age 18. Yari Magdaleno MD History of gestational hypertension 07/27/2018 04/21/2019 Overview: 07/27/18: baby asa reviewed. Antepartum multigravida of a dvanced maternal age 1107/06/2018 04/21/2019 Overview: 11/16/18: pt is requesting physician for delivery. Declines midwifery services Yari Lundy MD 07/06/2018Patient will be 33 years old at time of delivery. Advanced Maternal age discussed. Pt refused handouts on Genetic Amniocentesis and [facility]. [facility] handout on Early Screening In given and discussed. Level II Ultrasound and Dr. Keen's services discussed.Patient considering nuchal ultrasound and [id number] testing.TKRN History of anxiety 07/06/2018 9 Overview: 07/06/2018 Patient has a history of anxiety. She denies ever having depression. Lidia DEMARCON RN Supervision of normal first 07/05/2014 10/26/2014 Echogenic focus of heart, fe ewa, affecting care of mother, antepartum 05/20/2014 10/26/2014 Overview: Maternity 21 negative Family history of open neural tube defect 02/01/2014 10/26/2014 Overview: 07/06/2018 She has a brother born with anencephaly. Patient's first cousin born with spina bifida. Patient is currently taking folic acid supplement daily. TKRN documented as of this encounter (statuses as of 08/08/2023) [facility]12-10-2018 History of Past illness Narrative* Problem Noted Date Diagnosed Date Resolved Date Family history of diabetes mellitus 07/27/2018 04/21/2019 Overview: 07/27/18: FOB h/o Type 1 DM- well controlled. Dx age 18. Yari Magdaleno MD History of gestational hypertension 07/27/2018 04/21/2019 Overview: 07/27/18: baby asa reviewed. Antepartum multigravida of a dvanced maternal age 1107/06/2018 04/21/2019 Overview: 11/16/18: pt is requesting physician for delivery. [facility] midwifery services Yari Lundy MD 07/06/2018Patient will be 33 years old at time of delivery. Advanced Maternal age discussed. Pt refused handouts on Genetic Amniocentesis and [facility]. [facility] handout on Early Screening In given and discussed. Level II Ultrasound and Dr. Keen's services discussed.Patient considering nuchal ultrasound and [id number] testing.TKRN History of anxiety 07/06/2018 9 Overview: 07/06/2018 Patient has a history of anxiety. She denies ever having depression. Lidia DEMARCON RN Supervision of normal first 07/05/2014 10/26/2014 Echogenic focus of heart, fe ewa, affecting care of mother, antepartum 05/20/2014 10/26/2014 Overview: Maternity 21 negative Family history of open neural tube defect 02/01/2014 10/26/2014 Overview: 07/06/2018 She has a brother born with anencephaly. Patient's first cousin born with spina bifida. Patient is currently taking folic acid supplement daily. 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 [facility] Sebaceous [facility]- Primary [facility] Diagnosis GERD without esophagitis- Primary Esophageal reflux Burning sensation of mouth Other and unspecified diseases of the oral soft tissues Sebaceous cyst Post-nasal drainage Unspecified sinusitis (chronic) Increased mucus in stool Nonspecific abnormal finding in stool contents ANALILIA (generalized anxiety disorder) Generalized anxiety disorder Obsessive-compulsive disorder, unspecified type Bloating Flatulence, eructation, and gas pain [facility] Diagnosis GERD without esophagitis- Primary Esophageal reflux Dysfunction of left eustachian tube Dysfunction of Eustachian tube Pulsatile abdominal mass Abdominal or pelvic swelling, mass or lump, unspecified site [facility] Diagnosis Pulsatile abdominal mass Abdominal or pelvic swelling, mass or lump, unspecified site [facility] Diagnosis Encounter for gynecological examination (general) (routine) without abnormal findings- Primary Screening for cervical cancer Screening for malignant neoplasm of the cervix Special screening examination for human papillomavirus (HPV) [facility] Diagnosis Well adult exam- Primary Routine general medical examination at a [facility] care facility GERD without esophagitis Esophageal reflux ANALILIA (generalized anxiety disorder) Generalized anxiety disorder Obsessive-compulsive disorder, unspecified type Encounter for lipid screening for cardiovascular disease Screening for lipoid disorders Iron deficiency anemia, unspecified iron deficiency anemia type Screening for diabetes mellitus Coccydynia Other disorder of coccyx [facility] Diagnosis Coccydynia- Primary Other disorder of coccyx [facility] Diagnosis Suspected COVID-19 virus infection- Primary Pharyngitis, unspecified etiology [facility] Diagnosis Irregular menstrual cycle- Primary Unintended weight gain Abnormal weight gain RLQ abdominal pain Abdominal pain, right lower quadrant [facility] Diagnosis Endometrial polyp- Primary Polyp of corpus uteri RLQ abdominal pain Abdominal pain, right lower quadrant [facility] Diagnosis Iron deficiency anemia, unspecified iron deficiency anemia type- Primary [facility] Diagnosis Endometrial polyp- Primary Polyp of corpus uteri Irregular menstrual cycle [facility] Diagnosis Encounter for immunization- Primary Need for other specified prophylactic vaccination against single bacterial disease [facility] Diagnosis Periumbilical pain- Primary Abdominal pain, periumbilic Periumbilical abdominal pain Abdominal pain, periumbilic Prominent abdominal aortic pulse Other symptoms involving cardiovascular system [facility] Diagnosis Strep throat- Primary Streptococcal sore throat Sore throat Acute pharyngitis [facility] Diagnosis Discharge from breast- Primary documented in this encounter [facility] note* Diagnosis Well adult exam- Primary Routine general medical examination at a health care facility Encounter for lipid screening for cardiovascular disease Screening for lipoid disorders Screening for diabetes mellitus Iron deficiency anemia, unspecified iron deficiency anemia type GERD without esophagitis Esophageal reflux ANALILIA (generalized anxiety disorder) Generalized anxiety disorder Obsessive-compulsive disorder, unspecified type Bowel habit changes Other symptoms involving digestive system Family history of Crohn's disease Family history of other digestive disorders Immunity status testing Antibody response examination documented in this encounter [facility] note* Diagnosis Thrombocytopenia (HCC)- Primary Thrombocytopenia, unspecified documented in this encounter [facility] note* Diagnosis Coccydynia Other disorder of coccyx documented in this encounter [facility] note* Diagnosis Discharge from breast documented in this encounter [facility] note* Diagnosis Encounter for immunization Need for other specified prophylactic vaccination against single bacterial disease documented in this encounter [facility] note* Diagnosis Orthostatic dizziness- Primary HERNANDEZ (dyspnea on exertion) Other dyspnea and respiratory abnormality documented in this encounter [facility] for referral (narrative)* Diagnostic Procedure Only (Routine) - Closed Specialty Diagnoses / Procedures Referred By Chau contreras Referred To Contact US IMAGING Diagnoses Pulsatile abdominal mass Procedures US DOPPLER AORTA DUP-SCAN ARTL AYE ABDL/PEL/SCROT&/RPR ORGN LMT Jorge Perez MD [address] [place] [address] Us Imaging Referral ID Status Reason Start Date Expiration Date V isits Requested Visits Authorized [id number] Closed Auto-Generate d Referral 05/13/2022 06/12/2023 1 1 * Diagnostic Procedure Only (Routine) - Closed Specialty Diagnoses / Procedures Referred By Chau contreras Referred To Contact US IMAGING Diagnoses Pulsatile abdominal mass Procedures US ABD AORTA US RETROPERITONEAL REAL TIME W/IMAGE LIMITED Jorge Perez MD [address] [place] [address] Us Imaging Referral ID Status Reason Start Date Expiration Date V isits Requested Visits Authorized [id number] Closed Auto-Generate d Referral 05/13/2022 06/12/2023 1 1 [facility] for referral (narrative)* Diagnostic Procedure Only (Routine) - Pending Review Specialty Diagnoses / Procedures Referred By Contac t Referred To Contact XR IMAGING Diagnoses Coccydynia Procedures XR SACRUM/COCCYX 3V AP/LAT RADEX SACRUM & COCCYX MINIMUM 2 VIEWS Mary Hairston PA-C [address] [place] [address] Xr Imaging Referral ID Status Reason Start Date Expiration Date Visits Requested Visits Authorized [id number] Pending Review Auto-Generat ed Referral 09/16/2022 10/16/2023 1 1 [facility] for referral (narrative)* Diagnostic Procedure Only (Routine) - Authorized Specialty Diagnoses / Procedures Referred By Contac t Referred To Contact US IMAGING Diagnoses Irregular menstrual cycle Unintended weight gain RLQ abdominal pain Procedures US FEMALE PELVIS TRANSVAG US TRANSVAGINAL Pedro Luis Donato MD [facility] [place] [address] [place] [address] Referral ID Status Reason Start Date Expiration Date Visits Requested Visits Authorized [id number] Authorized Auto-Generat ed Referral 05/13/2023 06/11/2024 1 1 [facility] for referral (narrative)* Diagnostic Procedure Only (Routine) - Authorized Specialty Diagnoses / Procedures Referred By Contac t Referred To Contact BR IMAGING Diagnoses Discharge from breast Procedures US BREAST LTD LEFT US BREAST UNI REAL TIME WITH IMAGE LIMITED Susana Benítez MD [address] [place] [address] Br Imaging [address] [place] [address] Referral ID Status Reason Start Date Expiration Date Visits Requested Visits Authorized [id number] Authorized Auto-Generat ed Referral 04/23/2024 05/23/2025 1 1 * Diagnostic Procedure Only (Routine) - Authorized Specialty Diagnoses / Procedures Referred By Contac t Referred To Contact BR IMAGING Diagnoses Discharge from breast Procedures US BREAST LTD RIGHT US BREAST UNI REAL TIME WITH IMAGE LIMITED Susana Benítez MD [address] [place] [address] Br Imaging [address] [place] [address] Referral ID Status Reason Start Date Expiration Date Visits Requested Visits Authorized [id number] Authorized Auto-Generat ed Referral 04/23/2024 05/23/2025 1 1 * Diagnostic Procedure Only (Routine) - Authorized Specialty Diagnoses / Procedures Referred By Chau t Referred To Contact BR IMAGING Diagnoses Discharge from breast Procedures ALEK DIAGNOSTIC BILATERAL DIAGNOSTIC MAMMOGRAPHY COMPUTER-AIDED DETCJ BI Susana Benítez MD [address] [place] [address] Br Imaging [address] [place] [phone] Referral ID Status Reason Start Date Expiration Date Visits Requested Visits Authorized [id number] Authorized Auto-Generat ed Referral 04/23/2024 05/23/2025 1 1 [facility] for referral (narrative)* Diagnostic Procedure Only (Routine) - Closed Specialty Diagnoses / Procedures Referred By Contac t Referred To Contact XR IMAGING Diagnoses Coccydynia Procedures XR SACRUM/COCCYX 3V AP/LAT RADEX SACRUM & COCCYX MINIMUM 2 VIEWS Mary Hairston PA-C [address] [place] [address] [place] [address] Referral ID Status Reason Start Date Expiration Date V isits Requested Visits Authorized [id number] Closed Auto-Generate d Referral 09/16/2022 10/16/2023 1 1 [facility] for referral (narrative)* Diagnostic Procedure Only (Routine) - Closed Specialty Diagnoses / Procedures Referred By Contac t Referred To Contact BR IMAGING Diagnoses Discharge from breast Procedures US BREAST LTD LEFT US BREAST UNI REAL TIME WITH IMAGE LIMITED Susana Benítez MD [address] [place] [address] Br Imaging [address] [place] [address] Referral ID Status Reason Start Date Expiration Date V isits Requested Visits Authorized [id number] Closed Auto-Generate d Referral 04/23/2024 05/23/2025 1 1 * Diagnostic Procedure Only (Routine) - Closed Specialty Diagnoses / Procedures Referred By Contac t Referred To Contact BR IMAGING Diagnoses Discharge from breast Procedures US BREAST LTD RIGHT US BREAST UNI REAL TIME WITH IMAGE LIMITED Susana Benítez MD [address] [place] [address] Br Imaging [address] [place] [address] Referral ID Status Reason Start Date Expiration Date V isits Requested Visits Authorized [id number] Closed Auto-Generate d Referral 04/23/2024 05/23/2025 1 1 [facility] for referral (narrative)* Outpatient Procedure (Routine) - Authorized Specialty Diagnoses / Procedures Referred By Contac t Referred To Contact [facility] Diagnoses Orthostatic dizziness HERNANDEZ (dyspnea on exertion) Procedures ECHO ECHO TTHRC R-T 2D W/WOM-MODE COMPL SPEC&COLR D Mary Hairston PA-C [address] [place] [address] [facility] [place] [address] [place] [id number] Referral ID Status Reason Start Date Expiration Date Visits Requested Visits Authorized [id number] Authorized Auto-Generat ed Referral 05/31/2025 1 1 [facility] for visit Narrative* Diagnostic Procedure Only (Routine) - Closed Specialty Diagnoses / Procedures Referred By Contac t Referred To Contact XR IMAGING Diagnoses Coccydynia Procedures XR SACRUM/COCCYX 3V AP/LAT RADEX SACRUM & COCCYX MINIMUM 2 VIEWS Mary Hairston PA-C [address] [place] [address] [place] [address] Referral ID Status Reason Start Date Expiration Date V isits Requested Visits Authorized [id number] Closed Auto-Generate d Referral 09/16/2022 10/16/2023 1 1 [facility] Summary Purpose Family History No Family History Records FoundNo Family History Records Found Advance Directives Documents on File Type Date Recorded 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 Advance Directive(s) Reason for Referral Specialty Diagnoses / Procedures Referred By Contac t Referred To Contact Gastroenterology Diagnoses GERD without esophagitis Procedures CONSULT TO GASTROENTEROLOGY OFFICE/OUTPATIENT [facility] 60-74 MINUTES Jorge Perez MD [address] [place] [id number] Referral ID Status Reason Start Date Expiration Date Visits Requested Visits Authorized [id number] Authorized PCP Requested Referral 05/13/2022 05/13/2023 1 1 Specialty Diagnoses / Procedures Referred By Contac t Referred To Contact US IMAGING Diagnoses Pulsatile abdominal mass Procedures US DOPPLER AORTA DUP-SCAN ARTL AYE ABDL/PEL/SCROT&/RPR ORGN LMT Jorge Perez MD [address] [place] [address] Us Imaging Referral ID Status Reason Start Date Expiration Date Visits Requested Visits Authorized [id number] Authorized Auto-Generat ed Referral 05/13/2022 06/12/2023 1 1 Specialty Diagnoses / Procedures Referred By Contac t Referred To Contact US IMAGING Diagnoses Pulsatile abdominal mass Procedures US ABD AORTA US RETROPERITONEAL REAL TIME W/IMAGE LIMITED Jorge Perez MD [address] [place] [address] Us Imaging Referral ID Status Reason Start Date Expiration Date Visits Requested Visits Authorized [id number] Authorized Auto-Generat ed Referral 05/13/2022 06/12/2023 1 1 Specialty Diagnoses / Procedures Referred By Contac t Referred To Contact CT IMAGING Diagnoses Periumbilical pain Periumbilical abdominal pain Prominent abdominal aortic pulse Procedures CT ABD/PEL W IVCON CT ABD & PELVIS W/CONTRAST Jorge Perez MD [address] [place] [address] [place] [address] Referral ID Status Reason Start Date Expiration Date Visits Requested Visits Authorized [id number] Additional Clinical Info Needed Auto-Generat ed Referral 09/04/2024 1 1 Specialty Diagnoses / Procedures Referred By Contac t Referred To Contact Gastroenterology Diagnoses Bowel habit changes Family history of Crohn's disease Procedures CONSULT TO GASTROENTEROLOGY CONSULT TO GASTROENTEROLOGY OFFICE/OUTPATIENT [facility] 60 MINUTES Mary Hairston PA-C [address] [place] [address] Referral ID Status Reason Start Date Expiration Date Visits Requested Visits Authorized [id number] Authorized PCP Requested Referral 04/26/2024 04/26/2025 1 1 Additional Source Comments INFORMATION SOURCE (unrecogn ized section and content) DATE CREATED AUTHOR 07/11/2021 [facility] DATE CREATED AUTHOR AUTHOR'S ORGANIZ ATION 06/02/2024 [facility] Source Comments (unrecognize d section and content) In the event this informatio n is protected by the Federal Confidentiality of Alcohol and Drug Abuse Patient Records regulations: The Federal rules restrict any use of the information to criminally investigate or prosecute any alcohol or drug abuse patient.[facility] HospitalIn the event this information is protected by the Federal Confidentiality of Alcohol and Drug Abuse Patient Records regulations: The Federal rules restrict any use of the information to criminally investigate or prosecute any alcohol or drug abuse patient.[facility] HospitalIn the event this information is protected by the Federal Confidentiality of Alcohol and Drug Abuse Patient Records regulations: The Federal rules restrict any use of the information to criminally investigate or prosecute any alcohol or drug abuse patient.[facility] HospitalIn the event this information is protected by the Federal Confidentiality of Alcohol and Drug Abuse Patient Records regulations: The Federal rules restrict any use of the information to criminally investigate or prosecute any alcohol or drug abuse patient.[facility] HospitalIn the event this information is protected by the Federal Confidentiality of Alcohol and Drug Abuse Patient Records regulations: The Federal rules restrict any use of the information to criminally investigate or prosecute any alcohol or drug abuse patient.[facility] HospitalIn the event this information is protected by the Federal Confidentiality of Alcohol and Drug Abuse Patient Records regulations: The Federal rules restrict any use of the information to criminally investigate or prosecute any alcohol or drug abuse patient.[facility] HospitalIn the event this information is protected by the Federal Confidentiality of Alcohol and Drug Abuse Patient Records regulations: The Federal rules restrict any use of the information to criminally investigate or prosecute any alcohol or drug abuse patient.[facility] HospitalIn the event this information is protected by the Federal Confidentiality of Alcohol and Drug Abuse Patient Records regulations: The Federal rules restrict any use of the information to criminally investigate or prosecute any alcohol or drug abuse patient.[facility] HospitalIn the event this information is protected by the Federal Confidentiality of Alcohol and Drug Abuse Patient Records regulations: The Federal rules restrict any use of the information to criminally investigate or prosecute any alcohol or drug abuse patient.[facility] HospitalIn the event this information is protected by the Federal Confidentiality of Alcohol and Drug Abuse Patient Records regulations: The Federal rules restrict any use of the information to criminally investigate or prosecute any alcohol or drug abuse patient.[facility] HospitalIn the event this information is protected by the Federal Confidentiality of Alcohol and Drug Abuse Patient Records regulations: The Federal rules restrict any use of the information to criminally investigate or prosecute any alcohol or drug abuse patient.[facility] HospitalIn the event this information is protected by the Federal Confidentiality of Alcohol and Drug Abuse Patient Records regulations: The Federal rules restrict any use of the information to criminally investigate or prosecute any alcohol or drug abuse patient.[facility] HospitalIn the event this information is protected by the Federal Confidentiality of Alcohol and Drug Abuse Patient Records regulations: The Federal rules restrict any use of the information to criminally investigate or prosecute any alcohol or drug abuse patient.[facility] HospitalIn the event this information is protected by the Federal Confidentiality of Alcohol and Drug Abuse Patient Records regulations: The Federal rules restrict any use of the information to criminally investigate or prosecute any alcohol or drug abuse patient.[facility] HospitalIn the event this information is protected by the Federal Confidentiality of Alcohol and Drug Abuse Patient Records regulations: The Federal rules restrict any use of the information to criminally investigate or prosecute any alcohol or drug abuse patient.[facility] HospitalIn the event this information is protected by the Federal Confidentiality of Alcohol and Drug Abuse Patient Records regulations: The Federal rules restrict any use of the information to criminally investigate or prosecute any alcohol or drug abuse patient.[facility] HospitalIn the event this information is protected by the Federal Confidentiality of Alcohol and Drug Abuse Patient Records regulations: The Federal rules restrict any use of the information to criminally investigate or prosecute any alcohol or drug abuse patient.[facility] HospitalIn the event this information is protected by the Federal Confidentiality of Alcohol and Drug Abuse Patient Records regulations: The Federal rules restrict any use of the information to criminally investigate or prosecute any alcohol or drug abuse patient.[facility] HospitalIn the event this information is protected by the Federal Confidentiality of Alcohol and Drug Abuse Patient Records regulations: The Federal rules restrict any use of the information to criminally investigate or prosecute any alcohol or drug abuse patient.[facility] HospitalIn the event this information is protected by the Federal Confidentiality of Alcohol and Drug Abuse Patient Records regulations: The Federal rules restrict any use of the information to criminally investigate or prosecute any alcohol or drug abuse patient.[facility] HospitalIn the event this information is protected by the Federal Confidentiality of Alcohol and Drug Abuse Patient Records regulations: The Federal rules restrict any use of the information to criminally investigate or prosecute any alcohol or drug abuse patient.[facility] HospitalIn the event this information is protected by the Federal Confidentiality of Alcohol and Drug Abuse Patient Records regulations: The Federal rules restrict any use of the information to criminally investigate or prosecute any alcohol or drug abuse patient.[facility] HospitalIn the event this information is protected by the Federal Confidentiality of Alcohol and Drug Abuse Patient Records regulations: The Federal rules restrict any use of the information to criminally investigate or prosecute any alcohol or drug abuse patient.[facility] HospitalIn the event this information is protected by the Federal Confidentiality of Alcohol and Drug Abuse Patient Records regulations: The Federal rules restrict any use of the information to criminally investigate or prosecute any alcohol or drug abuse patient.[facility] HospitalIn the event this information is protected by the Federal Confidentiality of Alcohol and Drug Abuse Patient Records regulations: The Federal rules restrict any use of the information to criminally investigate or prosecute any alcohol or drug abuse patient.[facility] HospitalIn the event this information is protected by the Federal Confidentiality of Alcohol and Drug Abuse Patient Records regulations: The Federal rules restrict any use of the information to criminally investigate or prosecute any alcohol or drug abuse patient.[facility] HospitalIn the event this information is protected by the Federal Confidentiality of Alcohol and Drug Abuse Patient Records regulations: The Federal rules restrict any use of the information to criminally investigate or prosecute any alcohol or drug abuse patient.[facility] HospitalIn the event this information is protected by the Federal Confidentiality of Alcohol and Drug Abuse Patient Records regulations: The Federal rules restrict any use of the information to criminally investigate or prosecute any alcohol or drug abuse patient.[facility] HospitalIn the event this information is protected by the Federal Confidentiality of Alcohol and Drug Abuse Patient Records regulations: The Federal rules restrict any use of the information to criminally investigate or prosecute any alcohol or drug abuse patient.[facility] HospitalIn the event this information is protected by the Federal Confidentiality of Alcohol and Drug Abuse Patient Records regulations: The Federal rules restrict any use of the information to criminally investigate or prosecute any alcohol or drug abuse patient.[facility] HospitalIn the event this information is protected by the Federal Confidentiality of Alcohol and Drug Abuse Patient Records regulations: The Federal rules restrict any use of the information to criminally investigate or prosecute any alcohol or drug abuse patient.[facility] HospitalIn the event this information is protected by the Federal Confidentiality of Alcohol and Drug Abuse Patient Records regulations: The Federal rules restrict any use of the information to criminally investigate or prosecute any alcohol or drug abuse patient.[facility] HospitalIn the event this information is protected by the Federal Confidentiality of Alcohol and Drug Abuse Patient Records regulations: The Federal rules restrict any use of the information to criminally investigate or prosecute any alcohol or drug abuse patient.[facility] HospitalIn the event this information is protected by the Federal Confidentiality of Alcohol and Drug Abuse Patient Records regulations: The Federal rules restrict any use of the information to criminally investigate or prosecute any alcohol or drug abuse patient.[facility] HospitalIn the event this information is protected by the Federal Confidentiality of Alcohol and Drug Abuse Patient Records regulations: The Federal rules restrict any use of the information to criminally investigate or prosecute any alcohol or drug abuse patient.[facility] HospitalIn the event this information is protected by the Federal Confidentiality of Alcohol and Drug Abuse Patient Records regulations: The Federal rules restrict any use of the information to criminally investigate or prosecute any alcohol or drug abuse patient.[facility] HospitalIn the event this information is protected by the Federal Confidentiality of Alcohol and Drug Abuse Patient Records regulations: The Federal rules restrict any use of the information to criminally investigate or prosecute any alcohol or drug abuse patient.[facility] HospitalIn the event this information is protected by the Federal Confidentiality of Alcohol and Drug Abuse Patient Records regulations: The Federal rules restrict any use of the information to criminally investigate or prosecute any alcohol or drug abuse patient.[facility] HospitalIn the event this information is protected by the Federal Confidentiality of Alcohol and Drug Abuse Patient Records regulations: The Federal rules restrict any use of the information to criminally investigate or prosecute any alcohol or drug abuse patient.[facility] HospitalIn the event this information is protected by the Federal Confidentiality of Alcohol and Drug Abuse Patient Records regulations: The Federal rules restrict any use of the information to criminally investigate or prosecute any alcohol or drug abuse patient.[facility] HospitalIn the event this information is protected by the Federal Confidentiality of Alcohol and Drug Abuse Patient Records regulations: The Federal rules restrict any use of the information to criminally investigate or prosecute any alcohol or drug abuse patient.[facility] HospitalIn the event this information is protected by the Federal Confidentiality of Alcohol and Drug Abuse Patient Records regulations: The Federal rules restrict any use of the information to criminally investigate or prosecute any alcohol or drug abuse patient.[facility] Reason for Visit (unrecogniz ed section and content) Reason Comments tongue burning- reflux? Reason Comments Derm Problem cyst on back of neck Reason Comments Abdominal Pain Patient indicated re flux, low iron, IBS Reason Comments Patient Question Reason Comments Results Reason Comments Orders Reason Comments Recheck Patient PND, GERD an d re-eval burning mouth Reason Comments Radiology US Specialty Diagnoses / Procedures Referred By Contac t Referred To Contact US IMAGING Diagnoses Pulsatile abdominal mass Procedures US ABD AORTA US RETROPERITONEAL REAL TIME W/IMAGE LIMITED Jorge Perez MD [address] [place] [address] Us Imaging Referral ID Status Reason Start Date Expiration Date V isits Requested Visits Authorized [id number] Closed Auto-Generate d Referral 05/13/2022 06/12/2023 1 1 Reason Comments Yearly Exam Reason Onset Date Comments Refill Request 08/06/2022 Reason Comments Yearly Exam Having problems with acid reflux Reason Comments Results Reason Comments Sore Throat Headache and fever x 1 day Reason Comments Discussion Weight gain- spottin g in between menses Reason Comments outside H&P Reason Comments Pain Reason Comments Sore Throat ST and HIDALGO x 2 days Reason Comments Breast Problem Reason Comments Physical Reason Comments Radiology Mammogram Specialty Diagnoses / Procedures Referred By Contac t Referred To Contact BR IMAGING Diagnoses Discharge from breast Procedures ALEK DIAGNOSTIC BILATERAL DIAGNOSTIC MAMMOGRAPHY COMPUTER-AIDED DETCJ BI Susana Benítez MD [address] [place] [address] [facility] [address] [place] [address] Referral ID Status Reason Start Date Expiration Date V isits Requested Visits Authorized [id number] Closed Auto-Generate d Referral 04/23/2024 05/23/2025 1 1 Reason Comments Results Outside labs Reason Comments Outside [id number] Ordered Reason Comments Imm/Inj Reason Comments Recheck Vertigo symptoms Care Teams (unrecognized sec tion and content) Drop Board Worker Relationship Specialty Start Date End Date Jorge Perez MD [address] [place] [address] [id number] PCP - General Family Practice 05/08/21 Drop Board Worker Relationship Specialty Start Date End Date Jorge Perez MD [address] [place] [address] [phone] PCP - General Family Practice 05/08/21 Drop Board Worker Relationship Specialty Start Date End Date Jorge Perez MD [address] [place] [address] PCP - General Family Practice 05/08/21 Drop Board Worker Relationship Specialty Start Date End Date Jorge Perez MD [address] [place] [address] [phone] PCP - General Family Practice 05/08/21 Drop Board Worker Relationship Specialty Start Date End Date Jorge Perez MD [address] [place] [address] PCP - General Family Practice 05/08/21 Drop Board Worker Relationship Specialty Start Date End Date Jorge Perez MD [address] [facility] [place] [address] PCP - General Family Practice 05/08/21 Drop Board Worker Relationship Specialty Start Date End Date Jorge Perez MD [facility] [place] [address] PCP - General Family Practice 05/08/21 Drop Board Worker Relationship Specialty Start Date End Date Jorge Perez MD [address] [place] [id number] PCP - General Family Practice 05/08/21 Drop Board Worker Relationship Specialty Start Date End Date Jorge Perez MD [address] [place] [id number] PCP - General Family Medicine 05/08/21 Drop Board Worker Relationship Specialty Start Date End Date Jorge Perez MD [facility] [place] [address] PCP - General Family Medicine 05/08/21 Drop Board Worker Relationship Specialty Start Date End Date Jorge Perez MD [facility] [place] [address] PCP - General Family Medicine 05/08/21 Drop Board Worker Relationship Specialty Start Date End Date Jorge Perez MD [facility] [place] [address] PCP - General Family Medicine 05/08/21 Drop Board Worker Relationship Specialty Start Date End Date Jorge Perez MD [address] [place] [address] [place] [address] PCP - General Family Medicine 05/08/21 Drop Board Worker Relationship Specialty Start Date End Date Jorge Perez MD [address] [place] [address] PCP - General Family Medicine 05/08/21 Drop Board Worker Relationship Specialty Start Date End Date Jorge Perez MD [address] [place] [address] PCP - General Family Medicine 05/08/21 Drop Board Worker Relationship Specialty Start Date End Date Jorge Perez MD [address] [place] [address] PCP - General Family Medicine 05/08/21 Drop Board Worker Relationship Specialty Start Date End Date Jorge Perez MD [address] [place] [address] PCP - General Family Medicine 05/08/21 Drop Board Worker Relationship Specialty Start Date End Date Jorge Perez MD [address] [place] [address] PCP - General Family Medicine 05/08/21 Drop Board Worker Relationship Specialty Start Date End Date Jorge Perez MD [address] [place] [address] PCP - General Family Medicine 05/08/21 Drop Board Worker Relationship Specialty Start Date End Date Jorge Perez MD [address] [place] [address] PCP - General Family Medicine 05/08/21 Drop Board Worker Relationship Specialty Start Date End Date Jorge Perez MD [address] [place] [address] PCP - General Family Medicine 05/08/21 Drop Board Worker Relationship Specialty Start Date End Date Jorge Perez MD [address] [place] [address] PCP - General Family Medicine 05/08/21 Drop Board Worker Relationship Specialty Start Date End Date Jorge Perez MD [address] [place] [address] PCP - General Family Medicine 05/08/21 Drop Board Worker Relationship Specialty Start Date End Date Jorge Perez MD [address] [place] [address] PCP - General Family Medicine 05/08/21 Drop Board Worker Relationship Specialty Start Date End Date Jorge Perez MD [address] [place] [address] PCP - General Family Medicine 05/08/21 Drop Board Worker Relationship Specialty Start Date End Date Jorge Perez MD [address] [place] [address] PCP - General Family Medicine 05/08/21 Drop Board Worker Relationship Specialty Start Date End Date Jorge Perez MD [address] [place] [address] PCP - General Family Medicine 05/08/21 Drop Board Worker Relationship Specialty Start Date End Date Jorge Perez MD [address] [place] [address] PCP - General Family Medicine 05/08/21 Drop Board Worker Relationship Specialty Start Date End Date Jorge Perez MD [address] [place] [address] PCP - General Family Medicine 05/08/21 Drop Board Worker Relationship Specialty Start Date End Date Jorge Perez MD [address] [place], [place] 959451 PCP - General Family Medicine 05/08/21 Drop Board Worker Relationship Specialty Start Date End Date Jorge Perez MD [address] [place], [place] 968671 PCP - General Family Medicine 05/08/21 Drop Board Worker Relationship Specialty Start Date End Date Jorge Perez MD [address] [place], [place] [id number] PCP - General Family Medicine 05/08/21 FOR RECORDS PERTAINING TO PATIENTS WHO ARE OR HAVE BEEN ENROLLED IN A CHEMICAL DEPENDENCY/SUBSTANCEABUSE PROGRAM, SOME INFORMATION MAY BE OMITTED. This clinical summary was aggregated from multiple sources. Caution should be exercised in using it in the provision of clinical care. This summary normalizes information from multiple sources, and as a consequence, information in this document may materially change the coding, format and clinical context of patient data. In addition, data may be omitted in some cases. CLINICAL DECISIONS SHOULD BE BASED ON THE PRIMARY CLINICAL RECORDS. [facility] [employer] [facility]. provides no warranty or guarantee of the accuracy or completeness of information in this document.
[2024-06-08 02:07] LABS: Pancreatic Elastase, Fecal > 800 (>200)
[2024-06-08 11:09] LABS: Calprotectin, Stool 7 ug/g (0-120)
== END | disposition home or self-care (01) ==
LOC: LABSPEC 10:10
PROVIDERS: PCP Family Medicine; Referring Provider Student in an Organized Health Care Education/Training Program; Visit Provider Student in an Organized Health Care Education/Training Program
DX: R19.7 Diarrhea, unspecified (principal); K58.9 Irritable bowel syndrome, unspecified; R19.4 Change in bowel habit; Z83.79 Family history of other diseases of the digestive system
CPT/HCPCS: 82653; 83630; 83993; 87506

== ENCOUNTER → 2024-07-06 | Outpatient (CLI) | payer OTHER, SELFPAY ==
[2024-07-06 10:05] VITALS: BP 111/70; PULSE 82; RESP 14; O2SAT 99; BMI 28.6
[2024-07-06] MEDS: Glucagon 1 MG/ML Syringe IV (11:12)
[2024-07-06 11:28] VITALS: BP 124/84; PULSE 90; RESP 16; O2SAT 98
== END | disposition home or self-care (01) ==
LOC: MRI 09:20
PROVIDERS: PCP Family Medicine; Referring Provider Student in an Organized Health Care Education/Training Program; Visit Provider Student in an Organized Health Care Education/Training Program
DX: K50.90 Crohn's disease, unspecified, without complications (principal)
CPT/HCPCS: 74183; 96374; A9575; J1610

== ENCOUNTER 2024-07-08 06:07 | Day surgery (SDC) | payer OTHER, SELFPAY ==
[2024-07-08] VITALS (9 sets, daily range): BP systolic 92–113; BP diastolic 65–82; PULSE 83–100; RESP 16; TEMP 37.1–37.3; O2SAT 94–100; BMI 28.5
--- NOTE | 2024-07-08 06:44 | PCM.PRE.AN2 ---
ASA Classification* ASA Classification ASA Classification: 2 Assessment & Plan Anesthesia* Anesthesia Assessment Anesthesia Assessment: Discussed sedation and/or anesthesia options, risks, benefits, and alternatives with patient/parents/legal guardian/POA. Questions invited. The patient/parents/legal guardian/POA seems to understand and agrees to proceed with anesthesia plan. Reviewed the physical assessment, medical history, allergy history and patient home medications list prior to surgery/procedure/anesthetic and documented any changes. Performed airway and anesthesia risk assessments. Anesthesia Type Anesthesia Type: MAC Anesthesia Focused Assessment* Temperature: 99.1 F Pulse Rate: 100 Blood Pressure: 113/82 Respiratory Rate: 16 Pulse Ox: 100 Airway Assessment Mouth opens: >3 cm Mallampati Score: II Focused Labs Anesthesia Preop lab: CBC WBC 7.2 K/mm3 (4.4-11.0) 05/24/24 15:12 RBC 4.95 M/mm3 (4.2-5.4) 05/24/24 15:12 Hgb 13.7 g/dL (12.0-15.0) 05/24/24 15:12 Hct 42.5 % (37-47) 05/24/24 15:12 Plt Count 111 K/mm3 (150-450) L 05/24/24 15:12 CHEMISTRY Potassium 3.7 mmol/L (3.5-5.1) 05/24/24 15:12 Sodium 139 mmol/L (136-145) 05/24/24 15:12 BUN 10 mg/dL (7-18) 05/24/24 15:12 Creatinine 0.83 mg/dL (0.55-1.02) 05/24/24 15:12 Glucose 94 mg/dL (74-106) 05/24/24 15:12 TSH 1.39 uIU/mL (0.358-3.74) 07/24/22 15:10 COAG PT 12.8 SECONDS (11.7-14.9) 09/23/14 17:30 Urine Test Negative Negative 06/13/23 10:18 Pre-Assessment Diagnosis/Proposed Procedure Planned Operative Procedure(s): COLONOSCOPY/EGD Anesthesia History 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 When Was Last Pacemaker Check QUESTION #4 FULL TEXT: You/Your Family Experience fever (hyperthermia) with Anesthesia Last Oral Intake Last Oral intake: Last Oral Intake NPO since 03:00 07/08/24 06:34 Meds taken in AM with sips of No 07/08/24 06:34 water? Meds patient instructed to take am of surgery PONV PONV - cheese sprayer: PONV - cheese sprayer Female Yes 07/05/24 13:19 HX of Motion Sickness No 07/05/24 13:19 HX of N/V After Surgery No 07/05/24 13:19 Non-Smoker Yes 07/05/24 13:19 Duration of Surgery greater No 07/05/24 13:19 than 60 minutes Number of Risk Factors 2 07/05/24 13:19 PONV Score Moderate Risk 07/05/24 13:19 Height & Weight Height & Weight: Anesthesia: Height & Weight Height 5 ft 7 in 07/08/24 06:34 Weight: 82.6 kg 07/08/24 06:34 Body Mass Index (BMI) 28.5 07/08/24 06:34 Respiratory Assessment Respiratory Assessment - cheese sprayer: Respiratory Tract Infection Hx - cheese sprayer Hx Respiratory Tract Infection Yes: GETTING OVER COLD 07/05/24 13:19 PRESENTLY STOP Sleep Apnea STOP Sleep Apnea - cheese sprayer: STOP Sleep Apnea - cheese sprayer Hx Hypertension No 07/05/24 13:19 Hx Sleep Apnea No 07/05/24 13:19 CPAP BIPAP Do you snore loudly (louder No 07/05/24 13:19 than talking or can be heard Do you often feel tired/ No 07/05/24 13:19 fatigued/ sleepy during daytime? Has anyone observed you stop No 07/05/24 13:19 breathing during sleep? STOP Results Negative 07/05/24 13:19 QUESTION #5 FULL TEXT : Do you snore loudly (louder than talking or can be heard through closed doors)? 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 Specify any problems Hx of Preganancy in last 3 No 07/05/24 13:19 Months Nurse Filling Out Transfusion VCHRISTIN 07/05/24 13:19 & Questions: Date: 07/05/24 07/05/24 13:19 Time: 13:22 07/05/24 13:19 Patient unable to answer at this time (ie. confused, unrespo /Reproduction History /Reproductive History - cheese sprayer: /Reproductive Hx- cheese sprayer Hx Now No 07/05/24 13:19 Gestational Age (in weeks): EDC: Hx Hx Para Hx Section SAB No 07/05/24 13:19 PFSH Medical History Wears glasses Back pain Injury of back Migraine headache Light-headedness Shortness of breath on exertion Leg cramps History of edema Heartburn Endometrial polyp Nonerosive esophageal reflux disease Iron deficiency anemia Burning mouth syndrome Pulsatile abdominal mass OCD (obsessive compulsive disorder) Mastitis Iron deficiency Anxiety GERD (gastroesophageal reflux disease) Home Medications ?Medication ?Instructions ?Recorded ?Last Taken ?Type NK 07/06/24 Unknown History Allergy/AdvReac Type Severity Reaction Status Date / Time No Known Allergies Allergy Verified 07/08/24 06:30 Surgical History History of hysteroscopy History of esophagogastroduodenoscopy (EGD) Social History Smoking Status: Never smoker Review of Systems (Anesthesia) ROS Narrative System reviewed and no additional complaints, except as documented.
--- NOTE | 2024-07-08 06:51 | PCM.HP.BLA ---
History and Physical Date of Admission: 07/08/24 MAUREEN DAVIS, is a 38 F who presents to the office today for f/u. 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 Stopped omeprazole mid-August, had negative H pylori test, no change in symptoms off PPI so she didn't resume it. Heartburn isn't frequent, can depend on what she eats. Certain foods seem to exacerbate the burning mouth and throat, difficult for her to determine what foods. The burning isn't constant. Has discussed burning mouth with dentist, as well as primary care. No cause found. Takes iron supplement, recommended by one doctor she saw for burning mouth. Iron was low at 31 in 07/2022, ferritin 22, hgb 13.7. Other 07/2022 labs unremarkable--cmp, miguel-comprehensive, celiac, anca, tsh, folate, vit B12. Has post nasal drip, needs to clear throat often, hasn't tried flonase yet. ? Hx globus sensation when in 2018 (saw ENT then), better with famotidine, resolved; but then returned 04/2022 when she had a cold, then resolved in 06/2022. No dysphagia, no c/o difficulty swallowing, no sensation of food getting stuck. Can feel like air in stomach and esophagus, feels like needs to force burp to clear that. Rare mild nausea in the evening, no vomiting. Normal BMs typically, no melena or hematochezia, occas diarrhea or constipation. No OTC or Rx meds for the bowels. 04/01/22 Esophagram and Upper GI Dual Contrast IMPRESSION: Negative. OV 10.7.24 Pt is here for f/u. She is having some new GI complaints with abdominal/epigastric pain with palpation. It is not constant and only hurts with pressure. Her 9 yo son was recently diagnosed with Crohns disease; his symptoms were atypical with blood in his stool and constipation. She would like to rule out Crohns disease for herself as she feels her symptoms are similar to her sons. She would like to undergo colonscopy.She is no longer having heartburn. She does still have a burning sensation in her mouth but this is tolerable. ROS Const Constitutional: No fatigue, fever(s) or weight change ENT ENT: No difficulty swallowing Gastro GI: Positive for bloating, change in bowel habits, constipation, excessive flatus and nausea/dyspepsia; No abdominal pain, belching, change in stool character, coffee ground emesis, cramping, diarrhea, heartburn, difficulty swallowing, feeling full early, incontinent of stools, Vomiting blood/hematemesis, Blood in stool, loose stools, Black,tarry stools, pain with swallowing, vomiting or other Musc Musculoskeletal: Positive for back pain; No joint pain Skin Skin: No yellowing of the eye or itchy eyes Neuro Neurology: Positive for other (vertigo) Psych Psychiatric: Positive for anxiety, No depression, Positive for Compulsive Behavior and Positive for obsessions/compulsions Endo Endocrine: No fatigue or weight change Aller/Imm Allergy/Immunologic: No itchy eyes Gustavo/Lymp Hematologic/Lymphatic: No easy bleeding or easy bruising Exam Const General: cooperative and comfortable Nutritional Appearance: average body habitus and well nourished HENOK Head: normal to inspection Ears: hearing grossly normal bilaterally Nose: external nose normal Face and sinus: normal facial exam Eyes General: appearance normal, both eyes and all related structures Neck Neck: normal visual inspection Chest Chest palpation & inspection: normal inspection of the chest Resp Effort & Inspection: normal respiratory effort GI Inspection: normal to inspection Palpation: no hepatosplenomegaly Skin General: no rashes or lesions noted Neuro General: patient alert Extrem General: normal to inspection Psych Affect: normal affect Assessment and Plan Assessment and Plan (1) Abdominal pain: (2) Bowel habit changes: Status: Acute (3) Family history of Crohn's disease: Status: Acute Plan: Pt is here today for f/u. She is having worsening GI symptoms with constipation defined as small, thin and hard stools. This is not typical for her. Her 9 yo son was recently diagnosed with Crohns disease and has symptoms of constipation. She would like to undergo blood testing, stool testing and colonoscopy to rule out Crohns disease. I will order this. She also has some epigastric/abdominal pain with palpation. I am not concerned by this as it is not constant and recent CT abdomen/pelvis was normal. -Colonoscopy -IBD panel, ESR, CRP, calprotectin, elastase, lactoferrin -f/u in 3 months Orders: Orders Allergen, Food Profile 14 Today R19.4 - Change in bowel habit, Z83.79 - Family history of other diseases of the digestive system MIGUEL Comprehensive Panel Today R19.4 - Change in bowel habit, Z83.79 - Family history of other diseases of the digestive system ANCA Today R19.4 - Change in bowel habit, Z83.79 - Family history of other diseases of the digestive system Calprotectin, Stool Today R19.4 - Change in bowel habit, Z83.79 - Family history of other diseases of the digestive system CBC W/Diff, Automated Today R19.4 - Change in bowel habit, Z83.79 - Family history of other diseases of the digestive system Celiac Disease Profile Today R19.4 - Change in bowel habit, Z83.79 - Family history of other diseases of the digestive system Comprehensive Metabolic Profil Today R19.4 - Change in bowel habit, Z83.79 - Family history of other diseases of the digestive system CRP Today R19.4 - Change in bowel habit, Z83.79 - Family history of other diseases of the digestive system ENTERIC PATHOGEN PANEL STOOL Today K58.9 - Irritable bowel syndrome, unspecified, R19.4 - Change in bowel habit, Z83.79 - Family history of other diseases of the digestive system Erythrocyte Sed Rate Today R19.4 - Change in bowel habit, Z83.79 - Family history of other diseases of the digestive system IBD Expanded Profile Today R19.4 - Change in bowel habit, Z83.79 - Family history of other diseases of the digestive system RONALD + Protein Elect, Serum Today R19.4 - Change in bowel habit, Z83.79 - Family history of other diseases of the digestive system Immunoglobulins G/A/M/E Today R19.4 - Change in bowel habit, Z83.79 - Family history of other diseases of the digestive system Stool Lactoferrin/WBC Today K58.9 - Irritable bowel syndrome, unspecified, R19.4 - Change in bowel habit, Z83.79 - Family history of other diseases of the digestive system Pancreatic Elastase, Fecal Today R19.4 - Change in bowel habit, Z83.79 - Family history of other diseases of the digestive system I have examined the patient and the H&P has been reviewed. There are no clinical changes since date of exam.
[2024-07-08 06:54] LABS: Internal QC Validated? YES +Cl - CLEAR BKGD
[2024-07-08 06:56] LABS: Pregnancy, Urine Positive Negative
[2024-07-08 06:57] LABS: Record Kit Lot#,Urine Preg 869294
--- NOTE | 2024-07-08 07:00 | IMM_PTH ---
PATIENT: MAUREEN DAVIS LOC: EN U#:[id number] AGE/SX: 38/F ROOM: RE07/08/[address]: Dr. Delfino Delgado DO : 1985 BED: DIS: 07/08/2024 SPEC #: [id number] RECD: 07/08/24 13:55 STATUS: CHASIDY REQ #: [id number] YEYO: 07/08/24 07:[address]: Delfino Delgado DEPT: IMMUNOHISTOCHEMISTRY RECD BY: Moises Nicole ENTERED: 07/08/24 13:55 SP TYPE: IMMUNO OTHR DR: Dr. Jorge Milligan MD Tissues: B - Gastric mucous membrane Procedures: H Pylori (initial) PHYSICIAN & INSTITUTION [place] [id number] SPECIMEN INFORMATION: Tissue Source: B-Gastric antrum biopsy Clinical Info: Abdominal pain, bowel habit changes Specimen Number: [id number] CPT code: 11726 METHODOLOGY: Deparaffinized sections of prefer/formalin-fixed tissue or PAP/DQ stained slides are incubated with monoclonal/polyclonal antibodies/oligonucleotide probes. Localization is made via biotin free immunoperoxidase method. Appropriate controls are performed and reacted as expected. Results on target cell population are indicated in the following table: RESULTS: ANTIBODY / CLONE RESULT Block B H Pylori (polyclonal) negative These tests were developed and their performance characteristics determined by [facility]. They may not have been cleared or approved by the U.S. Food and Drug Administration. The FDA has determined that such clearance or approval is not necessary. The above immunohistochemical/dualISH markers are ordered and reviewed by the Pathologist. INTERPRETATION: B. Gastric antrum, biopsy: Negative for Helicobacter pylori organisms. 07/09/2024
--- NOTE | 2024-07-08 07:00 | COLBX_PTH ---
PATIENT: MAUREEN DAVIS LOC: EN U#:[id number] AGE/SX: 38/F ROOM: RE07/08/[address]: Dr. Delfino Delgado DO : 1985 BED: DIS: 07/08/2024 SPEC #: [id number] RECD: 07/08/24 13:26 STATUS: CHASIDY LIANE #: [id number] YEYO: 07/08/24 07:[address]: Delfino Delgado DEPT: SURGICAL PATHOLOGY RECD BY: Yazmin Chavez ENTERED: 07/08/24 14:30 SP TYPE: COLON BX OTHR DR: Dr. Jorge Milligan MD Tissues: A - Duodenum, NOS B - Gastric mucous membrane C - Ileum, NOS Procedures: Surgery Specimen Level IV HEADER OPERATION: Colonoscopy, EGD biopsy PRE-OP DIAGNOSIS: Abdominal pain, bowel habit changes, family history of Crohn's disease TISSUE SUBMITTED: A- Duodenum biopsy, B- Gastric antrum biopsy, C- Terminal ileum biopsy MICROSCOPIC DIAGNOSIS A. Duodenum, biopsy: Fragments of duodenal mucosa with mild non-specific chronic inflammation. B. Gastric antrum, biopsy: Mild gastritis. See microscopic description and comment. C. Terminal ileum, biopsy: Fragments of small intestinal mucosa, no pathologic diagnosis. 07/09/2024 COMMENT B. The results of immunohistochemistry for Helicobacter pylori will be reported separately ([id number]). MICROSCOPIC DESCRIPTION Slides are reviewed. B. The specimen shows fragments of gastric mucosa with chronic inflammatory cell infiltrates in the lamina propria consisting of lymphocytes and plasma cells, consistent with mild chronic gastritis. GROSS DESCRIPTION A. Received in fixative is one container labeled with the patient's name and designated Duodenum biopsy. The specimen consists of multiple irregular fragments of light narvaez soft tissue that in aggregate measure 0.8 x 0.4 x 0.1 cm. The specimen is totally submitted in one cassette. B. Received in fixative is one container labeled with the patient's name and designated Gastric antrum biopsy. The specimen consists of multiple irregular fragments of light narvaez soft tissue that in aggregate measure 0.5 x 0.3 x 0.1 cm. The specimen is totally submitted in one cassette. C. Received in fixative is one container labeled with the patient's name and designated Terminal ileum biopsy. The specimen consists of multiple irregular fragments of light narvaez soft tissue that in aggregate measure 1.5 x 0.2 x 0.1 cm. The specimen is totally submitted in one cassette. SJ.mr 07/08/2024 TC:3 CPT:66964n6
[2024-07-08 07:38] LABS: hCG Titer Quant., Serum < 1 mIU/mL (1-3)
--- NOTE | 2024-07-08 07:41 | EKG12_ITS ---
Test Reason : PREOP Blood Pressure : */* mmHG Vent. Rate : 74 BPM Atrial Rate : 74 BPM P-R Int : 166 ms QRS Dur : 92 ms QT Int : 352 ms P-R-T Axes : 32 82 44 degrees QTcB Int : 390 ms Normal sinus rhythm Normal ECG When compared with ECG of 24-Sep-2014 13:00, Vent. rate has decreased by 37 bpm Confirmed by KEELY GONZALEZ ([id number]), copy editor GABE AZUL ([id number]) on 07/12/2024 6:15:56 AM Referred By: Jorge Milligan Confirmed By: KEELY GONZALEZ
--- NOTE | 2024-07-08 09:02 | OP.EGD_ITS ---
Patient Name: Nohelia Cadena Procedure Date: 07/08/2024 8:28 AM Date of : 1985 Age: 38 Procedure: Upper GI endoscopy Indications: Dyspepsia Providers: Delfino Delgado DO Referring MD: Jorge Milligan MD Medicines: Monitored Anesthesia Care Patient Profile: This is a 38 year old female. Refer to note in patient chart for documentation of history and physical. Patient has symptoms of acute epigastric abdominal pain and chronic epigastric abdominal pain. Complications: No immediate complications. Procedure: Pre-Anesthesia Assessment: - Prior to the procedure, a History and Physical was performed, and patient medications and allergies were reviewed. The patient is competent. The risks and benefits of the procedure and the sedation options and risks were discussed with the patient. All questions were answered and informed consent was obtained. Patient identification and proposed procedure were verified by the physician in the pre-procedure area. Mental Status Examination: alert and oriented. Airway Examination: normal oropharyngeal airway and neck mobility. Respiratory Examination: clear to auscultation. CV Examination: normal. Prophylactic Antibiotics: The patient does not require prophylactic antibiotics. Prior Anticoagulants: The patient has taken no anticoagulant or antiplatelet agents except for NSAID medication. ASA Grade Assessment: II - A patient with mild systemic disease. After reviewing the risks and benefits, the patient was deemed in satisfactory condition to undergo the procedure. The anesthesia plan was to use monitored anesthesia care (MAC). Immediately prior to administration of medications, the patient was re-assessed for adequacy to receive sedatives. The heart rate, respiratory rate, oxygen saturations, blood pressure, adequacy of pulmonary ventilation, and response to care were monitored throughout the procedure. The physical status of the patient was re-assessed after the procedure. After obtaining informed consent, the endoscope was passed under direct vision. Throughout the procedure, the patient's blood pressure, pulse, and oxygen saturations were monitored continuously. The pediatric colonoscope was introduced through the mouth, and advanced to the second part of duodenum. The upper GI endoscopy was accomplished without difficulty. The patient tolerated the procedure well. Scope In: 8:36:30 AM Scope Out: 8:41:43 AM Total Procedure Duration Time 0 hours 5 minutes 13 seconds Findings: The examined esophagus was normal. Patchy mildly erythematous mucosa without bleeding was found in the gastric body and in the gastric antrum. Biopsies were taken with a cold forceps for histology. Verification of patient identification for the specimen was done. Biopsies were taken with a cold forceps for Helicobacter pylori testing. Verification of patient identification for the specimen was done. Estimated blood loss was minimal. Patchy mildly erythematous mucosa without active bleeding and with no stigmata of bleeding was found in the duodenal bulb. Biopsies were taken with a cold forceps for histology. Verification of patient identification for the specimen was done. Estimated blood loss was minimal. Impression: - Normal esophagus. - Erythematous mucosa in the gastric body and antrum. Biopsied. - Erythematous duodenopathy. Biopsied. Recommendation: - Discharge patient to home. - Resume previous diet. - Continue present medications. - Await pathology results. Procedure Code(s): --- Professional --- 86137, Esophagogastroduodenoscopy, flexible, transoral; with biopsy, single or multiple CPT copyright 2021 [employer]. All rights reserved. The codes documented in this report are preliminary and upon model builder display review may be revised to meet current compliance requirements. Delfino Delgado DO 07/08/2024 9:01:13 AM This report has been signed electronically. Number of Addenda: 0 Note Initiated On: 07/08/2024 8:28 AM
--- NOTE | 2024-07-08 09:02 | OP.CCLET_ITS ---
07/08/2024 Jorge Milligan MD Re : Upper GI endoscopy procedure for Nohelia Cadena Dear Dr. Milligan This procedure was performed on June. My impressions and recommendations are as follows: Impressions : - Normal esophagus. - Erythematous mucosa in the gastric body and antrum. Biopsied. - Erythematous duodenopathy. Biopsied. Recommendations : - Discharge patient to home. - Resume previous diet. - Continue present medications. - Await pathology results. My findings are described in the full procedure note, which is enclosed. If I can be of further assistance, please feel free to contact me at . Sincerely, Delfino Delgado, 07/08/2024 9:01:13 AM This report has been signed electronically.
--- NOTE | 2024-07-08 09:03 | OP.COLON_ITS ---
Patient Name: Nohelia Cadena Procedure Date: 07/08/2024 8:41 AM Date of : 1985 Age: 38 Procedure: Colonoscopy Indications: Generalized abdominal pain, Epigastric abdominal distress Providers: Delfino Delgado DO Referring MD: Jorge Milligan MD Medicines: Monitored Anesthesia Care Patient Profile: This is a 38 year old female. Refer to note in patient chart for documentation of history and physical. Patient has symptoms of acute epigastric abdominal pain and chronic epigastric abdominal pain. Last Colonoscopy: none. The patient's first colonoscopy is today. Complications: No immediate complications. Procedure: Pre-Anesthesia Assessment: - Prior to the procedure, a History and Physical was performed, and patient medications and allergies were reviewed. The patient is competent. The risks and benefits of the procedure and the sedation options and risks were discussed with the patient. All questions were answered and informed consent was obtained. Patient identification and proposed procedure were verified by the physician in the pre-procedure area. Mental Status Examination: alert and oriented. Airway Examination: normal oropharyngeal airway and neck mobility. Respiratory Examination: clear to auscultation. CV Examination: normal. Prophylactic Antibiotics: The patient does not require prophylactic antibiotics. Prior Anticoagulants: The patient has taken no anticoagulant or antiplatelet agents except for NSAID medication. ASA Grade Assessment: II - A patient with mild systemic disease. After reviewing the risks and benefits, the patient was deemed in satisfactory condition to undergo the procedure. The anesthesia plan was to use monitored anesthesia care (MAC). Immediately prior to administration of medications, the patient was re-assessed for adequacy to receive sedatives. The heart rate, respiratory rate, oxygen saturations, blood pressure, adequacy of pulmonary ventilation, and response to care were monitored throughout the procedure. The physical status of the patient was re-assessed after the procedure. After I obtained informed consent, the scope was passed under direct vision. Throughout the procedure, the patient's blood pressure, pulse, and oxygen saturations were monitored continuously. The pediatric colonoscope was introduced through the anus and advanced to the terminal ileum. The colonoscopy was performed without difficulty. The patient tolerated the procedure well. The quality of the bowel preparation was adequate. The terminal ileum, ileocecal valve, appendiceal orifice, and rectum were photographed. Scope In: 8:43:10 AM Scope Withdrawal Time 0 hours 6 minutes 54 seconds Scope Out: 8:54:45 AM Total Procedure Duration Time 0 hours 11 minutes 35 seconds Findings: The perianal and digital rectal examinations were normal. The colon (entire examined portion) appeared normal. The terminal ileum appeared normal. Biopsies were taken with a cold forceps for histology. Verification of patient identification for the specimen was done. Estimated blood loss was minimal. Impression: - The entire examined colon is normal. - The examined portion of the ileum was normal. Biopsied. Recommendation: - Discharge patient to home. - Resume previous diet. - Continue present medications. - Await pathology results. - Repeat colonoscopy in 10 years for screening purposes. Procedure Code(s): --- Professional --- 23600, Colonoscopy, flexible; with biopsy, single or multiple CPT copyright 2021 [employer]. All rights reserved. The codes documented in this report are preliminary and upon web applications architect review may be revised to meet current compliance requirements. Delfino Delgado DO 07/08/2024 9:02:57 AM This report has been signed electronically. Number of Addenda: 0 Note Initiated On: 07/08/2024 8:41 AM
--- NOTE | 2024-07-08 09:03 | OP.CCLET_ITS ---
07/08/2024 Jorge Milligan MD Re : Colonoscopy procedure for Nohelia Cadena Dear Dr. Milligan This procedure was performed on June. My impressions and recommendations are as follows: Impressions : - The entire examined colon is normal. - The examined portion of the ileum was normal. Biopsied. Recommendations : - Discharge patient to home. - Resume previous diet. - Continue present medications. - Await pathology results. - Repeat colonoscopy in 10 years for screening purposes. My findings are described in the full procedure note, which is enclosed. If I can be of further assistance, please feel free to contact me at . Sincerely, Delfino Delgado, 07/08/2024 9:02:57 AM This report has been signed electronically.
--- NOTE | 2024-07-08 09:04 | PCM.POST.ANE ---
Anesthesia: Postop Eval I Current Vital Signs Temperature: 98.7 F Pulse Rate: 89 Blood Pressure: 95/68 Respiratory Rate: 16 Pulse Ox: 94 Oxygen Delivery Method: Room Air Assessment Airway patent: Yes Spontaneous unlabored respirations: Yes Mental status: Asleep nausea: No Vomiting: No Anesthesia Complication: No Fluid Hydration Crystalloid volume administer (ml): 60 Total IV fluid infused: 60 Progress Note Anesthesia document: Postop Eval 1 completed: Yes
--- NOTE | 2024-07-08 15:13 | PCM.POSTANE2 ---
Anesthesia Postop Eval I Sum Postop Eval Completion status Anesthesia document: Postop Eval 1 completed: Yes Anesthesia Postop Eval I Summary Anesthesia Postop Eval I Summary: Anesthesia Postop Eval I: Assessment Summary Airway patent Yes 07/08/24 09:06 [email or web address] Spontaneous unlabored Yes 07/08/24 09:06 [email or web address] respirations Mental status Asleep 07/08/24 09:06 [email or web address] nausea No 07/08/24 09:06 [email or web address] Vomiting No 07/08/24 09:06 [email or web address] Anesthesia Postop Eval I: Fluid Summary Crystalloid volume administer 60 07/08/24 09:06 [email or web address] (ml) Colloids volume administered ( ml) Blood Product volume administered (ml) Total IV fluid infused 60 07/08/24 09:06 [email or web address] Anesthesia Postop Eval I: Summary Notes Anesthesia Complication No 07/08/24 09:06 [email or web address] Anesthesia Complication Comment: Post-operative progress note Anesthesia: Postop Eval II Evaluation Mental status: Awake and Calm Pain Level: 0 nausea: No Vomiting: No Complications Anesthesia Complication: No
== END 2024-07-08 10:24 | disposition home or self-care (01) ==
LOC: EN 06:07 → AC 06:07
PROVIDERS: Anesthesiology; PCP Family Medicine; Referring Provider Family Medicine; Visit Provider Internal Medicine Gastroenterology
PROC: 0DJD8ZZ Inspection of Lower Intestinal Tract, Via Natural or Artificial Opening Endoscopic (ICD-10-PCS; CPT 45378; principal; 2024-07-08 06:55)
DX: R10.9 Unspecified abdominal pain (principal); R19.4 Change in bowel habit; Z83.79 Family history of other diseases of the digestive system; K29.80 Duodenitis without bleeding; K29.70 Gastritis, unspecified, without bleeding; K21.9 Gastro-esophageal reflux disease without esophagitis
CPT/HCPCS: 45380; 43239; 81025; 84702; 88305; 88342; 93005; A4216; J2405